=== PATIENT | male | born 1950 | race Hispanic/Latino ===

== ENCOUNTER 2018-07-31 13:59 | Inpatient (IN) | payer MEDICARE, BC ==
[2018-07-31] MEDS ORDERED: Albuterol-Ipratrop 3 mg / 0.5 (3 ml) UD IH STA (14:12)
--- NOTE | 2018-07-31 14:19 | ED PDOC ---
Arrival/HPI - General Chief Complaint: Shortness Of Breath Historian: Patient - Critical Care Critical Care Minutes: 45 minutes - History of Present Illness Narrative History of Present Illness (Text): 07/31/18 14:43 68 year old M w/ no apparent past medical history presenting to the Emergency Room for shortness of breath. Per EMS, the patient was found at home having difficulty breathing, noted to be hypoxic to 90% on room air with faint wheezes. He was not given any medication prior to arrival to the Emergency Room. Per EMS, the patient has a poor history of seeing physicians and had been self-medicating with topical cortisone for a chronic skin lesion noted to his R calf. He denies chest pain, abdominal pain, syncopal episodes, back pain, headache, or parasthesias at this time. No PMD Time/Duration: Prior to Arrival Symptom Onset: Sudden Symptom Course: Unchanged Activities at Onset: Rest Context: Home Past Medical History - Provider Review Nursing Documentation Reviewed: Yes - Travel History Have you recently traveled outside [place] w/in the past 3 mons?: No - Musculoskeletal/Rheumatological Hx Arthritis: Yes - Psychiatric Hx Substance Use: No - Anesthesia Hx Anesthesia: No Hx Anesthesia Reactions: No Hx Malignant Hyperthermia: No Family/Social History - Physician Review Nursing Documentation Reviewed: Yes Family/Social History: Unknown Family HX Smoking Status: Never Smoked Hx Alcohol Use: No Hx Substance Use: No Allergies/Home Meds Allergies/Adverse Reactions: Allergies No Known Allergies Allergy (Verified 07/31/18 19:36) Home Medications: Home Meds Medication Instructions Recorded Confirmed RX: No Known Home Med 07/31/18 07/31/18 Review of Systems - Physician Review All systems were reviewed & negative as marked: Yes - Review of Systems Respiratory: SOB, Cough, Wheezing. absent: Sputum Cardiovascular: absent: Chest Pain, Palpitations, Edema Physical Exam Temperature: Afebrile Blood Pressure: Normal Pulse: Regular Respiratory Rate: Mechanically Ventilated Appearance: Positive for: Unkept Pain Distress: None Mental Status: Positive for: Alert and Oriented X 3 - Systems Exam Head: Present: Atraumatic, Normocephalic Pupils: Present: PERRL Extroacular Muscles: Present: EOMI Conjunctiva: Present: Normal Mouth: Present: Dry Pharnyx: Present: Normal Respiratory/Chest: Present: Wheezes (faint expiratory wheezes heard in anterior lung hopper), Tachypneic. No: Good Air Exchange, Respiratory Distress, Retracting Abdomen: Present: Normal Bowel Sounds. No: Tenderness, Distention, Peritoneal Signs Lower Extremity: Present: Edema, Capillary Refill < 2 s, Other (Thickened skin noted to ) Neurological: Present: GCS=15, Speech Normal (able to speak in full sentences) Skin: Present: Warm, Dry, Induration ( Keratotic hankins lesion noted circumferentially to RLE. ). No: Rashes Psychiatric: Present: Alert, Oriented x 3, Normal Insight, Normal Concentration Medical Decision Making ED Course and Treatment: 07/31/18 14:51 Impression 68M w/ exertional dyspnea Differential Diagnoses Includes But Is Not Limited To: --COPD exacerbation --ACS --CHF --Arrhythmia Plan --Labs --CXR --IVF --Blood cultures --VBG --Urinalysis --ICU consult --ABG --Zosyn --Vancomycin --Renal consult --Reassess & disposition Progress Notes 07/31/18 15:30 Labs reviewed with leukocytosis of 23 noted and as well as abg which reveals metabolic acidosis with CO2: 13 and pH:6.98. Code Sepsis called. Zosyn and Vancomycin ordered. BNP elevated to 14,500. Will give gentle fluids. D-Dimer noted to be elevate, but will hold off on CTPE due to declining renal function 07/31/18 15:[address] Kavin Laughlin(repair armature winder helper) who is aware and will come see the patient. Creatinine/BUN noted to be 18.1 & 232 respectively with worry for renal failure. Spoke to Dr. Yisel Osorio(PCP) who accepts patient and requests Dr. Layton(infectious disease) and Dr. Samaniego(nephrology). 07/31/18 15:51 Dr. Laughlin at the bedside evaluating patient. Spoke to Dr. Samaniego who reccommends giving the patient fluids and possibly dialysis tomorrow if kidney profile is unchanged. Relayed message to admitting team. - Lab Interpretations Lab Results: 07/31/18 14:50 07/31/18 14:50 Lab Results 07/31/18 15:15: pCO2 13 L*, pO2 142.0 H, HCO3 3.1 L*, ABG pH 6.98 L*, ABG Total CO2 3.5 L, ABG O2 Saturation 96.7, ABG O2 Content 12.0 L, ABG Base Excess -26.5 L, ABG Hemoglobin 8.7 L, ABG Carboxyhemoglobin 0 L, POC ABG HHb (Measured) 3.3, ABG Methemoglobin 1.0, ABG O2 Capacity 12.4 L, Hgb O2 Saturation 95.6, FiO2 28.0, Blood Gas Comments Walked to er , Crit Value Called To adela Ritchie, Crit Value Called By Ec, Blood Gas Notified Time 1522 07/31/18 14:50: Sodium 131 L, Chloride 96 L, Potassium 5.7 H*, Carbon Dioxide 5 L, Anion Gap 36 H, BUN 232 H*, Creatinine 18.1 H*, Est GFR ( Amer) 3, Est GFR (Non-Af Amer) 3, Random Glucose 136 H, Calcium 7.0 L, Magnesium 1.9, Total Bilirubin 0.8, AST 34, ALT 23, Alkaline Phosphatase 109, Total Creatine Kinase 477 H, CK-MB (CK-2) 25.0 H, CK-MB (CK-2) % 5.2 H, NT-Pro-B Natriuret Pep 39955 H , Total Protein 7.7, Albumin 3.8, Globulin 4.0, Albumin/Globulin Ratio 1.0 L 07/31/18 14:50: pO2 215 H, VBG pH 6.94 L*, VBG pCO2 17.0 L*, VBG HCO3 3.7 L, VBG Total CO2 4.2 L, VBG O2 Sat (Calc) 96.8 H, VBG Base Excess -27.2 L, VBG Potassium 5.6 H, Sodium 125.0 L, Chloride 94.0 L, Glucose 140 H, Lactate 1.2, FiO2 21.0, Crit Value Called To Larissa carlisle, Crit Value Called By Atc, Blood Gas Notified Time 1505, Venous Blood Potassium 5.6 H 07/31/18 14:50: PT 14.3 H, INR 1.29, APTT 38.1, D-Dimer, Quantitative 5760 H 07/31/18 14:50: WBC 23.3 H, RBC 3.16 L, Hgb 9.0 L, Hct 26.2 L, MCV 82.9, MCH 28.5, MCHC 34.4, RDW 14.5, Plt Count 264, MPV 9.5, Neut % (Auto) 91.4 H, Lymph % (Auto) 6.7 L, [place] % (Auto) 1.5, Eos % (Auto) 0.2 L, Baso % (Auto) 0.2, Lymph # (Auto) 1.6, [place] # (Auto) 0.4, Eos # (Auto) 0.0, Baso # (Auto) 0.05, Absolute Neuts (auto) 21.29 H, Neutrophils % (Manual) 85 H, Band Neutrophils % 4 H, Lymphocytes % (Manual) 4 L, Monocytes % (Manual) 6, Metamyelocytes % 1, Platelet Evaluation Normal I have reviewed the lab results: Yes - RAD Interpretation Radiology Orders: 07/31/18 14:13 CHEST PORTABLE [RAD] Stat - Medication Orders Current Medication Orders: Albuterol/Ipratropium (Duoneb 3 Mg/0.5 Mg (3 Ml) Ud) 3 ml IH STAT STA Stop: 07/31/18 14:13 Methylprednisolone (Solu-Medrol) 125 mg IVP STAT STA Stop: 07/31/18 14:14 Disposition/Present on Arrival - Present on Arrival Any Indicators Present on Arrival: No History of DVT/PE: No History of Uncontrolled Diabetes: No Urinary Catheter: No History of Decub. Ulcer: No History Surgical Site Infection Following: None - Disposition Have Diagnosis and Disposition been Completed?: Yes Diagnosis: Acute renal failure, Sepsis Disposition: HOSPITALIZED Disposition Time: 15:51 Patient Plan: ICU Condition: SERIOUS
[2018-07-31] MEDS ORDERED: Albuterol 0.083% Inhal Sol (2.5 mg/3 mL) UD INH STA (14:53)
[2018-07-31] MEDS ORDERED: Sodium Chloride 0.9% 1,000 ML IV STA ×3 (14:57→17:03)
[2018-07-31 15:05] LABS: BASO # 0.05 K/mm3 (0.0-2.0); BASO % 0.2 % (0.0-3.0); EOS % 0.2 % (1.5-5.0); LYMPH # 1.6 (1.2-3.4); LYMPH % 6.7 % (22.0-35.0); MEAN CELL VOLUME 82.9 fl (80.0-105.0); MEAN CORPUSCULAR HEMOGLOBIN 28.5 pg (25.0-35.0); MEAN CORPUSCULAR HGB CONC 34.4 g/dl (31.0-37.0); MEAN PLATELET VOLUME 9.5 fl (7.0-11.0); MONO # 0.4 (0.1-0.6); MONO % 1.5 % (1.0-6.0); PLATELET COUNT 264 10^3/uL (120.0-450.0); RBC 3.16 10^6/uL (3.5-6.1); RED CELL DISTRIBUTION WIDTH 14.5 % (11.5-14.5); WHITE BLOOD COUNT 23.3 10^3/uL (4.5-11.0)
[2018-07-31 15:06] LABS: VENOUS BLOOD GAS BASE EXCESS -27.2 mmol/L (0.0-2.0); VENOUS BLOOD GAS PO2 215 mm/Hg (30-55); VENOUS BLOOD PH 6.94 (7.32-7.43)
[2018-07-31 15:22] LABS: INR 1.29; PARTIAL THROMBOPLASTIN TIME 38.1 Seconds (26.9-38.3); PROTHROMBIN TIME 14.3 SECONDS (9.4-12.5)
[2018-07-31 15:23] LABS: ARTERIAL BLOOD GAS HCO3 3.1 mmol/L (21-28); ARTERIAL BLOOD GAS HEMOGLOBIN 8.7 g/dL (11.7-17.4); ARTERIAL BLOOD GAS O2 CAPACITY 12.4 mL/dl (16-24); ARTERIAL BLOOD GAS O2 SAT 96.7 % (95-98); ARTERIAL BLOOD GAS PCO2 13 mm/Hg (35-45); ARTERIAL BLOOD GAS PH 6.98 (7.35-7.45); ARTERIAL BLOOD GAS TCO2 3.5 mmol.L (22-28)
[2018-07-31] MEDS ORDERED: Piperacill/Tazo 4.5gm in NS 4.5 GM/100 ML BAG IVPB STA (15:29)
[2018-07-31] MEDS ORDERED: Vancomycin 1gm in NS 250ml 1 GM/250 ML BAG IVPB STA (15:29)
[2018-07-31 15:33] LABS: ALBUMIN 3.8 g/dL (3.0-4.8)
[2018-07-31 15:46] LABS: BAND 4 % (0-2); LYMPHOCYTE 4 % (22.0-35.0); METAMYELOCYTE 1 %; MONOCYTE 6 % (1.0-6.0); NEUTROPHIL 85 % (50.0-70.0)
[2018-07-31 15:47] LABS: PLATELET ESTIMATE NORMAL (NORMAL)
--- NOTE | 2018-07-31 15:55 | RAD ---
Date of service: 07/31/2018 HISTORY: sob COMPARISON: No prior. FINDINGS: LUNGS: No active pulmonary disease. PLEURA: No significant pleural effusion identified, no pneumothorax apparent. CARDIOVASCULAR: No aortic atherosclerotic calcification present. Normal cardiac size. Minimal vascular congestion OSSEOUS STRUCTURES: No significant abnormalities. VISUALIZED UPPER ABDOMEN: Normal. OTHER FINDINGS: None. IMPRESSION: No active disease.
[2018-07-31 15:58] LABS: CK MB% 5.2 % (2.5-3.0)
[2018-07-31] MEDS ORDERED: Sodium Bicarbonate (8.4%) 50 Meq Syringe IVP ONE ×2 (16:05→18:46)
[2018-07-31] MEDS ORDERED: Dextrose 50% SYRINGE Inj (50 ml) IVP ONE (16:06)
[2018-07-31] MEDS ORDERED: Insulin Regular 1 UNITS/0.01 ML ML SC ONE (16:06)
--- NOTE | 2018-07-31 16:45 | CP.PCM.CON ---
<JadeKyle - Last Filed: 07/31/18 17:06> History of Present Illness - History of Present Illness History of Present Illness: Kyle Hansen, PGY-1, ICU Consult Note for Dr. Laughlin 68 year old male with past medical history of arthritis and is new to [facility] presents with shortness of breath for 7-10 days. Patient was found by EMS at home with shortness of breath and was hypoxic with O2 saturation of 90% on room air. No medications were given prior to patient arrival at ER. Patient has not risen from his bed due to the difficulty of getting out of bed since April. He ambulates with a walker s/p hip surgery 3 years ago. Patient subsequently developed shortness of breath for 7-10 days but patient denied cough, sputum, fever, or chills. Patient last urinated this AM. But subsequently, he had the urge to urinate but was unable to urinate. He has not urinated since he arrived at the hospital. Patient also reports undescribable chest pain for 3 days in his middle upper chest. Patient is unable to describe the pain or explain what improves or worsens the pain. Patient denies diaphoresis, left arm pain, and jaw pain. He reports nausea and nonbloody, nonbilious vomitingx2 yesterday. Patient reports abdominal pain for the past 3 days but denies constipation or diarrhea. Patient started eating burBag of Ice margarita hamburgers prior to abdominal pain onset. Patient denies fever, chills, headache, heart palpitations, dysuria, hematuria, bilateral lower extremity swelling. 12-point ROS was unremarkable except for what was mentioned above in HPI. BUN/Cr upon presentation was 232/18.1. Potassium was 5.7, Sodium was 131, ABG pH was 6.98, and ABG pCO2 was 13 PMH: as described above PSH: hip surgery 3 years ago FMHx: Mother: ESRD on dialysis SHx: smoked 1 PPD for 40 years with last cigarette in 2011, prior history of alcohol use, no history of recreational drug use Allergies: NKDA PMD: Dr. Beltran Home medications: OTC Allieve and OTC steroid cream for chronic leg rash Review of Systems - Review of Systems Review of Systems: except as mentioned in the HPI Past Patient History - Past Social History Smoking Status: Never Smoked - MUSCULOSKELETAL/RHEUMATOLOGICAL Hx Arthritis: Yes - PSYCHIATRIC Hx Substance Use: No - ANESTHESIA Hx Anesthesia: No Hx Anesthesia Reactions: No Hx Malignant Hyperthermia: No Meds Allergies/Adverse Reactions: Allergies Allergy/AdvReac Type Severity Reaction Status Date / Time No Known Allergies Allergy Verified 07/31/18 19:36 - Medications Medications: Current Medications Vancomycin HCl (Vancomycin 1gm) 1 gm in 250 mls @ 167 mls/hr IVPB STAT STA; Protocol Stop: 07/31/18 16:58 Sodium Chloride (Sodium Chloride 0.9%) 1,000 mls @ 999 mls/hr IV .Q1H1M STA Stop: 07/31/18 17:04 Calcium Gluconate 1,000 mg/ (Dextrose) 110 mls @ 110 mls/hr IVPB ONCE ONE Stop: 07/31/18 17:04 Physical Exam - Constitutional Appears: Well, Non-toxic, No Acute Distress - Head Exam Head Exam: ATRAUMATIC, NORMAL INSPECTION, NORMOCEPHALIC - Eye Exam Eye Exam: EOMI, PERRL - ENT Exam ENT Exam: Mucous Membranes Moist - Respiratory Exam Respiratory Exam: Wheezes (mild diffuse), Respiratory Distress (tachypneic) - Cardiovascular Exam Cardiovascular Exam: REGULAR RHYTHM, RRR - GI/Abdominal Exam GI & Abdominal Exam: Normal Bowel Sounds, Soft. absent: Distended, Tenderness - Extremities Exam Extremities exam: Positive for: full ROM - Neurological Exam Neurological exam: Alert, CN II-XII Intact, Oriented x3 - Psychiatric Exam Psychiatric exam: Normal Affect, Normal Mood - Skin Additional comments: chronic right leg rash with flaky brown lesions Results - Vital Signs Recent Vital Signs: Last Vital Signs Temp Pulse Resp 22 07/31/18 15:01 BP Pulse Ox 100 07/31/18 15:01 - Labs Result Diagrams: 07/31/18 14:50 07/31/18 14:50 Labs: Laboratory Results - last 24 hr 07/31/18 07/31/18 07/31/18 14:50 14:50 14:50 WBC 23.3 H RBC 3.16 L Hgb 9.0 L Hct 26.2 L MCV 82.9 MCH 28.5 MCHC 34.4 RDW 14.5 Plt Count 264 MPV 9.5 Neut % (Auto) 91.4 H Lymph % (Auto) 6.7 L [place] % (Auto) 1.5 Eos % (Auto) 0.2 L Baso % (Auto) 0.2 Lymph # (Auto) 1.6 [place] # (Auto) 0.4 Eos # (Auto) 0.0 Baso # (Auto) 0.05 Absolute Neuts (auto) 21.29 H Neutrophils % (Manual) 85 H Band Neutrophils % 4 H Lymphocytes % (Manual) 4 L Monocytes % (Manual) 6 Metamyelocytes % 1 Platelet Evaluation Normal PT 14.3 H INR 1.29 APTT 38.1 D-Dimer, Quantitative 5760 H pCO2 pO2 215 H HCO3 ABG pH ABG Total CO2 ABG O2 Saturation ABG O2 Content ABG Base Excess ABG Hemoglobin ABG Carboxyhemoglobin POC ABG HHb (Measured) ABG Methemoglobin ABG O2 Capacity VBG pH 6.94 L* VBG pCO2 17.0 L* VBG HCO3 3.7 L VBG Total CO2 4.2 L VBG O2 Sat (Calc) 96.8 H VBG Base Excess -27.2 L VBG Potassium 5.6 H Hgb O2 Saturation Sodium 125.0 L Chloride 94.0 L Glucose 140 H Lactate 1.2 FiO2 21.0 Blood Gas Comments Crit Value Called To Larissa carlisle Crit Value Called By Atc Blood Gas Notified Time 1505 Potassium Carbon Dioxide Anion Gap BUN Creatinine Est GFR ( Amer) Est GFR (Non-Af Amer) Random Glucose Calcium Magnesium Total Bilirubin AST ALT Alkaline Phosphatase Total Creatine Kinase CK-MB (CK-2) CK-MB (CK-2) % NT-Pro-B Natriuret Pep Total Protein Albumin Globulin Albumin/Globulin Ratio Venous Blood Potassium 5.6 H 07/31/18 07/31/18 14:50 15:15 WBC RBC Hgb Hct MCV MCH MCHC RDW Plt Count MPV Neut % (Auto) Lymph % (Auto) [place] % (Auto) Eos % (Auto) Baso % (Auto) Lymph # (Auto) [place] # (Auto) Eos # (Auto) Baso # (Auto) Absolute Neuts (auto) Neutrophils % (Manual) Band Neutrophils % Lymphocytes % (Manual) Monocytes % (Manual) Metamyelocytes % Platelet Evaluation PT INR APTT D-Dimer, Quantitative pCO2 13 L* pO2 142.0 H HCO3 3.1 L* ABG pH 6.98 L* ABG Total CO2 3.5 L ABG O2 Saturation 96.7 ABG O2 Content 12.0 L ABG Base Excess -26.5 L ABG Hemoglobin 8.7 L ABG Carboxyhemoglobin 0 L POC ABG HHb (Measured) 3.3 ABG Methemoglobin 1.0 ABG O2 Capacity 12.4 L VBG pH VBG pCO2 VBG HCO3 VBG Total CO2 VBG O2 Sat (Calc) VBG Base Excess VBG Potassium Hgb O2 Saturation 95.6 Sodium 131 L Chloride 96 L Glucose Lactate FiO2 28.0 Blood Gas Comments Walked to er Crit Value Called To adela Ritchie Crit Value Called By Ec Blood Gas Notified Time 1522 Potassium 5.7 H* Carbon Dioxide 5 L Anion Gap 36 H BUN 232 H* Creatinine 18.1 H* Est GFR ( Amer) 3 Est GFR (Non-Af Amer) 3 Random Glucose 136 H Calcium 7.0 L Magnesium 1.9 Total Bilirubin 0.8 AST 34 ALT 23 Alkaline Phosphatase 109 Total Creatine Kinase 477 H CK-MB (CK-2) 25.0 H CK-MB (CK-2) % 5.2 H NT-Pro-B Natriuret Pep 03475 H Total Protein 7.7 Albumin 3.8 Globulin 4.0 Albumin/Globulin Ratio 1.0 L Venous Blood Potassium Assessment & Plan - Assessment and Plan (Free Text) Assessment: 68 year old male with past medical history of arthritis presents with acute renal failure like 2/2 to rhabdomyolysis vs. acute tubular necrosis from dehydration. Patient is currently receiving IV fluids and sodium bicarbonate drip due to renal failure and severe anion gap metabolic acidosis with appropriate compensation of respiratory alkalosis. Plan: Neuro: -AAOx3, no FND, moving extremities past midline. -Monitor neuro status. -Reorient patient as necessary. Cardio: Elevated BNP 2/2 to CHF vs. pulmonary etiology -BNP: 28879 -EKG: NSR with 1st degree AV block -Echocardiogram: pending -Troponinx3: pending -Maintain MAP>65. -Monitor for S/S, HD compromise. Pulm: Tachypnea due to metabolic acidosis -ABG: pH: 6.98, pO2: 142, pCO2: 13 -CXR: no active disease -Maintain O2 saturation>90%. -Head of bed to 30 degrees -Conservative fluid management -Maintain oral hygiene History of tobacco abuse -Duonebs Q2 PRN for shortness of breath GI: Diet -NPO GI prophylaxis -Protonix 40 mg daily /Nephro: Acute Renal Failure 2/2 to Rhabdomyolysis vs. Acute Tubular Necrosis -BUN/Cr elevated at 232/18.1 with unknown baseline creatinine -CK: elevated 477 -No urine output at this time -Strict I and O with suarez. Measure daily weight -2 L of NS already administered -Administer 1 more L of NS bolus -Administer Sodium bicarbonate drip with 1 amp -As per Dr. Samaniego, if patient's creatinine does not respond appropriately and patient continues to be anuric, he will consider dialysis for tomorrow. -Follow up reevaluation of CMP at 19:00 -Replete electrolytes as needed. -Maintain euvolemia. Hyperkalemia -K: 5.7 -Calcium gluconate, kayexalate, 1 amp of sodium bicarbonate, and insulin 10 U with D50 bolus Endocrinology: -Random glucose: 136 -Maintain euglycemia. Heme/Onc: Anemia -H/H stable at 9/26.2 -Will check CBC at 19:00 due to likely dehydrated status -No signs of HD compromise. -Continue monitoring H/H Elevated D-dimer -Rule out DVT with bilateral lower extremity ultrasound -Avoid CTA to evaluate for PE due to acute renal failure -Avoid V/Q scan to evaluate for PE due to current tachypnea. DVT prophylaxis -heparin 5000 U Q8 ID: -Afebrile, leukocytosis at 23.3 -Blood culture: follow up -Urine Culture: follow up -Procalcitonin: follow up -Lactate: 1.2 -Given one dose of vancomycin and zosyn in the emergency department. -Monitor for signs and symptoms of infection. Patient seen and examined with Dr. Laughlin. - Date & Time Date: 07/31/18 Time: 17:16 <Vladimir Laughlin - Last Filed: 08/01/18 09:59> Meds - Medications Medications: Current Medications Albuterol/Ipratropium (Duoneb 3 Mg/0.5 Mg (3 Ml) Ud) 3 ml IH Q2H PRN PRN Reason: Shortness of Breath Aspirin (Aspirin Chewable) 81 mg PO DAILY [facility] Last Admin: 08/01/18 09:27 Dose: 81 mg Atorvastatin Calcium (Lipitor) 40 mg PO DIN [facility] Calcium Acetate (Phoslo) 2,001 mg PO WM [facility] Darbepoetin Ron (Aranesp) 100 mcg IVP QWK [facility] Heparin Sodium (Porcine) (Heparin) 5,000 units SC Q8 [facility]; Protocol Last Admin: 08/01/18 05:02 Dose: 5,000 units Sodium Bicarbonate 150 meq/ (Sodium Chloride) 1,150 mls @ 150 mls/hr IV .Q7H40M NESTOR Last Admin: 08/01/18 09:43 Dose: 150 mls/hr Cefepime HCl (Maxipime 1gm) 1 gm in 100 mls @ 100 mls/hr IVPB Q24H [facility]; Protocol Last Admin: 07/31/18 20:27 Dose: 100 mls/hr Pantoprazole Sodium (Protonix Inj) 40 mg IVP DAILY [facility] Last Admin: 08/01/18 09:02 Dose: 40 mg Vitamin B Complex/Vit C/Folic Acid (Nephro-Agustina) 1 tab PO 0800 [facility] Results - Vital Signs Recent Vital Signs: Last Vital Signs Temp 96.6 F L 07/31/18 23:16 Pulse 108 H 08/01/18 06:00 Resp 23 07/31/18 22:12 BP 129/61 07/31/18 17:58 Pulse Ox 98 07/31/18 17:58 - Labs Result Diagrams: 08/01/18 05:40 08/01/18 05:40 Labs: Laboratory Results - last 24 hr 07/31/18 07/31/18 07/31/18 14:50 14:50 14:50 WBC 23.3 H RBC 3.16 L Hgb 9.0 L Hct 26.2 L MCV 82.9 MCH 28.5 MCHC 34.4 RDW 14.5 Plt Count 264 MPV 9.5 Neut % (Auto) 91.4 H Lymph % (Auto) 6.7 L [place] % (Auto) 1.5 Eos % (Auto) 0.2 L Baso % (Auto) 0.2 Lymph # (Auto) 1.6 [place] # (Auto) 0.4 Eos # (Auto) 0.0 Baso # (Auto) 0.05 Absolute Neuts (auto) 21.29 H Neutrophils % (Manual) 85 H Band Neutrophils % 4 H Lymphocytes % (Manual) 4 L Monocytes % (Manual) 6 Metamyelocytes % 1 Platelet Evaluation Normal PT 14.3 H INR 1.29 APTT 38.1 D-Dimer, Quantitative 5760 H pCO2 pO2 215 H HCO3 ABG pH ABG Total CO2 ABG O2 Saturation ABG O2 Content ABG Base Excess ABG Hemoglobin ABG Carboxyhemoglobin POC ABG HHb (Measured) ABG Methemoglobin ABG O2 Capacity VBG pH 6.94 L* VBG pCO2 17.0 L* VBG HCO3 3.7 L VBG Total CO2 4.2 L VBG O2 Sat (Calc) 96.8 H VBG Base Excess -27.2 L VBG Potassium 5.6 H Hgb O2 Saturation Sodium 125.0 L Chloride 94.0 L Glucose 140 H Lactate 1.2 FiO2 21.0 Blood Gas Comments Crit Value Called To Larissa carlisle Crit Value Called By Atc Blood Gas Notified Time 1505 Potassium Carbon Dioxide Anion Gap BUN Creatinine Est GFR ( Amer) Est GFR (Non-Af Amer) Random Glucose Calcium Phosphorus Magnesium Total Bilirubin AST ALT Alkaline Phosphatase Total Creatine Kinase CK-MB (CK-2) CK-MB (CK-2) % Troponin I NT-Pro-B Natriuret Pep Total Protein Albumin Globulin Albumin/Globulin Ratio Procalcitonin Venous Blood Potassium 5.6 H Urine Color Urine Appearance Urine pH Ur Specific [place] Urine Protein Urine Glucose (UA) Urine Ketones Urine Blood Urine Nitrate Urine Bilirubin Urine Urobilinogen Ur Leukocyte Esterase Urine RBC Urine WBC Ur Epithelial Cells Urine Bacteria 07/31/18 07/31/18 07/31/18 14:50 15:15 17:56 WBC RBC Hgb Hct MCV MCH MCHC RDW Plt Count MPV Neut % (Auto) Lymph % (Auto) [place] % (Auto) Eos % (Auto) Baso % (Auto) Lymph # (Auto) [place] # (Auto) Eos # (Auto) Baso # (Auto) Absolute Neuts (auto) Neutrophils % (Manual) Band Neutrophils % Lymphocytes % (Manual) Monocytes % (Manual) Metamyelocytes % Platelet Evaluation PT INR APTT D-Dimer, Quantitative pCO2 13 L* pO2 142.0 H HCO3 3.1 L* ABG pH 6.98 L* ABG Total CO2 3.5 L ABG O2 Saturation 96.7 ABG O2 Content 12.0 L ABG Base Excess -26.5 L ABG Hemoglobin 8.7 L ABG Carboxyhemoglobin 0 L POC ABG HHb (Measured) 3.3 ABG Methemoglobin 1.0 ABG O2 Capacity 12.4 L VBG pH VBG pCO2 VBG HCO3 VBG Total CO2 VBG O2 Sat (Calc) VBG Base Excess VBG Potassium Hgb O2 Saturation 95.6 Sodium 131 L 131 L Chloride 96 L 97 L Glucose Lactate FiO2 28.0 Blood Gas Comments Walked to er Crit Value Called To adela Ritchie Crit Value Called By Ec Blood Gas Notified Time 1522 Potassium 5.7 H* 5.4 H Carbon Dioxide 5 L < 5 L Anion Gap 36 H 34 H BUN 232 H* 230 H* Creatinine 18.1 H* 18.3 H* Est GFR ( Amer) 3 3 Est GFR (Non-Af Amer) 3 3 Random Glucose 136 H 211 H Calcium 7.0 L 6.7 L* Phosphorus 13.4 H Magnesium 1.9 2.0 Total Bilirubin 0.8 0.9 AST 34 29 ALT 23 26 Alkaline Phosphatase 109 105 Total Creatine Kinase 477 H CK-MB (CK-2) 25.0 H CK-MB (CK-2) % 5.2 H Troponin I 0.11 NT-Pro-B Natriuret Pep 48104 H Total Protein 7.7 7.3 Albumin 3.8 3.6 Globulin 4.0 3.7 Albumin/Globulin Ratio 1.0 L 1.0 L Procalcitonin Venous Blood Potassium Urine Color Urine Appearance Urine pH Ur Specific [place] Urine Protein Urine Glucose (UA) Urine Ketones Urine Blood Urine Nitrate Urine Bilirubin Urine Urobilinogen Ur Leukocyte Esterase Urine RBC Urine WBC Ur Epithelial Cells Urine Bacteria 07/31/18 07/31/18 07/31/18 18:00 18:14 18:14 WBC 21.9 H RBC 3.04 L Hgb 8.6 L Hct 25.2 L MCV 82.9 MCH 28.3 MCHC 34.1 RDW 14.6 H Plt Count 268 MPV 9.7 Neut % (Auto) 93.9 H Lymph % (Auto) 4.4 L [place] % (Auto) 1.6 Eos % (Auto) 0.0 L Baso % (Auto) 0.1 Lymph # (Auto) 1.0 L [place] # (Auto) 0.4 Eos # (Auto) 0.0 Baso # (Auto) 0.03 Absolute Neuts (auto) 20.56 H Neutrophils % (Manual) Band Neutrophils % Lymphocytes % (Manual) Monocytes % (Manual) Metamyelocytes % Platelet Evaluation PT INR APTT D-Dimer, Quantitative pCO2 pO2 110 H HCO3 ABG pH ABG Total CO2 ABG O2 Saturation ABG O2 Content ABG Base Excess ABG Hemoglobin ABG Carboxyhemoglobin POC ABG HHb (Measured) ABG Methemoglobin ABG O2 Capacity VBG pH 6.93 L* VBG pCO2 16.0 L* VBG HCO3 3.4 L VBG Total CO2 3.9 L VBG O2 Sat (Calc) 96.2 H VBG Base Excess -27.7 L VBG Potassium 5.6 H Hgb O2 Saturation Sodium 126.0 L Chloride 95.0 L Glucose 215 H Lactate 1.4 FiO2 21.0 Blood Gas Comments Crit Value Called To Kristina abarca Crit Value Called By [facility] Blood Gas Notified Time 1825 Potassium Carbon Dioxide Anion Gap BUN Creatinine Est GFR ( Amer) Est GFR (Non-Af Amer) Random Glucose Calcium Phosphorus Magnesium Total Bilirubin AST ALT Alkaline Phosphatase Total Creatine Kinase CK-MB (CK-2) CK-MB (CK-2) % Troponin I NT-Pro-B Natriuret Pep Total Protein Albumin Globulin Albumin/Globulin Ratio Procalcitonin 1.89 H Venous Blood Potassium 5.6 H Urine Color Urine Appearance Urine pH Ur Specific [place] Urine Protein Urine Glucose (UA) Urine Ketones Urine Blood Urine Nitrate Urine Bilirubin Urine Urobilinogen Ur Leukocyte Esterase Urine RBC Urine WBC Ur Epithelial Cells Urine Bacteria 07/31/18 07/31/18 08/01/18 22:42 23:15 05:40 WBC RBC Hgb Hct MCV MCH MCHC RDW Plt Count MPV Neut % (Auto) Lymph % (Auto) [place] % (Auto) Eos % (Auto) Baso % (Auto) Lymph # (Auto) [place] # (Auto) Eos # (Auto) Baso # (Auto) Absolute Neuts (auto) Neutrophils % (Manual) Band Neutrophils % Lymphocytes % (Manual) Monocytes % (Manual) Metamyelocytes % Platelet Evaluation PT INR APTT D-Dimer, Quantitative pCO2 pO2 HCO3 ABG pH ABG Total CO2 ABG O2 Saturation ABG O2 Content ABG Base Excess ABG Hemoglobin ABG Carboxyhemoglobin POC ABG HHb (Measured) ABG Methemoglobin ABG O2 Capacity VBG pH VBG pCO2 VBG HCO3 VBG Total CO2 VBG O2 Sat (Calc) VBG Base Excess VBG Potassium Hgb O2 Saturation Sodium 136 Chloride 103 Glucose Lactate FiO2 Blood Gas Comments Crit Value Called To Crit Value Called By Blood Gas Notified Time Potassium 4.7 Carbon Dioxide 7 L D Anion Gap 30 H BUN 234 H* Creatinine 16.6 H* Est GFR ( Amer) 4 Est GFR (Non-Af Amer) 3 Random Glucose 155 H Calcium 6.5 L* Phosphorus 11.9 H Magnesium 1.7 Total Bilirubin 0.8 AST 39 ALT 23 Alkaline Phosphatase 86 Total Creatine Kinase CK-MB (CK-2) CK-MB (CK-2) % Troponin I 0.27 H* D 0.95 H* D NT-Pro-B Natriuret Pep Total Protein 6.6 Albumin 3.3 Globulin 3.4 Albumin/Globulin Ratio 1.0 L Procalcitonin Venous Blood Potassium Urine Color Light yellow Urine Appearance Sl cloudy Urine pH 6.0 Ur Specific [place] 1.020 Urine Protein Trace H Urine Glucose (UA) Negative Urine Ketones Negative Urine Blood Moderate H Urine Nitrate Negative Urine Bilirubin Negative Urine Urobilinogen 0.2 Ur Leukocyte Esterase Moderate H Urine RBC 2 - 5 H Urine WBC 25 - 30 H Ur Epithelial Cells 0 - 2 Urine Bacteria Few 08/01/18 08/01/18 05:40 06:20 WBC 12.3 H D RBC 2.76 L Hgb 7.7 L Hct 22.2 L MCV 80.4 MCH 27.9 MCHC 34.7 RDW 14.3 Plt Count 239 MPV 9.4 Neut % (Auto) 95.8 H Lymph % (Auto) 3.4 L [place] % (Auto) 0.7 L Eos % (Auto) 0.1 L Baso % (Auto) 0.0 Lymph # (Auto) 0.4 L [place] # (Auto) 0.1 Eos # (Auto) 0.0 Baso # (Auto) 0.00 Absolute Neuts (auto) 11.79 H Neutrophils % (Manual) Band Neutrophils % Lymphocytes % (Manual) Monocytes % (Manual) Metamyelocytes % Platelet Evaluation PT INR APTT D-Dimer, Quantitative pCO2 13 L* pO2 154.0 H HCO3 5.3 L* ABG pH 7.22 L ABG Total CO2 5.7 L ABG O2 Saturation 96.2 ABG O2 Content 9.0 L ABG Base Excess -20.5 L ABG Hemoglobin 6.4 L ABG Carboxyhemoglobin 0 L POC ABG HHb (Measured) 3.8 ABG Methemoglobin 0.9 ABG O2 Capacity 9.4 L VBG pH VBG pCO2 VBG HCO3 VBG Total CO2 VBG O2 Sat (Calc) VBG Base Excess VBG Potassium Hgb O2 Saturation 95.4 Sodium Chloride Glucose Lactate FiO2 28.0 Blood Gas Comments Crit Value Called To Sherin garcia rn icu Crit Value Called By Constantino Blood Gas Notified Time 633 Potassium Carbon Dioxide Anion Gap BUN Creatinine Est GFR ( Amer) Est GFR (Non-Af Amer) Random Glucose Calcium Phosphorus Magnesium Total Bilirubin AST ALT Alkaline Phosphatase Total Creatine Kinase CK-MB (CK-2) CK-MB (CK-2) % Troponin I NT-Pro-B Natriuret Pep Total Protein Albumin Globulin Albumin/Globulin Ratio Procalcitonin Venous Blood Potassium Urine Color Urine Appearance Urine pH Ur Specific [place] Urine Protein Urine Glucose (UA) Urine Ketones Urine Blood Urine Nitrate Urine Bilirubin Urine Urobilinogen Ur Leukocyte Esterase Urine RBC Urine WBC Ur Epithelial Cells Urine Bacteria Addendum Addendum: 07/31/18 15:58 ICU Attending Addendum Patient seen and examined on 07/31 in the ED. Case reviewed on round with nona nugent. Agree with resident note above with the following additions/exceptions 68M presents with lethargy and poor PO intake found to be in severe metabolic acidosis from acute renal failure likely ATN from dehydration. Will fluid challenege with 3-4L NS and bicarb drip. He is breathing fast to compensate but does not appear to be failing. Hold off on intubation. Nephro on board for evaluation of HD for acidosis and hyperK. Will rule out ACS and sepsis as well. Repeat VBG in 2 hours as well as repeat chem check TNI [place] culture 3L NS at leastbicarb drip insert suarez f/u nephro recs f/u DVT study Rest of care as above Vladimir Laughlin MD Pulmonary Critical Care Attending Critical Care Time: 31 mins 07/31/18 17:59
[2018-07-31] MEDS ORDERED: Albuterol-Ipratrop 3 mg / 0.5 (3 ml) UD IH PRN (17:04)
[2018-07-31 18:20] LABS: BASO # 0.03 K/mm3 (0.0-2.0); BASO % 0.1 % (0.0-3.0); HEMOGLOBIN 8.6 g/dL (14.0-18.0); LYMPH % 4.4 % (22.0-35.0); MEAN CELL VOLUME 82.9 fl (80.0-105.0); MEAN CORPUSCULAR HEMOGLOBIN 28.3 pg (25.0-35.0); MEAN CORPUSCULAR HGB CONC 34.1 g/dl (31.0-37.0); MEAN PLATELET VOLUME 9.7 fl (7.0-11.0); MONO # 0.4 (0.1-0.6); MONO % 1.6 % (1.0-6.0); RBC 3.04 10^6/uL (3.5-6.1); RED CELL DISTRIBUTION WIDTH 14.6 % (11.5-14.5); WHITE BLOOD COUNT 21.9 10^3/uL (4.5-11.0)
[2018-07-31 18:26] LABS: TROPONIN I 0.11 ng/mL
[2018-07-31 18:29] LABS: VENOUS BLOOD GAS BASE EXCESS -27.7 mmol/L (0.0-2.0); VENOUS BLOOD GAS PO2 110 mm/Hg (30-55); VENOUS BLOOD PH 6.93 (7.32-7.43)
[2018-07-31 18:31] LABS: ALBUMIN 3.6 g/dL (3.0-4.8); ALT/SGPT 26 U/L (7-56); AST/SGOT 29 U/L (17-59); BLOOD UREA NITROGEN 230 mg/dL (7-21); CALCIUM 6.7 mg/dL (8.4-10.5); GFR NON-AFRICAN AMERICAN 3
[2018-07-31] MEDS ORDERED: Vancomycin 1.5 GM in Sodium Chloride 0.9% 500 ML IVPB ONE (18:38)
--- NOTE | 2018-07-31 18:45 | PCM.SEPTIC ---
Sepsis Progress Note - Reassessment Type Date of Evaluation: 07/31/18 Time of Evaluation: 18:30 Reassessment Type: Non-invasive reassessment - Non Invasive Reassessment Were the most recent vital sign reviewed: Yes Vital Sign (Latest): Temp Pulse Resp BP Pulse Ox 94.1 F L 97 H 21 129/61 98 07/31/18 18:33 07/31/18 17:58 07/31/18 17:58 07/31/18 17:58 07/31/18 17:58 Cardiovascular: Yes: Tachycardia. No: Gallop, JVD, Murmur, Friction Rub Respiratory: Yes: Wheezing (expiratory), Other (tachypnic). No: Accessory Muscle Use Capillary Refill: Normal (Less than 2 sec) Skin: Normal Color, Warm, Dry
[2018-07-31] MEDS ORDERED: Albuterol-Ipratrop 3 mg / 0.5 (3 ml) UD IH SCH (20:00)
[2018-07-31] MEDS: Cefepime 1gm in NS 100ml 1 GM/100 ML BAG IVPB SCH (20:27)
[2018-07-31 22:43] VITALS: BMI 33.2
[2018-07-31] MEDS ORDERED: Influenza Vaccine 60 mcg/0.5 mL SYR (4YR UP) IM ONE (22:43)
[2018-07-31] MEDS ORDERED: Pneumococcal 23-Valent Vaccine IM ONE (22:43)
[2018-07-31 22:47] LABS: URINE BILIRUBIN NEGATIVE (NEGATIVE); URINE BLOOD MODERATE (NEGATIVE); URINE GLUCOSE (UA) NEGATIVE (NEGATIVE); URINE LEUKOCYTE ESTERASE MODERATE Leu/uL (NEGATIVE); URINE PROTEIN TRACE mg/dL (<30 mg/dL); URINE UROBILINOGEN 0.2 E.U./dL (<1 E.U./dL)
[2018-07-31 22:49] LABS: URINE APPEARANCE SL CLOUDY (CLEAR); URINE COLOR LIGHT YELLOW (YELLOW)
[2018-07-31 22:57] LABS: URINE WBC 25 - 30 /hpf (0-6)
[2018-07-31 22:58] LABS: URINE BACTERIA FEW /hpf; URINE EPITHELIAL CELLS 0 - 2 /hpf (0-5)
--- NOTE | 2018-07-31 23:55 | CARD ---
APPROVED REPORT Date of service: 07/31/2018 EKG Measurement Heart [id number] <Conclusion> Sinus rhythm with 1st degree AV block Nonspecific ST and T wave abnormality Prolonged QT Abnormal ECG
[2018-08-01 06:33] LABS: ARTERIAL BLOOD GAS HCO3 5.3 mmol/L (21-28); ARTERIAL BLOOD GAS HEMOGLOBIN 6.4 g/dL (11.7-17.4); ARTERIAL BLOOD GAS O2 CAPACITY 9.4 mL/dl (16-24); ARTERIAL BLOOD GAS O2 SAT 96.2 % (95-98); ARTERIAL BLOOD GAS PCO2 13 mm/Hg (35-45); ARTERIAL BLOOD GAS PH 7.22 (7.35-7.45); ARTERIAL BLOOD GAS TCO2 5.7 mmol.L (22-28)
[2018-08-01 06:58] LABS: EOS % 0.1 % (1.5-5.0); HEMOGLOBIN 7.7 g/dL (14.0-18.0); LYMPH # 0.4 (1.2-3.4); LYMPH % 3.4 % (22.0-35.0); MEAN CELL VOLUME 80.4 fl (80.0-105.0); MEAN CORPUSCULAR HEMOGLOBIN 27.9 pg (25.0-35.0); MEAN CORPUSCULAR HGB CONC 34.7 g/dl (31.0-37.0); MEAN PLATELET VOLUME 9.4 fl (7.0-11.0); MONO # 0.1 (0.1-0.6); MONO % 0.7 % (1.0-6.0); RBC 2.76 10^6/uL (3.5-6.1); RED CELL DISTRIBUTION WIDTH 14.3 % (11.5-14.5); WHITE BLOOD COUNT 12.3 10^3/uL (4.5-11.0)
[2018-08-01 08:07] LABS: ALBUMIN 3.3 g/dL (3.0-4.8); CALCIUM 6.5 mg/dL (8.4-10.5); TROPONIN I 0.95 ng/mL
[2018-08-01] MEDS ORDERED: Darbepoetin Alfa 100 mcg/ml Inj IVP SCH (10:00)
--- NOTE | 2018-08-01 10:32 | CP.CCUPN ---
<Kyle Hansen - Last Filed: 08/01/18 13:36> CCU Subjective - Physician Review Subjective (Free Text): Kyle Hansen, PGY-1 ICU Progress Note for Dr. Sims Patient seen and evaluated at bedside. No acute overnight events. Patient reports improved chest pain and shortness of breath. Patient denies headache, fever, heart palpitations, left arm pain, jaw pain, nausea, vomiting, constipation, abdominal pain, dysuria, hematuria. 12-point ROS was negative except for what was mentioned above. CCU Objective - Vital Signs / Intake & Output Intake and Output (Last 8hrs): Intake & Output 07/31/18 08/01/18 08/01/18 22:59 06:59 14:59 Intake Total 5370 Output Total 700 Balance 4670 Weight 225 lb 225 lb Intake: IV 5250 Left Wrist 1800 Right Forearm 3450 Oral 120 Output: Urine 700 Urethral (Suarez) 700 Stool 0 Emesis 0 Other: Voiding Method Urinal - Physical Exam Head: Positive for: Atraumatic, Normocephalic Pupils: Positive for: PERRL Extroacular Muscles: Positive for: EOMI Conjunctiva: Positive for: Normal Mouth: Positive for: Dry Pharnyx: Positive for: Normal Respiratory/Chest: Positive for: Tachypneic (but improved). Negative for: Good Air Exchange, Respiratory Distress, Retracting Abdomen: Positive for: Normal Bowel Sounds. Negative for: Tenderness, Distention, Peritoneal Signs Lower Extremity: Positive for: Edema, Capillary Refill < 2 s, Other (Thickened skin noted to right lower extremity) Neurological: Positive for: GCS=15, Speech Normal (able to speak in full sentences) Skin: Positive for: Warm, Dry, Normal Color. Negative for: Rashes Psychiatric: Positive for: Alert, Oriented x 3, Normal Insight, Normal Concentration - Medications Active Medications: Active Medications Generic Name Dose Route Start Last Admin Trade Name Freq PRN Reason Stop Dose Admin Albuterol/Ipratropium 3 ml 07/31/18 17:04 Duoneb 3 Mg/0.5 Mg (3 Ml) Ud IH Q2H PRN Shortness of Breath Aspirin 81 mg 08/01/18 10:00 08/01/18 09:27 Aspirin Chewable PO 81 mg DAILY NESTOR Administration Atorvastatin Calcium 40 mg 08/01/18 17:00 Lipitor PO DIN NESTOR Calcium Acetate 2,001 mg 08/01/18 12:00 Phoslo PO WM NESTOR Darbepoetin Ron 100 mcg 08/01/18 10:00 Aranesp IVP QWK NESTOR Heparin Sodium (Porcine) 5,000 units 07/31/18 22:00 08/01/18 05:02 Heparin SC 5,000 units Q8 NESTOR Administration Protocol Sodium Bicarbonate 150 meq/ 1,150 mls @ 150 mls/hr 07/31/18 16:45 08/01/18 09:43 Sodium Chloride IV 150 mls/hr .[id number] NESTOR Administration Cefepime HCl 1 gm in 100 mls @ 100 mls/hr 07/31/18 18:45 07/31/18 20:27 Maxipime 1gm IVPB 100 mls/hr Q24H [facility] Administration Protocol Pantoprazole Sodium 40 mg 08/01/18 10:00 08/01/18 09:02 Protonix Inj IVP 40 mg DAILY NESTOR Administration Vitamin B Complex/Vit C/Folic Acid 1 tab 08/02/18 08:00 Nephro-Agustina PO 0800 [facility] - Patient Studies Lab Studies: Lab Studies 08/01/18 08/01/18 08/01/18 Range/Units 06:20 05:40 05:40 WBC 12.3 H D (4.5-11.0) 10^3/uL RBC 2.76 L (3.5-6.1) 10^6/uL Hgb 7.7 L (14.0-18.0) g/dL Hct 22.2 L (42.0-52.0) % MCV 80.4 (80.0-105.0) fl MCH 27.9 (25.0-35.0) pg MCHC 34.7 (31.0-37.0) g/dl RDW 14.3 (11.5-14.5) % Plt Count 239 (120.0-450.0) 10^3/uL MPV 9.4 (7.0-11.0) fl Neut % (Auto) 95.8 H (50.0-68.0) % Lymph % (Auto) 3.4 L (22.0-35.0) % Dixie % (Auto) 0.7 L (1.0-6.0) % Eos % (Auto) 0.1 L (1.5-5.0) % Baso % (Auto) 0.0 (0.0-3.0) % Lymph # (Auto) 0.4 L (1.2-3.4) [place] # (Auto) 0.1 (0.1-0.6) Eos # (Auto) 0.0 (0.0-0.7) Baso # (Auto) 0.00 (0.0-2.0) K/mm3 Absolute Neuts (auto) 11.79 H (1.4-6.5) Neutrophils % (Manual) (50.0-70.0) % Band Neutrophils % (0-2) % Lymphocytes % (Manual) (22.0-35.0) % Monocytes % (Manual) (1.0-6.0) % Metamyelocytes % % Platelet Evaluation (NORMAL) PT (9.4-12.5) SECONDS INR APTT (26.9-38.3) Seconds D-Dimer, Quantitative (0-243) ng/mlDDU pCO2 13 L* (35-45) mm/Hg pO2 154.0 H (30-55) mm/Hg HCO3 5.3 L* (21-28) mmol/L ABG pH 7.22 L (7.35-7.45) ABG Total CO2 5.7 L (22-28) mmol.L ABG O2 Saturation 96.2 (95-98) % ABG O2 Content 9.0 L (15-23) ML/dl ABG Base Excess -20.5 L (-2.0-3.0) mmol/L ABG Hemoglobin 6.4 L (11.7-17.4) g/dL ABG Carboxyhemoglobin 0 L (0.5-1.5) % POC ABG HHb (Measured) 3.8 (0-5) % ABG Methemoglobin 0.9 (0.0-3.0) % ABG O2 Capacity 9.4 L (16-24) mL/dl VBG pH (7.32-7.43) VBG pCO2 (40-60) VBG HCO3 (21-28) mmol/l VBG Total CO2 (22-28) mmol.L VBG O2 Sat (Calc) (40-65) % VBG Base Excess (0.0-2.0) mmol/L VBG Potassium (3.6-5.2) mmol/L Hgb O2 Saturation 95.4 (95.0-98.0) % Sodium 136 (132-148) mmol/L Chloride 103 (98-107) mmol/L Glucose (75-110) mg/dl Lactate (0.7-2.1) mmol/L FiO2 28.0 % Blood Gas Comments Crit Value Called To Sherin garcia rn icu Crit Value Called By Constantino Blood Gas Notified Time 633 Potassium 4.7 (3.6-5.0) mmol/L Carbon Dioxide 7 L D (21-33) mmol/L Anion Gap 30 H (10-20) BUN 234 H* (7-21) mg/dL Creatinine 16.6 H* (0.8-1.5) mg/dl Est GFR ( Amer) 4 Est GFR (Non-Af Amer) 3 Random Glucose 155 H (70-110) mg/dL Calcium 6.5 L* (8.4-10.5) mg/dL Phosphorus 11.9 H (2.5-4.5) mg/dL Magnesium 1.7 (1.7-2.2) mg/dL Total Bilirubin 0.8 (0.2-1.3) mg/dL AST 39 (17-59) U/L ALT 23 (7-56) U/L Alkaline Phosphatase 86 (38-126) U/L Total Creatine Kinase (35-230) U/L CK-MB (CK-2) (0.0-3.6) ng/mL CK-MB (CK-2) % (2.5-3.0) % Troponin I 0.95 H* D ng/mL NT-Pro-B Natriuret Pep (0-450) pg/mL Total Protein 6.6 (5.8-8.3) g/dL Albumin 3.3 (3.0-4.8) g/dL Globulin 3.4 gm/dL Albumin/Globulin Ratio 1.0 L (1.1-1.8) Procalcitonin (0.19-0.49) NG/ML Venous Blood Potassium (3.6-5.2) mmol/L Urine Color (YELLOW) Urine Appearance (CLEAR) Urine pH (4.7-8.0) Ur Specific [place] (1.005-1.035) Urine Protein (<30 mg/dL) mg/dL Urine Glucose (UA) (NEGATIVE) mg/dL Urine Ketones (NEGATIVE) mg/dL Urine Blood (NEGATIVE) Urine Nitrate (NEGATIVE) Urine Bilirubin (NEGATIVE) Urine Urobilinogen (<1 E.U./dL) E.U./dL Ur Leukocyte Esterase (NEGATIVE) Moshe/uL Urine RBC (0-2) /hpf Urine WBC (0-6) /hpf Ur Epithelial Cells (0-5) /hpf Urine Bacteria (NONE) /hpf 07/31/18 07/31/18 07/31/18 Range/Units 23:15 22:42 18:14 WBC 21.9 H (4.5-11.0) 10^3/uL RBC 3.04 L (3.5-6.1) 10^6/uL Hgb 8.6 L (14.0-18.0) g/dL Hct 25.2 L (42.0-52.0) % MCV 82.9 (80.0-105.0) fl MCH 28.3 (25.0-35.0) pg MCHC 34.1 (31.0-37.0) g/dl RDW 14.6 H (11.5-14.5) % Plt Count 268 (120.0-450.0) 10^3/uL MPV 9.7 (7.0-11.0) fl Neut % (Auto) 93.9 H (50.0-68.0) % Lymph % (Auto) 4.4 L (22.0-35.0) % Dixie % (Auto) 1.6 (1.0-6.0) % Eos % (Auto) 0.0 L (1.5-5.0) % Baso % (Auto) 0.1 (0.0-3.0) % Lymph # (Auto) 1.0 L (1.2-3.4) Dix[place] # (Auto) 0.4 (0.1-0.6) Eos # (Auto) 0.0 (0.0-0.7) Baso # (Auto) 0.03 (0.0-2.0) K/mm3 Absolute Neuts (auto) 20.56 H (1.4-6.5) Neutrophils % (Manual) (50.0-70.0) % Band Neutrophils % (0-2) % Lymphocytes % (Manual) (22.0-35.0) % Monocytes % (Manual) (1.0-6.0) % Metamyelocytes % % Platelet Evaluation (NORMAL) PT (9.4-12.5) SECONDS INR APTT (26.9-38.3) Seconds D-Dimer, Quantitative (0-243) ng/mlDDU pCO2 (35-45) mm/Hg pO2 (30-55) mm/Hg HCO3 (21-28) mmol/L ABG pH (7.35-7.45) ABG Total CO2 (22-28) mmol.L ABG O2 Saturation (95-98) % ABG O2 Content (15-23) ML/dl ABG Base Excess (-2.0-3.0) mmol/L ABG Hemoglobin (11.7-17.4) g/dL ABG Carboxyhemoglobin (0.5-1.5) % POC ABG HHb (Measured) (0-5) % ABG Methemoglobin (0.0-3.0) % ABG O2 Capacity (16-24) mL/dl VBG pH (7.32-7.43) VBG pCO2 (40-60) VBG HCO3 (21-28) mmol/l VBG Total CO2 (22-28) mmol.L VBG O2 Sat (Calc) (40-65) % VBG Base Excess (0.0-2.0) mmol/L VBG Potassium (3.6-5.2) mmol/L Hgb O2 Saturation (95.0-98.0) % Sodium (132-148) mmol/L Chloride (98-107) mmol/L Glucose (75-110) mg/dl Lactate (0.7-2.1) mmol/L FiO2 % Blood Gas Comments Crit Value Called To Crit Value Called By Blood Gas Notified Time Potassium (3.6-5.0) mmol/L Carbon Dioxide (21-33) mmol/L Anion Gap (10-20) BUN (7-21) mg/dL Creatinine (0.8-1.5) mg/dl Est GFR ( Amer) Est GFR (Non-Af Amer) Random Glucose (70-110) mg/dL Calcium (8.4-10.5) mg/dL Phosphorus (2.5-4.5) mg/dL Magnesium (1.7-2.2) mg/dL Total Bilirubin (0.2-1.3) mg/dL AST (17-59) U/L ALT (7-56) U/L Alkaline Phosphatase (38-126) U/L Total Creatine Kinase (35-230) U/L CK-MB (CK-2) (0.0-3.6) ng/mL CK-MB (CK-2) % (2.5-3.0) % Troponin I 0.27 H* D ng/mL NT-Pro-B Natriuret Pep (0-450) pg/mL Total Protein (5.8-8.3) g/dL Albumin (3.0-4.8) g/dL Globulin gm/dL Albumin/Globulin Ratio (1.1-1.8) Procalcitonin (0.19-0.49) NG/ML Venous Blood Potassium (3.6-5.2) mmol/L Urine Color Light yellow (YELLOW) Urine Appearance Sl cloudy (CLEAR) Urine pH 6.0 (4.7-8.0) Ur Specific [place] 1.020 (1.005-1.035) Urine Protein Trace H (<30 mg/dL) mg/dL Urine Glucose (UA) Negative (NEGATIVE) mg/dL Urine Ketones Negative (NEGATIVE) mg/dL Urine Blood Moderate H (NEGATIVE) Urine Nitrate Negative (NEGATIVE) Urine Bilirubin Negative (NEGATIVE) Urine Urobilinogen 0.2 (<1 E.U./dL) E.U./dL Ur Leukocyte Esterase Moderate H (NEGATIVE) Moshe/uL Urine RBC 2 - 5 H (0-2) /hpf Urine WBC 25 - 30 H (0-6) /hpf Ur Epithelial Cells 0 - 2 (0-5) /hpf Urine Bacteria Few (NONE) /hpf 07/31/18 07/31/18 07/31/18 Range/Units 18:14 18:00 17:56 WBC (4.5-11.0) 10^3/uL RBC (3.5-6.1) 10^6/uL Hgb (14.0-18.0) g/dL Hct (42.0-52.0) % MCV (80.0-105.0) fl MCH (25.0-35.0) pg MCHC (31.0-37.0) g/dl RDW (11.5-14.5) % Plt Count (120.0-450.0) 10^3/uL MPV (7.0-11.0) fl Neut % (Auto) (50.0-68.0) % Lymph % (Auto) (22.0-35.0) % Dixie % (Auto) (1.0-6.0) % Eos % (Auto) (1.5-5.0) % Baso % (Auto) (0.0-3.0) % Lymph # (Auto) (1.2-3.4) [place] # (Auto) (0.1-0.6) Eos # (Auto) (0.0-0.7) Baso # (Auto) (0.0-2.0) K/mm3 Absolute Neuts (auto) (1.4-6.5) Neutrophils % (Manual) (50.0-70.0) % Band Neutrophils % (0-2) % Lymphocytes % (Manual) (22.0-35.0) % Monocytes % (Manual) (1.0-6.0) % Metamyelocytes % % Platelet Evaluation (NORMAL) PT (9.4-12.5) SECONDS INR APTT (26.9-38.3) Seconds D-Dimer, Quantitative (0-243) ng/mlDDU pCO2 (35-45) mm/Hg pO2 110 H (30-55) mm/Hg HCO3 (21-28) mmol/L ABG pH (7.35-7.45) ABG Total CO2 (22-28) mmol.L ABG O2 Saturation (95-98) % ABG O2 Content (15-23) ML/dl ABG Base Excess (-2.0-3.0) mmol/L ABG Hemoglobin (11.7-17.4) g/dL ABG Carboxyhemoglobin (0.5-1.5) % POC ABG HHb (Measured) (0-5) % ABG Methemoglobin (0.0-3.0) % ABG O2 Capacity (16-24) mL/dl VBG pH 6.93 L* (7.32-7.43) VBG pCO2 16.0 L* (40-60) VBG HCO3 3.4 L (21-28) mmol/l VBG Total CO2 3.9 L (22-28) mmol.L VBG O2 Sat (Calc) 96.2 H (40-65) % VBG Base Excess -27.7 L (0.0-2.0) mmol/L VBG Potassium 5.6 H (3.6-5.2) mmol/L Hgb O2 Saturation (95.0-98.0) % Sodium 126.0 L 131 L (132-148) mmol/L Chloride 95.0 L 97 L (98-107) mmol/L Glucose 215 H (75-110) mg/dl Lactate 1.4 (0.7-2.1) mmol/L FiO2 21.0 % Blood Gas Comments Crit Value Called To Kristina abarca Crit Value Called By [facility] Blood Gas Notified Time 1825 Potassium 5.4 H (3.6-5.0) mmol/L Carbon Dioxide < 5 L (21-33) mmol/L Anion Gap 34 H (10-20) BUN 230 H* (7-21) mg/dL Creatinine 18.3 H* (0.8-1.5) mg/dl Est GFR ( Amer) 3 Est GFR (Non-Af Amer) 3 Random Glucose 211 H (70-110) mg/dL Calcium 6.7 L* (8.4-10.5) mg/dL Phosphorus 13.4 H (2.5-4.5) mg/dL Magnesium 2.0 (1.7-2.2) mg/dL Total Bilirubin 0.9 (0.2-1.3) mg/dL AST 29 (17-59) U/L ALT 26 (7-56) U/L Alkaline Phosphatase 105 (38-126) U/L Total Creatine Kinase (35-230) U/L CK-MB (CK-2) (0.0-3.6) ng/mL CK-MB (CK-2) % (2.5-3.0) % Troponin I 0.11 ng/mL NT-Pro-B Natriuret Pep (0-450) pg/mL Total Protein 7.3 (5.8-8.3) g/dL Albumin 3.6 (3.0-4.8) g/dL Globulin 3.7 gm/dL Albumin/Globulin Ratio 1.0 L (1.1-1.8) Procalcitonin 1.89 H (0.19-0.49) NG/ML Venous Blood Potassium 5.6 H (3.6-5.2) mmol/L Urine Color (YELLOW) Urine Appearance (CLEAR) Urine pH (4.7-8.0) Ur Specific [place] (1.005-1.035) Urine Protein (<30 mg/dL) mg/dL Urine Glucose (UA) (NEGATIVE) mg/dL Urine Ketones (NEGATIVE) mg/dL Urine Blood (NEGATIVE) Urine Nitrate (NEGATIVE) Urine Bilirubin (NEGATIVE) Urine Urobilinogen (<1 E.U./dL) E.U./dL Ur Leukocyte Esterase (NEGATIVE) Moshe/uL Urine RBC (0-2) /hpf Urine WBC (0-6) /hpf Ur Epithelial Cells (0-5) /hpf Urine Bacteria (NONE) /hpf 07/31/18 07/31/18 07/31/18 Range/Units 15:15 14:50 14:50 WBC (4.5-11.0) 10^3/uL RBC (3.5-6.1) 10^6/uL Hgb (14.0-18.0) g/dL Hct (42.0-52.0) % MCV (80.0-105.0) fl MCH (25.0-35.0) pg MCHC (31.0-37.0) g/dl RDW (11.5-14.5) % Plt Count (120.0-450.0) 10^3/uL MPV (7.0-11.0) fl Neut % (Auto) (50.0-68.0) % Lymph % (Auto) (22.0-35.0) % [place]ie % (Auto) (1.0-6.0) % Eos % (Auto) (1.5-5.0) % Baso % (Auto) (0.0-3.0) % Lymph # (Auto) (1.2-3.4) [place] # (Auto) (0.1-0.6) Eos # (Auto) (0.0-0.7) Baso # (Auto) (0.0-2.0) K/mm3 Absolute Neuts (auto) (1.4-6.5) Neutrophils % (Manual) (50.0-70.0) % Band Neutrophils % (0-2) % Lymphocytes % (Manual) (22.0-35.0) % Monocytes % (Manual) (1.0-6.0) % Metamyelocytes % % Platelet Evaluation (NORMAL) PT (9.4-12.5) SECONDS INR APTT (26.9-38.3) Seconds D-Dimer, Quantitative (0-243) ng/mlDDU pCO2 13 L* (35-45) mm/Hg pO2 142.0 H 215 H (30-55) mm/Hg HCO3 3.1 L* (21-28) mmol/L ABG pH 6.98 L* (7.35-7.45) ABG Total CO2 3.5 L (22-28) mmol.L ABG O2 Saturation 96.7 (95-98) % ABG O2 Content 12.0 L (15-23) ML/dl ABG Base Excess -26.5 L (-2.0-3.0) mmol/L ABG Hemoglobin 8.7 L (11.7-17.4) g/dL ABG Carboxyhemoglobin 0 L (0.5-1.5) % POC ABG HHb (Measured) 3.3 (0-5) % ABG Methemoglobin 1.0 (0.0-3.0) % ABG O2 Capacity 12.4 L (16-24) mL/dl VBG pH 6.94 L* (7.32-7.43) VBG pCO2 17.0 L* (40-60) VBG HCO3 3.7 L (21-28) mmol/l VBG Total CO2 4.2 L (22-28) mmol.L VBG O2 Sat (Calc) 96.8 H (40-65) % VBG Base Excess -27.2 L (0.0-2.0) mmol/L VBG Potassium 5.6 H (3.6-5.2) mmol/L Hgb O2 Saturation 95.6 (95.0-98.0) % Sodium 131 L 125.0 L (132-148) mmol/L Chloride 96 L 94.0 L (98-107) mmol/L Glucose 140 H (75-110) mg/dl Lactate 1.2 (0.7-2.1) mmol/L FiO2 28.0 21.0 % Blood Gas Comments Walked to er Crit Value Called To adela Ritchie Crit Value Called By Atc Blood Gas Notified Time 1522 1505 Potassium 5.7 H* (3.6-5.0) mmol/L Carbon Dioxide 5 L (21-33) mmol/L Anion Gap 36 H (10-20) BUN 232 H* (7-21) mg/dL Creatinine 18.1 H* (0.8-1.5) mg/dl Est GFR ( Amer) 3 Est GFR (Non-Af Amer) 3 Random Glucose 136 H (70-110) mg/dL Calcium 7.0 L (8.4-10.5) mg/dL Phosphorus (2.5-4.5) mg/dL Magnesium 1.9 (1.7-2.2) mg/dL Total Bilirubin 0.8 (0.2-1.3) mg/dL AST 34 (17-59) U/L ALT 23 (7-56) U/L Alkaline Phosphatase 109 (38-126) U/L Total Creatine Kinase 477 H (35-230) U/L CK-MB (CK-2) 25.0 H (0.0-3.6) ng/mL CK-MB (CK-2) % 5.2 H (2.5-3.0) % Troponin I ng/mL NT-Pro-B Natriuret Pep 47475 H (0-450) pg/mL Total Protein 7.7 (5.8-8.3) g/dL Albumin 3.8 (3.0-4.8) g/dL Globulin 4.0 gm/dL Albumin/Globulin Ratio 1.0 L (1.1-1.8) Procalcitonin (0.19-0.49) NG/ML Venous Blood Potassium 5.6 H (3.6-5.2) mmol/L Urine Color (YELLOW) Urine Appearance (CLEAR) Urine pH (4.7-8.0) Ur Specific [place] (1.005-1.035) Urine Protein (<30 mg/dL) mg/dL Urine Glucose (UA) (NEGATIVE) mg/dL Urine Ketones (NEGATIVE) mg/dL Urine Blood (NEGATIVE) Urine Nitrate (NEGATIVE) Urine Bilirubin (NEGATIVE) Urine Urobilinogen (<1 E.U./dL) E.U./dL Ur Leukocyte Esterase (NEGATIVE) Moshe/uL Urine RBC (0-2) /hpf Urine WBC (0-6) /hpf Ur Epithelial Cells (0-5) /hpf Urine Bacteria (NONE) /hpf 07/31/18 07/31/18 Range/Units 14:50 14:50 WBC 23.3 H (4.5-11.0) 10^3/uL RBC 3.16 L (3.5-6.1) 10^6/uL Hgb 9.0 L (14.0-18.0) g/dL Hct 26.2 L (42.0-52.0) % MCV 82.9 (80.0-105.0) fl MCH 28.5 (25.0-35.0) pg MCHC 34.4 (31.0-37.0) g/dl RDW 14.5 (11.5-14.5) % Plt Count 264 (120.0-450.0) 10^3/uL MPV 9.5 (7.0-11.0) fl Neut % (Auto) 91.4 H (50.0-68.0) % Lymph % (Auto) 6.7 L (22.0-35.0) % [place] % (Auto) 1.5 (1.0-6.0) % Eos % (Auto) 0.2 L (1.5-5.0) % Baso % (Auto) 0.2 (0.0-3.0) % Lymph # (Auto) 1.6 (1.2-3.4) [place] # (Auto) 0.4 (0.1-0.6) Eos # (Auto) 0.0 (0.0-0.7) Baso # (Auto) 0.05 (0.0-2.0) K/mm3 Absolute Neuts (auto) 21.29 H (1.4-6.5) Neutrophils % (Manual) 85 H (50.0-70.0) % Band Neutrophils % 4 H (0-2) % Lymphocytes % (Manual) 4 L (22.0-35.0) % Monocytes % (Manual) 6 (1.0-6.0) % Metamyelocytes % 1 % Platelet Evaluation Normal (NORMAL) PT 14.3 H (9.4-12.5) SECONDS INR 1.29 APTT 38.1 (26.9-38.3) Seconds D-Dimer, Quantitative 5760 H (0-243) ng/mlDDU pCO2 (35-45) mm/Hg pO2 (30-55) mm/Hg HCO3 (21-28) mmol/L ABG pH (7.35-7.45) ABG Total CO2 (22-28) mmol.L ABG O2 Saturation (95-98) % ABG O2 Content (15-23) ML/dl ABG Base Excess (-2.0-3.0) mmol/L ABG Hemoglobin (11.7-17.4) g/dL ABG Carboxyhemoglobin (0.5-1.5) % POC ABG HHb (Measured) (0-5) % ABG Methemoglobin (0.0-3.0) % ABG O2 Capacity (16-24) mL/dl VBG pH (7.32-7.43) VBG pCO2 (40-60) VBG HCO3 (21-28) mmol/l VBG Total CO2 (22-28) mmol.L VBG O2 Sat (Calc) (40-65) % VBG Base Excess (0.0-2.0) mmol/L VBG Potassium (3.6-5.2) mmol/L Hgb O2 Saturation (95.0-98.0) % Sodium (132-148) mmol/L Chloride (98-107) mmol/L Glucose (75-110) mg/dl Lactate (0.7-2.1) mmol/L FiO2 % Blood Gas Comments Crit Value Called To Crit Value Called By Blood Gas Notified Time Potassium (3.6-5.0) mmol/L Carbon Dioxide (21-33) mmol/L Anion Gap (10-20) BUN (7-21) mg/dL Creatinine (0.8-1.5) mg/dl Est GFR ( Amer) Est GFR (Non-Af Amer) Random Glucose (70-110) mg/dL Calcium (8.4-10.5) mg/dL Phosphorus (2.5-4.5) mg/dL Magnesium (1.7-2.2) mg/dL Total Bilirubin (0.2-1.3) mg/dL AST (17-59) U/L ALT (7-56) U/L Alkaline Phosphatase (38-126) U/L Total Creatine Kinase (35-230) U/L CK-MB (CK-2) (0.0-3.6) ng/mL CK-MB (CK-2) % (2.5-3.0) % Troponin I ng/mL NT-Pro-B Natriuret Pep (0-450) pg/mL Total Protein (5.8-8.3) g/dL Albumin (3.0-4.8) g/dL Globulin gm/dL Albumin/Globulin Ratio (1.1-1.8) Procalcitonin (0.19-0.49) NG/ML Venous Blood Potassium (3.6-5.2) mmol/L Urine Color (YELLOW) Urine Appearance (CLEAR) Urine pH (4.7-8.0) Ur Specific [place] (1.005-1.035) Urine Protein (<30 mg/dL) mg/dL Urine Glucose (UA) (NEGATIVE) mg/dL Urine Ketones (NEGATIVE) mg/dL Urine Blood (NEGATIVE) Urine Nitrate (NEGATIVE) Urine Bilirubin (NEGATIVE) Urine Urobilinogen (<1 E.U./dL) E.U./dL Ur Leukocyte Esterase (NEGATIVE) Moshe/uL Urine RBC (0-2) /hpf Urine WBC (0-6) /hpf Ur Epithelial Cells (0-5) /hpf Urine Bacteria (NONE) /hpf Laboratory Results - last 24 hr 07/31/18 07/31/18 07/31/18 14:50 14:50 14:50 WBC 23.3 H RBC 3.16 L Hgb 9.0 L Hct 26.2 L MCV 82.9 MCH 28.5 MCHC 34.4 RDW 14.5 Plt Count 264 MPV 9.5 Neut % (Auto) 91.4 H Lymph % (Auto) 6.7 L [place] % (Auto) 1.5 Eos % (Auto) 0.2 L Baso % (Auto) 0.2 Lymph # (Auto) 1.6 [place] # (Auto) 0.4 Eos # (Auto) 0.0 Baso # (Auto) 0.05 Absolute Neuts (auto) 21.29 H Neutrophils % (Manual) 85 H Band Neutrophils % 4 H Lymphocytes % (Manual) 4 L Monocytes % (Manual) 6 Metamyelocytes % 1 Platelet Evaluation Normal PT 14.3 H INR 1.29 APTT 38.1 D-Dimer, Quantitative 5760 H pCO2 pO2 215 H HCO3 ABG pH ABG Total CO2 ABG O2 Saturation ABG O2 Content ABG Base Excess ABG Hemoglobin ABG Carboxyhemoglobin POC ABG HHb (Measured) ABG Methemoglobin ABG O2 Capacity VBG pH 6.94 L* VBG pCO2 17.0 L* VBG HCO3 3.7 L VBG Total CO2 4.2 L VBG O2 Sat (Calc) 96.8 H VBG Base Excess -27.2 L VBG Potassium 5.6 H Hgb O2 Saturation Sodium 125.0 L Chloride 94.0 L Glucose 140 H Lactate 1.2 FiO2 21.0 Blood Gas Comments Crit Value Called To Larissa carlisle Crit Value Called By Atc Blood Gas Notified Time 1505 Potassium Carbon Dioxide Anion Gap BUN Creatinine Est GFR ( Amer) Est GFR (Non-Af Amer) Random Glucose Calcium Phosphorus Magnesium Total Bilirubin AST ALT Alkaline Phosphatase Total Creatine Kinase CK-MB (CK-2) CK-MB (CK-2) % Troponin I NT-Pro-B Natriuret Pep Total Protein Albumin Globulin Albumin/Globulin Ratio Procalcitonin Venous Blood Potassium 5.6 H Urine Color Urine Appearance Urine pH Ur Specific [place] Urine Protein Urine Glucose (UA) Urine Ketones Urine Blood Urine Nitrate Urine Bilirubin Urine Urobilinogen Ur Leukocyte Esterase Urine RBC Urine WBC Ur Epithelial Cells Urine Bacteria 07/31/18 07/31/18 07/31/18 14:50 15:15 17:56 WBC RBC Hgb Hct MCV MCH MCHC RDW Plt Count MPV Neut % (Auto) Lymph % (Auto) [place] % (Auto) Eos % (Auto) Baso % (Auto) Lymph # (Auto) [place] # (Auto) Eos # (Auto) Baso # (Auto) Absolute Neuts (auto) Neutrophils % (Manual) Band Neutrophils % Lymphocytes % (Manual) Monocytes % (Manual) Metamyelocytes % Platelet Evaluation PT INR APTT D-Dimer, Quantitative pCO2 13 L* pO2 142.0 H HCO3 3.1 L* ABG pH 6.98 L* ABG Total CO2 3.5 L ABG O2 Saturation 96.7 ABG O2 Content 12.0 L ABG Base Excess -26.5 L ABG Hemoglobin 8.7 L ABG Carboxyhemoglobin 0 L POC ABG HHb (Measured) 3.3 ABG Methemoglobin 1.0 ABG O2 Capacity 12.4 L VBG pH VBG pCO2 VBG HCO3 VBG Total CO2 VBG O2 Sat (Calc) VBG Base Excess VBG Potassium Hgb O2 Saturation 95.6 Sodium 131 L 131 L Chloride 96 L 97 L Glucose Lactate FiO2 28.0 Blood Gas Comments Walked to er Crit Value Called To adela Ritchie Crit Value Called By Ec Blood Gas Notified Time 1522 Potassium 5.7 H* 5.4 H Carbon Dioxide 5 L < 5 L Anion Gap 36 H 34 H BUN 232 H* 230 H* Creatinine 18.1 H* 18.3 H* Est GFR ( Amer) 3 3 Est GFR (Non-Af Amer) 3 3 Random Glucose 136 H 211 H Calcium 7.0 L 6.7 L* Phosphorus 13.4 H Magnesium 1.9 2.0 Total Bilirubin 0.8 0.9 AST 34 29 ALT 23 26 Alkaline Phosphatase 109 105 Total Creatine Kinase 477 H CK-MB (CK-2) 25.0 H CK-MB (CK-2) % 5.2 H Troponin I 0.11 NT-Pro-B Natriuret Pep 49260 H Total Protein 7.7 7.3 Albumin 3.8 3.6 Globulin 4.0 3.7 Albumin/Globulin Ratio 1.0 L 1.0 L Procalcitonin Venous Blood Potassium Urine Color Urine Appearance Urine pH Ur Specific [place] Urine Protein Urine Glucose (UA) Urine Ketones Urine Blood Urine Nitrate Urine Bilirubin Urine Urobilinogen Ur Leukocyte Esterase Urine RBC Urine WBC Ur Epithelial Cells Urine Bacteria 07/31/18 07/31/18 07/31/18 18:00 18:14 18:14 WBC 21.9 H RBC 3.04 L Hgb 8.6 L Hct 25.2 L MCV 82.9 MCH 28.3 MCHC 34.1 RDW 14.6 H Plt Count 268 MPV 9.7 Neut % (Auto) 93.9 H Lymph % (Auto) 4.4 L [place] % (Auto) 1.6 Eos % (Auto) 0.0 L Baso % (Auto) 0.1 Lymph # (Auto) 1.0 L [place] # (Auto) 0.4 Eos # (Auto) 0.0 Baso # (Auto) 0.03 Absolute Neuts (auto) 20.56 H Neutrophils % (Manual) Band Neutrophils % Lymphocytes % (Manual) Monocytes % (Manual) Metamyelocytes % Platelet Evaluation PT INR APTT D-Dimer, Quantitative pCO2 pO2 110 H HCO3 ABG pH ABG Total CO2 ABG O2 Saturation ABG O2 Content ABG Base Excess ABG Hemoglobin ABG Carboxyhemoglobin POC ABG HHb (Measured) ABG Methemoglobin ABG O2 Capacity VBG pH 6.93 L* VBG pCO2 16.0 L* VBG HCO3 3.4 L VBG Total CO2 3.9 L VBG O2 Sat (Calc) 96.2 H VBG Base Excess -27.7 L VBG Potassium 5.6 H Hgb O2 Saturation Sodium 126.0 L Chloride 95.0 L Glucose 215 H Lactate 1.4 FiO2 21.0 Blood Gas Comments Crit Value Called To Kristina abarca Crit Value Called By [facility] Blood Gas Notified Time 1825 Potassium Carbon Dioxide Anion Gap BUN Creatinine Est GFR ( Amer) Est GFR (Non-Af Amer) Random Glucose Calcium Phosphorus Magnesium Total Bilirubin AST ALT Alkaline Phosphatase Total Creatine Kinase CK-MB (CK-2) CK-MB (CK-2) % Troponin I NT-Pro-B Natriuret Pep Total Protein Albumin Globulin Albumin/Globulin Ratio Procalcitonin 1.89 H Venous Blood Potassium 5.6 H Urine Color Urine Appearance Urine pH Ur Specific [place] Urine Protein Urine Glucose (UA) Urine Ketones Urine Blood Urine Nitrate Urine Bilirubin Urine Urobilinogen Ur Leukocyte Esterase Urine RBC Urine WBC Ur Epithelial Cells Urine Bacteria 07/31/18 07/31/18 08/01/18 22:42 23:15 05:40 WBC RBC Hgb Hct MCV MCH MCHC RDW Plt Count MPV Neut % (Auto) Lymph % (Auto) [place] % (Auto) Eos % (Auto) Baso % (Auto) Lymph # (Auto) [place] # (Auto) Eos # (Auto) Baso # (Auto) Absolute Neuts (auto) Neutrophils % (Manual) Band Neutrophils % Lymphocytes % (Manual) Monocytes % (Manual) Metamyelocytes % Platelet Evaluation PT INR APTT D-Dimer, Quantitative pCO2 pO2 HCO3 ABG pH ABG Total CO2 ABG O2 Saturation ABG O2 Content ABG Base Excess ABG Hemoglobin ABG Carboxyhemoglobin POC ABG HHb (Measured) ABG Methemoglobin ABG O2 Capacity VBG pH VBG pCO2 VBG HCO3 VBG Total CO2 VBG O2 Sat (Calc) VBG Base Excess VBG Potassium Hgb O2 Saturation Sodium 136 Chloride 103 Glucose Lactate FiO2 Blood Gas Comments Crit Value Called To Crit Value Called By Blood Gas Notified Time Potassium 4.7 Carbon Dioxide 7 L D Anion Gap 30 H BUN 234 H* Creatinine 16.6 H* Est GFR ( Amer) 4 Est GFR (Non-Af Amer) 3 Random Glucose 155 H Calcium 6.5 L* Phosphorus 11.9 H Magnesium 1.7 Total Bilirubin 0.8 AST 39 ALT 23 Alkaline Phosphatase 86 Total Creatine Kinase CK-MB (CK-2) CK-MB (CK-2) % Troponin I 0.27 H* D 0.95 H* D NT-Pro-B Natriuret Pep Total Protein 6.6 Albumin 3.3 Globulin 3.4 Albumin/Globulin Ratio 1.0 L Procalcitonin Venous Blood Potassium Urine Color Light yellow Urine Appearance Sl cloudy Urine pH 6.0 Ur Specific [place] 1.020 Urine Protein Trace H Urine Glucose (UA) Negative Urine Ketones Negative Urine Blood Moderate H Urine Nitrate Negative Urine Bilirubin Negative Urine Urobilinogen 0.2 Ur Leukocyte Esterase Moderate H Urine RBC 2 - 5 H Urine WBC 25 - 30 H Ur Epithelial Cells 0 - 2 Urine Bacteria Few 08/01/18 08/01/18 05:40 06:20 WBC 12.3 H D RBC 2.76 L Hgb 7.7 L Hct 22.2 L MCV 80.4 MCH 27.9 MCHC 34.7 RDW 14.3 Plt Count 239 MPV 9.4 Neut % (Auto) 95.8 H Lymph % (Auto) 3.4 L Dixie % (Auto) 0.7 L Eos % (Auto) 0.1 L Baso % (Auto) 0.0 Lymph # (Auto) 0.4 L [place] # (Auto) 0.1 Eos # (Auto) 0.0 Baso # (Auto) 0.00 Absolute Neuts (auto) 11.79 H Neutrophils % (Manual) Band Neutrophils % Lymphocytes % (Manual) Monocytes % (Manual) Metamyelocytes % Platelet Evaluation PT INR APTT D-Dimer, Quantitative pCO2 13 L* pO2 154.0 H HCO3 5.3 L* ABG pH 7.22 L ABG Total CO2 5.7 L ABG O2 Saturation 96.2 ABG O2 Content 9.0 L ABG Base Excess -20.5 L ABG Hemoglobin 6.4 L ABG Carboxyhemoglobin 0 L POC ABG HHb (Measured) 3.8 ABG Methemoglobin 0.9 ABG O2 Capacity 9.4 L VBG pH VBG pCO2 VBG HCO3 VBG Total CO2 VBG O2 Sat (Calc) VBG Base Excess VBG Potassium Hgb O2 Saturation 95.4 Sodium Chloride Glucose Lactate FiO2 28.0 Blood Gas Comments Crit Value Called To Sherin garcia rn icu Crit Value Called By Constantino Blood Gas Notified Time 633 Potassium Carbon Dioxide Anion Gap BUN Creatinine Est GFR ( Amer) Est GFR (Non-Af Amer) Random Glucose Calcium Phosphorus Magnesium Total Bilirubin AST ALT Alkaline Phosphatase Total Creatine Kinase CK-MB (CK-2) CK-MB (CK-2) % Troponin I NT-Pro-B Natriuret Pep Total Protein Albumin Globulin Albumin/Globulin Ratio Procalcitonin Venous Blood Potassium Urine Color Urine Appearance Urine pH Ur Specific [place] Urine Protein Urine Glucose (UA) Urine Ketones Urine Blood Urine Nitrate Urine Bilirubin Urine Urobilinogen Ur Leukocyte Esterase Urine RBC Urine WBC Ur Epithelial Cells Urine Bacteria Radiology Impressions: Radiology Impressions Chest X-Ray 07/31/18 14:13 IMPRESSION: No active disease. EKG/Cardiology Studies: Cardiology / EKG Studies 07/31/18 14:08 EKG [ELECTROCARDIOGRAM] Stat Comment: Reason For Exam: SOB Fingerstick Blood Sugar Results: 136 Review of Systems - Review of Systems Review of Systems: except as mentioned in HPI Critical Care Progress Note - Ventilator Checklist Head of Bed 30 Degrees: Yes PUD Prophalyxis: Yes DVT Prophylaxis: Yes - Nutrition Nutrition: Nutrition Category Date Time Status NPO Diet [DIET] Diets 07/31/18 Dinner Ordered Assessment/Plan - Assessment and Plan (Free Text) Assessment: 68 year old male with past medical history of arthritis presents with acute renal failure likely 2/2 to acute tubular necrosis vs. postobstructive nephropathy from dehydration. Patient is currently on sodium bicarbonate drip due to renal failure. Plan is for dialysis today. Plan: Neuro: -AAOx3, no FND, moving extremities past midline. -Monitor neuro status. -Reorient patient as necessary. Cardio: Elevated BNP 2/2 to CHF vs. pulmonary etiology -BNP: 91411 -EKG: NSR with 1st degree AV block -Echocardiogram: pending -Troponinx3: 0.11, 0.27, 0.97 trending up -Started on aspirin, lipitor -Maintain MAP>65. -Monitor for S/S, HD compromise. Pulm: Tachypnea due to metabolic acidosis -ABG 08/01: improved with pH: 7.22, pO2: 154, pCO2: 13 -CXR: no active disease -Maintain O2 saturation>90%. -Head of bed to 30 degrees -Conservative fluid management -Maintain oral hygiene History of tobacco abuse -Duonebs Q2 PRN for shortness of breath GI: Diet -NPO GI prophylaxis -Protonix 40 mg daily /Nephro: Acute Renal Failure 2/2 to Acute Tubular Necrosis vs. Postobstructive Nephropathy -BUN/Cr elevated at 234/16.6 from 18.3 with unknown baseline creatinine -CK: elevated 477 -Sparse urine output at this time -Strict I and O with suarez. Measure daily weight -3 L of NS already administered -Continue Sodium bicarbonate drip with 3 amps -Started aranesp and phoslo -Started flomax for post-obstructive nephropathy causes -Dialysis scheduled for today. -Follow up renal ultrasound and bladder scan. -Replete electrolytes as needed. -Maintain euvolemia. Hyperkalemia -K: 4.7 Endocrinology: -Random glucose: 155 -Maintain euglycemia. Heme/Onc: Anemia -H/H stable at 7.7/27.2 -No signs of HD compromise. -Continue monitoring H/H Elevated D-dimer -Rule out DVT with bilateral lower extremity ultrasound -Avoid CTA to evaluate for PE due to acute renal failure -Avoid V/Q scan to evaluate for PE due to current tachypnea. DVT prophylaxis -heparin 5000 U Q8 ID: -Afebrile, leukocytosis improved at 12.3 -Blood culture: follow up -UA: positive LE, negative nitrite, 2-5 RBC, 25-30 WBC, few bacteria -Urine Culture: follow up -Procalcitonin: 1.89 -Lactate: 1.2 -Vancomycin and cefepime day 1 for unlikely pneumonia -Monitor for signs and symptoms of infection. Patient seen and examined with Dr. Sims - Date & Time Date: 08/01/18 Time: 10:26 <Dwayne Sims - Last Filed: 08/01/18 15:48> CCU Objective - Vital Signs / Intake & Output Vital Signs (Last 4 hours): Vital Signs Temp Pulse Resp BP Pulse Ox 08/01/18 15:30 98.4 F 100 H 22 100/67 93 L 08/01/18 15:23 98.6 F 104 H 12 103/67 92 L 08/01/18 15:18 98.6 F 96 H 11 L 108/82 93 L 08/01/18 15:15 98.6 F 98 H 11 L 106/57 L 94 L 08/01/18 15:09 98.6 F 96 H 14 102/68 91 L 08/01/18 15:04 98.6 F 100 H 27 H 94/62 L 91 L 08/01/18 15:02 98.6 F 95 H 70 H 92/51 L 77 L 08/01/18 15:00 98.6 F 99 H 16 85/62 L 85 L 08/01/18 14:45 98.6 F 101 H 18 120/81 97 08/01/18 14:30 98.8 F 103 H 16 100/62 97 08/01/18 14:15 98.8 F 102 H 24 115/64 97 08/01/18 14:00 98.8 F 98 H 21 106/63 97 08/01/18 13:56 98.8 F 100 H 18 110/65 96 08/01/18 13:45 98.8 F 100 H 17 98/54 L 97 08/01/18 13:30 99.0 F 100 H 16 118/65 96 08/01/18 13:17 99.0 F 101 H 24 116/60 92 L 08/01/18 13:00 99.0 F 104 H 15 120/62 96 08/01/18 12:00 99.1 F 105 H 14 130/67 99 Intake and Output (Last 8hrs): Intake & Output 08/01/18 08/01/18 08/01/18 06:59 14:59 22:59 Intake Total 5370 Output Total 700 Balance 4670 Weight 225 lb Intake: IV 5250 Left Wrist 1800 Right Forearm 3450 Oral 120 Output: Urine 700 Urethral (Suarez) 700 Stool 0 Emesis 0 - Medications Active Medications: Active Medications Generic Name Dose Route Start Last Admin Trade Name Freq PRN Reason Stop Dose Admin Albuterol/Ipratropium 3 ml 07/31/18 17:04 Duoneb 3 Mg/0.5 Mg (3 Ml) Ud IH Q2H PRN Shortness of Breath Aspirin 81 mg 08/01/18 10:00 08/01/18 09:27 Aspirin Chewable PO 81 mg DAILY [facility] Administration Atorvastatin Calcium 40 mg 08/01/18 17:00 Lipitor PO DIN [facility] Calcium Acetate 2,001 mg 08/01/18 12:00 08/01/18 12:07 Phoslo PO Not Given WM [facility] Darbepoetin Ron 100 mcg 08/01/18 10:00 08/01/18 13:50 Aranesp IVP 100 mcg QWK [facility] Administration Heparin Sodium (Porcine) 5,000 units 07/31/18 22:00 08/01/18 13:44 Heparin SC 5,000 units Q8 [facility] Administration Protocol Cefepime HCl 1 gm in 100 mls @ 100 mls/hr 07/31/18 18:45 07/31/18 20:27 Maxipime 1gm IVPB 100 mls/hr Q24H [facility] Administration Protocol Sodium Bicarbonate 150 meq/ 1,150 mls @ 50 mls/hr 08/01/18 12:30 08/01/18 13:40 Dextrose IV 08/03/18 12:31 50 mls/hr .Q23H [facility] Administration Nystatin 0 ea 08/01/18 14:00 08/01/18 13:43 Mycostatin Cream TOP 1 applic TID [facility] Administration Pantoprazole Sodium 40 mg 08/01/18 10:00 08/01/18 09:02 Protonix Inj IVP 40 mg DAILY [facility] Administration Tamsulosin HCl 0.4 mg 08/01/18 12:30 Flomax PO DAILY [facility] Vitamin B Complex/Vit C/Folic Acid 1 tab 08/02/18 08:00 Nephro-Agustina PO 0800 [facility] - Patient Studies Lab Studies: Microbiology Studies 07/31/18 14:30 Blood Culture - Preliminary Blood-Venous NO GROWTH AFTER 24 HOURS Lab Studies 08/01/18 08/01/18 08/01/18 Range/Units 11:00 10:10 06:20 WBC (4.5-11.0) 10^3/uL RBC (3.5-6.1) 10^6/uL Hgb (14.0-18.0) g/dL Hct (42.0-52.0) % MCV (80.0-105.0) fl MCH (25.0-35.0) pg MCHC (31.0-37.0) g/dl RDW (11.5-14.5) % Plt Count (120.0-450.0) 10^3/uL MPV (7.0-11.0) fl Neut % (Auto) (50.0-68.0) % Lymph % (Auto) (22.0-35.0) % [place] % (Auto) (1.0-6.0) % Eos % (Auto) (1.5-5.0) % Baso % (Auto) (0.0-3.0) % Lymph # (Auto) (1.2-3.4) [place] # (Auto) (0.1-0.6) Eos # (Auto) (0.0-0.7) Baso # (Auto) (0.0-2.0) K/mm3 Absolute Neuts (auto) (1.4-6.5) pCO2 13 L* (35-45) mm/Hg pO2 154.0 H (30-55) mm/Hg HCO3 5.3 L* (21-28) mmol/L ABG pH 7.22 L (7.35-7.45) ABG Total CO2 5.7 L (22-28) mmol.L ABG O2 Saturation 96.2 (95-98) % ABG O2 Content 9.0 L (15-23) ML/dl ABG Base Excess -20.5 L (-2.0-3.0) mmol/L ABG Hemoglobin 6.4 L (11.7-17.4) g/dL ABG Carboxyhemoglobin 0 L (0.5-1.5) % POC ABG HHb (Measured) 3.8 (0-5) % ABG Methemoglobin 0.9 (0.0-3.0) % ABG O2 Capacity 9.4 L (16-24) mL/dl VBG pH (7.32-7.43) VBG pCO2 (40-60) VBG HCO3 (21-28) mmol/l VBG Total CO2 (22-28) mmol.L VBG O2 Sat (Calc) (40-65) % VBG Base Excess (0.0-2.0) mmol/L VBG Potassium (3.6-5.2) mmol/L Hgb O2 Saturation 95.4 (95.0-98.0) % Glucose (75-110) mg/dl Lactate (0.7-2.1) mmol/L FiO2 28.0 % Crit Value Called To Sherin garcia rn icu Crit Value Called By Constantino Blood Gas Notified Time 633 Sodium (132-148) mmol/L Potassium (3.6-5.0) mmol/L Chloride (98-107) mmol/L Carbon Dioxide (21-33) mmol/L Anion Gap (10-20) BUN (7-21) mg/dL Creatinine (0.8-1.5) mg/dl Est GFR ( Amer) Est GFR (Non-Af Amer) Random Glucose (70-110) mg/dL Calcium (8.4-10.5) mg/dL Phosphorus (2.5-4.5) mg/dL Magnesium (1.7-2.2) mg/dL Iron 137 (45-180) ug/dL TIBC 146 L (261-462) ug/dL % Saturation 93 H (20-55) % Total Bilirubin (0.2-1.3) mg/dL AST (17-59) U/L ALT (7-56) U/L Alkaline Phosphatase (38-126) U/L CK-MB (CK-2) (0.0-3.6) ng/mL CK-MB (CK-2) % (2.5-3.0) % Troponin I ng/mL Total Protein (5.8-8.3) g/dL Albumin (3.0-4.8) g/dL Globulin gm/dL Albumin/Globulin Ratio (1.1-1.8) Procalcitonin (0.19-0.49) NG/ML Venous Blood Potassium (3.6-5.2) mmol/L Urine Color (YELLOW) Urine Appearance (CLEAR) Urine pH (4.7-8.0) Ur Specific [place] (1.005-1.035) Urine Protein (<30 mg/dL) mg/dL Urine Glucose (UA) (NEGATIVE) mg/dL Urine Ketones (NEGATIVE) mg/dL Urine Blood (NEGATIVE) Urine Nitrate (NEGATIVE) Urine Bilirubin (NEGATIVE) Urine Urobilinogen (<1 E.U./dL) E.U./dL Ur Leukocyte Esterase (NEGATIVE) Moshe/uL Urine RBC (0-2) /hpf Urine WBC (0-6) /hpf Ur Epithelial Cells (0-5) /hpf Urine Bacteria (NONE) /hpf Ur Random Creatinine 54 mg/dL Ur Random Sodium 96 meq/L 08/01/18 08/01/18 07/31/18 Range/Units 05:40 05:40 23:15 WBC 12.3 H D (4.5-11.0) 10^3/uL RBC 2.76 L (3.5-6.1) 10^6/uL Hgb 7.7 L (14.0-18.0) g/dL Hct 22.2 L (42.0-52.0) % MCV 80.4 (80.0-105.0) fl MCH 27.9 (25.0-35.0) pg MCHC 34.7 (31.0-37.0) g/dl RDW 14.3 (11.5-14.5) % Plt Count 239 (120.0-450.0) 10^3/uL MPV 9.4 (7.0-11.0) fl Neut % (Auto) 95.8 H (50.0-68.0) % Lymph % (Auto) 3.4 L (22.0-35.0) % [place] % (Auto) 0.7 L (1.0-6.0) % Eos % (Auto) 0.1 L (1.5-5.0) % Baso % (Auto) 0.0 (0.0-3.0) % Lymph # (Auto) 0.4 L (1.2-3.4) [place] # (Auto) 0.1 (0.1-0.6) Eos # (Auto) 0.0 (0.0-0.7) Baso # (Auto) 0.00 (0.0-2.0) K/mm3 Absolute Neuts (auto) 11.79 H (1.4-6.5) pCO2 (35-45) mm/Hg pO2 (30-55) mm/Hg HCO3 (21-28) mmol/L ABG pH (7.35-7.45) ABG Total CO2 (22-28) mmol.L ABG O2 Saturation (95-98) % ABG O2 Content (15-23) ML/dl ABG Base Excess (-2.0-3.0) mmol/L ABG Hemoglobin (11.7-17.4) g/dL ABG Carboxyhemoglobin (0.5-1.5) % POC ABG HHb (Measured) (0-5) % ABG Methemoglobin (0.0-3.0) % ABG O2 Capacity (16-24) mL/dl VBG pH (7.32-7.43) VBG pCO2 (40-60) VBG HCO3 (21-28) mmol/l VBG Total CO2 (22-28) mmol.L VBG O2 Sat (Calc) (40-65) % VBG Base Excess (0.0-2.0) mmol/L VBG Potassium (3.6-5.2) mmol/L Hgb O2 Saturation (95.0-98.0) % Glucose (75-110) mg/dl Lactate (0.7-2.1) mmol/L FiO2 % Crit Value Called To Crit Value Called By Blood Gas Notified Time Sodium 136 (132-148) mmol/L Potassium 4.7 (3.6-5.0) mmol/L Chloride 103 (98-107) mmol/L Carbon Dioxide 7 L D (21-33) mmol/L Anion Gap 30 H (10-20) BUN 234 H* (7-21) mg/dL Creatinine 16.6 H* (0.8-1.5) mg/dl Est GFR ( Amer) 4 Est GFR (Non-Af Amer) 3 Random Glucose 155 H (70-110) mg/dL Calcium 6.5 L* (8.4-10.5) mg/dL Phosphorus 11.9 H (2.5-4.5) mg/dL Magnesium 1.7 (1.7-2.2) mg/dL Iron (45-180) ug/dL TIBC (261-462) ug/dL % Saturation (20-55) % Total Bilirubin 0.8 (0.2-1.3) mg/dL AST 39 (17-59) U/L ALT 23 (7-56) U/L Alkaline Phosphatase 86 (38-126) U/L CK-MB (CK-2) (0.0-3.6) ng/mL CK-MB (CK-2) % (2.5-3.0) % Troponin I 0.95 H* D 0.27 H* D ng/mL Total Protein 6.6 (5.8-8.3) g/dL Albumin 3.3 (3.0-4.8) g/dL Globulin 3.4 gm/dL Albumin/Globulin Ratio 1.0 L (1.1-1.8) Procalcitonin (0.19-0.49) NG/ML Venous Blood Potassium (3.6-5.2) mmol/L Urine Color (YELLOW) Urine Appearance (CLEAR) Urine pH (4.7-8.0) Ur Specific [place] (1.005-1.035) Urine Protein (<30 mg/dL) mg/dL Urine Glucose (UA) (NEGATIVE) mg/dL Urine Ketones (NEGATIVE) mg/dL Urine Blood (NEGATIVE) Urine Nitrate (NEGATIVE) Urine Bilirubin (NEGATIVE) Urine Urobilinogen (<1 E.U./dL) E.U./dL Ur Leukocyte Esterase (NEGATIVE) Moshe/uL Urine RBC (0-2) /hpf Urine WBC (0-6) /hpf Ur Epithelial Cells (0-5) /hpf Urine Bacteria (NONE) /hpf Ur Random Creatinine mg/dL Ur Random Sodium meq/L 07/31/18 07/31/18 07/31/18 Range/Units 22:42 18:14 18:14 WBC 21.9 H (4.5-11.0) 10^3/uL RBC 3.04 L (3.5-6.1) 10^6/uL Hgb 8.6 L (14.0-18.0) g/dL Hct 25.2 L (42.0-52.0) % MCV 82.9 (80.0-105.0) fl MCH 28.3 (25.0-35.0) pg MCHC 34.1 (31.0-37.0) g/dl RDW 14.6 H (11.5-14.5) % Plt Count 268 (120.0-450.0) 10^3/uL MPV 9.7 (7.0-11.0) fl Neut % (Auto) 93.9 H (50.0-68.0) % Lymph % (Auto) 4.4 L (22.0-35.0) % [place] % (Auto) 1.6 (1.0-6.0) % Eos % (Auto) 0.0 L (1.5-5.0) % Baso % (Auto) 0.1 (0.0-3.0) % Lymph # (Auto) 1.0 L (1.2-3.4) [place] # (Auto) 0.4 (0.1-0.6) Eos # (Auto) 0.0 (0.0-0.7) Baso # (Auto) 0.03 (0.0-2.0) K/mm3 Absolute Neuts (auto) 20.56 H (1.4-6.5) pCO2 (35-45) mm/Hg pO2 110 H (30-55) mm/Hg HCO3 (21-28) mmol/L ABG pH (7.35-7.45) ABG Total CO2 (22-28) mmol.L ABG O2 Saturation (95-98) % ABG O2 Content (15-23) ML/dl ABG Base Excess (-2.0-3.0) mmol/L ABG Hemoglobin (11.7-17.4) g/dL ABG Carboxyhemoglobin (0.5-1.5) % POC ABG HHb (Measured) (0-5) % ABG Methemoglobin (0.0-3.0) % ABG O2 Capacity (16-24) mL/dl VBG pH 6.93 L* (7.32-7.43) VBG pCO2 16.0 L* (40-60) VBG HCO3 3.4 L (21-28) mmol/l VBG Total CO2 3.9 L (22-28) mmol.L VBG O2 Sat (Calc) 96.2 H (40-65) % VBG Base Excess -27.7 L (0.0-2.0) mmol/L VBG Potassium 5.6 H (3.6-5.2) mmol/L Hgb O2 Saturation (95.0-98.0) % Glucose 215 H (75-110) mg/dl Lactate 1.4 (0.7-2.1) mmol/L FiO2 21.0 % Crit Value Called To Kristina abarca Crit Value Called By [facility] Blood Gas Notified Time 1825 Sodium 126.0 L (132-148) mmol/L Potassium (3.6-5.0) mmol/L Chloride 95.0 L (98-107) mmol/L Carbon Dioxide (21-33) mmol/L Anion Gap (10-20) BUN (7-21) mg/dL Creatinine (0.8-1.5) mg/dl Est GFR ( Amer) Est GFR (Non-Af Amer) Random Glucose (70-110) mg/dL Calcium (8.4-10.5) mg/dL Phosphorus (2.5-4.5) mg/dL Magnesium (1.7-2.2) mg/dL Iron (45-180) ug/dL TIBC (261-462) ug/dL % Saturation (20-55) % Total Bilirubin (0.2-1.3) mg/dL AST (17-59) U/L ALT (7-56) U/L Alkaline Phosphatase (38-126) U/L CK-MB (CK-2) (0.0-3.6) ng/mL CK-MB (CK-2) % (2.5-3.0) % Troponin I ng/mL Total Protein (5.8-8.3) g/dL Albumin (3.0-4.8) g/dL Globulin gm/dL Albumin/Globulin Ratio (1.1-1.8) Procalcitonin (0.19-0.49) NG/ML Venous Blood Potassium 5.6 H (3.6-5.2) mmol/L Urine Color Light yellow (YELLOW) Urine Appearance Sl cloudy (CLEAR) Urine pH 6.0 (4.7-8.0) Ur Specific [place] 1.020 (1.005-1.035) Urine Protein Trace H (<30 mg/dL) mg/dL Urine Glucose (UA) Negative (NEGATIVE) mg/dL Urine Ketones Negative (NEGATIVE) mg/dL Urine Blood Moderate H (NEGATIVE) Urine Nitrate Negative (NEGATIVE) Urine Bilirubin Negative (NEGATIVE) Urine Urobilinogen 0.2 (<1 E.U./dL) E.U./dL Ur Leukocyte Esterase Moderate H (NEGATIVE) Moshe/uL Urine RBC 2 - 5 H (0-2) /hpf Urine WBC 25 - 30 H (0-6) /hpf Ur Epithelial Cells 0 - 2 (0-5) /hpf Urine Bacteria Few (NONE) /hpf Ur Random Creatinine mg/dL Ur Random Sodium meq/L 07/31/18 07/31/18 07/31/18 Range/Units 18:00 17:56 14:50 WBC (4.5-11.0) 10^3/uL RBC (3.5-6.1) 10^6/uL Hgb (14.0-18.0) g/dL Hct (42.0-52.0) % MCV (80.0-105.0) fl MCH (25.0-35.0) pg MCHC (31.0-37.0) g/dl RDW (11.5-14.5) % Plt Count (120.0-450.0) 10^3/uL MPV (7.0-11.0) fl Neut % (Auto) (50.0-68.0) % Lymph % (Auto) (22.0-35.0) % [place] % (Auto) (1.0-6.0) % Eos % (Auto) (1.5-5.0) % Baso % (Auto) (0.0-3.0) % Lymph # (Auto) (1.2-3.4) [place] # (Auto) (0.1-0.6) Eos # (Auto) (0.0-0.7) Baso # (Auto) (0.0-2.0) K/mm3 Absolute Neuts (auto) (1.4-6.5) pCO2 (35-45) mm/Hg pO2 (30-55) mm/Hg HCO3 (21-28) mmol/L ABG pH (7.35-7.45) ABG Total CO2 (22-28) mmol.L ABG O2 Saturation (95-98) % ABG O2 Content (15-23) ML/dl ABG Base Excess (-2.0-3.0) mmol/L ABG Hemoglobin (11.7-17.4) g/dL ABG Carboxyhemoglobin (0.5-1.5) % POC ABG HHb (Measured) (0-5) % ABG Methemoglobin (0.0-3.0) % ABG O2 Capacity (16-24) mL/dl VBG pH (7.32-7.43) VBG pCO2 (40-60) VBG HCO3 (21-28) mmol/l VBG Total CO2 (22-28) mmol.L VBG O2 Sat (Calc) (40-65) % VBG Base Excess (0.0-2.0) mmol/L VBG Potassium (3.6-5.2) mmol/L Hgb O2 Saturation (95.0-98.0) % Glucose (75-110) mg/dl Lactate (0.7-2.1) mmol/L FiO2 % Crit Value Called To Crit Value Called By Blood Gas Notified Time Sodium 131 L (132-148) mmol/L Potassium 5.4 H (3.6-5.0) mmol/L Chloride 97 L (98-107) mmol/L Carbon Dioxide < 5 L (21-33) mmol/L Anion Gap 34 H (10-20) BUN 230 H* (7-21) mg/dL Creatinine 18.3 H* (0.8-1.5) mg/dl Est GFR ( Amer) 3 Est GFR (Non-Af Amer) 3 Random Glucose 211 H (70-110) mg/dL Calcium 6.7 L* (8.4-10.5) mg/dL Phosphorus 13.4 H (2.5-4.5) mg/dL Magnesium 2.0 (1.7-2.2) mg/dL Iron (45-180) ug/dL TIBC (261-462) ug/dL % Saturation (20-55) % Total Bilirubin 0.9 (0.2-1.3) mg/dL AST 29 (17-59) U/L ALT 26 (7-56) U/L Alkaline Phosphatase 105 (38-126) U/L CK-MB (CK-2) 25.0 H (0.0-3.6) ng/mL CK-MB (CK-2) % 5.2 H (2.5-3.0) % Troponin I 0.11 ng/mL Total Protein 7.3 (5.8-8.3) g/dL Albumin 3.6 (3.0-4.8) g/dL Globulin 3.7 gm/dL Albumin/Globulin Ratio 1.0 L (1.1-1.8) Procalcitonin 1.89 H (0.19-0.49) NG/ML Venous Blood Potassium (3.6-5.2) mmol/L Urine Color (YELLOW) Urine Appearance (CLEAR) Urine pH (4.7-8.0) Ur Specific [place] (1.005-1.035) Urine Protein (<30 mg/dL) mg/dL Urine Glucose (UA) (NEGATIVE) mg/dL Urine Ketones (NEGATIVE) mg/dL Urine Blood (NEGATIVE) Urine Nitrate (NEGATIVE) Urine Bilirubin (NEGATIVE) Urine Urobilinogen (<1 E.U./dL) E.U./dL Ur Leukocyte Esterase (NEGATIVE) Moshe/uL Urine RBC (0-2) /hpf Urine WBC (0-6) /hpf Ur Epithelial Cells (0-5) /hpf Urine Bacteria (NONE) /hpf Ur Random Creatinine mg/dL Ur Random Sodium meq/L Laboratory Results - last 24 hr 07/31/18 07/31/18 07/31/18 14:50 17:56 18:00 WBC RBC Hgb Hct MCV MCH MCHC RDW Plt Count MPV Neut % (Auto) Lymph % (Auto) [place] % (Auto) Eos % (Auto) Baso % (Auto) Lymph # (Auto) [place] # (Auto) Eos # (Auto) Baso # (Auto) Absolute Neuts (auto) pCO2 pO2 HCO3 ABG pH ABG Total CO2 ABG O2 Saturation ABG O2 Content ABG Base Excess ABG Hemoglobin ABG Carboxyhemoglobin POC ABG HHb (Measured) ABG Methemoglobin ABG O2 Capacity VBG pH VBG pCO2 VBG HCO3 VBG Total CO2 VBG O2 Sat (Calc) VBG Base Excess VBG Potassium Hgb O2 Saturation Glucose Lactate FiO2 Crit Value Called To Crit Value Called By Blood Gas Notified Time Sodium 131 L Potassium 5.4 H Chloride 97 L Carbon Dioxide < 5 L Anion Gap 34 H BUN 230 H* Creatinine 18.3 H* Est GFR ( Amer) 3 Est GFR (Non-Af Amer) 3 Random Glucose 211 H Calcium 6.7 L* Phosphorus 13.4 H Magnesium 2.0 Iron TIBC % Saturation Total Bilirubin 0.9 AST 29 ALT 26 Alkaline Phosphatase 105 CK-MB (CK-2) 25.0 H CK-MB (CK-2) % 5.2 H Troponin I 0.11 Total Protein 7.3 Albumin 3.6 Globulin 3.7 Albumin/Globulin Ratio 1.0 L Procalcitonin 1.89 H Venous Blood Potassium Urine Color Urine Appearance Urine pH Ur Specific [place] Urine Protein Urine Glucose (UA) Urine Ketones Urine Blood Urine Nitrate Urine Bilirubin Urine Urobilinogen Ur Leukocyte Esterase Urine RBC Urine WBC Ur Epithelial Cells Urine Bacteria Ur Random Creatinine Ur Random Sodium 07/31/18 07/31/18 07/31/18 18:14 18:14 22:42 WBC 21.9 H RBC 3.04 L Hgb 8.6 L Hct 25.2 L MCV 82.9 MCH 28.3 MCHC 34.1 RDW 14.6 H Plt Count 268 MPV 9.7 Neut % (Auto) 93.9 H Lymph % (Auto) 4.4 L [place] % (Auto) 1.6 Eos % (Auto) 0.0 L Baso % (Auto) 0.1 Lymph # (Auto) 1.0 L [place] # (Auto) 0.4 Eos # (Auto) 0.0 Baso # (Auto) 0.03 Absolute Neuts (auto) 20.56 H pCO2 pO2 110 H HCO3 ABG pH ABG Total CO2 ABG O2 Saturation ABG O2 Content ABG Base Excess ABG Hemoglobin ABG Carboxyhemoglobin POC ABG HHb (Measured) ABG Methemoglobin ABG O2 Capacity VBG pH 6.93 L* VBG pCO2 16.0 L* VBG HCO3 3.4 L VBG Total CO2 3.9 L VBG O2 Sat (Calc) 96.2 H VBG Base Excess -27.7 L VBG Potassium 5.6 H Hgb O2 Saturation Glucose 215 H Lactate 1.4 FiO2 21.0 Crit Value Called To Kristina abarca Crit Value Called By Atc Blood Gas Notified Time 182 Sodium 126.0 L Potassium Chloride 95.0 L Carbon Dioxide Anion Gap BUN Creatinine Est GFR ( Amer) Est GFR (Non-Af Amer) Random Glucose Calcium Phosphorus Magnesium Iron TIBC % Saturation Total Bilirubin AST ALT Alkaline Phosphatase CK-MB (CK-2) CK-MB (CK-2) % Troponin I Total Protein Albumin Globulin Albumin/Globulin Ratio Procalcitonin Venous Blood Potassium 5.6 H Urine Color Light yellow Urine Appearance Sl cloudy Urine pH 6.0 Ur Specific [place] 1.020 Urine Protein Trace H Urine Glucose (UA) Negative Urine Ketones Negative Urine Blood Moderate H Urine Nitrate Negative Urine Bilirubin Negative Urine Urobilinogen 0.2 Ur Leukocyte Esterase Moderate H Urine RBC 2 - 5 H Urine WBC 25 - 30 H Ur Epithelial Cells 0 - 2 Urine Bacteria Few Ur Random Creatinine Ur Random Sodium 07/31/18 08/01/18 08/01/18 23:15 05:40 05:40 WBC 12.3 H D RBC 2.76 L Hgb 7.7 L Hct 22.2 L MCV 80.4 MCH 27.9 MCHC 34.7 RDW 14.3 Plt Count 239 MPV 9.4 Neut % (Auto) 95.8 H Lymph % (Auto) 3.4 L [place] % (Auto) 0.7 L Eos % (Auto) 0.1 L Baso % (Auto) 0.0 Lymph # (Auto) 0.4 L [place] # (Auto) 0.1 Eos # (Auto) 0.0 Baso # (Auto) 0.00 Absolute Neuts (auto) 11.79 H pCO2 pO2 HCO3 ABG pH ABG Total CO2 ABG O2 Saturation ABG O2 Content ABG Base Excess ABG Hemoglobin ABG Carboxyhemoglobin POC ABG HHb (Measured) ABG Methemoglobin ABG O2 Capacity VBG pH VBG pCO2 VBG HCO3 VBG Total CO2 VBG O2 Sat (Calc) VBG Base Excess VBG Potassium Hgb O2 Saturation Glucose Lactate FiO2 Crit Value Called To Crit Value Called By Blood Gas Notified Time Sodium 136 Potassium 4.7 Chloride 103 Carbon Dioxide 7 L D Anion Gap 30 H BUN 234 H* Creatinine 16.6 H* Est GFR ( Amer) 4 Est GFR (Non-Af Amer) 3 Random Glucose 155 H Calcium 6.5 L* Phosphorus 11.9 H Magnesium 1.7 Iron TIBC % Saturation Total Bilirubin 0.8 AST 39 ALT 23 Alkaline Phosphatase 86 CK-MB (CK-2) CK-MB (CK-2) % Troponin I 0.27 H* D 0.95 H* D Total Protein 6.6 Albumin 3.3 Globulin 3.4 Albumin/Globulin Ratio 1.0 L Procalcitonin Venous Blood Potassium Urine Color Urine Appearance Urine pH Ur Specific [place] Urine Protein Urine Glucose (UA) Urine Ketones Urine Blood Urine Nitrate Urine Bilirubin Urine Urobilinogen Ur Leukocyte Esterase Urine RBC Urine WBC Ur Epithelial Cells Urine Bacteria Ur Random Creatinine Ur Random Sodium 08/01/18 08/01/18 08/01/18 06:20 10:10 11:00 WBC RBC Hgb Hct MCV MCH MCHC RDW Plt Count MPV Neut % (Auto) Lymph % (Auto) [place] % (Auto) Eos % (Auto) Baso % (Auto) Lymph # (Auto) [place] # (Auto) Eos # (Auto) Baso # (Auto) Absolute Neuts (auto) pCO2 13 L* pO2 154.0 H HCO3 5.3 L* ABG pH 7.22 L ABG Total CO2 5.7 L ABG O2 Saturation 96.2 ABG O2 Content 9.0 L ABG Base Excess -20.5 L ABG Hemoglobin 6.4 L ABG Carboxyhemoglobin 0 L POC ABG HHb (Measured) 3.8 ABG Methemoglobin 0.9 ABG O2 Capacity 9.4 L VBG pH VBG pCO2 VBG HCO3 VBG Total CO2 VBG O2 Sat (Calc) VBG Base Excess VBG Potassium Hgb O2 Saturation 95.4 Glucose Lactate FiO2 28.0 Crit Value Called To Sherin garcia rn icu Crit Value Called By Constantino Blood Gas Notified Time 633 Sodium Potassium Chloride Carbon Dioxide Anion Gap BUN Creatinine Est GFR ( Amer) Est GFR (Non-Af Amer) Random Glucose Calcium Phosphorus Magnesium Iron 137 TIBC 146 L % Saturation 93 H Total Bilirubin AST ALT Alkaline Phosphatase CK-MB (CK-2) CK-MB (CK-2) % Troponin I Total Protein Albumin Globulin Albumin/Globulin Ratio Procalcitonin Venous Blood Potassium Urine Color Urine Appearance Urine pH Ur Specific [place] Urine Protein Urine Glucose (UA) Urine Ketones Urine Blood Urine Nitrate Urine Bilirubin Urine Urobilinogen Ur Leukocyte Esterase Urine RBC Urine WBC Ur Epithelial Cells Urine Bacteria Ur Random Creatinine 54 Ur Random Sodium 96 Radiology Impressions: Radiology Impressions Chest X-Ray 07/31/18 14:13 IMPRESSION: No active disease. Renal Ultrasound 08/01/18 09:28 IMPRESSION: 11 mm nonobstructing calculus lower pole left kidney. Otherwise unremarkable. Abdomen/Pelvis CT 08/01/18 10:24 IMPRESSION: Obstructing 9 mm mid left ureteral calculus with mild left hydronephrosis 8 mm nonobstructing left lower pole renal calculus. Minor findings as above. Small bilateral pleural effusion, right greater than left. Chest X-Ray 08/01/18 12:34 IMPRESSION: New right tunneled central venous dialysis catheter otherwise no significant change. Critical Care Progress Note - Nutrition Nutrition: Nutrition Category Date Time Status NPO Diet [DIET] Diets 07/31/18 Dinner Ordered Attending/Attestation - Attestation I have personally seen and examined this patient.: Yes I have fully participated in the care of the patient.: Yes I have reviewed all pertinent clinical information: Yes Notes (Text): 08/01/18 15:[address] Sims note
[2018-08-01 10:51] LABS: IRON 137 ug/dL (45-180)
[2018-08-01 11:00] LABS: % IRON SATURATION 93 % (20-55); TOTAL IRON BINDING CAPACITY 146 ug/dL (261-462)
[2018-08-01 11:41] LABS: CREATININE,RANDOM URINE 54 mg/dL
[2018-08-01] MEDS ORDERED: Hydrocerin(120 gm) TOP ONE (12:00)
--- NOTE | 2018-08-01 12:19 | CT ---
Date of service: 08/01/2018 PROCEDURE: CT Abdomen and Pelvis without intravenous contrast HISTORY: KIM unclear etiology COMPARISON: Not available TECHNIQUE: Without contrast.. Contrast dose: 0 Radiation dose: Total exam DLP = 1024.36 mGy-cm. This CT exam was performed using one or more of the following dose reduction techniques: Automated exposure control, adjustment of the mA and/or kV according to patient size, and/or use of iterative reconstruction technique. FINDINGS: LOWER THORAX: Small right pleural effusion. Trace left pleural effusion. No infiltrate LIVER: Unremarkable. No gross lesion or ductal dilatation. GALLBLADDER AND BILE DUCTS: Unremarkable. PANCREAS: Unremarkable. No gross lesion or ductal dilatation. SPLEEN: Unremarkable. ADRENALS: Unremarkable. No mass. KIDNEYS AND URETERS: Mild left hydronephrosis. 8 mm nonobstructing left lower pole renal calculus. 10 mm obstructing mid left ureteral calculus as measured from the coronal images. Evaluation of distal ureter limited due to extensive beam hardening artifact arising from bilateral hip prostheses. No right hydronephrosis. No renal mass. VASCULATURE: Unremarkable. No aortic aneurysm. Minimal atherosclerotic calcification of the abdominal aorta. BOWEL: Unremarkable. No obstruction. No gross mural thickening. APPENDIX: Normal PERITONEUM: Unremarkable. No free fluid. No free air. LYMPH NODES: Unremarkable. No enlarged lymph nodes. BLADDER: Nondistended. Sen catheter balloon. Limited evaluation due to beam hardening artifact from hip prostheses. REPRODUCTIVE: Unable to evaluate prostate. BONES: No acute fracture. OTHER FINDINGS: None. IMPRESSION: Obstructing 9 mm mid left ureteral calculus with mild left hydronephrosis 8 mm nonobstructing left lower pole renal calculus. Minor findings as above. Small bilateral pleural effusion, right greater than left.
[2018-08-01] MEDS ORDERED: Sodium Bicarbonate 8.4% 150 MEQ in Dextrose 5% In Water 1,000 ML IV SCH (12:30)
--- NOTE | 2018-08-01 12:32 | CP.PCM.CON ---
History of Present Illness - History of Present Illness History of Present Illness: Nephrology Consultation Note: Assessment: critical Acute Kidney Injury (N17.9) ? etiology with uremia Anemia (D64.9), Hyperphosphatemia (E83.39) hyperkalemia HAGMA iwth respi compensation obesity NSAIDs use ex smoker mild left hydro with calculus Plan Pt is need of acute need for renal replacement therapy initiation at this time. hasn't improved with conservative management, d/w pt about dialysis, pros/cons, he agreed. Will plan for HD today as ordered Maintain hemodynamics stable. Avoid hypotension. Patient not on ACEI/ARB due to recent KIM Monitor Input/Output, daily weights and renal function with basic metabolic panel started phos binder, nephrovite and weekly aransep added flomax. suggest urology eval may consider kidney biopsy depending upon work up results bicarb drip changed as ordered Check urine analysis, spot protein/creatinine, albumin/creatinine ratio, urine for eosinophils. renal and bladder sonogram Check GN work up as C3, C4, LIO, Anti dsDNA, ASO titers, ANCA (MPO and SD-3), Anti GBM antibody, HIV/Hep B and Hep C serology Anemia work up with TSAT/Ferritin/Vitamin B12/folate, serum protein electroph oresis with immunofixation, serum free light chain assay ([place]/Lambda) Check for 25-OH vitamin D, iPTH, phosphorus level. Dose meds/antibiotics for reduced GFR. Avoid fleets enema/magnesium based l axatives. Avoid nephrotoxins/NSAIDs/ iodinated contrast (unless needed emergently) Glycemic control Further work up/management as per primary team Thanks for allowing me to participate in care of your patient. Will follow patient with you. Please call if any Qs. had d/w team Dr Javan Samaniego Office: [phone] Chief Complaint; SOB on exertion Reason for consult: Acute Kidney Injury HPI: Pt is a 68 M with hx of HTN obesity hip replacement, hasn't f/up with PMD for long time presented with complaints of worsening SOB on exertion and feeling sick. found to have severe KIM. pt not aware about kidney disease in past. denies change in urine output recently. Denies OTC/herbal meds but take NSAIDs as alleve 2 tab daily No recent iodinated contrast exposure. No obvious episodes of low BP. ex smoker. no etoh or drugs decreased oral intake for last few days ROS: Cardiovascular: No chest pain. Pulmonary: c/o shortness of breath Gastrointestinal: denies abdominal pain had nausea. No vomiting. Genitourinary: No pain while urinating. Denies blood in urine. All other negative except as mentioned in HPI. has reduced appetite Physical Examination: General Appearance: ill appearing co-operative . Vitals reviewed and noted as below Head; Atraumatic, normocephalic ENT: no ulcers no thrush. Tongue is midline/dry. Oropharynx: no rash or ulcers. EYES: Pupils are equal, round and reactive to light accommodation. Eye muscles and extraocular movement intact. Sclera is anicteric. Neck; supple no lymphadenopathy, no thyromegaly or bruit Lungs: Increased respiratory rate/effort. Breath sounds bilateral equal and clear Heart: Increased rate. s1s2 normal. No rub or gallop. Extremities: no edema. No varicose veins Neurological: Patient is alert, awake and oriented to person, place and time. No focal deficit. Strength bilateral appropriate and equal Skin: Warm and dry. Normal turgor. Palpitation: Normal elasticity for age. axillary fungal rash +. Rt lower extremity scaly/scab ulceration Abdomen: Abdomen is soft. Bowel sounds +. There is no abdominal tenderness, no guarding/rigidity no organomegaly Psych: normal insight and normal affect/mood MSK: no joint tenderness or swelling. Digits and nails normal, no deformity : kidney or bladder not palpable Labs/imaging reviewed. Past medical history, past surgical history, family history, social history, allergy reviewed and noted as below Family hx: hx of CKD/ESRD and lupus in mother. Rest non-contributory Past Patient History - Past Social History Smoking Status: Former Smoker - CARDIAC Hx Cardiac Disorders: No - PULMONARY Hx Respiratory Disorders: Yes (SMOKED CIGARETTES 1 PPD QUIT 2011.) - NEUROLOGICAL Hx Neurological Disorder: No - HEENT Hx HEENT Problems: No - RENAL Hx Chronic Kidney Disease: Yes Hx Renal Failure: Yes (5-2-19) - ENDOCRINE/METABOLIC Hx Endocrine Disorders: No - HEMATOLOGICAL/ONCOLOGICAL Hx Blood Disorders: No - INTEGUMENTARY Hx Dermatological Problems: Yes Hx Psoriasis: Yes (BILATERAL LE) - MUSCULOSKELETAL/RHEUMATOLOGICAL Hx Musculoskeletal Disorders: Yes Hx Arthritis: Yes Hx Falls: Yes - GASTROINTESTINAL Hx Gastrointestinal Disorders: No - GENITOURINARY/GYNECOLOGICAL Hx Genitourinary Disorders: No - PSYCHIATRIC Hx Psychophysiologic Disorder: No Hx Substance Use: No - SURGICAL HISTORY Hx Surgeries: Yes (BILATERAL HIP SX 2016) - ANESTHESIA Hx Anesthesia: No Hx Anesthesia Reactions: No Hx Malignant Hyperthermia: No Meds Allergies/Adverse Reactions: Allergies Allergy/AdvReac Type Severity Reaction Status Date / Time No Known Allergies Allergy Verified 07/31/18 19:36 - Medications Medications: Current Medications Albuterol/Ipratropium (Duoneb 3 Mg/0.5 Mg (3 Ml) Ud) 3 ml IH Q2H PRN PRN Reason: Shortness of Breath Aspirin (Aspirin Chewable) 81 mg PO DAILY [facility] Last Admin: 08/01/18 09:27 Dose: 81 mg Atorvastatin Calcium (Lipitor) 40 mg PO DIN NESTOR Calcium Acetate (Phoslo) 2,001 mg PO WM [facility] Last Admin: 08/01/18 12:07 Dose: Not Given Darbepoetin Ron (Aranesp) 100 mcg IVP QWK [facility] Heparin Sodium (Porcine) (Heparin) 5,000 units SC Q8 [facility]; Protocol Last Admin: 08/01/18 05:02 Dose: 5,000 units Sodium Bicarbonate 150 meq/ (Sodium Chloride) 1,150 mls @ 150 mls/hr IV .Q7H40M [facility] Last Admin: 08/01/18 09:43 Dose: 150 mls/hr Cefepime HCl (Maxipime 1gm) 1 gm in 100 mls @ 100 mls/hr IVPB Q24H [facility]; Protocol Last Admin: 07/31/18 20:27 Dose: 100 mls/hr Nystatin (Mycostatin Cream) 0 ea TOP TID [facility] Pantoprazole Sodium (Protonix Inj) 40 mg IVP DAILY [facility] Last Admin: 08/01/18 09:02 Dose: 40 mg Vitamin B Complex/Vit C/Folic Acid (Nephro-Agustina) 1 tab PO 0800 [facility] Results - Vital Signs Recent Vital Signs: Last Vital Signs Temp 96.6 F L 07/31/18 23:16 Pulse 108 H 08/01/18 06:00 Resp 23 07/31/18 22:12 BP 129/61 07/31/18 17:58 Pulse Ox 98 07/31/18 17:58 - Labs Result Diagrams: 08/01/18 05:40 08/01/18 05:40 Labs: Laboratory Results - last 24 hr 07/31/18 07/31/18 07/31/18 14:50 14:50 14:50 WBC 23.3 H RBC 3.16 L Hgb 9.0 L Hct 26.2 L MCV 82.9 MCH 28.5 MCHC 34.4 RDW 14.5 Plt Count 264 MPV 9.5 Neut % (Auto) 91.4 H Lymph % (Auto) 6.7 L [place] % (Auto) 1.5 Eos % (Auto) 0.2 L Baso % (Auto) 0.2 Lymph # (Auto) 1.6 [place] # (Auto) 0.4 Eos # (Auto) 0.0 Baso # (Auto) 0.05 Absolute Neuts (auto) 21.29 H Neutrophils % (Manual) 85 H Band Neutrophils % 4 H Lymphocytes % (Manual) 4 L Monocytes % (Manual) 6 Metamyelocytes % 1 Platelet Evaluation Normal PT 14.3 H INR 1.29 APTT 38.1 D-Dimer, Quantitative 5760 H pCO2 pO2 215 H HCO3 ABG pH ABG Total CO2 ABG O2 Saturation ABG O2 Content ABG Base Excess ABG Hemoglobin ABG Carboxyhemoglobin POC ABG HHb (Measured) ABG Methemoglobin ABG O2 Capacity VBG pH 6.94 L* VBG pCO2 17.0 L* VBG HCO3 3.7 L VBG Total CO2 4.2 L VBG O2 Sat (Calc) 96.8 H VBG Base Excess -27.2 L VBG Potassium 5.6 H Hgb O2 Saturation Sodium 125.0 L Chloride 94.0 L Glucose 140 H Lactate 1.2 FiO2 21.0 Blood Gas Comments Crit Value Called To Larissa carlisle Crit Value Called By [facility] Blood Gas Notified Time 1505 Potassium Carbon Dioxide Anion Gap BUN Creatinine Est GFR ( Amer) Est GFR (Non-Af Amer) Random Glucose Calcium Phosphorus Magnesium Iron TIBC % Saturation Total Bilirubin AST ALT Alkaline Phosphatase Total Creatine Kinase CK-MB (CK-2) CK-MB (CK-2) % Troponin I NT-Pro-B Natriuret Pep Total Protein Albumin Globulin Albumin/Globulin Ratio Procalcitonin Venous Blood Potassium 5.6 H Urine Color Urine Appearance Urine pH Ur Specific [place] Urine Protein Urine Glucose (UA) Urine Ketones Urine Blood Urine Nitrate Urine Bilirubin Urine Urobilinogen Ur Leukocyte Esterase Urine RBC Urine WBC Ur Epithelial Cells Urine Bacteria Ur Random Creatinine Ur Random Sodium 07/31/18 07/31/18 07/31/18 14:50 15:15 17:56 WBC RBC Hgb Hct MCV MCH MCHC RDW Plt Count MPV Neut % (Auto) Lymph % (Auto) [place] % (Auto) Eos % (Auto) Baso % (Auto) Lymph # (Auto) [place] # (Auto) Eos # (Auto) Baso # (Auto) Absolute Neuts (auto) Neutrophils % (Manual) Band Neutrophils % Lymphocytes % (Manual) Monocytes % (Manual) Metamyelocytes % Platelet Evaluation PT INR APTT D-Dimer, Quantitative pCO2 13 L* pO2 142.0 H HCO3 3.1 L* ABG pH 6.98 L* ABG Total CO2 3.5 L ABG O2 Saturation 96.7 ABG O2 Content 12.0 L ABG Base Excess -26.5 L ABG Hemoglobin 8.7 L ABG Carboxyhemoglobin 0 L POC ABG HHb (Measured) 3.3 ABG Methemoglobin 1.0 ABG O2 Capacity 12.4 L VBG pH VBG pCO2 VBG HCO3 VBG Total CO2 VBG O2 Sat (Calc) VBG Base Excess VBG Potassium Hgb O2 Saturation 95.6 Sodium 131 L 131 L Chloride 96 L 97 L Glucose Lactate FiO2 28.0 Blood Gas Comments Walked to er Crit Value Called To adela Ritchie Crit Value Called By Ec Blood Gas Notified Time 1522 Potassium 5.7 H* 5.4 H Carbon Dioxide 5 L < 5 L Anion Gap 36 H 34 H BUN 232 H* 230 H* Creatinine 18.1 H* 18.3 H* Est GFR ( Amer) 3 3 Est GFR (Non-Af Amer) 3 3 Random Glucose 136 H 211 H Calcium 7.0 L 6.7 L* Phosphorus 13.4 H Magnesium 1.9 2.0 Iron TIBC % Saturation Total Bilirubin 0.8 0.9 AST 34 29 ALT 23 26 Alkaline Phosphatase 109 105 Total Creatine Kinase 477 H CK-MB (CK-2) 25.0 H CK-MB (CK-2) % 5.2 H Troponin I 0.11 NT-Pro-B Natriuret Pep 29777 H Total Protein 7.7 7.3 Albumin 3.8 3.6 Globulin 4.0 3.7 Albumin/Globulin Ratio 1.0 L 1.0 L Procalcitonin Venous Blood Potassium Urine Color Urine Appearance Urine pH Ur Specific [place] Urine Protein Urine Glucose (UA) Urine Ketones Urine Blood Urine Nitrate Urine Bilirubin Urine Urobilinogen Ur Leukocyte Esterase Urine RBC Urine WBC Ur Epithelial Cells Urine Bacteria Ur Random Creatinine Ur Random Sodium 07/31/18 07/31/18 07/31/18 18:00 18:14 18:14 WBC 21.9 H RBC 3.04 L Hgb 8.6 L Hct 25.2 L MCV 82.9 MCH 28.3 MCHC 34.1 RDW 14.6 H Plt Count 268 MPV 9.7 Neut % (Auto) 93.9 H Lymph % (Auto) 4.4 L [place] % (Auto) 1.6 Eos % (Auto) 0.0 L Baso % (Auto) 0.1 Lymph # (Auto) 1.0 L [place] # (Auto) 0.4 Eos # (Auto) 0.0 Baso # (Auto) 0.03 Absolute Neuts (auto) 20.56 H Neutrophils % (Manual) Band Neutrophils % Lymphocytes % (Manual) Monocytes % (Manual) Metamyelocytes % Platelet Evaluation PT INR APTT D-Dimer, Quantitative pCO2 pO2 110 H HCO3 ABG pH ABG Total CO2 ABG O2 Saturation ABG O2 Content ABG Base Excess ABG Hemoglobin ABG Carboxyhemoglobin POC ABG HHb (Measured) ABG Methemoglobin ABG O2 Capacity VBG pH 6.93 L* VBG pCO2 16.0 L* VBG HCO3 3.4 L VBG Total CO2 3.9 L VBG O2 Sat (Calc) 96.2 H VBG Base Excess -27.7 L VBG Potassium 5.6 H Hgb O2 Saturation Sodium 126.0 L Chloride 95.0 L Glucose 215 H Lactate 1.4 FiO2 21.0 Blood Gas Comments Crit Value Called To Kristina abarca Crit Value Called By [facility] Blood Gas Notified Time 1824 Potassium Carbon Dioxide Anion Gap BUN Creatinine Est GFR ( Amer) Est GFR (Non-Af Amer) Random Glucose Calcium Phosphorus Magnesium Iron TIBC % Saturation Total Bilirubin AST ALT Alkaline Phosphatase Total Creatine Kinase CK-MB (CK-2) CK-MB (CK-2) % Troponin I NT-Pro-B Natriuret Pep Total Protein Albumin Globulin Albumin/Globulin Ratio Procalcitonin 1.89 H Venous Blood Potassium 5.6 H Urine Color Urine Appearance Urine pH Ur Specific [place] Urine Protein Urine Glucose (UA) Urine Ketones Urine Blood Urine Nitrate Urine Bilirubin Urine Urobilinogen Ur Leukocyte Esterase Urine RBC Urine WBC Ur Epithelial Cells Urine Bacteria Ur Random Creatinine Ur Random Sodium 07/31/18 07/31/18 08/01/18 22:42 23:15 05:40 WBC RBC Hgb Hct MCV MCH MCHC RDW Plt Count MPV Neut % (Auto) Lymph % (Auto) [place] % (Auto) Eos % (Auto) Baso % (Auto) Lymph # (Auto) [place] # (Auto) Eos # (Auto) Baso # (Auto) Absolute Neuts (auto) Neutrophils % (Manual) Band Neutrophils % Lymphocytes % (Manual) Monocytes % (Manual) Metamyelocytes % Platelet Evaluation PT INR APTT D-Dimer, Quantitative pCO2 pO2 HCO3 ABG pH ABG Total CO2 ABG O2 Saturation ABG O2 Content ABG Base Excess ABG Hemoglobin ABG Carboxyhemoglobin POC ABG HHb (Measured) ABG Methemoglobin ABG O2 Capacity VBG pH VBG pCO2 VBG HCO3 VBG Total CO2 VBG O2 Sat (Calc) VBG Base Excess VBG Potassium Hgb O2 Saturation Sodium 136 Chloride 103 Glucose Lactate FiO2 Blood Gas Comments Crit Value Called To Crit Value Called By Blood Gas Notified Time Potassium 4.7 Carbon Dioxide 7 L D Anion Gap 30 H BUN 234 H* Creatinine 16.6 H* Est GFR ( Amer) 4 Est GFR (Non-Af Amer) 3 Random Glucose 155 H Calcium 6.5 L* Phosphorus 11.9 H Magnesium 1.7 Iron TIBC % Saturation Total Bilirubin 0.8 AST 39 ALT 23 Alkaline Phosphatase 86 Total Creatine Kinase CK-MB (CK-2) CK-MB (CK-2) % Troponin I 0.27 H* D 0.95 H* D NT-Pro-B Natriuret Pep Total Protein 6.6 Albumin 3.3 Globulin 3.4 Albumin/Globulin Ratio 1.0 L Procalcitonin Venous Blood Potassium Urine Color Light yellow Urine Appearance Sl cloudy Urine pH 6.0 Ur Specific [place] 1.020 Urine Protein Trace H Urine Glucose (UA) Negative Urine Ketones Negative Urine Blood Moderate H Urine Nitrate Negative Urine Bilirubin Negative Urine Urobilinogen 0.2 Ur Leukocyte Esterase Moderate H Urine RBC 2 - 5 H Urine WBC 25 - 30 H Ur Epithelial Cells 0 - 2 Urine Bacteria Few Ur Random Creatinine Ur Random Sodium 08/01/18 08/01/18 08/01/18 05:40 06:20 10:10 WBC 12.3 H D RBC 2.76 L Hgb 7.7 L Hct 22.2 L MCV 80.4 MCH 27.9 MCHC 34.7 RDW 14.3 Plt Count 239 MPV 9.4 Neut % (Auto) 95.8 H Lymph % (Auto) 3.4 L [place] % (Auto) 0.7 L Eos % (Auto) 0.1 L Baso % (Auto) 0.0 Lymph # (Auto) 0.4 L [place] # (Auto) 0.1 Eos # (Auto) 0.0 Baso # (Auto) 0.00 Absolute Neuts (auto) 11.79 H Neutrophils % (Manual) Band Neutrophils % Lymphocytes % (Manual) Monocytes % (Manual) Metamyelocytes % Platelet Evaluation PT INR APTT D-Dimer, Quantitative pCO2 13 L* pO2 154.0 H HCO3 5.3 L* ABG pH 7.22 L ABG Total CO2 5.7 L ABG O2 Saturation 96.2 ABG O2 Content 9.0 L ABG Base Excess -20.5 L ABG Hemoglobin 6.4 L ABG Carboxyhemoglobin 0 L POC ABG HHb (Measured) 3.8 ABG Methemoglobin 0.9 ABG O2 Capacity 9.4 L VBG pH VBG pCO2 VBG HCO3 VBG Total CO2 VBG O2 Sat (Calc) VBG Base Excess VBG Potassium Hgb O2 Saturation 95.4 Sodium Chloride Glucose Lactate FiO2 28.0 Blood Gas Comments Crit Value Called To Sherin garcia surgical rn Crit Value Called By Constantino Blood Gas Notified Time 633 Potassium Carbon Dioxide Anion Gap BUN Creatinine Est GFR ( Amer) Est GFR (Non-Af Amer) Random Glucose Calcium Phosphorus Magnesium Iron 137 TIBC 146 L % Saturation 93 H Total Bilirubin AST ALT Alkaline Phosphatase Total Creatine Kinase CK-MB (CK-2) CK-MB (CK-2) % Troponin I NT-Pro-B Natriuret Pep Total Protein Albumin Globulin Albumin/Globulin Ratio Procalcitonin Venous Blood Potassium Urine Color Urine Appearance Urine pH Ur Specific [place] Urine Protein Urine Glucose (UA) Urine Ketones Urine Blood Urine Nitrate Urine Bilirubin Urine Urobilinogen Ur Leukocyte Esterase Urine RBC Urine WBC Ur Epithelial Cells Urine Bacteria Ur Random Creatinine Ur Random Sodium 08/01/18 11:00 WBC RBC Hgb Hct MCV MCH MCHC RDW Plt Count MPV Neut % (Auto) Lymph % (Auto) [place] % (Auto) Eos % (Auto) Baso % (Auto) Lymph # (Auto) [place] # (Auto) Eos # (Auto) Baso # (Auto) Absolute Neuts (auto) Neutrophils % (Manual) Band Neutrophils % Lymphocytes % (Manual) Monocytes % (Manual) Metamyelocytes % Platelet Evaluation PT INR APTT D-Dimer, Quantitative pCO2 pO2 HCO3 ABG pH ABG Total CO2 ABG O2 Saturation ABG O2 Content ABG Base Excess ABG Hemoglobin ABG Carboxyhemoglobin POC ABG HHb (Measured) ABG Methemoglobin ABG O2 Capacity VBG pH VBG pCO2 VBG HCO3 VBG Total CO2 VBG O2 Sat (Calc) VBG Base Excess VBG Potassium Hgb O2 Saturation Sodium Chloride Glucose Lactate FiO2 Blood Gas Comments Crit Value Called To Crit Value Called By Blood Gas Notified Time Potassium Carbon Dioxide Anion Gap BUN Creatinine Est GFR ( Amer) Est GFR (Non-Af Amer) Random Glucose Calcium Phosphorus Magnesium Iron TIBC % Saturation Total Bilirubin AST ALT Alkaline Phosphatase Total Creatine Kinase CK-MB (CK-2) CK-MB (CK-2) % Troponin I NT-Pro-B Natriuret Pep Total Protein Albumin Globulin Albumin/Globulin Ratio Procalcitonin Venous Blood Potassium Urine Color Urine Appearance Urine pH Ur Specific [place] Urine Protein Urine Glucose (UA) Urine Ketones Urine Blood Urine Nitrate Urine Bilirubin Urine Urobilinogen Ur Leukocyte Esterase Urine RBC Urine WBC Ur Epithelial Cells Urine Bacteria Ur Random Creatinine 54 Ur Random Sodium 96
[2018-08-01] MEDS: Nystatin 100,000 Units/gm Cream(15 gm) TOP SCH ×2 (13:43→18:51)
--- NOTE | 2018-08-01 14:04 | RAD ---
Date of service: 08/01/2018 HISTORY: placement COMPARISON: 07/31/2018 FINDINGS: LUNGS: No active pulmonary disease. PLEURA: No significant pleural effusion identified, no pneumothorax apparent. CARDIOVASCULAR: No aortic atherosclerotic calcification present. Normal cardiac size. No congestive change. Right tunneled central venous dialysis catheter new since prior. OSSEOUS STRUCTURES: No significant abnormalities. VISUALIZED UPPER ABDOMEN: Normal. OTHER FINDINGS: None. IMPRESSION: New right tunneled central venous dialysis catheter otherwise no significant change.
--- NOTE | 2018-08-01 14:24 | US ---
Date of service: 08/01/2018 PROCEDURE: Ultrasound of the Kidneys HISTORY: KIM COMPARISON: None available. TECHNIQUE: Sonogram of the kidneys. FINDINGS: RIGHT KIDNEY: Measures: 9.5 cm. Normal in size, contour and echogenicity. No stone, solid mass lesion or hydronephrosis visualized. LEFT KIDNEY: Measures: 11.0 cm. Normal in size, contour and echogenicity. 11 mm nonobstructing calculus lower pole. No mass. No hydronephrosis. OTHER FINDINGS: None. IMPRESSION: 11 mm nonobstructing calculus lower pole left kidney. Otherwise unremarkable.
--- NOTE | 2018-08-01 14:48 | CP.PCM.CON ---
History of Present Illness - History of Present Illness History of Present Illness: 68 year old male with PMH of arthritis, chronic right leg rash came in to [facility] because of worsening shortness of breath for the past week, associated with generalized weakness. The patient has also been having dyspnea on exertion. He denies fever or chills, no cough, no rhinorrhea, no sore throat, no abdominal pain, no diarrhea, no dysuria, denies headache or dizziness, no back pain currently. The patient also had an episode of chest pain about 3 days ago and an episode of nausea or vomiting. In the ED, he was noted to have renal failrue and leukocytosis and Infectious Diseases consult is requested to further evaluate and manage. PMH: as above Past surg hx: S/P hip surgery FMH: mother ESRD on HD PSHx: more than 30 pack year smoking history, no alcohol abuse or illicit drug use Review of Systems - Review of Systems All systems: reviewed and no additional remarkable complaints except (as per HPI) Past Patient History - Past Social History Smoking Status: Former Smoker - CARDIAC Hx Cardiac Disorders: No - PULMONARY Hx Respiratory Disorders: Yes (SMOKED CIGARETTES 1 PPD QUIT 2011.) - NEUROLOGICAL Hx Neurological Disorder: No - HEENT Hx HEENT Problems: No - RENAL Hx Chronic Kidney Disease: Yes Hx Renal Failure: Yes (--19) - ENDOCRINE/METABOLIC Hx Endocrine Disorders: No - HEMATOLOGICAL/ONCOLOGICAL Hx Blood Disorders: No - INTEGUMENTARY Hx Dermatological Problems: Yes Hx Psoriasis: Yes (BILATERAL LE) - MUSCULOSKELETAL/RHEUMATOLOGICAL Hx Musculoskeletal Disorders: Yes Hx Arthritis: Yes Hx Falls: Yes - GASTROINTESTINAL Hx Gastrointestinal Disorders: No - GENITOURINARY/GYNECOLOGICAL Hx Genitourinary Disorders: No - PSYCHIATRIC Hx Psychophysiologic Disorder: No Hx Substance Use: No - SURGICAL HISTORY Hx Surgeries: Yes (BILATERAL HIP SX 2015) - ANESTHESIA Hx Anesthesia: No Hx Anesthesia Reactions: No Hx Malignant Hyperthermia: No Meds Allergies/Adverse Reactions: Allergies Allergy/AdvReac Type Severity Reaction Status Date / Time No Known Allergies Allergy Verified 07/31/18 19:36 - Medications Medications: Current Medications Albuterol/Ipratropium (Duoneb 3 Mg/0.5 Mg (3 Ml) Ud) 3 ml IH Q2H PRN PRN Reason: Shortness of Breath Heparin Sodium (Porcine) (Heparin) 5,000 units SC Q8 [facility]; Protocol Last Admin: 08/01/18 05:02 Dose: 5,000 units Sodium Bicarbonate 150 meq/ (Sodium Chloride) 1,150 mls @ 150 mls/hr IV .Q7H40M [facility] Last Admin: 08/01/18 01:40 Dose: 150 mls/hr Cefepime HCl (Maxipime 1gm) 1 gm in 100 mls @ 100 mls/hr IVPB Q24H [facility]; Protocol Last Admin: 07/31/18 20:27 Dose: 100 mls/hr Pantoprazole Sodium (Protonix Inj) 40 mg IVP DAILY [facility] Physical Exam - Constitutional Appears: Chronically Ill - Head Exam Head Exam: NORMAL INSPECTION - Neck Exam Neck exam: Negative for: Lymphadenopathy, Meningismus - Respiratory Exam Respiratory Exam: Decreased Breath Sounds - Cardiovascular Exam Cardiovascular Exam: +S1, +S2 - GI/Abdominal Exam GI & Abdominal Exam: Soft. absent: Tenderness - Extremities Exam Additional comments: right leg anterior area with lichenification Results - Vital Signs Recent Vital Signs: Last Vital Signs Temp 96.6 F L 07/31/18 23:16 Pulse 108 H 08/01/18 06:00 Resp 23 07/31/18 22:12 BP 129/61 07/31/18 17:58 Pulse Ox 98 07/31/18 17:58 - Labs Result Diagrams: 08/01/18 05:40 08/01/18 05:40 Labs: Laboratory Results - last 24 hr 07/31/18 07/31/18 07/31/18 14:50 14:50 14:50 WBC 23.3 H RBC 3.16 L Hgb 9.0 L Hct 26.2 L MCV 82.9 MCH 28.5 MCHC 34.4 RDW 14.5 Plt Count 264 MPV 9.5 Neut % (Auto) 91.4 H Lymph % (Auto) 6.7 L Sully % (Auto) 1.5 Eos % (Auto) 0.2 L Baso % (Auto) 0.2 Lymph # (Auto) 1.6 Sully # (Auto) 0.4 Eos # (Auto) 0.0 Baso # (Auto) 0.05 Absolute Neuts (auto) 21.29 H Neutrophils % (Manual) 85 H Band Neutrophils % 4 H Lymphocytes % (Manual) 4 L Monocytes % (Manual) 6 Metamyelocytes % 1 Platelet Evaluation Normal PT 14.3 H INR 1.29 APTT 38.1 D-Dimer, Quantitative 5760 H pCO2 pO2 215 H HCO3 ABG pH ABG Total CO2 ABG O2 Saturation ABG O2 Content ABG Base Excess ABG Hemoglobin ABG Carboxyhemoglobin POC ABG HHb (Measured) ABG Methemoglobin ABG O2 Capacity VBG pH 6.94 L* VBG pCO2 17.0 L* VBG HCO3 3.7 L VBG Total CO2 4.2 L VBG O2 Sat (Calc) 96.8 H VBG Base Excess -27.2 L VBG Potassium 5.6 H Hgb O2 Saturation Sodium 125.0 L Chloride 94.0 L Glucose 140 H Lactate 1.2 FiO2 21.0 Blood Gas Comments Crit Value Called To Larissa carlisle Crit Value Called By Atc Blood Gas Notified Time 1505 Potassium Carbon Dioxide Anion Gap BUN Creatinine Est GFR ( Amer) Est GFR (Non-Af Amer) Random Glucose Calcium Phosphorus Magnesium Total Bilirubin AST ALT Alkaline Phosphatase Total Creatine Kinase CK-MB (CK-2) CK-MB (CK-2) % Troponin I NT-Pro-B Natriuret Pep Total Protein Albumin Globulin Albumin/Globulin Ratio Procalcitonin Venous Blood Potassium 5.6 H Urine Color Urine Appearance Urine pH Ur Specific [place] Urine Protein Urine Glucose (UA) Urine Ketones Urine Blood Urine Nitrate Urine Bilirubin Urine Urobilinogen Ur Leukocyte Esterase Urine RBC Urine WBC Ur Epithelial Cells Urine Bacteria 07/31/18 07/31/18 07/31/18 14:50 15:15 17:56 WBC RBC Hgb Hct MCV MCH MCHC RDW Plt Count MPV Neut % (Auto) Lymph % (Auto) Sully % (Auto) Eos % (Auto) Baso % (Auto) Lymph # (Auto) Sully # (Auto) Eos # (Auto) Baso # (Auto) Absolute Neuts (auto) Neutrophils % (Manual) Band Neutrophils % Lymphocytes % (Manual) Monocytes % (Manual) Metamyelocytes % Platelet Evaluation PT INR APTT D-Dimer, Quantitative pCO2 13 L* pO2 142.0 H HCO3 3.1 L* ABG pH 6.98 L* ABG Total CO2 3.5 L ABG O2 Saturation 96.7 ABG O2 Content 12.0 L ABG Base Excess -26.5 L ABG Hemoglobin 8.7 L ABG Carboxyhemoglobin 0 L POC ABG HHb (Measured) 3.3 ABG Methemoglobin 1.0 ABG O2 Capacity 12.4 L VBG pH VBG pCO2 VBG HCO3 VBG Total CO2 VBG O2 Sat (Calc) VBG Base Excess VBG Potassium Hgb O2 Saturation 95.6 Sodium 131 L 131 L Chloride 96 L 97 L Glucose Lactate FiO2 28.0 Blood Gas Comments Walked to er Crit Value Called To adela Ritchie Crit Value Called By Ec Blood Gas Notified Time 1522 Potassium 5.7 H* 5.4 H Carbon Dioxide 5 L < 5 L Anion Gap 36 H 34 H BUN 232 H* 230 H* Creatinine 18.1 H* 18.3 H* Est GFR ( Amer) 3 3 Est GFR (Non-Af Amer) 3 3 Random Glucose 136 H 211 H Calcium 7.0 L 6.7 L* Phosphorus 13.4 H Magnesium 1.9 2.0 Total Bilirubin 0.8 0.9 AST 34 29 ALT 23 26 Alkaline Phosphatase 109 105 Total Creatine Kinase 477 H CK-MB (CK-2) 25.0 H CK-MB (CK-2) % 5.2 H Troponin I 0.11 NT-Pro-B Natriuret Pep 94380 H Total Protein 7.7 7.3 Albumin 3.8 3.6 Globulin 4.0 3.7 Albumin/Globulin Ratio 1.0 L 1.0 L Procalcitonin Venous Blood Potassium Urine Color Urine Appearance Urine pH Ur Specific [place] Urine Protein Urine Glucose (UA) Urine Ketones Urine Blood Urine Nitrate Urine Bilirubin Urine Urobilinogen Ur Leukocyte Esterase Urine RBC Urine WBC Ur Epithelial Cells Urine Bacteria 07/31/18 07/31/18 07/31/18 18:00 18:14 18:14 WBC 21.9 H RBC 3.04 L Hgb 8.6 L Hct 25.2 L MCV 82.9 MCH 28.3 MCHC 34.1 RDW 14.6 H Plt Count 268 MPV 9.7 Neut % (Auto) 93.9 H Lymph % (Auto) 4.4 L Sully % (Auto) 1.6 Eos % (Auto) 0.0 L Baso % (Auto) 0.1 Lymph # (Auto) 1.0 L Sully # (Auto) 0.4 Eos # (Auto) 0.0 Baso # (Auto) 0.03 Absolute Neuts (auto) 20.56 H Neutrophils % (Manual) Band Neutrophils % Lymphocytes % (Manual) Monocytes % (Manual) Metamyelocytes % Platelet Evaluation PT INR APTT D-Dimer, Quantitative pCO2 pO2 110 H HCO3 ABG pH ABG Total CO2 ABG O2 Saturation ABG O2 Content ABG Base Excess ABG Hemoglobin ABG Carboxyhemoglobin POC ABG HHb (Measured) ABG Methemoglobin ABG O2 Capacity VBG pH 6.93 L* VBG pCO2 16.0 L* VBG HCO3 3.4 L VBG Total CO2 3.9 L VBG O2 Sat (Calc) 96.2 H VBG Base Excess -27.7 L VBG Potassium 5.6 H Hgb O2 Saturation Sodium 126.0 L Chloride 95.0 L Glucose 215 H Lactate 1.4 FiO2 21.0 Blood Gas Comments Crit Value Called To Kristina abarca Crit Value Called By [facility] Blood Gas Notified Time 182 Potassium Carbon Dioxide Anion Gap BUN Creatinine Est GFR ( Amer) Est GFR (Non-Af Amer) Random Glucose Calcium Phosphorus Magnesium Total Bilirubin AST ALT Alkaline Phosphatase Total Creatine Kinase CK-MB (CK-2) CK-MB (CK-2) % Troponin I NT-Pro-B Natriuret Pep Total Protein Albumin Globulin Albumin/Globulin Ratio Procalcitonin 1.89 H Venous Blood Potassium 5.6 H Urine Color Urine Appearance Urine pH Ur Specific [place] Urine Protein Urine Glucose (UA) Urine Ketones Urine Blood Urine Nitrate Urine Bilirubin Urine Urobilinogen Ur Leukocyte Esterase Urine RBC Urine WBC Ur Epithelial Cells Urine Bacteria 07/31/18 07/31/18 08/01/18 22:42 23:15 05:40 WBC 12.3 H D RBC 2.76 L Hgb 7.7 L Hct 22.2 L MCV 80.4 MCH 27.9 MCHC 34.7 RDW 14.3 Plt Count 239 MPV 9.4 Neut % (Auto) 95.8 H Lymph % (Auto) 3.4 L Sully % (Auto) 0.7 L Eos % (Auto) 0.1 L Baso % (Auto) 0.0 Lymph # (Auto) 0.4 L Sully # (Auto) 0.1 Eos # (Auto) 0.0 Baso # (Auto) 0.00 Absolute Neuts (auto) 11.79 H Neutrophils % (Manual) Band Neutrophils % Lymphocytes % (Manual) Monocytes % (Manual) Metamyelocytes % Platelet Evaluation PT INR APTT D-Dimer, Quantitative pCO2 pO2 HCO3 ABG pH ABG Total CO2 ABG O2 Saturation ABG O2 Content ABG Base Excess ABG Hemoglobin ABG Carboxyhemoglobin POC ABG HHb (Measured) ABG Methemoglobin ABG O2 Capacity VBG pH VBG pCO2 VBG HCO3 VBG Total CO2 VBG O2 Sat (Calc) VBG Base Excess VBG Potassium Hgb O2 Saturation Sodium Chloride Glucose Lactate FiO2 Blood Gas Comments Crit Value Called To Crit Value Called By Blood Gas Notified Time Potassium Carbon Dioxide Anion Gap BUN Creatinine Est GFR ( Amer) Est GFR (Non-Af Amer) Random Glucose Calcium Phosphorus Magnesium Total Bilirubin AST ALT Alkaline Phosphatase Total Creatine Kinase CK-MB (CK-2) CK-MB (CK-2) % Troponin I 0.27 H* D NT-Pro-B Natriuret Pep Total Protein Albumin Globulin Albumin/Globulin Ratio Procalcitonin Venous Blood Potassium Urine Color Light yellow Urine Appearance Sl cloudy Urine pH 6.0 Ur Specific [place] 1.020 Urine Protein Trace H Urine Glucose (UA) Negative Urine Ketones Negative Urine Blood Moderate H Urine Nitrate Negative Urine Bilirubin Negative Urine Urobilinogen 0.2 Ur Leukocyte Esterase Moderate H Urine RBC 2 - 5 H Urine WBC 25 - 30 H Ur Epithelial Cells 0 - 2 Urine Bacteria Few 08/01/18 06:20 WBC RBC Hgb Hct MCV MCH MCHC RDW Plt Count MPV Neut % (Auto) Lymph % (Auto) Sully % (Auto) Eos % (Auto) Baso % (Auto) Lymph # (Auto) Sully # (Auto) Eos # (Auto) Baso # (Auto) Absolute Neuts (auto) Neutrophils % (Manual) Band Neutrophils % Lymphocytes % (Manual) Monocytes % (Manual) Metamyelocytes % Platelet Evaluation PT INR APTT D-Dimer, Quantitative pCO2 13 L* pO2 154.0 H HCO3 5.3 L* ABG pH 7.22 L ABG Total CO2 5.7 L ABG O2 Saturation 96.2 ABG O2 Content 9.0 L ABG Base Excess -20.5 L ABG Hemoglobin 6.4 L ABG Carboxyhemoglobin 0 L POC ABG HHb (Measured) 3.8 ABG Methemoglobin 0.9 ABG O2 Capacity 9.4 L VBG pH VBG pCO2 VBG HCO3 VBG Total CO2 VBG O2 Sat (Calc) VBG Base Excess VBG Potassium Hgb O2 Saturation 95.4 Sodium Chloride Glucose Lactate FiO2 28.0 Blood Gas Comments Crit Value Called To Sherin garcia rn icu Crit Value Called By Constantino Blood Gas Notified Time 633 Potassium Carbon Dioxide Anion Gap BUN Creatinine Est GFR ( Amer) Est GFR (Non-Af Amer) Random Glucose Calcium Phosphorus Magnesium Total Bilirubin AST ALT Alkaline Phosphatase Total Creatine Kinase CK-MB (CK-2) CK-MB (CK-2) % Troponin I NT-Pro-B Natriuret Pep Total Protein Albumin Globulin Albumin/Globulin Ratio Procalcitonin Venous Blood Potassium Urine Color Urine Appearance Urine pH Ur Specific [place] Urine Protein Urine Glucose (UA) Urine Ketones Urine Blood Urine Nitrate Urine Bilirubin Urine Urobilinogen Ur Leukocyte Esterase Urine RBC Urine WBC Ur Epithelial Cells Urine Bacteria Assessment & Plan - Assessment and Plan (Free Text) Plan: Assessment Systemic inflammatory response syndrome, probably due to acute renal failure R/O acute coronary syndrome in this patient presenting with dehydration and metab olic acidosis, R/O sepsis arthritis chronic right leg rash S/P hip surgery Plan gave a dose of IV Vancomycin and started Cefepime pending blood, urine cx, CXR, PCT follow up further plans of Renal, Cardiology, ICU team will monitor clinically
[2018-08-01 15:49] LABS: BARBITURATES, UR NEGATIVE (NEGATIVE); BENZODIAZEPINES, UR NEGATIVE (NEGATIVE); OPIATES, UR NEGATIVE (NEGATIVE); PHENCYCLIDINE, UR NEGATIVE (NEGATIVE)
[2018-08-01 16:51] LABS: COMPLEMENT C4 36.5 mg/dL (14.0-44.0); TRANSFERRIN 100.88 mg/dL (206-381)
--- NOTE | 2018-08-01 16:52 | CP.PCM.APN ---
Subjective - Date & Time of Evaluation Date of Evaluation: 08/01/18 Time of Evaluation: 12:45 - Subjective Subjective: Pt. seen receiving HD. Review of Systems - Review of Systems All systems: reviewed and no additional remarkable complaints except (receiving HD.) Objective - Vital Signs/Intake and Output Vital Signs (last 24 hours): Temp Pulse Resp BP Pulse Ox 98.4 F 100 H 22 100/67 93 L 08/01/18 15:30 08/01/18 15:30 08/01/18 15:30 08/01/18 15:30 08/01/18 15:30 Intake and Output: 08/01/18 08/01/18 06:59 18:59 Intake Total 5370 Output Total 700 Balance 4670 - Medications Medications: Current Medications Albuterol/Ipratropium (Duoneb 3 Mg/0.5 Mg (3 Ml) Ud) 3 ml IH Q2H PRN PRN Reason: Shortness of Breath Aspirin (Aspirin Chewable) 81 mg PO DAILY [facility] Last Admin: 08/01/18 09:27 Dose: 81 mg Atorvastatin Calcium (Lipitor) 40 mg PO DIN [facility] Calcium Acetate (Phoslo) 2,001 mg PO WM [facility] Last Admin: 08/01/18 12:07 Dose: Not Given Darbepoetin Ron (Aranesp) 100 mcg IVP QWK [facility] Last Admin: 08/01/18 13:50 Dose: 100 mcg Heparin Sodium (Porcine) (Heparin) 5,000 units SC Q8 [facility]; Protocol Last Admin: 08/01/18 13:44 Dose: 5,000 units Cefepime HCl (Maxipime 1gm) 1 gm in 100 mls @ 100 mls/hr IVPB Q24H [facility]; Protocol Last Admin: 07/31/18 20:27 Dose: 100 mls/hr Sodium Bicarbonate 150 meq/ (Dextrose) 1,150 mls @ 50 mls/hr IV .Q23H [facility] Stop: 08/03/18 12:31 Last Admin: 08/01/18 13:40 Dose: 50 mls/hr Nystatin (Mycostatin Cream) 0 ea TOP TID [facility] Last Admin: 08/01/18 13:43 Dose: 1 applic Pantoprazole Sodium (Protonix Inj) 40 mg IVP DAILY [facility] Last Admin: 08/01/18 09:02 Dose: 40 mg Tamsulosin HCl (Flomax) 0.4 mg PO DAILY [facility] Vitamin B Complex/Vit C/Folic Acid (Nephro-Agustina) 1 tab PO 0800 [facility] - Labs Labs: 08/01/18 05:40 08/01/18 05:40 PT 14.3 SECONDS (9.4-12.5) H 07/31/18 14:50 INR 1.29 07/31/18 14:50 APTT 38.1 Seconds (26.9-38.3) 07/31/18 14:50 - Constitutional Appears: Non-toxic - Head Exam Head Exam: NORMOCEPHALIC - Eye Exam Eye Exam: absent: Conjunctival injection, EOMI, Normal appearance, Nystagmus, Periorbital swelling, Periorbital tenderness, PERRL, Scleral icterus - ENT Exam ENT Exam: absent: Mucous Membranes Dry, Mucous Membranes Moist, Normal Exam, Normal External Ear Exam, Normal Oropharynx, TM's Normal Bilaterally - Neck Exam Neck Exam: Full ROM - Respiratory Exam Respiratory Exam: Decreased Breath Sounds - Cardiovascular Exam Cardiovascular Exam: +S1, +S2 - Rectal Exam Rectal Exam: Deferred - Exam Exam: absent: Circumcision, NORMAL INSPECTION, Scrotal Swelling, Testicular Tenderness, Uretheral Discharge, Testicular Vertical Lie, Bladder Distension External exam: absent: Ecchymosis, Erythema, Lacerations, Lesions, NORMAL EXTERNAL EXAM, Swelling Speculum exam: absent: Cervical Discharge, Erythema, Foreign Body, Laceration, NORMAL SPECULUM EXAM, Tissue, Vaginal Bleeding, Vaginal Discharge Bimanual exam: absent: Adenexal Mass, Adnexal, Cervical Motion Tendernes, NORMAL BIMANUAL EXAM, Uterine Enlargement, Uterine Tenderness Assessment and Plan - Assessment and Plan (Free Text) Assessment: ITS Impressions Chest X-Ray 07/31/18 14:13 IMPRESSION: No active disease. Renal Ultrasound 08/01/18 09:28 IMPRESSION: 11 mm nonobstructing calculus lower pole left kidney. Otherwise unremarkable. Abdomen/Pelvis CT 08/01/18 10:24 IMPRESSION: Obstructing 9 mm mid left ureteral calculus with mild left hydronephrosis 8 mm nonobstructing left lower pole renal calculus. Minor findings as above. Small bilateral pleural effusion, right greater than left. Chest X-Ray 08/01/18 12:34 IMPRESSION: New right tunneled central venous dialysis catheter otherwise no significant change. Assessment: 68 year old male with PMH of arthritis, chronic right leg rash came in to [facility] because of worsening shortness of breath for the past week, associated with ge neralized weakness. The patient has also been having dyspnea on exertion, admitted for acute renal failure /sepsis, pending ID and renal consults and management. Plan: 1. Sepsis - SIRS r/t ARF as per I.D, antibiotics per I.D, UA pos, urine culture pending. Leukocytosis improving, WBC 23 on admit, today 12.3, Antibx as per I.D, trend Wbc. 2. UTI Urine culture results pending. -Antibx per I.D. 3. ARF Most likely r/t dehydration, vs.recent NSAID use, vs. obstructive, with obstructing ureter stone on imaging. NA bicarb gtt, and HD as per nephro, trend Bun/Creatinine -Monitor Is Os. 4. Hydronephrosis -most likely r/t obstructing left ureter stone, urology consult pending. 5. Anemia -? Anemia, secondary to kidney disease monitor h/h, transfuse as per nephro. R/o GI source, Stool O.B pending, 6. Elevated Trop Card. consulted, manage conservatively, no cath at present 7. Fluid overload, w.elevated BNP, Likely secondary to acute kidney failure Monitor I's O.s, dialysis as per nephro
[2018-08-01 16:58] LABS: HEPATITIS B SURFACE AG Negative (NEGATIVE)
[2018-08-01 17:06] LABS: HEPATITIS B CORE AB NEGATIVE (NEGATIVE)
[2018-08-01 17:19] LABS: HEPATITIS C ANTIBODY NEGATIVE (NEGATIVE)
[2018-08-01] MEDS: Cefepime 1gm in NS 100ml 1 GM/100 ML BAG IVPB SCH (17:45)
--- NOTE | 2018-08-01 18:42 | CARD ---
APPROVED REPORT Date of service: 08/01/2018 EXAM: Two-dimensional and M-mode echocardiogram with Doppler and color Doppler. INDICATION ELEVATED BNP 2D DIMENSIONS Left Atrium (2D)3.9 (1.6-4.0cm)IVSd1.0 (0.7-1.1cm) LVDd4.3 (3.9-5.9cm)PWd1.2 (0.7-1.1cm) LVDs3.0 (2.5-4.0cm)FS (%) 28.8 % LVEF (%)55.7 (>50%) M-Mode DIMENSIONS Aortic Root3.50 (2.2-3.7cm)Aortic Cusp Exc.1.70 (1.5-2.0cm) Aortic Valve AoV Peak Gxcbevuw142.0cm/Julien Peak GR.18mmHg Mitral Valve MV E Urwptlru33.6cm/sMV A Kohpzidp139.0cm/sE/A ratio0.8 TDI Lateral E' Peak V11.40cm/sMedial E' Peak V6.34cm/sE/Lateral E'8.4 E/Medial E'15.1 Pulmonary Valve PV Peak Pzsvpots10.7cm/sPV Peak Grad.4mmHg Tricuspid Valve TR Peak Loxvjnzs394io/sRAP [id number] Peak Gr.35mmHg [id number] LEFT VENTRICLE The left ventricle is normal size. There is normal left ventricular wall thickness. The left ventricular function is normal. The left ventricular ejection fraction is within the normal range. There is normal LV segmental wall motion. Transmitral Doppler flow pattern is Grade I-abnormal relaxation pattern. RIGHT VENTRICLE The right ventricle is normal size. There is normal right ventricular wall thickness. The right ventricular systolic function is normal. ATRIA The left atrium size is normal. The right atrium size is normal. AORTIC VALVE The aortic valve is moderately thickened. There is trace aortic regurgitation. There is no aortic valvular stenosis. MITRAL VALVE The mitral valve is mildly thickened. Mitral regurgitation is trace. There is no mitral valve stenosis. TRICUSPID VALVE There is mild tricuspid regurgitation. There is mild to moderate pulmonary hypertension. PULMONIC VALVE The pulmonary valve is normal in structure. There is no pulmonic valvular regurgitation. GREAT VESSELS The aortic root is normal in size. The IVC is normal in size and collapses >50% with inspiration. <Conclusion> There is normal left ventricular wall thickness. The left ventricular function is normal. The left ventricular ejection fraction is within the normal range. There is normal LV segmental wall motion. Transmitral Doppler flow pattern is Grade I-abnormal relaxation pattern. There is mild tricuspid regurgitation. There is mild to moderate pulmonary hypertension.
--- NOTE | 2018-08-01 20:19 | PN ---
DATE: 08/01/2018 SUBJECTIVE: The patient is seen and examined at bedside. He is comfortable, however, appears in mild respiratory distress. However, able to talk in full sentences and denies difficulty breathing . He is alert awake and oriented. His last night was uneventful. He made 700 mL of urine last night. His pH has improved to 7.22; however, he is still complaining of tiredness. PHYSICAL EXAMINATION: VITAL SIGNS: Heart rate 106, blood pressure 123/65, oxygen saturation 99% on 2 L nasal cannula, and temperature of 99.1. ENT: Head and neck atraumatic. LUNGS: Few crackles bilaterally. HEART: Regular rate and rhythm. S1 and S2 distant. ABDOMEN: Soft, nontender, nondistended. MUSCULOSKELETAL: 1+ bilateral pedal and ankle edema. NEUROLOGIC: The patient moves all extremities spontaneously. SKIN: Moist. PSYCHIATRIC: The patient is alert, awake and oriented x3. LABORATORY DATA: Sodium 136, potassium 4.7, chloride 103, carbon dioxide 7, BUN 234, creatinine 16.6 down from 18.3, glucose 155. Troponin 0.95 up from 0.27. AB.22/13/154 on 2 L nasal cannula. INR 1.29. PT 38.1. Urine is positive for wbc's, bacteria, moderate leukocyte esterase, negative for nitrites. MEDICATIONS: DuoNeb p.r.n., aspirin, Lipitor, PhosLo, RNS, heparin subcu, cefepime, Protonix, sodium bicarbonate 0.3 mL per hour, vitamin D, vitamin C. ASSESSMENT AND PLAN: This is a 68-year-old gentleman who presented with severe acute kidney injury in the setting of urinary tract infection. Possibility of sepsis and as a result, sepsis related acute tubular necrosis leading to acute kidney injury cannot be ruled out. Possibility of NSAIDS related ATN is also there as patient reports using ibuprofen for arthritis pain recently. At present time, I will proceed with CAT scan of the abdomen and pelvis to rule out intra-abdominal causes for urinary tract infection and acute kidney injury. Meanwhile, I discussed the situation with nephrology service, Dr. Samaniego, and I will put dialysis catheter for emergent dialysis. The patient is on broad-spectrum antibiotics. Septic workup is ongoing including blood culture, urine culture, procalcitonin. Chest x-ray did not show any acute pulmonary disease. CAT scan of the abdomen and pelvis will allow us to rule out intra-abdominal source of infection. Echocardiogram is ordered. We will continue target euvolemia, glycemia, normothermia and saturation more than 90%. We will continue with deep venous thrombosis and gastrointestinal prophylaxis. Addendum: CTAP: showed mild left hydronephrosis in the setting of 9 mm obstructing stone and Dr. Payan was requested by Dr. Samaniego for consult Later in the day spoke with Dr. Payan () and Dr. Nate Beckham (IR)-->decision was made to proceed with ureteral stenting in am. of note patient is hemodynamically and respiratory bolden stable, protecting airways, alert, awake and oriented, ate dinner, but will be NPO after midnight. Spoke with dr. Samaniego to arrange for HD earlier in am tomorrow before the procedure. ccm time 40 min Dwayne Sims MD MTDDidi
--- NOTE | 2018-08-01 20:21 | HP ---
HISTORY OF PRESENT ILLNESS: The patient is a 68-year-old man with no significant past medical history who presented for evaluation of a 2 week history of progressively worsening dyspnea, pedal edema, and 3-pillow orthopnea. The patient was in his usual state of health until approximately 2 weeks prior to presentation to the ED when he developed the aforementioned symptoms. He furthermore endorsed cough productive of intermittently clear sputum but denied fevers, chills, rigors, hemoptysis, or chest pain associated with these symptoms. He also reports decreased urinary output for several days associated with nausea and vomiting but denied hematemesis, melena, or hematochezia. The patient has poor follow-up with his PMD and was last seen in the office in 03/2016. In the ED he was noted to be in moderate respiratory distress but was otherwise afebrile and hemodynamically stable. Laboratory studies demonstrated multiple derangements with marked leukocytosis (WBC 23), KIM (BUN 232, Cr 18) and a BNP of 14,900. The patient was promptly evaluated by the ICU team and subsequently admitted for continued management. PAST MEDICAL HISTORY: Osteoarthritis of bilateral hips. PAST SURGICAL HISTORY: Bilateral total hip replacement and bilateral cataract removal. ALLERGIES: NKDA. MEDICATIONS: None. FAMILY HISTORY: Significant for hypertension and kidney disease in his mother. SOCIAL HISTORY: The patient reports a former [id number] smoking history but quit 7 years ago. He reports former heavy alcohol use but quit 4 years ago. He denies history of illicit drug abuse. REVIEW OF SYSTEMS: A 12-point review of systems is negative except as per HPI. PHYSICAL EXAMINATION: VITAL SIGNS: Temperature 96.6, pulse 108, blood pressure 129/61, respiratory rate 23, and oxygen saturation 98% on 2L NC. GENERAL: Somnolent, obese man lying in bed in no apparent distress. HEENT: PERRL, EOMI. No scleral icterus. Conjunctival pallor is noted. NECK: No JVD. LUNGS: Decreased breath sounds at the bases with few scattered rhonchi. CARDIOVASCULAR: Regular rate and rhythm. Normal S1 and S2. Grade II/ murmur to LLSB. No friction rub. ABDOMEN: Normoactive bowel sounds. Soft, nontender, and nondistended. EXTREMITIES: Trace pedal edema bilaterally. NEUROLOGIC: Somnolent, but arousable, oriented to person and place. Moving all extremities. Able to follow simple commands. LABORATORY DATA: WBC 12.3 with 96% neutrophils, hemoglobin 7.7, hematocrit 22, and platelets 239. Sodium 136, potassium 4.7, chloride 103, bicarb 7, BUN 230, creatinine 18, and glucose 155. Troponin 0.11, 0.27, and 0.95. BNP 14,900. Procalcitonin 1.89. Urinalysis with light yellow, cloudy urine with moderate blood, moderate leukocyte esterase and negative nitrites. IMAGING STUDIES: Chest x-ray demonstrated no active disease. ASSESSMENT: The patient is a 68-year-old man with no significant past medical history who presented with a 2 week history of dyspnea with exertion, pedal edema, 3-pillow orthopnea and decreased urinary output and was admitted to the ICU for management of KIM, anion gap metabolic acidosis, SIRS syndrome and anemia. PLAN: 1. KIM on CKD. Labs from 01/2016 demonstrated a Cr of 2.2. Evaluation with Dr. Samaniego pending. Continue with gentle IV fluid hydration, monitoring strict I&O's, renally dosing medications and avoiding nephrotoxins. If renal parameters do not improve the patient may require renal replacement therapy. 2. Elevated troponin, consider secondary to impaired renal clearance in the setting of profound KIM vs NSTEMI. The patient remains hemodynamically stable and chest pain free. Evaluation with Dr. Menendez is pending. TTE pending. We will start Aspirin 81 mg p.o. daily and Lipitor 40 mg p.o. daily. 3. Anion gap metabolic acidosis, consider secondary to profound uremia in the setting of acute kidney injury. The patient remains on a bicarb infusion and is pending evaluation with Dr. Samaniego. Continue to monitor serial ABGs, urine drug screen pending. 4. Elevated BNP. TTE pending to assess for wall motion abnormalities and valvular dysfunction. Cardiology evaluation with Dr. Menendez pending. 5. SIRS. Input from Dr. Coffey noted. The patient has been pancultured and we will await results. Continue to monitor for fever and leukocytosis. Continue with antimicrobials as per Dr. Coffey. 6. Normocytic anemia. We will check stool for occult blood and iron levels. We will continue to monitor CBC and transfuse as needed. Of note, laboratory studies from 01/2016 demonstrated a Hb of 14. 7. Prophylaxis. Continue Protonix for GI prophylaxis and Heparin for DVT prophylaxis. CODE STATUS: Full code. Scout Quintana MD MTDDidi
--- NOTE | 2018-08-01 20:55 | US ---
HISTORY: Leg pain and swelling. Evaluate for DVT PHYSICIAN(S): Nate Beckham MD. TECHNIQUE: Duplex sonography and color-flow Doppler with graded compression were used to evaluate the deep venous systems of both lower extremities. FINDINGS: The visualized deep venous systems of both lower extremities are sonographically normal and compressible. Normal wave forms and augmentation are seen. There is no sonographic evidence for deep venous thrombosis in the visualized segments of both lower extremities. IMPRESSION: No sonographic evidence for deep venous thrombosis in the visualized segments of both lower extremities.
--- NOTE | 2018-08-02 01:36 | CON ---
DATE: 08/01/2018 REQUESTING PHYSICIAN: Dr. Quintana REASON FOR CONSULTATION: Elevated troponin. HISTORY: This is a 68-year-old man with a history of arthritis and bilateral hip replacement, who presented to the emergency room with worsening dyspnea, leg edema and orthopnea. He had a productive cough at home. He reportedly had reduced urine output as well with intermittent vomiting. Upon admission, he was noted to have leukocytosis, anemia, severe metabolic acidosis and severe renal failure with a BUN and creatinine of 230 and 18.3. His troponin has been elevated to 0.95 and evaluation was requested. He is seen in the ICU. He appears somewhat confused. He denies any prior cardiac history. MEDICATIONS AT HOME: Appear to be none. ALLERGIES: NONE. As mentioned, he has undergone bilateral hip replacement as well as cataract surgery. FAMILY HISTORY: There is some unspecified hypertension issues and renal disease in his family. SOCIAL HISTORY: He is a former smoker for many years but quit 7 years ago. He has a history of alcohol abuse in the past but none recently. REVIEW OF SYSTEMS: Ten-point review of systems is notable mainly for the problems mentioned above. PHYSICAL EXAMINATION: GENERAL: He is a somewhat disheveled-appearing middle-aged man. VITAL SIGNS: His blood pressure was 122/66 with pulse of 110 and sinus, respirations are 16. He is afebrile. HEENT: Normocephalic, atraumatic. NECK: Supple. No JVD noted. CHEST: A few scattered rhonchi heard. HEART: PMI displaced laterally with a systolic murmur at the lower left sternal border. ABDOMEN: Soft, nontender, with normoactive bowel sounds. EXTREMITIES: 1+ leg edema. PSYCHIATRIC: Affect appears somewhat flat and mildly disoriented. DIAGNOSTIC DATA: White count is 21.9 with hemoglobin and hematocrit of 8.6 and 25.2, platelet count is 268,000. PT and INR of 14.3 and 1.29. D-dimer 5760. Initial arterial blood gas revealed a pH of 6.98, pCO2 of 13 and pO2 of 142; repeat is 7.22, pCO2 is 13, pO2 of 154. Potassium is 4.7. BUN and creatinine of 234 and 16.6. Troponin is 0.227, repeat is 0.95. Toxicology screen was negative. Electrocardiogram reveals sinus rhythm with first-degree AV block and nonspecific ST-T abnormalities, QT prolongation is noted. Chest x-ray reveals normal cardiac silhouette with mild increased pulmonary vascular markings. Venous duplex scan showed no evidence of deep vein thrombosis. IMPRESSION: 1. Elevated troponin, likely due to reduced renal clearance. No clear evidence of acute myocardial infarction. 2. Renal failure with multiple metabolic abnormalities including severe metabolic acidosis, etiology unclear. 3. Anemia. 4. Leukocytosis. RECOMMENDATIONS: Initiation of dialysis appears appropriate at the present time. A followup troponin will be schedule for the morning. An echocardiogram has been ordered and will be reviewed. Evaluation for causes of his renal failure is in progress. Thank you for this consultation. We will be happy to follow along through his hospital course as needed. Hill Craft MD
--- NOTE | 2018-08-02 04:08 | PROCN ---
DATE: 08/01/2018 PROCEDURE: Hemodialysis catheter placement in the right internal jugular vein. INDICATION: Emergent hemodialysis. DESCRIPTION OF PROCEDURE: After obtaining informed consent, the operational area was sterilized. Time-out was performed. Maximum barrier precautions used. Right internal jugular was cannulated by sterile Seldinger technique. Guidewire removed. Hemostasis achieved. Sterile dressings applied. Chest x-ray confirmed correct position of the hemodialysis catheter. The patient tolerated the procedure well. EBL minimal. Dwayne Sims MD ANGELY
[2018-08-02 06:51] LABS: INR 1.33; LYMPH # 0.8 (1.2-3.4); LYMPH % 10.3 % (22.0-35.0); MEAN CELL VOLUME 80.1 fl (80.0-105.0); MEAN CORPUSCULAR HGB CONC 34.9 g/dl (31.0-37.0); MEAN PLATELET VOLUME 9.3 fl (7.0-11.0); MONO # 0.3 (0.1-0.6); MONO % 3.1 % (1.0-6.0); PARTIAL THROMBOPLASTIN TIME 33.8 Seconds (26.9-38.3); RBC 2.36 10^6/uL (3.5-6.1); RED CELL DISTRIBUTION WIDTH 14.5 % (11.5-14.5); WHITE BLOOD COUNT 8.1 10^3/uL (4.5-11.0)
[2018-08-02 07:08] LABS: HEMOGLOBIN 6.6 g/dL (14.0-18.0)
[2018-08-02 08:03] LABS: CALCIUM 6.5 mg/dL (8.4-10.5); TROPONIN I 2.23 ng/mL
[2018-08-02] MEDS: Nystatin 100,000 Units/gm Cream(15 gm) TOP SCH ×3 (09:00→18:08)
--- NOTE | 2018-08-02 10:38 | CP.CCUPN ---
<Kyle Hansen - Last Filed: 08/02/18 10:11> CCU Subjective - Physician Review Subjective (Free Text): Kyle Hansen, PGY-1 ICU Progress Note for Dr. Sarmiento Patient seen and evaluated at bedside. No acute overnight events. Patient reports no chest pain and shortness of breath. Patient denies headache, fever, heart palpitations, left arm pain, jaw pain, nausea, vomiting, constipation, abdominal pain, dysuria, hematuria. 12-point ROS was negative except for what was mentioned above. CCU Objective - Vital Signs / Intake & Output Vital Signs (Last 4 hours): Vital Signs Pulse BP Pulse Ox 08/02/18 08:56 121/66 08/02/18 08:55 78 99 08/02/18 08:19 83 114/60 99 08/02/18 08:00 81 115/64 100 08/02/18 07:00 84 118/64 98 Intake and Output (Last 8hrs): Intake & Output 08/01/18 08/02/18 08/02/18 22:59 06:59 14:59 Intake Total 1640 840 Output Total 850 1000 Balance 790 -160 Weight 241 lb Intake: IV 1400 600 antibiotics 100 0 bicarb 1300 600 Oral 240 240 Output: Urine 350 500 Urethral (Suarez) 350 500 Stool 0 0 Emesis 0 0 Other 500 500 - Physical Exam Head: Positive for: Atraumatic, Normocephalic Pupils: Positive for: PERRL Extroacular Muscles: Positive for: EOMI Conjunctiva: Positive for: Normal Mouth: Positive for: Dry Pharnyx: Positive for: Normal Respiratory/Chest: Positive for: Tachypneic (but improved). Negative for: Good Air Exchange, Respiratory Distress, Retracting Abdomen: Positive for: Normal Bowel Sounds. Negative for: Tenderness, Distenti on, Peritoneal Signs Lower Extremity: Positive for: Edema, Capillary Refill < 2 s, Other (Thickened skin noted to right lower extremity) Neurological: Positive for: GCS=15, Speech Normal (able to speak in full sentences) Skin: Positive for: Warm, Dry, Normal Color. Negative for: Rashes Psychiatric: Positive for: Alert, Oriented x 3, Normal Insight, Normal Concentration - Medications Active Medications: Active Medications Generic Name Dose Route Start Last Admin Trade Name Freq PRN Reason Stop Dose Admin Albuterol/Ipratropium 3 ml 07/31/18 17:04 Duoneb 3 Mg/0.5 Mg (3 Ml) Ud IH Q2H PRN Shortness of Breath Aspirin 81 mg 08/01/18 10:00 08/01/18 09:27 Aspirin Chewable PO 81 mg DAILY NESTOR Administration Atorvastatin Calcium 40 mg 08/01/18 17:00 08/01/18 17:22 Lipitor PO 40 mg DIN NESTOR Administration Calcium Acetate 2,001 mg 08/01/18 12:00 08/01/18 17:22 Phoslo PO 2,001 mg WM NESTOR Administration Darbepoetin Ron 100 mcg 08/01/18 10:00 08/01/18 13:50 Aranesp IVP 100 mcg QWK NESTOR Administration Cefepime HCl 1 gm in 100 mls @ 100 mls/hr 07/31/18 18:45 08/01/18 17:45 Maxipime 1gm IVPB 100 mls/hr Q24H NESTOR Administration Protocol Nystatin 0 ea 08/01/18 14:00 08/01/18 18:51 Mycostatin Cream TOP 1 applic TID NESTOR Administration Pantoprazole Sodium 40 mg 08/01/18 10:00 08/02/18 09:32 Protonix Inj IVP 40 mg DAILY NESTOR Administration Tamsulosin HCl 0.4 mg 08/01/18 12:30 08/01/18 17:23 Flomax PO 0.4 mg DAILY NESTOR Administration Vitamin B Complex/Vit C/Folic Acid 1 tab 08/02/18 08:00 Nephro-Agustina PO 0800 NESTOR - Patient Studies Lab Studies: Microbiology Studies 07/31/18 15:00 Blood Culture - Preliminary Blood-Venous NO GROWTH AFTER 24 HOURS 07/31/18 14:30 Blood Culture - Preliminary Blood-Venous NO GROWTH AFTER 24 HOURS Lab Studies 08/02/18 08/02/18 08/02/18 Range/Units 09:00 06:00 06:00 WBC (4.5-11.0) 10^3/uL RBC (3.5-6.1) 10^6/uL Hgb (14.0-18.0) g/dL Hct (42.0-52.0) % MCV (80.0-105.0) fl MCH (25.0-35.0) pg MCHC (31.0-37.0) g/dl RDW (11.5-14.5) % Plt Count (120.0-450.0) 10^3/uL MPV (7.0-11.0) fl Neut % (Auto) (50.0-68.0) % Lymph % (Auto) (22.0-35.0) % Sanders % (Auto) (1.0-6.0) % Eos % (Auto) (1.5-5.0) % Baso % (Auto) (0.0-3.0) % Lymph # (Auto) (1.2-3.4) Sanders # (Auto) (0.1-0.6) Eos # (Auto) (0.0-0.7) Baso # (Auto) (0.0-2.0) K/mm3 Absolute Neuts (auto) (1.4-6.5) PT 15.0 H (9.4-12.5) SECONDS INR 1.33 APTT 33.8 (26.9-38.3) Seconds Sodium (132-148) mmol/L Potassium (3.6-5.0) mmol/L Chloride (98-107) mmol/L Carbon Dioxide (21-33) mmol/L Anion Gap (10-20) BUN (7-21) mg/dL Creatinine (0.8-1.5) mg/dl Est GFR ( Amer) Est GFR (Non-Af Amer) Random Glucose (70-110) mg/dL Calcium (8.4-10.5) mg/dL Phosphorus (2.5-4.5) mg/dL Magnesium (1.7-2.2) mg/dL Iron (45-180) ug/dL TIBC (261-462) ug/dL % Saturation (20-55) % Transferrin (206-381) mg/dL Ferritin ng/mL Total Bilirubin (0.2-1.3) mg/dL AST (17-59) U/L ALT (7-56) U/L Alkaline Phosphatase (38-126) U/L Troponin I ng/mL Total Protein (5.8-8.3) g/dL Albumin (3.0-4.8) g/dL Globulin gm/dL Albumin/Globulin Ratio (1.1-1.8) Triglycerides (35-160) mg/dL Cholesterol (130-200) mg/dL LDL Cholesterol Direct (0-129) mg/dL HDL Cholesterol (29-60) mg/dL Vitamin B12 (239-931) pg/mL TSH 3rd Generation 3.04 (0.46-4.68) mIU/mL Urine Eosinophils Ur Random Creatinine (20-320) mg/dL U Random Total Protein (22-128) mg/g creat Ur Random Sodium meq/L Urine Total Volume mg/dL Microalb/Creat Ratio (<30) Urine Opiates Screen (NEGATIVE) Urine Methadone Screen (NEGATIVE) Ur Barbiturates Screen (NEGATIVE) Ur Phencyclidine Scrn (NEGATIVE) Ur Amphetamines Screen (NEGATIVE) U Benzodiazepines Scrn (NEGATIVE) U Oth Cocaine Metabols (NEGATIVE) U Cannabinoids Screen (NEGATIVE) Complement C3 (88.0-165.0) mg/dL Complement C4 (14.0-44.0) mg/dL Hep Bs Antigen (NEGATIVE) Hep Bs Antibody (NEGATIVE) Hep B Core IgM Ab (NEGATIVE) Hepatitis C Antibody (NEGATIVE) HIV 1&2 Antibody Screen (NEGATIVE) Crossmatch See Detail BBK History Checked No verified bt 08/02/18 08/02/18 08/01/18 Range/Units 06:00 06:00 15:10 WBC 8.1 D (4.5-11.0) 10^3/uL RBC 2.36 L (3.5-6.1) 10^6/uL Hgb 6.6 L* (14.0-18.0) g/dL Hct 18.9 L* (42.0-52.0) % MCV 80.1 (80.0-105.0) fl MCH 28.0 (25.0-35.0) pg MCHC 34.9 (31.0-37.0) g/dl RDW 14.5 (11.5-14.5) % Plt Count 192 (120.0-450.0) 10^3/uL MPV 9.3 (7.0-11.0) fl Neut % (Auto) 86.6 H (50.0-68.0) % Lymph % (Auto) 10.3 L (22.0-35.0) % Sanders % (Auto) 3.1 (1.0-6.0) % Eos % (Auto) 0.0 L (1.5-5.0) % Baso % (Auto) 0.0 (0.0-3.0) % Lymph # (Auto) 0.8 L (1.2-3.4) Sanders # (Auto) 0.3 (0.1-0.6) Eos # (Auto) 0.0 (0.0-0.7) Baso # (Auto) 0.00 (0.0-2.0) K/mm3 Absolute Neuts (auto) 7.04 H (1.4-6.5) PT (9.4-12.5) SECONDS INR APTT (26.9-38.3) Seconds Sodium 136 (132-148) mmol/L Potassium 3.1 L (3.6-5.0) mmol/L Chloride 100 (98-107) mmol/L Carbon Dioxide 17 L (21-33) mmol/L Anion Gap 22 H (10-20) BUN 181 H* (7-21) mg/dL Creatinine 13.5 H* (0.8-1.5) mg/dl Est GFR ( Amer) 4 Est GFR (Non-Af Amer) 4 Random Glucose 164 H (70-110) mg/dL Calcium 6.5 L* (8.4-10.5) mg/dL Phosphorus 9.4 H (2.5-4.5) mg/dL Magnesium 1.8 (1.7-2.2) mg/dL Iron (45-180) ug/dL TIBC (261-462) ug/dL % Saturation (20-55) % Transferrin (206-381) mg/dL Ferritin ng/mL Total Bilirubin 0.7 (0.2-1.3) mg/dL AST 50 (17-59) U/L ALT 36 (7-56) U/L Alkaline Phosphatase 91 (38-126) U/L Troponin I 2.23 H* D ng/mL Total Protein 6.1 (5.8-8.3) g/dL Albumin 3.0 (3.0-4.8) g/dL Globulin 3.1 gm/dL Albumin/Globulin Ratio 1.0 L (1.1-1.8) Triglycerides 148 (35-160) mg/dL Cholesterol 99 L (130-200) mg/dL LDL Cholesterol Direct 55 (0-129) mg/dL HDL Cholesterol 18 L (29-60) mg/dL Vitamin B12 (239-931) pg/mL TSH 3rd Generation (0.46-4.68) mIU/mL Urine Eosinophils Positive Ur Random Creatinine (20-320) mg/dL U Random Total Protein (22-128) mg/g creat Ur Random Sodium meq/L Urine Total Volume mg/dL Microalb/Creat Ratio (<30) Urine Opiates Screen (NEGATIVE) Urine Methadone Screen (NEGATIVE) Ur Barbiturates Screen (NEGATIVE) Ur Phencyclidine Scrn (NEGATIVE) Ur Amphetamines Screen (NEGATIVE) U Benzodiazepines Scrn (NEGATIVE) U Oth Cocaine Metabols (NEGATIVE) U Cannabinoids Screen (NEGATIVE) Complement C3 (88.0-165.0) mg/dL Complement C4 (14.0-44.0) mg/dL Hep Bs Antigen (NEGATIVE) Hep Bs Antibody (NEGATIVE) Hep B Core IgM Ab (NEGATIVE) Hepatitis C Antibody (NEGATIVE) HIV 1&2 Antibody Screen (NEGATIVE) Crossmatch BBK History Checked 08/01/18 08/01/18 08/01/18 Range/Units 15:10 11:00 11:00 WBC (4.5-11.0) 10^3/uL RBC (3.5-6.1) 10^6/uL Hgb (14.0-18.0) g/dL Hct (42.0-52.0) % MCV (80.0-105.0) fl MCH (25.0-35.0) pg MCHC (31.0-37.0) g/dl RDW (11.5-14.5) % Plt Count (120.0-450.0) 10^3/uL MPV (7.0-11.0) fl Neut % (Auto) (50.0-68.0) % Lymph % (Auto) (22.0-35.0) % Sanders % (Auto) (1.0-6.0) % Eos % (Auto) (1.5-5.0) % Baso % (Auto) (0.0-3.0) % Lymph # (Auto) (1.2-3.4) Sanders # (Auto) (0.1-0.6) Eos # (Auto) (0.0-0.7) Baso # (Auto) (0.0-2.0) K/mm3 Absolute Neuts (auto) (1.4-6.5) PT (9.4-12.5) SECONDS INR APTT (26.9-38.3) Seconds Sodium (132-148) mmol/L Potassium (3.6-5.0) mmol/L Chloride (98-107) mmol/L Carbon Dioxide (21-33) mmol/L Anion Gap (10-20) BUN (7-21) mg/dL Creatinine (0.8-1.5) mg/dl Est GFR ( Amer) Est GFR (Non-Af Amer) Random Glucose (70-110) mg/dL Calcium (8.4-10.5) mg/dL Phosphorus (2.5-4.5) mg/dL Magnesium (1.7-2.2) mg/dL Iron (45-180) ug/dL TIBC (261-462) ug/dL % Saturation (20-55) % Transferrin (206-381) mg/dL Ferritin ng/mL Total Bilirubin (0.2-1.3) mg/dL AST (17-59) U/L ALT (7-56) U/L Alkaline Phosphatase (38-126) U/L Troponin I ng/mL Total Protein (5.8-8.3) g/dL Albumin (3.0-4.8) g/dL Globulin gm/dL Albumin/Globulin Ratio (1.1-1.8) Triglycerides (35-160) mg/dL Cholesterol (130-200) mg/dL LDL Cholesterol Direct (0-129) mg/dL HDL Cholesterol (29-60) mg/dL Vitamin B12 (239-931) pg/mL TSH 3rd Generation (0.46-4.68) mIU/mL Urine Eosinophils Ur Random Creatinine 54 59 (20-320) mg/dL U Random Total Protein (22-128) mg/g creat Ur Random Sodium 96 meq/L Urine Total Volume 7.7 mg/dL Microalb/Creat Ratio 130 H (<30) Urine Opiates Screen Negative (NEGATIVE) Urine Methadone Screen Negative (NEGATIVE) Ur Barbiturates Screen Negative (NEGATIVE) Ur Phencyclidine Scrn Negative (NEGATIVE) Ur Amphetamines Screen Negative (NEGATIVE) U Benzodiazepines Scrn Negative (NEGATIVE) U Oth Cocaine Metabols Negative (NEGATIVE) U Cannabinoids Screen Negative (NEGATIVE) Complement C3 (88.0-165.0) mg/dL Complement C4 (14.0-44.0) mg/dL Hep Bs Antigen (NEGATIVE) Hep Bs Antibody (NEGATIVE) Hep B Core IgM Ab (NEGATIVE) Hepatitis C Antibody (NEGATIVE) HIV 1&2 Antibody Screen (NEGATIVE) Crossmatch BBK History Checked 08/01/18 08/01/18 08/01/18 Range/Units 11:00 10:10 10:10 WBC (4.5-11.0) 10^3/uL RBC (3.5-6.1) 10^6/uL Hgb (14.0-18.0) g/dL Hct (42.0-52.0) % MCV (80.0-105.0) fl MCH (25.0-35.0) pg MCHC (31.0-37.0) g/dl RDW (11.5-14.5) % Plt Count (120.0-450.0) 10^3/uL MPV (7.0-11.0) fl Neut % (Auto) (50.0-68.0) % Lymph % (Auto) (22.0-35.0) % Sanders % (Auto) (1.0-6.0) % Eos % (Auto) (1.5-5.0) % Baso % (Auto) (0.0-3.0) % Lymph # (Auto) (1.2-3.4) Sanders # (Auto) (0.1-0.6) Eos # (Auto) (0.0-0.7) Baso # (Auto) (0.0-2.0) K/mm3 Absolute Neuts (auto) (1.4-6.5) PT (9.4-12.5) SECONDS INR APTT (26.9-38.3) Seconds Sodium (132-148) mmol/L Potassium (3.6-5.0) mmol/L Chloride (98-107) mmol/L Carbon Dioxide (21-33) mmol/L Anion Gap (10-20) BUN (7-21) mg/dL Creatinine (0.8-1.5) mg/dl Est GFR ( Amer) Est GFR (Non-Af Amer) Random Glucose (70-110) mg/dL Calcium (8.4-10.5) mg/dL Phosphorus (2.5-4.5) mg/dL Magnesium (1.7-2.2) mg/dL Iron (45-180) ug/dL TIBC (261-462) ug/dL % Saturation (20-55) % Transferrin (206-381) mg/dL Ferritin ng/mL Total Bilirubin (0.2-1.3) mg/dL AST (17-59) U/L ALT (7-56) U/L Alkaline Phosphatase (38-126) U/L Troponin I ng/mL Total Protein (5.8-8.3) g/dL Albumin (3.0-4.8) g/dL Globulin gm/dL Albumin/Globulin Ratio (1.1-1.8) Triglycerides (35-160) mg/dL Cholesterol (130-200) mg/dL LDL Cholesterol Direct (0-129) mg/dL HDL Cholesterol (29-60) mg/dL Vitamin B12 (239-931) pg/mL TSH 3rd Generation (0.46-4.68) mIU/mL Urine Eosinophils Ur Random Creatinine (20-320) mg/dL U Random Total Protein 966 H (22-128) mg/g creat Ur Random Sodium meq/L Urine Total Volume mg/dL Microalb/Creat Ratio (<30) Urine Opiates Screen (NEGATIVE) Urine Methadone Screen (NEGATIVE) Ur Barbiturates Screen (NEGATIVE) Ur Phencyclidine Scrn (NEGATIVE) Ur Amphetamines Screen (NEGATIVE) U Benzodiazepines Scrn (NEGATIVE) U Oth Cocaine Metabols (NEGATIVE) U Cannabinoids Screen (NEGATIVE) Complement C3 (88.0-165.0) mg/dL Complement C4 (14.0-44.0) mg/dL Hep Bs Antigen (NEGATIVE) Hep Bs Antibody Negative (NEGATIVE) Hep B Core IgM Ab (NEGATIVE) Hepatitis C Antibody (NEGATIVE) HIV 1&2 Antibody Screen Negative (NEGATIVE) Crossmatch BBK History Checked 08/01/18 08/01/18 08/01/18 Range/Units 10:10 10:10 10:10 WBC (4.5-11.0) 10^3/uL RBC (3.5-6.1) 10^6/uL Hgb (14.0-18.0) g/dL Hct (42.0-52.0) % MCV (80.0-105.0) fl MCH (25.0-35.0) pg MCHC (31.0-37.0) g/dl RDW (11.5-14.5) % Plt Count (120.0-450.0) 10^3/uL MPV (7.0-11.0) fl Neut % (Auto) (50.0-68.0) % Lymph % (Auto) (22.0-35.0) % Sanders % (Auto) (1.0-6.0) % Eos % (Auto) (1.5-5.0) % Baso % (Auto) (0.0-3.0) % Lymph # (Auto) (1.2-3.4) Sanders # (Auto) (0.1-0.6) Eos # (Auto) (0.0-0.7) Baso # (Auto) (0.0-2.0) K/mm3 Absolute Neuts (auto) (1.4-6.5) PT (9.4-12.5) SECONDS INR APTT (26.9-38.3) Seconds Sodium (132-148) mmol/L Potassium (3.6-5.0) mmol/L Chloride (98-107) mmol/L Carbon Dioxide (21-33) mmol/L Anion Gap (10-20) BUN (7-21) mg/dL Creatinine (0.8-1.5) mg/dl Est GFR ( Amer) Est GFR (Non-Af Amer) Random Glucose (70-110) mg/dL Calcium (8.4-10.5) mg/dL Phosphorus (2.5-4.5) mg/dL Magnesium (1.7-2.2) mg/dL Iron (45-180) ug/dL TIBC (261-462) ug/dL % Saturation (20-55) % Transferrin 100.88 L (206-381) mg/dL Ferritin 489.0 ng/mL Total Bilirubin (0.2-1.3) mg/dL AST (17-59) U/L ALT (7-56) U/L Alkaline Phosphatase (38-126) U/L Troponin I ng/mL Total Protein (5.8-8.3) g/dL Albumin (3.0-4.8) g/dL Globulin gm/dL Albumin/Globulin Ratio (1.1-1.8) Triglycerides (35-160) mg/dL Cholesterol (130-200) mg/dL LDL Cholesterol Direct (0-129) mg/dL HDL Cholesterol (29-60) mg/dL Vitamin B12 787 (239-931) pg/mL TSH 3rd Generation (0.46-4.68) mIU/mL Urine Eosinophils Ur Random Creatinine (20-320) mg/dL U Random Total Protein (22-128) mg/g creat Ur Random Sodium meq/L Urine Total Volume mg/dL Microalb/Creat Ratio (<30) Urine Opiates Screen (NEGATIVE) Urine Methadone Screen (NEGATIVE) Ur Barbiturates Screen (NEGATIVE) Ur Phencyclidine Scrn (NEGATIVE) Ur Amphetamines Screen (NEGATIVE) U Benzodiazepines Scrn (NEGATIVE) U Oth Cocaine Metabols (NEGATIVE) U Cannabinoids Screen (NEGATIVE) Complement C3 93.0 (88.0-165.0) mg/dL Complement C4 36.5 (14.0-44.0) mg/dL Hep Bs Antigen Negative (NEGATIVE) Hep Bs Antibody (NEGATIVE) Hep B Core IgM Ab Negative (NEGATIVE) Hepatitis C Antibody Negative (NEGATIVE) HIV 1&2 Antibody Screen (NEGATIVE) Crossmatch BBK History Checked 08/01/18 Range/Units 10:10 WBC (4.5-11.0) 10^3/uL RBC (3.5-6.1) 10^6/uL Hgb (14.0-18.0) g/dL Hct (42.0-52.0) % MCV (80.0-105.0) fl MCH (25.0-35.0) pg MCHC (31.0-37.0) g/dl RDW (11.5-14.5) % Plt Count (120.0-450.0) 10^3/uL MPV (7.0-11.0) fl Neut % (Auto) (50.0-68.0) % Lymph % (Auto) (22.0-35.0) % Sanders % (Auto) (1.0-6.0) % Eos % (Auto) (1.5-5.0) % Baso % (Auto) (0.0-3.0) % Lymph # (Auto) (1.2-3.4) Sanders # (Auto) (0.1-0.6) Eos # (Auto) (0.0-0.7) Baso # (Auto) (0.0-2.0) K/mm3 Absolute Neuts (auto) (1.4-6.5) PT (9.4-12.5) SECONDS INR APTT (26.9-38.3) Seconds Sodium (132-148) mmol/L Potassium (3.6-5.0) mmol/L Chloride (98-107) mmol/L Carbon Dioxide (21-33) mmol/L Anion Gap (10-20) BUN (7-21) mg/dL Creatinine (0.8-1.5) mg/dl Est GFR ( Amer) Est GFR (Non-Af Amer) Random Glucose (70-110) mg/dL Calcium (8.4-10.5) mg/dL Phosphorus (2.5-4.5) mg/dL Magnesium (1.7-2.2) mg/dL Iron 137 (45-180) ug/dL TIBC 146 L (261-462) ug/dL % Saturation 93 H (20-55) % Transferrin (206-381) mg/dL Ferritin ng/mL Total Bilirubin (0.2-1.3) mg/dL AST (17-59) U/L ALT (7-56) U/L Alkaline Phosphatase (38-126) U/L Troponin I ng/mL Total Protein (5.8-8.3) g/dL Albumin (3.0-4.8) g/dL Globulin gm/dL Albumin/Globulin Ratio (1.1-1.8) Triglycerides (35-160) mg/dL Cholesterol (130-200) mg/dL LDL Cholesterol Direct (0-129) mg/dL HDL Cholesterol (29-60) mg/dL Vitamin B12 (239-931) pg/mL TSH 3rd Generation (0.46-4.68) mIU/mL Urine Eosinophils Ur Random Creatinine (20-320) mg/dL U Random Total Protein (22-128) mg/g creat Ur Random Sodium meq/L Urine Total Volume mg/dL Microalb/Creat Ratio (<30) Urine Opiates Screen (NEGATIVE) Urine Methadone Screen (NEGATIVE) Ur Barbiturates Screen (NEGATIVE) Ur Phencyclidine Scrn (NEGATIVE) Ur Amphetamines Screen (NEGATIVE) U Benzodiazepines Scrn (NEGATIVE) U Oth Cocaine Metabols (NEGATIVE) U Cannabinoids Screen (NEGATIVE) Complement C3 (88.0-165.0) mg/dL Complement C4 (14.0-44.0) mg/dL Hep Bs Antigen (NEGATIVE) Hep Bs Antibody (NEGATIVE) Hep B Core IgM Ab (NEGATIVE) Hepatitis C Antibody (NEGATIVE) HIV 1&2 Antibody Screen (NEGATIVE) Crossmatch BBK History Checked Laboratory Results - last 24 hr 08/01/18 08/01/18 08/01/18 10:10 10:10 10:10 WBC RBC Hgb Hct MCV MCH MCHC RDW Plt Count MPV Neut % (Auto) Lymph % (Auto) Sanders % (Auto) Eos % (Auto) Baso % (Auto) Lymph # (Auto) Sanders # (Auto) Eos # (Auto) Baso # (Auto) Absolute Neuts (auto) PT INR APTT Sodium Potassium Chloride Carbon Dioxide Anion Gap BUN Creatinine Est GFR ( Amer) Est GFR (Non-Af Amer) Random Glucose Calcium Phosphorus Magnesium Iron 137 TIBC 146 L % Saturation 93 H Transferrin 100.88 L Ferritin 489.0 Total Bilirubin AST ALT Alkaline Phosphatase Troponin I Total Protein Albumin Globulin Albumin/Globulin Ratio Triglycerides Cholesterol LDL Cholesterol Direct HDL Cholesterol Vitamin B12 787 TSH 3rd Generation Urine Eosinophils Ur Random Creatinine U Random Total Protein Ur Random Sodium Urine Total Volume Microalb/Creat Ratio Urine Opiates Screen Urine Methadone Screen Ur Barbiturates Screen Ur Phencyclidine Scrn Ur Amphetamines Screen U Benzodiazepines Scrn U Oth Cocaine Metabols U Cannabinoids Screen Complement C3 93.0 Complement C4 36.5 Hep Bs Antigen Negative Hep Bs Antibody Hep B Core IgM Ab Hepatitis C Antibody HIV 1&2 Antibody Screen Crossmatch BBK History Checked 08/01/18 08/01/18 08/01/18 10:10 10:10 10:10 WBC RBC Hgb Hct MCV MCH MCHC RDW Plt Count MPV Neut % (Auto) Lymph % (Auto) Sanders % (Auto) Eos % (Auto) Baso % (Auto) Lymph # (Auto) Sanders # (Auto) Eos # (Auto) Baso # (Auto) Absolute Neuts (auto) PT INR APTT Sodium Potassium Chloride Carbon Dioxide Anion Gap BUN Creatinine Est GFR ( Amer) Est GFR (Non-Af Amer) Random Glucose Calcium Phosphorus Magnesium Iron TIBC % Saturation Transferrin Ferritin Total Bilirubin AST ALT Alkaline Phosphatase Troponin I Total Protein Albumin Globulin Albumin/Globulin Ratio Triglycerides Cholesterol LDL Cholesterol Direct HDL Cholesterol Vitamin B12 TSH 3rd Generation Urine Eosinophils Ur Random Creatinine U Random Total Protein Ur Random Sodium Urine Total Volume Microalb/Creat Ratio Urine Opiates Screen Urine Methadone Screen Ur Barbiturates Screen Ur Phencyclidine Scrn Ur Amphetamines Screen U Benzodiazepines Scrn U Oth Cocaine Metabols U Cannabinoids Screen Complement C3 Complement C4 Hep Bs Antigen Hep Bs Antibody Negative Hep B Core IgM Ab Negative Hepatitis C Antibody Negative HIV 1&2 Antibody Screen Negative Crossmatch BBK History Checked 08/01/18 08/01/18 08/01/18 11:00 11:00 11:00 WBC RBC Hgb Hct MCV MCH MCHC RDW Plt Count MPV Neut % (Auto) Lymph % (Auto) Sanders % (Auto) Eos % (Auto) Baso % (Auto) Lymph # (Auto) Sanders # (Auto) Eos # (Auto) Baso # (Auto) Absolute Neuts (auto) PT INR APTT Sodium Potassium Chloride Carbon Dioxide Anion Gap BUN Creatinine Est GFR ( Amer) Est GFR (Non-Af Amer) Random Glucose Calcium Phosphorus Magnesium Iron TIBC % Saturation Transferrin Ferritin Total Bilirubin AST ALT Alkaline Phosphatase Troponin I Total Protein Albumin Globulin Albumin/Globulin Ratio Triglycerides Cholesterol LDL Cholesterol Direct HDL Cholesterol Vitamin B12 TSH 3rd Generation Urine Eosinophils Ur Random Creatinine 59 54 U Random Total Protein 966 H Ur Random Sodium 96 Urine Total Volume 7.7 Microalb/Creat Ratio 130 H Urine Opiates Screen Urine Methadone Screen Ur Barbiturates Screen Ur Phencyclidine Scrn Ur Amphetamines Screen U Benzodiazepines Scrn U Oth Cocaine Metabols U Cannabinoids Screen Complement C3 Complement C4 Hep Bs Antigen Hep Bs Antibody Hep B Core IgM Ab Hepatitis C Antibody HIV 1&2 Antibody Screen Crossmatch BBK History Checked 08/01/18 08/01/18 08/02/18 15:10 15:10 06:00 WBC 8.1 D RBC 2.36 L Hgb 6.6 L* Hct 18.9 L* MCV 80.1 MCH 28.0 MCHC 34.9 RDW 14.5 Plt Count 192 MPV 9.3 Neut % (Auto) 86.6 H Lymph % (Auto) 10.3 L Sanders % (Auto) 3.1 Eos % (Auto) 0.0 L Baso % (Auto) 0.0 Lymph # (Auto) 0.8 L Sanders # (Auto) 0.3 Eos # (Auto) 0.0 Baso # (Auto) 0.00 Absolute Neuts (auto) 7.04 H PT INR APTT Sodium Potassium Chloride Carbon Dioxide Anion Gap BUN Creatinine Est GFR ( Amer) Est GFR (Non-Af Amer) Random Glucose Calcium Phosphorus Magnesium Iron TIBC % Saturation Transferrin Ferritin Total Bilirubin AST ALT Alkaline Phosphatase Troponin I Total Protein Albumin Globulin Albumin/Globulin Ratio Triglycerides Cholesterol LDL Cholesterol Direct HDL Cholesterol Vitamin B12 TSH 3rd Generation Urine Eosinophils Positive Ur Random Creatinine U Random Total Protein Ur Random Sodium Urine Total Volume Microalb/Creat Ratio Urine Opiates Screen Negative Urine Methadone Screen Negative Ur Barbiturates Screen Negative Ur Phencyclidine Scrn Negative Ur Amphetamines Screen Negative U Benzodiazepines Scrn Negative U Oth Cocaine Metabols Negative U Cannabinoids Screen Negative Complement C3 Complement C4 Hep Bs Antigen Hep Bs Antibody Hep B Core IgM Ab Hepatitis C Antibody HIV 1&2 Antibody Screen Crossmatch BBK History Checked 08/02/18 08/02/18 08/02/18 06:00 06:00 06:00 WBC RBC Hgb Hct MCV MCH MCHC RDW Plt Count MPV Neut % (Auto) Lymph % (Auto) Sanders % (Auto) Eos % (Auto) Baso % (Auto) Lymph # (Auto) Sanders # (Auto) Eos # (Auto) Baso # (Auto) Absolute Neuts (auto) PT 15.0 H INR 1.33 APTT 33.8 Sodium 136 Potassium 3.1 L Chloride 100 Carbon Dioxide 17 L Anion Gap 22 H BUN 181 H* Creatinine 13.5 H* Est GFR ( Amer) 4 Est GFR (Non-Af Amer) 4 Random Glucose 164 H Calcium 6.5 L* Phosphorus 9.4 H Magnesium 1.8 Iron TIBC % Saturation Transferrin Ferritin Total Bilirubin 0.7 AST 50 ALT 36 Alkaline Phosphatase 91 Troponin I 2.23 H* D Total Protein 6.1 Albumin 3.0 Globulin 3.1 Albumin/Globulin Ratio 1.0 L Triglycerides 148 Cholesterol 99 L LDL Cholesterol Direct 55 HDL Cholesterol 18 L Vitamin B12 TSH 3rd Generation 3.04 Urine Eosinophils Ur Random Creatinine U Random Total Protein Ur Random Sodium Urine Total Volume Microalb/Creat Ratio Urine Opiates Screen Urine Methadone Screen Ur Barbiturates Screen Ur Phencyclidine Scrn Ur Amphetamines Screen U Benzodiazepines Scrn U Oth Cocaine Metabols U Cannabinoids Screen Complement C3 Complement C4 Hep Bs Antigen Hep Bs Antibody Hep B Core IgM Ab Hepatitis C Antibody HIV 1&2 Antibody Screen Crossmatch BBK History Checked 08/02/18 09:00 WBC RBC Hgb Hct MCV MCH MCHC RDW Plt Count MPV Neut % (Auto) Lymph % (Auto) Sanders % (Auto) Eos % (Auto) Baso % (Auto) Lymph # (Auto) Sanders # (Auto) Eos # (Auto) Baso # (Auto) Absolute Neuts (auto) PT INR APTT Sodium Potassium Chloride Carbon Dioxide Anion Gap BUN Creatinine Est GFR ( Amer) Est GFR (Non-Af Amer) Random Glucose Calcium Phosphorus Magnesium Iron TIBC % Saturation Transferrin Ferritin Total Bilirubin AST ALT Alkaline Phosphatase Troponin I Total Protein Albumin Globulin Albumin/Globulin Ratio Triglycerides Cholesterol LDL Cholesterol Direct HDL Cholesterol Vitamin B12 TSH 3rd Generation Urine Eosinophils Ur Random Creatinine U Random Total Protein Ur Random Sodium Urine Total Volume Microalb/Creat Ratio Urine Opiates Screen Urine Methadone Screen Ur Barbiturates Screen Ur Phencyclidine Scrn Ur Amphetamines Screen U Benzodiazepines Scrn U Oth Cocaine Metabols U Cannabinoids Screen Complement C3 Complement C4 Hep Bs Antigen Hep Bs Antibody Hep B Core IgM Ab Hepatitis C Antibody HIV 1&2 Antibody Screen Crossmatch See Detail BBK History Checked No verified bt Radiology Impressions: Radiology Impressions Extremity Ultrasound 07/31/18 15:03 IMPRESSION: No sonographic evidence for deep venous thrombosis in the visualized segments of both lower extremities. Renal Ultrasound 08/01/18 09:28 IMPRESSION: 11 mm nonobstructing calculus lower pole left kidney. Otherwise unremarkable. Abdomen/Pelvis CT 08/01/18 10:24 IMPRESSION: Obstructing 9 mm mid left ureteral calculus with mild left hydronephrosis 8 mm nonobstructing left lower pole renal calculus. Minor findings as above. Small bilateral pleural effusion, right greater than left. Chest X-Ray 08/01/18 12:34 IMPRESSION: New right tunneled central venous dialysis catheter otherwise no significant change. Fingerstick Blood Sugar Results: 136 Review of Systems - Review of Systems Review of Systems: except for what was mentioned in HPI Critical Care Progress Note - Ventilator Checklist Head of Bed 30 Degrees: Yes PUD Prophalyxis: Yes DVT Prophylaxis: Yes - Nutrition Nutrition: Nutrition Category Date Time Status Renal Diet [DIET] Diets 08/01/18 Dinner Ordered Assessment/Plan - Assessment and Plan (Free Text) Assessment: 68 year old male with past medical history of arthritis presents with acute renal failure likely 2/2 to acute tubular necrosis vs. postobstructive nephrop athy from dehydration. Patient is currently on sodium bicarbonate drip due to renal failure. Plan is for dialysis today. Plan: Acute Renal Failure 2/2 to Acute Tubular Necrosis vs. Postobstructive Nephropathy -BUN/Cr improved at 181/13.5 from 16.6 with unknown baseline creatinine -CK: elevated 477 -Sparse urine output at this time -Strict I and O with suarez. Measure daily weight -3 L of NS already administered -Continue Sodium bicarbonate drip with 3 amps -Continue aranesp and phoslo -Continue flomax 0.4 mg daily -Dialysis scheduled for today. -Renal ultrasound: 11 mm nonobstructing stone in lower pole of left kidney -Replete electrolytes as needed. -Maintain euvolemia. Hypokalemia -K: 3.1 -Patient will have potassium corrected through dialysis. Tachypnea due to metabolic acidosis -ABG 08/01: improved with pH: 7.22, pO2: 154, pCO2: 13 status post dialysis -CXR: no active disease -Maintain O2 saturation>90%. -Head of bed to 30 degrees -Conservative fluid management -Maintain oral hygiene Nephrolithiasis -Renal ultrasound: 11 mm nonobstructing stone in lower pole of left kidney -Abdominal CT: obstructive 9 mm mid left ureteral calculus with mild left hydronephrosis of 8 mm -Scheduled for ureteral stent procedure with Dr. Payan today. Elevated BNP 2/2 to CHF vs. pulmonary etiology -BNP: 89094 -EKG: NSR with 1st degree AV block -Echocardiogram: preserved EF with Grade I abnormal relaxation -Troponinx3: 0.11, 0.27, 0.97 trending up -Avoid beta blockers, anti-hypertensives due to hypotension -Maintain MAP>65. -Monitor for S/S, HD compromise. Type II NSTEMI -Troponinx3: 0.11, 0.27, 0.97 trending up -Continue aspirin, lipitor -Avoid beta kaela due to hypotension History of tobacco abuse -Cannot rule out COPD -Duonebs Q2 PRN for shortness of breath Normocytic Anemia -H/H reduced to 6.6/18.9 -2 U of PRBCs during dialysis ordered for today. -GI, Dr. Carrera, consulted for recommendations to evaluate for GI bleed. Elevated D-dimer -Bilateral lower extremity ultrasound: negative for DVT -Avoid CTA to evaluate for PE due to acute renal failure -Avoid V/Q scan to evaluate for PE due to current tachypnea. Rule out Pneumonia vs. UTI -Vancomycin and cefepime day 2 for unlikely pneumonia -Monitor for signs and symptoms of infection. GI prophylaxis -Protonix 40 mg daily DVT prophylaxis -heparin 5000 U Q8 held due to possible GI Bleed Patient plan discussed with attending. - Date & Time Date: 08/02/18 Time: 10:12 <Chandan Sarmiento - Last Filed: 08/02/18 11:14> CCU Objective - Vital Signs / Intake & Output Vital Signs (Last 4 hours): Vital Signs Pulse BP Pulse Ox 08/02/18 08:56 121/66 08/02/18 08:55 78 99 08/02/18 08:19 83 114/60 99 08/02/18 08:00 81 115/64 100 Intake and Output (Last 8hrs): Intake & Output 08/01/18 08/02/18 08/02/18 22:59 06:59 14:59 Intake Total 1640 840 Output Total 850 1000 Balance 790 -160 Weight 241 lb Intake: IV 1400 600 antibiotics 100 0 bicarb 1300 600 Oral 240 240 Output: Urine 350 500 Urethral (Suarez) 350 500 Stool 0 0 Emesis 0 0 Other 500 500 - Medications Active Medications: Active Medications Generic Name Dose Route Start Last Admin Trade Name Freq PRN Reason Stop Dose Admin Albuterol/Ipratropium 3 ml 07/31/18 17:04 Duoneb 3 Mg/0.5 Mg (3 Ml) Ud IH Q2H PRN Shortness of Breath Aspirin 81 mg 08/01/18 10:00 08/01/18 09:27 Aspirin Chewable PO 81 mg DAILY NESTOR Administration Atorvastatin Calcium 40 mg 08/01/18 17:00 08/01/18 17:22 Lipitor PO 40 mg DIN NESTOR Administration Calcium Acetate 2,001 mg 08/01/18 12:00 08/01/18 17:22 Phoslo PO 2,001 mg WM NESTOR Administration Darbepoetin Ron 100 mcg 08/01/18 10:00 08/01/18 13:50 Aranesp IVP 100 mcg QWK NESTOR Administration Cefepime HCl 1 gm in 100 mls @ 100 mls/hr 07/31/18 18:45 08/01/18 17:45 Maxipime 1gm IVPB 100 mls/hr Q24H NESTOR Administration Protocol Metoprolol Succinate 25 mg 08/02/18 10:30 Toprol Xl PO BRK NESTOR Nystatin 0 ea 08/01/18 14:00 08/01/18 18:51 Mycostatin Cream TOP 1 applic TID NESTOR Administration Pantoprazole Sodium 40 mg 08/01/18 10:00 08/02/18 09:32 Protonix Inj IVP 40 mg DAILY NESTOR Administration Tamsulosin HCl 0.4 mg 08/01/18 12:30 08/01/18 17:23 Flomax PO 0.4 mg DAILY NESTOR Administration Vitamin B Complex/Vit C/Folic Acid 1 tab 08/02/18 08:00 Nephro-Agustina PO 0800 NESTOR - Patient Studies Lab Studies: Microbiology Studies 07/31/18 15:00 Blood Culture - Preliminary Blood-Venous NO GROWTH AFTER 24 HOURS 07/31/18 14:30 Blood Culture - Preliminary Blood-Venous NO GROWTH AFTER 24 HOURS Lab Studies 08/02/18 08/02/18 08/02/18 Range/Units 09:43 09:00 06:00 WBC (4.5-11.0) 10^3/uL RBC (3.5-6.1) 10^6/uL Hgb (14.0-18.0) g/dL Hct (42.0-52.0) % MCV (80.0-105.0) fl MCH (25.0-35.0) pg MCHC (31.0-37.0) g/dl RDW (11.5-14.5) % Plt Count (120.0-450.0) 10^3/uL MPV (7.0-11.0) fl Neut % (Auto) (50.0-68.0) % Lymph % (Auto) (22.0-35.0) % Sanders % (Auto) (1.0-6.0) % Eos % (Auto) (1.5-5.0) % Baso % (Auto) (0.0-3.0) % Lymph # (Auto) (1.2-3.4) Sanders # (Auto) (0.1-0.6) Eos # (Auto) (0.0-0.7) Baso # (Auto) (0.0-2.0) K/mm3 Absolute Neuts (auto) (1.4-6.5) PT 15.0 H (9.4-12.5) SECONDS INR 1.33 APTT 33.8 (26.9-38.3) Seconds Sodium (132-148) mmol/L Potassium (3.6-5.0) mmol/L Chloride (98-107) mmol/L Carbon Dioxide (21-33) mmol/L Anion Gap (10-20) BUN (7-21) mg/dL Creatinine (0.8-1.5) mg/dl Est GFR ( Amer) Est GFR (Non-Af Amer) Random Glucose (70-110) mg/dL Calcium (8.4-10.5) mg/dL Phosphorus (2.5-4.5) mg/dL Magnesium (1.7-2.2) mg/dL Transferrin (206-381) mg/dL Ferritin ng/mL Total Bilirubin (0.2-1.3) mg/dL AST (17-59) U/L ALT (7-56) U/L Alkaline Phosphatase (38-126) U/L Troponin I ng/mL Total Protein (5.8-8.3) g/dL Albumin (3.0-4.8) g/dL Globulin gm/dL Albumin/Globulin Ratio (1.1-1.8) Triglycerides (35-160) mg/dL Cholesterol (130-200) mg/dL LDL Cholesterol Direct (0-129) mg/dL HDL Cholesterol (29-60) mg/dL Vitamin B12 (239-931) pg/mL TSH 3rd Generation (0.46-4.68) mIU/mL Urine Eosinophils Ur Random Creatinine (20-320) mg/dL U Random Total Protein (22-128) mg/g creat Ur Random Sodium meq/L Urine Total Volume mg/dL Microalb/Creat Ratio (<30) Urine Opiates Screen (NEGATIVE) Urine Methadone Screen (NEGATIVE) Ur Barbiturates Screen (NEGATIVE) Ur Phencyclidine Scrn (NEGATIVE) Ur Amphetamines Screen (NEGATIVE) U Benzodiazepines Scrn (NEGATIVE) U Oth Cocaine Metabols (NEGATIVE) U Cannabinoids Screen (NEGATIVE) Complement C3 (88.0-165.0) mg/dL Complement C4 (14.0-44.0) mg/dL Hep Bs Antigen (NEGATIVE) Hep Bs Antibody (NEGATIVE) Hep B Core IgM Ab (NEGATIVE) Hepatitis C Antibody (NEGATIVE) HIV 1&2 Antibody Screen (NEGATIVE) Blood Type A POSITIVE Blood Type Confirm A POSITIVE Antibody Screen Negative Crossmatch See Detail BBK History Checked No verified bt 08/02/18 08/02/18 08/02/18 Range/Units 06:00 06:00 06:00 WBC 8.1 D (4.5-11.0) 10^3/uL RBC 2.36 L (3.5-6.1) 10^6/uL Hgb 6.6 L* (14.0-18.0) g/dL Hct 18.9 L* (42.0-52.0) % MCV 80.1 (80.0-105.0) fl MCH 28.0 (25.0-35.0) pg MCHC 34.9 (31.0-37.0) g/dl RDW 14.5 (11.5-14.5) % Plt Count 192 (120.0-450.0) 10^3/uL MPV 9.3 (7.0-11.0) fl Neut % (Auto) 86.6 H (50.0-68.0) % Lymph % (Auto) 10.3 L (22.0-35.0) % Sanders % (Auto) 3.1 (1.0-6.0) % Eos % (Auto) 0.0 L (1.5-5.0) % Baso % (Auto) 0.0 (0.0-3.0) % Lymph # (Auto) 0.8 L (1.2-3.4) Sanders # (Auto) 0.3 (0.1-0.6) Eos # (Auto) 0.0 (0.0-0.7) Baso # (Auto) 0.00 (0.0-2.0) K/mm3 Absolute Neuts (auto) 7.04 H (1.4-6.5) PT (9.4-12.5) SECONDS INR APTT (26.9-38.3) Seconds Sodium 136 (132-148) mmol/L Potassium 3.1 L (3.6-5.0) mmol/L Chloride 100 (98-107) mmol/L Carbon Dioxide 17 L (21-33) mmol/L Anion Gap 22 H (10-20) BUN 181 H* (7-21) mg/dL Creatinine 13.5 H* (0.8-1.5) mg/dl Est GFR ( Amer) 4 Est GFR (Non-Af Amer) 4 Random Glucose 164 H (70-110) mg/dL Calcium 6.5 L* (8.4-10.5) mg/dL Phosphorus 9.4 H (2.5-4.5) mg/dL Magnesium 1.8 (1.7-2.2) mg/dL Transferrin (206-381) mg/dL Ferritin ng/mL Total Bilirubin 0.7 (0.2-1.3) mg/dL AST 50 (17-59) U/L ALT 36 (7-56) U/L Alkaline Phosphatase 91 (38-126) U/L Troponin I 2.23 H* D ng/mL Total Protein 6.1 (5.8-8.3) g/dL Albumin 3.0 (3.0-4.8) g/dL Globulin 3.1 gm/dL Albumin/Globulin Ratio 1.0 L (1.1-1.8) Triglycerides 148 (35-160) mg/dL Cholesterol 99 L (130-200) mg/dL LDL Cholesterol Direct 55 (0-129) mg/dL HDL Cholesterol 18 L (29-60) mg/dL Vitamin B12 (239-931) pg/mL TSH 3rd Generation 3.04 (0.46-4.68) mIU/mL Urine Eosinophils Ur Random Creatinine (20-320) mg/dL U Random Total Protein (22-128) mg/g creat Ur Random Sodium meq/L Urine Total Volume mg/dL Microalb/Creat Ratio (<30) Urine Opiates Screen (NEGATIVE) Urine Methadone Screen (NEGATIVE) Ur Barbiturates Screen (NEGATIVE) Ur Phencyclidine Scrn (NEGATIVE) Ur Amphetamines Screen (NEGATIVE) U Benzodiazepines Scrn (NEGATIVE) U Oth Cocaine Metabols (NEGATIVE) U Cannabinoids Screen (NEGATIVE) Complement C3 (88.0-165.0) mg/dL Complement C4 (14.0-44.0) mg/dL Hep Bs Antigen (NEGATIVE) Hep Bs Antibody (NEGATIVE) Hep B Core IgM Ab (NEGATIVE) Hepatitis C Antibody (NEGATIVE) HIV 1&2 Antibody Screen (NEGATIVE) Blood Type Blood Type Confirm Antibody Screen Crossmatch BBK History Checked 08/01/18 08/01/18 08/01/18 Range/Units 15:10 15:10 11:00 WBC (4.5-11.0) 10^3/uL RBC (3.5-6.1) 10^6/uL Hgb (14.0-18.0) g/dL Hct (42.0-52.0) % MCV (80.0-105.0) fl MCH (25.0-35.0) pg MCHC (31.0-37.0) g/dl RDW (11.5-14.5) % Plt Count (120.0-450.0) 10^3/uL MPV (7.0-11.0) fl Neut % (Auto) (50.0-68.0) % Lymph % (Auto) (22.0-35.0) % Sanders % (Auto) (1.0-6.0) % Eos % (Auto) (1.5-5.0) % Baso % (Auto) (0.0-3.0) % Lymph # (Auto) (1.2-3.4) Sanders # (Auto) (0.1-0.6) Eos # (Auto) (0.0-0.7) Baso # (Auto) (0.0-2.0) K/mm3 Absolute Neuts (auto) (1.4-6.5) PT (9.4-12.5) SECONDS INR APTT (26.9-38.3) Seconds Sodium (132-148) mmol/L Potassium (3.6-5.0) mmol/L Chloride (98-107) mmol/L Carbon Dioxide (21-33) mmol/L Anion Gap (10-20) BUN (7-21) mg/dL Creatinine (0.8-1.5) mg/dl Est GFR ( Amer) Est GFR (Non-Af Amer) Random Glucose (70-110) mg/dL Calcium (8.4-10.5) mg/dL Phosphorus (2.5-4.5) mg/dL Magnesium (1.7-2.2) mg/dL Transferrin (206-381) mg/dL Ferritin ng/mL Total Bilirubin (0.2-1.3) mg/dL AST (17-59) U/L ALT (7-56) U/L Alkaline Phosphatase (38-126) U/L Troponin I ng/mL Total Protein (5.8-8.3) g/dL Albumin (3.0-4.8) g/dL Globulin gm/dL Albumin/Globulin Ratio (1.1-1.8) Triglycerides (35-160) mg/dL Cholesterol (130-200) mg/dL LDL Cholesterol Direct (0-129) mg/dL HDL Cholesterol (29-60) mg/dL Vitamin B12 (239-931) pg/mL TSH 3rd Generation (0.46-4.68) mIU/mL Urine Eosinophils Positive Ur Random Creatinine 54 (20-320) mg/dL U Random Total Protein (22-128) mg/g creat Ur Random Sodium 96 meq/L Urine Total Volume mg/dL Microalb/Creat Ratio (<30) Urine Opiates Screen Negative (NEGATIVE) Urine Methadone Screen Negative (NEGATIVE) Ur Barbiturates Screen Negative (NEGATIVE) Ur Phencyclidine Scrn Negative (NEGATIVE) Ur Amphetamines Screen Negative (NEGATIVE) U Benzodiazepines Scrn Negative (NEGATIVE) U Oth Cocaine Metabols Negative (NEGATIVE) U Cannabinoids Screen Negative (NEGATIVE) Complement C3 (88.0-165.0) mg/dL Complement C4 (14.0-44.0) mg/dL Hep Bs Antigen (NEGATIVE) Hep Bs Antibody (NEGATIVE) Hep B Core IgM Ab (NEGATIVE) Hepatitis C Antibody (NEGATIVE) HIV 1&2 Antibody Screen (NEGATIVE) Blood Type Blood Type Confirm Antibody Screen Crossmatch BBK History Checked 08/01/18 08/01/18 08/01/18 Range/Units 11:00 11:00 10:10 WBC (4.5-11.0) 10^3/uL RBC (3.5-6.1) 10^6/uL Hgb (14.0-18.0) g/dL Hct (42.0-52.0) % MCV (80.0-105.0) fl MCH (25.0-35.0) pg MCHC (31.0-37.0) g/dl RDW (11.5-14.5) % Plt Count (120.0-450.0) 10^3/uL MPV (7.0-11.0) fl Neut % (Auto) (50.0-68.0) % Lymph % (Auto) (22.0-35.0) % Sanders % (Auto) (1.0-6.0) % Eos % (Auto) (1.5-5.0) % Baso % (Auto) (0.0-3.0) % Lymph # (Auto) (1.2-3.4) Sanders # (Auto) (0.1-0.6) Eos # (Auto) (0.0-0.7) Baso # (Auto) (0.0-2.0) K/mm3 Absolute Neuts (auto) (1.4-6.5) PT (9.4-12.5) SECONDS INR APTT (26.9-38.3) Seconds Sodium (132-148) mmol/L Potassium (3.6-5.0) mmol/L Chloride (98-107) mmol/L Carbon Dioxide (21-33) mmol/L Anion Gap (10-20) BUN (7-21) mg/dL Creatinine (0.8-1.5) mg/dl Est GFR ( Amer) Est GFR (Non-Af Amer) Random Glucose (70-110) mg/dL Calcium (8.4-10.5) mg/dL Phosphorus (2.5-4.5) mg/dL Magnesium (1.7-2.2) mg/dL Transferrin (206-381) mg/dL Ferritin ng/mL Total Bilirubin (0.2-1.3) mg/dL AST (17-59) U/L ALT (7-56) U/L Alkaline Phosphatase (38-126) U/L Troponin I ng/mL Total Protein (5.8-8.3) g/dL Albumin (3.0-4.8) g/dL Globulin gm/dL Albumin/Globulin Ratio (1.1-1.8) Triglycerides (35-160) mg/dL Cholesterol (130-200) mg/dL LDL Cholesterol Direct (0-129) mg/dL HDL Cholesterol (29-60) mg/dL Vitamin B12 (239-931) pg/mL TSH 3rd Generation (0.46-4.68) mIU/mL Urine Eosinophils Ur Random Creatinine 59 (20-320) mg/dL U Random Total Protein 966 H (22-128) mg/g creat Ur Random Sodium meq/L Urine Total Volume 7.7 mg/dL Microalb/Creat Ratio 130 H (<30) Urine Opiates Screen (NEGATIVE) Urine Methadone Screen (NEGATIVE) Ur Barbiturates Screen (NEGATIVE) Ur Phencyclidine Scrn (NEGATIVE) Ur Amphetamines Screen (NEGATIVE) U Benzodiazepines Scrn (NEGATIVE) U Oth Cocaine Metabols (NEGATIVE) U Cannabinoids Screen (NEGATIVE) Complement C3 (88.0-165.0) mg/dL Complement C4 (14.0-44.0) mg/dL Hep Bs Antigen (NEGATIVE) Hep Bs Antibody (NEGATIVE) Hep B Core IgM Ab (NEGATIVE) Hepatitis C Antibody (NEGATIVE) HIV 1&2 Antibody Screen Negative (NEGATIVE) Blood Type Blood Type Confirm Antibody Screen Crossmatch BBK History Checked 08/01/18 08/01/18 08/01/18 Range/Units 10:10 10:10 10:10 WBC (4.5-11.0) 10^3/uL RBC (3.5-6.1) 10^6/uL Hgb (14.0-18.0) g/dL Hct (42.0-52.0) % MCV (80.0-105.0) fl MCH (25.0-35.0) pg MCHC (31.0-37.0) g/dl RDW (11.5-14.5) % Plt Count (120.0-450.0) 10^3/uL MPV (7.0-11.0) fl Neut % (Auto) (50.0-68.0) % Lymph % (Auto) (22.0-35.0) % Sanders % (Auto) (1.0-6.0) % Eos % (Auto) (1.5-5.0) % Baso % (Auto) (0.0-3.0) % Lymph # (Auto) (1.2-3.4) Sanders # (Auto) (0.1-0.6) Eos # (Auto) (0.0-0.7) Baso # (Auto) (0.0-2.0) K/mm3 Absolute Neuts (auto) (1.4-6.5) PT (9.4-12.5) SECONDS INR APTT (26.9-38.3) Seconds Sodium (132-148) mmol/L Potassium (3.6-5.0) mmol/L Chloride (98-107) mmol/L Carbon Dioxide (21-33) mmol/L Anion Gap (10-20) BUN (7-21) mg/dL Creatinine (0.8-1.5) mg/dl Est GFR ( Amer) Est GFR (Non-Af Amer) Random Glucose (70-110) mg/dL Calcium (8.4-10.5) mg/dL Phosphorus (2.5-4.5) mg/dL Magnesium (1.7-2.2) mg/dL Transferrin (206-381) mg/dL Ferritin 489.0 ng/mL Total Bilirubin (0.2-1.3) mg/dL AST (17-59) U/L ALT (7-56) U/L Alkaline Phosphatase (38-126) U/L Troponin I ng/mL Total Protein (5.8-8.3) g/dL Albumin (3.0-4.8) g/dL Globulin gm/dL Albumin/Globulin Ratio (1.1-1.8) Triglycerides (35-160) mg/dL Cholesterol (130-200) mg/dL LDL Cholesterol Direct (0-129) mg/dL HDL Cholesterol (29-60) mg/dL Vitamin B12 787 (239-931) pg/mL TSH 3rd Generation (0.46-4.68) mIU/mL Urine Eosinophils Ur Random Creatinine (20-320) mg/dL U Random Total Protein (22-128) mg/g creat Ur Random Sodium meq/L Urine Total Volume mg/dL Microalb/Creat Ratio (<30) Urine Opiates Screen (NEGATIVE) Urine Methadone Screen (NEGATIVE) Ur Barbiturates Screen (NEGATIVE) Ur Phencyclidine Scrn (NEGATIVE) Ur Amphetamines Screen (NEGATIVE) U Benzodiazepines Scrn (NEGATIVE) U Oth Cocaine Metabols (NEGATIVE) U Cannabinoids Screen (NEGATIVE) Complement C3 (88.0-165.0) mg/dL Complement C4 (14.0-44.0) mg/dL Hep Bs Antigen Negative (NEGATIVE) Hep Bs Antibody Negative (NEGATIVE) Hep B Core IgM Ab Negative (NEGATIVE) Hepatitis C Antibody Negative (NEGATIVE) HIV 1&2 Antibody Screen (NEGATIVE) Blood Type Blood Type Confirm Antibody Screen Crossmatch BBK History Checked 08/01/18 Range/Units 10:10 WBC (4.5-11.0) 10^3/uL RBC (3.5-6.1) 10^6/uL Hgb (14.0-18.0) g/dL Hct (42.0-52.0) % MCV (80.0-105.0) fl MCH (25.0-35.0) pg MCHC (31.0-37.0) g/dl RDW (11.5-14.5) % Plt Count (120.0-450.0) 10^3/uL MPV (7.0-11.0) fl Neut % (Auto) (50.0-68.0) % Lymph % (Auto) (22.0-35.0) % Sanders % (Auto) (1.0-6.0) % Eos % (Auto) (1.5-5.0) % Baso % (Auto) (0.0-3.0) % Lymph # (Auto) (1.2-3.4) Sanders # (Auto) (0.1-0.6) Eos # (Auto) (0.0-0.7) Baso # (Auto) (0.0-2.0) K/mm3 Absolute Neuts (auto) (1.4-6.5) PT (9.4-12.5) SECONDS INR APTT (26.9-38.3) Seconds Sodium (132-148) mmol/L Potassium (3.6-5.0) mmol/L Chloride (98-107) mmol/L Carbon Dioxide (21-33) mmol/L Anion Gap (10-20) BUN (7-21) mg/dL Creatinine (0.8-1.5) mg/dl Est GFR ( Amer) Est GFR (Non-Af Amer) Random Glucose (70-110) mg/dL Calcium (8.4-10.5) mg/dL Phosphorus (2.5-4.5) mg/dL Magnesium (1.7-2.2) mg/dL Transferrin 100.88 L (206-381) mg/dL Ferritin ng/mL Total Bilirubin (0.2-1.3) mg/dL AST (17-59) U/L ALT (7-56) U/L Alkaline Phosphatase (38-126) U/L Troponin I ng/mL Total Protein (5.8-8.3) g/dL Albumin (3.0-4.8) g/dL Globulin gm/dL Albumin/Globulin Ratio (1.1-1.8) Triglycerides (35-160) mg/dL Cholesterol (130-200) mg/dL LDL Cholesterol Direct (0-129) mg/dL HDL Cholesterol (29-60) mg/dL Vitamin B12 (239-931) pg/mL TSH 3rd Generation (0.46-4.68) mIU/mL Urine Eosinophils Ur Random Creatinine (20-320) mg/dL U Random Total Protein (22-128) mg/g creat Ur Random Sodium meq/L Urine Total Volume mg/dL Microalb/Creat Ratio (<30) Urine Opiates Screen (NEGATIVE) Urine Methadone Screen (NEGATIVE) Ur Barbiturates Screen (NEGATIVE) Ur Phencyclidine Scrn (NEGATIVE) Ur Amphetamines Screen (NEGATIVE) U Benzodiazepines Scrn (NEGATIVE) U Oth Cocaine Metabols (NEGATIVE) U Cannabinoids Screen (NEGATIVE) Complement C3 93.0 (88.0-165.0) mg/dL Complement C4 36.5 (14.0-44.0) mg/dL Hep Bs Antigen (NEGATIVE) Hep Bs Antibody (NEGATIVE) Hep B Core IgM Ab (NEGATIVE) Hepatitis C Antibody (NEGATIVE) HIV 1&2 Antibody Screen (NEGATIVE) Blood Type Blood Type Confirm Antibody Screen Crossmatch BBK History Checked Laboratory Results - last 24 hr 08/01/18 08/01/18 08/01/18 10:10 10:10 10:10 WBC RBC Hgb Hct MCV MCH MCHC RDW Plt Count MPV Neut % (Auto) Lymph % (Auto) Sanders % (Auto) Eos % (Auto) Baso % (Auto) Lymph # (Auto) Sanders # (Auto) Eos # (Auto) Baso # (Auto) Absolute Neuts (auto) PT INR APTT Sodium Potassium Chloride Carbon Dioxide Anion Gap BUN Creatinine Est GFR ( Amer) Est GFR (Non-Af Amer) Random Glucose Calcium Phosphorus Magnesium Transferrin 100.88 L Ferritin 489.0 Total Bilirubin AST ALT Alkaline Phosphatase Troponin I Total Protein Albumin Globulin Albumin/Globulin Ratio Triglycerides Cholesterol LDL Cholesterol Direct HDL Cholesterol Vitamin B12 787 TSH 3rd Generation Urine Eosinophils Ur Random Creatinine U Random Total Protein Ur Random Sodium Urine Total Volume Microalb/Creat Ratio Urine Opiates Screen Urine Methadone Screen Ur Barbiturates Screen Ur Phencyclidine Scrn Ur Amphetamines Screen U Benzodiazepines Scrn U Oth Cocaine Metabols U Cannabinoids Screen Complement C3 93.0 Complement C4 36.5 Hep Bs Antigen Negative Hep Bs Antibody Hep B Core IgM Ab Negative Hepatitis C Antibody Negative HIV 1&2 Antibody Screen Blood Type Blood Type Confirm Antibody Screen Crossmatch BBK History Checked 08/01/18 08/01/18 08/01/18 10:10 10:10 11:00 WBC RBC Hgb Hct MCV MCH MCHC RDW Plt Count MPV Neut % (Auto) Lymph % (Auto) Sanders % (Auto) Eos % (Auto) Baso % (Auto) Lymph # (Auto) Sanders # (Auto) Eos # (Auto) Baso # (Auto) Absolute Neuts (auto) PT INR APTT Sodium Potassium Chloride Carbon Dioxide Anion Gap BUN Creatinine Est GFR ( Amer) Est GFR (Non-Af Amer) Random Glucose Calcium Phosphorus Magnesium Transferrin Ferritin Total Bilirubin AST ALT Alkaline Phosphatase Troponin I Total Protein Albumin Globulin Albumin/Globulin Ratio Triglycerides Cholesterol LDL Cholesterol Direct HDL Cholesterol Vitamin B12 TSH 3rd Generation Urine Eosinophils Ur Random Creatinine U Random Total Protein 966 H Ur Random Sodium Urine Total Volume Microalb/Creat Ratio Urine Opiates Screen Urine Methadone Screen Ur Barbiturates Screen Ur Phencyclidine Scrn Ur Amphetamines Screen U Benzodiazepines Scrn U Oth Cocaine Metabols U Cannabinoids Screen Complement C3 Complement C4 Hep Bs Antigen Hep Bs Antibody Negative Hep B Core IgM Ab Hepatitis C Antibody HIV 1&2 Antibody Screen Negative Blood Type Blood Type Confirm Antibody Screen Crossmatch BBK History Checked 08/01/18 08/01/18 08/01/18 11:00 11:00 15:10 WBC RBC Hgb Hct MCV MCH MCHC RDW Plt Count MPV Neut % (Auto) Lymph % (Auto) Sanders % (Auto) Eos % (Auto) Baso % (Auto) Lymph # (Auto) Sanders # (Auto) Eos # (Auto) Baso # (Auto) Absolute Neuts (auto) PT INR APTT Sodium Potassium Chloride Carbon Dioxide Anion Gap BUN Creatinine Est GFR ( Amer) Est GFR (Non-Af Amer) Random Glucose Calcium Phosphorus Magnesium Transferrin Ferritin Total Bilirubin AST ALT Alkaline Phosphatase Troponin I Total Protein Albumin Globulin Albumin/Globulin Ratio Triglycerides Cholesterol LDL Cholesterol Direct HDL Cholesterol Vitamin B12 TSH 3rd Generation Urine Eosinophils Ur Random Creatinine 59 54 U Random Total Protein Ur Random Sodium 96 Urine Total Volume 7.7 Microalb/Creat Ratio 130 H Urine Opiates Screen Negative Urine Methadone Screen Negative Ur Barbiturates Screen Negative Ur Phencyclidine Scrn Negative Ur Amphetamines Screen Negative U Benzodiazepines Scrn Negative U Oth Cocaine Metabols Negative U Cannabinoids Screen Negative Complement C3 Complement C4 Hep Bs Antigen Hep Bs Antibody Hep B Core IgM Ab Hepatitis C Antibody HIV 1&2 Antibody Screen Blood Type Blood Type Confirm Antibody Screen Crossmatch BBK History Checked 08/01/18 08/02/18 08/02/18 15:10 06:00 06:00 WBC 8.1 D RBC 2.36 L Hgb 6.6 L* Hct 18.9 L* MCV 80.1 MCH 28.0 MCHC 34.9 RDW 14.5 Plt Count 192 MPV 9.3 Neut % (Auto) 86.6 H Lymph % (Auto) 10.3 L Sanders % (Auto) 3.1 Eos % (Auto) 0.0 L Baso % (Auto) 0.0 Lymph # (Auto) 0.8 L Sanders # (Auto) 0.3 Eos # (Auto) 0.0 Baso # (Auto) 0.00 Absolute Neuts (auto) 7.04 H PT INR APTT Sodium 136 Potassium 3.1 L Chloride 100 Carbon Dioxide 17 L Anion Gap 22 H BUN 181 H* Creatinine 13.5 H* Est GFR ( Amer) 4 Est GFR (Non-Af Amer) 4 Random Glucose 164 H Calcium 6.5 L* Phosphorus 9.4 H Magnesium 1.8 Transferrin Ferritin Total Bilirubin 0.7 AST 50 ALT 36 Alkaline Phosphatase 91 Troponin I 2.23 H* D Total Protein 6.1 Albumin 3.0 Globulin 3.1 Albumin/Globulin Ratio 1.0 L Triglycerides 148 Cholesterol 99 L LDL Cholesterol Direct 55 HDL Cholesterol 18 L Vitamin B12 TSH 3rd Generation Urine Eosinophils Positive Ur Random Creatinine U Random Total Protein Ur Random Sodium Urine Total Volume Microalb/Creat Ratio Urine Opiates Screen Urine Methadone Screen Ur Barbiturates Screen Ur Phencyclidine Scrn Ur Amphetamines Screen U Benzodiazepines Scrn U Oth Cocaine Metabols U Cannabinoids Screen Complement C3 Complement C4 Hep Bs Antigen Hep Bs Antibody Hep B Core IgM Ab Hepatitis C Antibody HIV 1&2 Antibody Screen Blood Type Blood Type Confirm Antibody Screen Crossmatch BBK History Checked 08/02/18 08/02/18 08/02/18 06:00 06:00 09:00 WBC RBC Hgb Hct MCV MCH MCHC RDW Plt Count MPV Neut % (Auto) Lymph % (Auto) Sanders % (Auto) Eos % (Auto) Baso % (Auto) Lymph # (Auto) Sanders # (Auto) Eos # (Auto) Baso # (Auto) Absolute Neuts (auto) PT 15.0 H INR 1.33 APTT 33.8 Sodium Potassium Chloride Carbon Dioxide Anion Gap BUN Creatinine Est GFR ( Amer) Est GFR (Non-Af Amer) Random Glucose Calcium Phosphorus Magnesium Transferrin Ferritin Total Bilirubin AST ALT Alkaline Phosphatase Troponin I Total Protein Albumin Globulin Albumin/Globulin Ratio Triglycerides Cholesterol LDL Cholesterol Direct HDL Cholesterol Vitamin B12 TSH 3rd Generation 3.04 Urine Eosinophils Ur Random Creatinine U Random Total Protein Ur Random Sodium Urine Total Volume Microalb/Creat Ratio Urine Opiates Screen Urine Methadone Screen Ur Barbiturates Screen Ur Phencyclidine Scrn Ur Amphetamines Screen U Benzodiazepines Scrn U Oth Cocaine Metabols U Cannabinoids Screen Complement C3 Complement C4 Hep Bs Antigen Hep Bs Antibody Hep B Core IgM Ab Hepatitis C Antibody HIV 1&2 Antibody Screen Blood Type A POSITIVE Blood Type Confirm Antibody Screen Negative Crossmatch See Detail BBK History Checked No verified bt 08/02/18 09:43 WBC RBC Hgb Hct MCV MCH MCHC RDW Plt Count MPV Neut % (Auto) Lymph % (Auto) Sanders % (Auto) Eos % (Auto) Baso % (Auto) Lymph # (Auto) Sanders # (Auto) Eos # (Auto) Baso # (Auto) Absolute Neuts (auto) PT INR APTT Sodium Potassium Chloride Carbon Dioxide Anion Gap BUN Creatinine Est GFR ( Amer) Est GFR (Non-Af Amer) Random Glucose Calcium Phosphorus Magnesium Transferrin Ferritin Total Bilirubin AST ALT Alkaline Phosphatase Troponin I Total Protein Albumin Globulin Albumin/Globulin Ratio Triglycerides Cholesterol LDL Cholesterol Direct HDL Cholesterol Vitamin B12 TSH 3rd Generation Urine Eosinophils Ur Random Creatinine U Random Total Protein Ur Random Sodium Urine Total Volume Microalb/Creat Ratio Urine Opiates Screen Urine Methadone Screen Ur Barbiturates Screen Ur Phencyclidine Scrn Ur Amphetamines Screen U Benzodiazepines Scrn U Oth Cocaine Metabols U Cannabinoids Screen Complement C3 Complement C4 Hep Bs Antigen Hep Bs Antibody Hep B Core IgM Ab Hepatitis C Antibody HIV 1&2 Antibody Screen Blood Type Blood Type Confirm A POSITIVE Antibody Screen Crossmatch BBK History Checked Radiology Impressions: Radiology Impressions Extremity Ultrasound 07/31/18 15:03 IMPRESSION: No sonographic evidence for deep venous thrombosis in the visualized segments of both lower extremities. Renal Ultrasound 08/01/18 09:28 IMPRESSION: 11 mm nonobstructing calculus lower pole left kidney. Otherwise unremarkable. Abdomen/Pelvis CT 08/01/18 10:24 IMPRESSION: Obstructing 9 mm mid left ureteral calculus with mild left hydronephrosis 8 mm nonobstructing left lower pole renal calculus. Minor findings as above. Small bilateral pleural effusion, right greater than left. Chest X-Ray 08/01/18 12:34 IMPRESSION: New right tunneled central venous dialysis catheter otherwise no significant change. EKG/Cardiology Studies: Cardiology / EKG Studies 08/03/18 06:00 EKG [ELECTROCARDIOGRAM] Routine Comment: Reason For Exam: dyspnea Critical Care Progress Note - Nutrition Nutrition: Nutrition Category Date Time Status Renal Diet [DIET] Diets 08/01/18 Dinner Ordered Attending/Attestation - Attestation I have personally seen and examined this patient.: Yes I have fully participated in the care of the patient.: Yes I have reviewed all pertinent clinical information: Yes Notes (Text): 08/02/18 11:09 The patient was seen and examined at the bedside. Patient care was discussed with resident Medical records, lab studies were reviewed and management issues were discussed and formulated. Agree with above treatment plans as outlined in 's note with addition of the following: ARF on HD \ Nephrolithiasis \ UTI \ Sepsis \ NSTEMI \ Anemia Acute on chronic diastolic CHF \Anemia -hemodynamic monitoring to maintain MAP>65 -f\u serial CE (trop 2.23) and ECG; cardiology team f\u -continue ASA, will hold if Hb continues to drop or sign of active bleed -O2 supplementation to maintain spo2>90 Pao2>60; comfortable on NC -broad spectrum Abx as per ID team; f\u cultures -f\u Bun\Cr and U\o; HD and volume removal as per renal team; increase K+ bath -PO diet and aspiration precautions -transfuse 2 PRBC; anemia w\u; monitor serial H\H and for bleeding -consider GI team eval -hold heparin -urology team f\u -DVT \ PUD prophylaxis CCM time 33mins
[2018-08-02] MEDS ORDERED: Iohexol 240 (50 ml) ONE (10:52)
[2018-08-02] MEDS ORDERED: cefTRIAXone (Rocephin) 1 gm Inj ONE (10:52)
--- NOTE | 2018-08-02 11:48 | CP.PCM.PN ---
Subjective - Date & Time of Evaluation Date of Evaluation: 08/02/18 Time of Evaluation: 11:45 - Subjective Subjective: Comfortable in bed, undergoing in dialysis, not in distress, no fevers. Objective - Vital Signs/Intake and Output Vital Signs (last 24 hours): Temp Pulse Resp BP Pulse Ox 96.6 F L 108 H 23 129/61 98 07/31/18 23:16 08/01/18 06:00 07/31/18 22:12 07/31/18 17:58 07/31/18 17:58 Intake and Output: 08/01/18 08/01/18 06:59 18:59 Intake Total 5370 Output Total 700 Balance 4670 - Medications Medications: Current Medications Albuterol/Ipratropium (Duoneb 3 Mg/0.5 Mg (3 Ml) Ud) 3 ml IH Q2H PRN PRN Reason: Shortness of Breath Aspirin (Aspirin Chewable) 81 mg PO DAILY [facility] Last Admin: 08/01/18 09:27 Dose: 81 mg Atorvastatin Calcium (Lipitor) 40 mg PO DIN [facility] Calcium Acetate (Phoslo) 2,001 mg PO WM [facility] Last Admin: 08/01/18 12:07 Dose: Not Given Darbepoetin Ron (Aranesp) 100 mcg IVP QWK [facility] Last Admin: 08/01/18 13:50 Dose: 100 mcg Heparin Sodium (Porcine) (Heparin) 5,000 units SC Q8 [facility]; Protocol Last Admin: 08/01/18 13:44 Dose: 5,000 units Cefepime HCl (Maxipime 1gm) 1 gm in 100 mls @ 100 mls/hr IVPB Q24H [facility]; Protocol Last Admin: 07/31/18 20:27 Dose: 100 mls/hr Sodium Bicarbonate 150 meq/ (Dextrose) 1,150 mls @ 50 mls/hr IV .Q23H [facility] Stop: 08/03/18 12:31 Last Admin: 08/01/18 13:40 Dose: 50 mls/hr Nystatin (Mycostatin Cream) 0 ea TOP TID [facility] Last Admin: 08/01/18 13:43 Dose: 1 applic Pantoprazole Sodium (Protonix Inj) 40 mg IVP DAILY [facility] Last Admin: 08/01/18 09:02 Dose: 40 mg Tamsulosin HCl (Flomax) 0.4 mg PO DAILY [facility] Vitamin B Complex/Vit C/Folic Acid (Nephro-Agustina) 1 tab PO 0800 [facility] - Labs Labs: 08/01/18 05:40 08/01/18 05:40 PT 14.3 SECONDS (9.4-12.5) H 07/31/18 14:50 INR 1.29 07/31/18 14:50 APTT 38.1 Seconds (26.9-38.3) 07/31/18 14:50 - Constitutional Appears: Chronically Ill - Head Exam Head Exam: NORMAL INSPECTION - Neck Exam Neck Exam: absent: Meningismus - Respiratory Exam Respiratory Exam: Decreased Breath Sounds - Cardiovascular Exam Cardiovascular Exam: +S1, +S2 - GI/Abdominal Exam GI & Abdominal Exam: Soft. absent: Tenderness Assessment and Plan - Assessment and Plan (Free Text) Plan: Assessment Systemic inflammatory response syndrome, probably due to acute renal failure R/O acute coronary syndrome in this patient presenting with dehydration and metabolic acidosis, R/O sepsis arthritis chronic right leg rash S/P hip surgery Plan gave a dose of IV Vancomycin and continue Cefepime day 2 pending final blood, urine cx results, CXR, PCT follow up further plans of Renal, Cardiology, ICU team will continue to monitor clinically
--- NOTE | 2018-08-02 12:03 | PN ---
SUBJECTIVE: The patient was seen and examined at bedside in the ICU. He remains afebrile and hemodynamically stable. He is s/p placement of dialysis access catheter and was started on renal replacement therapy which he tolerated without difficulty. This morning he feels okay but tired and otherwise offers no complaints. OBJECTIVE: VITAL SIGNS: Temperature 98.1, pulse 78, blood pressure 121/66, respiratory rate 20, oxygen saturation 99% on 2L NC. GENERAL: Obese man lying in bed in no apparent distress. HEENT: PERRL, EOMI. No scleral icterus. Conjunctival pallor is noted. NECK: No JVD. LUNGS: Decreased breath sounds at the bases with few scattered rhonchi. CARDIOVASCULAR: Regular rate and rhythm. Normal S1, S2. Grade II/ murmur to LLSB. No friction rub. ABDOMEN: Normoactive bowel sounds, soft, nontender, nondistended. EXTREMITIES: Trace pedal edema bilaterally. NEUROLOGIC: Awake, alert and oriented x 3. No focal motor deficits. LABORATORY DATA: WBC 8 with 86% neutrophils, hemoglobin 6.6, hematocrit 19, platelets 192. Sodium 136, potassium 3.1, chloride 100, bicarb 17, BUN 181, creatinine 13.5, glucose 164, calcium 6.5, phosphorus 9.4. Troponin 2.23. IMAGING STUDIES: 1. Renal ultrasound demonstrated an 11 mm nonobstructing calculus to the lower pole of the left kidney but otherwise no acute pathology. 2. CT of the abdomen and pelvis without contrast demonstrated obstructing 9 mm mid left ureteral calculus with mild left hydronephrosis but otherwise no acute pathology. DIAGNOSTIC STUDIES: TTE demonstrated normal LV size and function with preserved ejection fraction with [id number] pulmonary hypertension. ASSESSMENT: The patient is a 68-year-old man with no significant past medical history who presented with a 2 week history of dyspnea with exertion, pedal edema, 3-pillow orthopnea and decreased urinary output and was admitted to the ICU for management of KIM on CKD, anion gap metabolic acidosis, SIRS syndrome and anemia. PLAN: 1. KIM on CKD stage III. Input from Dr. Samaniego noted and the patient has been started on renal replacement therapy. Continue with care as per Dr. Samaniego. Workup is ongoing workup to further investigate the etiology of his acute kidney injury. 2. Elevated troponin, consider secondary to impaired renal clearance vs NSTEMI. Input from Dr. Craft noted. The patient remains chest-pain free. Continue with care as per Dr. Craft. 3. Anion gap metabolic acidosis, consider secondary to profound uremia in the setting of KIM, improving. Input from Dr. Samaniego noted and as above the patient has been started on bicarb infusion and renal replacement therapy. Continue to monitor serial ABGs. 4. Obstructive nephrolithiasis. Imaging studies reviewed and Dr. Payan of Urology has been consulted for further evaluation. 5. SIRS syndrome. Input from Dr. Coffey noted. Blood cultures remain negative. Continue with antimicrobials as per Dr. Coffey. 6. Elevated BNP, etiology likely secondary to underlying renal dysfunction. Input from Dr. Craft noted. TTE demonstrates no wall motion abnormality or significant valvular dysfunction. Continue with care as per Dr. Craft. 7. Normocytic anemia. Workup is ongoing. The patient has been started on Aranesp. We will continue to monitor CBC and transfuse as needed. 8. Prophylaxis. Continue Protonix for GI prophylaxis and Heparin for DVT prophylaxis. CODE STATUS: Full code. Scout Quintana MD MTDD
[2018-08-02] MEDS: Multivitamin Vitamin B Complex (Nephro-Vite) Tab PO SCH (12:46)
[2018-08-02] MEDS: Metoprolol Succinate 25 mg XL Tab PO SCH (13:47)
--- NOTE | 2018-08-02 15:38 | CP.PCM.PN ---
Subjective - Date & Time of Evaluation Date of Evaluation: 08/02/18 Time of Evaluation: 15:34 - Subjective Subjective: Nephrology Consultation Note: Assessment: critical Acute Kidney Injury (N17.9) with uremia ? etiology (NSAIDs use, obs uropathy mild left hydro with calculus) started dialysis 08/01/18 Anemia (D64.9), Hyperphosphatemia (E83.39) hyperkalemia, vit D def, sec hyperparathyroidism HAGMA with respi compensation obesity ex smoker CKD 3 with baseline cr 2.2 in 2016 elevated troponins Plan Hd 2nd session today, next HD tomorrow Maintain hemodynamics stable. Avoid hypotension. Patient not on ACEI/ARB due to recent KIM Monitor Input/Output, daily weights and renal function with basic metabolic panel started phos binder, nephrovite and weekly aransep. PRBC as needed added flomax. urology eval. pt planned for left ureteral stent may consider kidney biopsy depending upon work up results d/c bicarb drip once stable, renal scan to assess split renal function. check uric acid added weekly Vit D Check urine analysis, spot protein/creatinine, albumin/creatinine ratio, urine for eosinophils. renal and bladder sonogram Check GN work up as C3, C4, LIO, Anti dsDNA, ASO titers, ANCA (MPO and NC-3), Anti GBM antibody, HIV/Hep B and Hep C serology Anemia work up with TSAT/Ferritin/Vitamin B12/folate, serum protein electrophoresis with immunofixation, serum free light chain assay (Rafael Pena/Lambda) Check for 25-OH vitamin D, iPTH, phosphorus level. Dose meds/antibiotics for reduced GFR. Avoid fleets enema/magnesium based laxatives. Avoid nephrotoxins/NSAIDs/ iodinated contrast (unless needed emergently) Glycemic control Further work up/management as per primary team Thanks for allowing me to participate in care of your patient. Will follow patient with you. Please call if any Qs. had d/w team Dr Javna Samaniego Office: [phone] Chief Complaint; SOB on exertion Reason for consult: Acute Kidney Injury HPI: Pt is a 68 M with hx of HTN obesity hip replacement, hasn't f/up with PMD for long time presented with complaints of worsening SOB on exertion and feeling sick. found to have severe KIM. pt not aware about kidney disease in past. denies change in urine output recently. Denies OTC/herbal meds but take NSAIDs as alleve 2 tab daily No recent iodinated contrast exposure. No obvious episodes of low BP. ex smoker. no etoh or drugs decreased oral intake for last few days ROS: feels better. c/o left hand swelling, says gout in past Cardiovascular: No chest pain. Pulmonary: denie shortness of breath Gastrointestinal: denies abdominal pain had nausea. No vomiting. Genitourinary: No pain while urinating. Denies blood in urine. All other negative except as mentioned in HPI. has reduced appetite Physical Examination: General Appearance: better appearing co-operative . Vitals reviewed and noted as below Head; Atraumatic, normocephalic ENT: no ulcers no thrush. Tongue is midline/dry. Oropharynx: no rash or ulcers. EYES: Pupils are equal, round and reactive to light accommodation. Eye muscles and extraocular movement intact. Sclera is anicteric. Neck; supple no lymphadenopathy, no thyromegaly or bruit Lungs: normal respiratory rate/effort. Breath sounds bilateral equal and clear Heart: Increased rate. s1s2 normal. No rub or gallop. Extremities: no edema. No varicose veins. left hand swelling + Neurological: Patient is alert, awake and oriented to person, place and time. No focal deficit. Strength bilateral appropriate and equal Skin: Warm and dry. Normal turgor. Palpitation: Normal elasticity for age. axillary fungal rash +. Rt lower extremity scaly/scab ulceration Abdomen: Abdomen is soft. Bowel sounds +. There is no abdominal tenderness, no guarding/rigidity no organomegaly Psych: normal insight and normal affect/mood MSK: no joint tenderness or swelling. Digits and nails normal, no deformity : kidney or bladder not palpable Labs/imaging reviewed. Past medical history, past surgical history, family history, social history, allergy reviewed and noted as below Family hx: hx of CKD/ESRD and lupus in mother. Rest non-contributory Objective - Vital Signs/Intake and Output Vital Signs (last 24 hours): Temp Pulse Resp BP Pulse Ox 98.1 F 85 12 135/67 87 L 08/02/18 06:00 08/02/18 13:47 08/01/18 18:00 08/02/18 13:47 08/02/18 12:40 Intake and Output: 08/02/18 08/02/18 06:59 18:59 Intake Total 840 Output Total 1000 Balance -160 - Medications Medications: Current Medications Albuterol/Ipratropium (Duoneb 3 Mg/0.5 Mg (3 Ml) Ud) 3 ml IH Q2H PRN PRN Reason: Shortness of Breath Aspirin (Aspirin Chewable) 81 mg PO DAILY [facility] Last Admin: 08/02/18 12:45 Dose: Not Given Atorvastatin Calcium (Lipitor) 40 mg PO DIN [facility] Last Admin: 08/01/18 17:22 Dose: 40 mg Calcium Acetate (Phoslo) 2,001 mg PO WM [facility] Last Admin: 08/02/18 12:46 Dose: Not Given Darbepoetin Ron (Aranesp) 100 mcg IVP QWK [facility] Last Admin: 08/01/18 13:50 Dose: 100 mcg Ergocalciferol (Drisdol 50,000 Intl Units Cap) 1 cap PO Q7D [facility] Cefepime HCl (Maxipime 1gm) 1 gm in 100 mls @ 100 mls/hr IVPB Q24H [facility]; Protocol Last Admin: 08/01/18 17:45 Dose: 100 mls/hr Metoprolol Succinate (Toprol Xl) 25 mg PO BRK [facility] Last Admin: 08/02/18 13:47 Dose: 25 mg Nystatin (Mycostatin Cream) 0 ea TOP TID [facility] Last Admin: 08/02/18 13:46 Dose: 1 applic Pantoprazole Sodium (Protonix Inj) 40 mg IVP DAILY [facility] Last Admin: 08/02/18 09:32 Dose: 40 mg Tamsulosin HCl (Flomax) 0.4 mg PO DAILY [facility] Last Admin: 08/02/18 12:45 Dose: Not Given Vitamin B Complex/Vit C/Folic Acid (Nephro-Agustina) 1 tab PO 0800 [facility] Last Admin: 08/02/18 12:46 Dose: Not Given - Labs Labs: 08/02/18 06:00 08/02/18 06:00 PT 15.0 SECONDS (9.4-12.5) H 08/02/18 06:00 INR 1.33 08/02/18 06:00 APTT 33.8 Seconds (26.9-38.3) 08/02/18 06:00
--- NOTE | 2018-08-02 15:56 | PN ---
DATE: 08/02/2018 SUBJECTIVE: The patient is seen lying in bed in the ICU. He feels somewhat better today. A hemodialysis catheter was placed yesterday and dialysis is scheduled for today. He remains severely anemic. He denies any chest pain. He states his dyspnea is improved. CURRENT MEDICATIONS: Include Aranesp, aspirin, DuoNeb inhaler, Flomax, Lipitor, cefepime, PhosLo, Protonix. OBJECTIVE: GENERAL: He is a middle-aged man who appears somewhat disheveled. VITAL SIGNS: Blood pressure is 110/60 with a pulse of 80 and sinus respirations are 16. He is afebrile. HEENT: Dialysis catheter as noted on the right. CHEST: Diminished breath sounds at the bases. HEART: PMI displaced laterally with systolic murmur at the left sternal border. ABDOMEN: Soft and nontender with normoactive bowel sounds. EXTREMITIES: 1+ leg edema. DIAGNOSTIC DATA: White count is 8.1, hemoglobin and hematocrit 6.6 and 18.9 with a platelet count of 192,000. MCV is 80. PT/INR 15 and 33.8. Potassium is 3.1, BUN and creatinine 181 and 13.5, glucose 164. Troponin is 2.23. Echocardiogram reveals normal LV size with normal LV systolic function, mild tricuspid regurgitation. IMPRESSION: 1. Acute renal failure, etiology uncertain. 2. Elevated troponin likely due to reduced renal clearance. No clear evidence of myocardial fraction at the present time. 3. Severe anemia, now worsened. RECOMMENDATIONS: Urgent dialysis should proceed. Transfusion to hemoglobin of greater than 8 is advised. Repeat troponin will be planned for the morning and electrocardiogram will be repeated as well. An eventual stress test will be planned as well. Low-dose beta-kaela therapy will be initiated and titrated as tolerated. We will continue to follow and make further recommendations as appropriate. Hill Craft MD MTDD
--- NOTE | 2018-08-02 15:59 | CP.PCM.CON ---
History of Present Illness - History of Present Illness History of Present Illness: Seen and examined at bedside in ICU this afternoon. Request for consult is Anemia. HPI: This is a 68-year-old man with a past medical history that includes osteoarthritis of hips, total hip replacement came to the emergency room with complaints of worsening dyspnea, and pedal edema. On evaluation he was found to luekocytosis and in acute renal failure. BUN 232, creatinine 18, WBC 23. He did report decrease urine output. He is reported to poor to follow up. During routine blood work his hemoglobin is noted to be declining. On admission hgb was 9.0 and today it is 6.6. No reports of N/V, hematemesis, abdominal pain, or dyspepsia. Reports regular bowel movement but recently notice stool appear "muddy", no BRBPR. He admit to taking Aleve 1-2/day a few times a week for years for Arthritic pain. Denies weight loss or appetite. He has never had need to take antacids. Never had EGD or colon. Had dialysis today and at time of visit was receiving a unit of PRBC. Ct scan done on admission(08/01/18) with no contrast showed unremarkable bowel, there is a 9mm left ureteral calculi with left hydronephrosis, 8mm nonobstructing renal calculi, bilateral pleural effusion. (see [employer] for full report). PMH: Osteoarthritis of balateral hips, NSAID use PSH: hip replacement, cataract sx ALLERGIES:NKDA MEDS: reviewed as per MAR, at home took Aleve prn Family HX: father: throat/lung cacer Social HX: former smoker, quit 7 yrs ago/former ETOH, quit 4 years ago, denies recreational drugs. ENDO HX: never had EGD or COLON Past Patient History - Past Social History Smoking Status: Former Smoker - CARDIAC Hx Cardiac Disorders: No - PULMONARY Hx Respiratory Disorders: Yes (SMOKED CIGARETTES 1 PPD QUIT 2011.) - NEUROLOGICAL Hx Neurological Disorder: No - HEENT Hx HEENT Problems: No - RENAL Hx Chronic Kidney Disease: Yes Hx Renal Failure: Yes (10-26-18) - ENDOCRINE/METABOLIC Hx Endocrine Disorders: No - HEMATOLOGICAL/ONCOLOGICAL Hx Blood Disorders: No - INTEGUMENTARY Hx Dermatological Problems: Yes Hx Psoriasis: Yes (BILATERAL LE) - MUSCULOSKELETAL/RHEUMATOLOGICAL Hx Musculoskeletal Disorders: Yes Hx Arthritis: Yes Hx Falls: Yes - GASTROINTESTINAL Hx Gastrointestinal Disorders: No - GENITOURINARY/GYNECOLOGICAL Hx Genitourinary Disorders: No - PSYCHIATRIC Hx Psychophysiologic Disorder: No Hx Substance Use: No - SURGICAL HISTORY Hx Surgeries: Yes (BILATERAL HIP SX 2016) - ANESTHESIA Hx Anesthesia: No Hx Anesthesia Reactions: No Hx Malignant Hyperthermia: No Meds Allergies/Adverse Reactions: Allergies Allergy/AdvReac Type Severity Reaction Status Date / Time No Known Allergies Allergy Verified 07/31/18 19:36 - Medications Medications: Current Medications Albuterol/Ipratropium (Duoneb 3 Mg/0.5 Mg (3 Ml) Ud) 3 ml IH Q2H PRN PRN Reason: Shortness of Breath Aspirin (Aspirin Chewable) 81 mg PO DAILY [facility] Last Admin: 08/02/18 12:45 Dose: Not Given Atorvastatin Calcium (Lipitor) 40 mg PO DIN [facility] Last Admin: 08/01/18 17:22 Dose: 40 mg Calcium Acetate (Phoslo) 2,001 mg PO WM [facility] Last Admin: 08/02/18 12:46 Dose: Not Given Darbepoetin Ron (Aranesp) 100 mcg IVP QWK [facility] Last Admin: 08/01/18 13:50 Dose: 100 mcg Cefepime HCl (Maxipime 1gm) 1 gm in 100 mls @ 100 mls/hr IVPB Q24H [facility]; Protocol Last Admin: 08/01/18 17:45 Dose: 100 mls/hr Metoprolol Succinate (Toprol Xl) 25 mg PO BRK [facility] Nystatin (Mycostatin Cream) 0 ea TOP TID [facility] Last Admin: 08/01/18 18:51 Dose: 1 applic Pantoprazole Sodium (Protonix Inj) 40 mg IVP DAILY [facility] Last Admin: 08/02/18 09:32 Dose: 40 mg Tamsulosin HCl (Flomax) 0.4 mg PO DAILY [facility] Last Admin: 08/02/18 12:45 Dose: Not Given Vitamin B Complex/Vit C/Folic Acid (Nephro-Agustina) 1 tab PO 0800 [facility] Last Admin: 08/02/18 12:46 Dose: Not Given Physical Exam - Constitutional Appears: No Acute Distress - Head Exam Head Exam: NORMOCEPHALIC - Eye Exam Eye Exam: Normal appearance. absent: Scleral icterus - ENT Exam ENT Exam: Mucous Membranes Moist - Neck Exam Neck exam: Positive for: Normal Inspection - Respiratory Exam Respiratory Exam: Decreased Breath Sounds, NORMAL BREATHING PATTERN. absent: Respiratory Distress - Cardiovascular Exam Cardiovascular Exam: +S1, +S2 - GI/Abdominal Exam GI & Abdominal Exam: Distended, Normal Bowel Sounds, Soft. absent: Guarding, Organomegaly, Rebound, Tenderness - Extremities Exam Extremities exam: Positive for: pedal edema, pedal pulses present - Neurological Exam Neurological exam: Alert, Oriented x3 - Skin Skin Exam: Dry, Pallor, Warm Results - Vital Signs Recent Vital Signs: Last Vital Signs Temp 98.1 F 08/02/18 06:00 Pulse 85 08/02/18 12:40 Resp 12 08/01/18 18:00 BP 124/85 08/02/18 12:40 Pulse Ox 87 L 08/02/18 12:40 - Labs Result Diagrams: 08/02/18 06:00 08/02/18 06:00 Labs: Laboratory Results - last 24 hr 08/01/18 08/01/18 08/01/18 10:10 10:10 10:10 WBC RBC Hgb Hct MCV MCH MCHC RDW Plt Count MPV Neut % (Auto) Lymph % (Auto) [place] % (Auto) Eos % (Auto) Baso % (Auto) Lymph # (Auto) [place] # (Auto) Eos # (Auto) Baso # (Auto) Absolute Neuts (auto) PT INR APTT Sodium Potassium Chloride Carbon Dioxide Anion Gap BUN Creatinine Est GFR ( Amer) Est GFR (Non-Af Amer) Random Glucose Calcium Phosphorus Magnesium Transferrin 100.88 L Ferritin 489.0 Total Bilirubin AST ALT Alkaline Phosphatase Troponin I Total Protein Albumin Globulin Albumin/Globulin Ratio Triglycerides Cholesterol LDL Cholesterol Direct HDL Cholesterol Vitamin B12 787 25-OH Vitamin D Total TSH 3rd Generation Urine Eosinophils Ur Random Creatinine U Random Total Protein Urine Total Volume Microalb/Creat Ratio Urine Opiates Screen Urine Methadone Screen Ur Barbiturates Screen Ur Phencyclidine Scrn Ur Amphetamines Screen U Benzodiazepines Scrn U Oth Cocaine Metabols U Cannabinoids Screen LIO Screen Complement C3 93.0 Complement C4 36.5 Hep Bs Antigen Negative Hep Bs Antibody Hep B Core IgM Ab Negative Hepatitis C Antibody Negative HIV 1&2 Antibody Screen Blood Type Blood Type Confirm Antibody Screen Crossmatch BBK History Checked 08/01/18 08/01/18 08/01/18 10:10 10:10 10:10 WBC RBC Hgb Hct MCV MCH MCHC RDW Plt Count MPV Neut % (Auto) Lymph % (Auto) [place] % (Auto) Eos % (Auto) Baso % (Auto) Lymph # (Auto) [place] # (Auto) Eos # (Auto) Baso # (Auto) Absolute Neuts (auto) PT INR APTT Sodium Potassium Chloride Carbon Dioxide Anion Gap BUN Creatinine Est GFR ( Amer) Est GFR (Non-Af Amer) Random Glucose Calcium Phosphorus Magnesium Transferrin Ferritin Total Bilirubin AST ALT Alkaline Phosphatase Troponin I Total Protein Albumin Globulin Albumin/Globulin Ratio Triglycerides Cholesterol LDL Cholesterol Direct HDL Cholesterol Vitamin B12 25-OH Vitamin D Total TSH 3rd Generation Urine Eosinophils Ur Random Creatinine U Random Total Protein Urine Total Volume Microalb/Creat Ratio Urine Opiates Screen Urine Methadone Screen Ur Barbiturates Screen Ur Phencyclidine Scrn Ur Amphetamines Screen U Benzodiazepines Scrn U Oth Cocaine Metabols U Cannabinoids Screen LIO Screen Negative Complement C3 Complement C4 Hep Bs Antigen Hep Bs Antibody Negative Hep B Core IgM Ab Hepatitis C Antibody HIV 1&2 Antibody Screen Negative Blood Type Blood Type Confirm Antibody Screen Crossmatch BBK History Checked 08/01/18 08/01/18 08/01/18 11:00 11:00 15:10 WBC RBC Hgb Hct MCV MCH MCHC RDW Plt Count MPV Neut % (Auto) Lymph % (Auto) [place] % (Auto) Eos % (Auto) Baso % (Auto) Lymph # (Auto) [place] # (Auto) Eos # (Auto) Baso # (Auto) Absolute Neuts (auto) PT INR APTT Sodium Potassium Chloride Carbon Dioxide Anion Gap BUN Creatinine Est GFR ( Amer) Est GFR (Non-Af Amer) Random Glucose Calcium Phosphorus Magnesium Transferrin Ferritin Total Bilirubin AST ALT Alkaline Phosphatase Troponin I Total Protein Albumin Globulin Albumin/Globulin Ratio Triglycerides Cholesterol LDL Cholesterol Direct HDL Cholesterol Vitamin B12 25-OH Vitamin D Total TSH 3rd Generation Urine Eosinophils Ur Random Creatinine 59 U Random Total Protein 966 H Urine Total Volume 7.7 Microalb/Creat Ratio 130 H Urine Opiates Screen Negative Urine Methadone Screen Negative Ur Barbiturates Screen Negative Ur Phencyclidine Scrn Negative Ur Amphetamines Screen Negative U Benzodiazepines Scrn Negative U Oth Cocaine Metabols Negative U Cannabinoids Screen Negative LIO Screen Complement C3 Complement C4 Hep Bs Antigen Hep Bs Antibody Hep B Core IgM Ab Hepatitis C Antibody HIV 1&2 Antibody Screen Blood Type Blood Type Confirm Antibody Screen Crossmatch BBK History Checked 08/01/18 08/02/18 08/02/18 15:10 06:00 06:00 WBC 8.1 D RBC 2.36 L Hgb 6.6 L* Hct 18.9 L* MCV 80.1 MCH 28.0 MCHC 34.9 RDW 14.5 Plt Count 192 MPV 9.3 Neut % (Auto) 86.6 H Lymph % (Auto) 10.3 L [place] % (Auto) 3.1 Eos % (Auto) 0.0 L Baso % (Auto) 0.0 Lymph # (Auto) 0.8 L [place] # (Auto) 0.3 Eos # (Auto) 0.0 Baso # (Auto) 0.00 Absolute Neuts (auto) 7.04 H PT INR APTT Sodium 136 Potassium 3.1 L Chloride 100 Carbon Dioxide 17 L Anion Gap 22 H BUN 181 H* Creatinine 13.5 H* Est GFR ( Amer) 4 Est GFR (Non-Af Amer) 4 Random Glucose 164 H Calcium 6.5 L* Phosphorus 9.4 H Magnesium 1.8 Transferrin Ferritin Total Bilirubin 0.7 AST 50 ALT 36 Alkaline Phosphatase 91 Troponin I 2.23 H* D Total Protein 6.1 Albumin 3.0 Globulin 3.1 Albumin/Globulin Ratio 1.0 L Triglycerides 148 Cholesterol 99 L LDL Cholesterol Direct 55 HDL Cholesterol 18 L Vitamin B12 25-OH Vitamin D Total TSH 3rd Generation Urine Eosinophils Positive Ur Random Creatinine U Random Total Protein Urine Total Volume Microalb/Creat Ratio Urine Opiates Screen Urine Methadone Screen Ur Barbiturates Screen Ur Phencyclidine Scrn Ur Amphetamines Screen U Benzodiazepines Scrn U Oth Cocaine Metabols U Cannabinoids Screen LIO Screen Complement C3 Complement C4 Hep Bs Antigen Hep Bs Antibody Hep B Core IgM Ab Hepatitis C Antibody HIV 1&2 Antibody Screen Blood Type Blood Type Confirm Antibody Screen Crossmatch BBK History Checked 08/02/18 08/02/18 08/02/18 06:00 06:00 06:00 WBC RBC Hgb Hct MCV MCH MCHC RDW Plt Count MPV Neut % (Auto) Lymph % (Auto) [place] % (Auto) Eos % (Auto) Baso % (Auto) Lymph # (Auto) [place] # (Auto) Eos # (Auto) Baso # (Auto) Absolute Neuts (auto) PT 15.0 H INR 1.33 APTT 33.8 Sodium Potassium Chloride Carbon Dioxide Anion Gap BUN Creatinine Est GFR ( Amer) Est GFR (Non-Af Amer) Random Glucose Calcium Phosphorus Magnesium Transferrin Ferritin Total Bilirubin AST ALT Alkaline Phosphatase Troponin I Total Protein Albumin Globulin Albumin/Globulin Ratio Triglycerides Cholesterol LDL Cholesterol Direct HDL Cholesterol Vitamin B12 25-OH Vitamin D Total < 12.8 L TSH 3rd Generation 3.04 Urine Eosinophils Ur Random Creatinine U Random Total Protein Urine Total Volume Microalb/Creat Ratio Urine Opiates Screen Urine Methadone Screen Ur Barbiturates Screen Ur Phencyclidine Scrn Ur Amphetamines Screen U Benzodiazepines Scrn U Oth Cocaine Metabols U Cannabinoids Screen LIO Screen Complement C3 Complement C4 Hep Bs Antigen Hep Bs Antibody Hep B Core IgM Ab Hepatitis C Antibody HIV 1&2 Antibody Screen Blood Type Blood Type Confirm Antibody Screen Crossmatch BBK History Checked 08/02/18 08/02/18 09:00 09:43 WBC RBC Hgb Hct MCV MCH MCHC RDW Plt Count MPV Neut % (Auto) Lymph % (Auto) [place] % (Auto) Eos % (Auto) Baso % (Auto) Lymph # (Auto) [place] # (Auto) Eos # (Auto) Baso # (Auto) Absolute Neuts (auto) PT INR APTT Sodium Potassium Chloride Carbon Dioxide Anion Gap BUN Creatinine Est GFR ( Amer) Est GFR (Non-Af Amer) Random Glucose Calcium Phosphorus Magnesium Transferrin Ferritin Total Bilirubin AST ALT Alkaline Phosphatase Troponin I Total Protein Albumin Globulin Albumin/Globulin Ratio Triglycerides Cholesterol LDL Cholesterol Direct HDL Cholesterol Vitamin B12 25-OH Vitamin D Total TSH 3rd Generation Urine Eosinophils Ur Random Creatinine U Random Total Protein Urine Total Volume Microalb/Creat Ratio Urine Opiates Screen Urine Methadone Screen Ur Barbiturates Screen Ur Phencyclidine Scrn Ur Amphetamines Screen U Benzodiazepines Scrn U Oth Cocaine Metabols U Cannabinoids Screen LIO Screen Complement C3 Complement C4 Hep Bs Antigen Hep Bs Antibody Hep B Core IgM Ab Hepatitis C Antibody HIV 1&2 Antibody Screen Blood Type A POSITIVE Blood Type Confirm A POSITIVE Antibody Screen Negative Crossmatch See Detail BBK History Checked No verified bt Assessment & Plan - Assessment and Plan (Free Text) Assessment: ASSESSMENT: Acute Renal Failure, maybe secondary to tubular necrosis. Severe Anemia, r/o GIB SIRRS NSTEMI, Elevated Troponins H/O NSAID use( Chronic use of Aleve for years), r/o PUD Obstructing 9mm renal stone w/ hydronephrosis Osteoarthritis Obesity PLAN: NPO for possible ureter stent receiving blood transfusion, total 2unit PRBC continue to monitor H/H and for overt GI bleeding continue PPI, on Protonix IV daily on IV antibiotics as per ID Stool guiac would benefit from EGD when optimal to R/O PUD as per renal, urology,cardiology, and ICU team Thank you for this consult and for allowing us to participate in your patient care. Seen and discussed w/ Dr. Carrera.
--- NOTE | 2018-08-02 16:35 | CP.PCM.APN ---
Subjective - Date & Time of Evaluation Date of Evaluation: 08/02/18 Time of Evaluation: 11:25 - Subjective Subjective: Pt. seen and examined, receiving HD at bedside, noted have blood transfusion PRBCS infusing, denied dyspnea, states feels better. Denied abdominal pain or bloody stools. Objective - Vital Signs/Intake and Output Vital Signs (last 24 hours): Temp Pulse Resp BP Pulse Ox 98.1 F 85 12 135/67 87 L 08/02/18 06:00 08/02/18 13:47 08/01/18 18:00 08/02/18 13:47 08/02/18 12:40 Intake and Output: 08/02/18 08/02/18 06:59 18:59 Intake Total 840 Output Total 1000 Balance -160 - Medications Medications: Current Medications Albuterol/Ipratropium (Duoneb 3 Mg/0.5 Mg (3 Ml) Ud) 3 ml IH Q2H PRN PRN Reason: Shortness of Breath Aspirin (Aspirin Chewable) 81 mg PO DAILY [facility] Last Admin: 08/02/18 12:45 Dose: Not Given Atorvastatin Calcium (Lipitor) 40 mg PO DIN [facility] Last Admin: 08/01/18 17:22 Dose: 40 mg Calcium Acetate (Phoslo) 2,001 mg PO WM [facility] Last Admin: 08/02/18 12:46 Dose: Not Given Darbepoetin Ron (Aranesp) 100 mcg IVP QWK [facility] Last Admin: 08/01/18 13:50 Dose: 100 mcg Ergocalciferol (Drisdol 50,000 Intl Units Cap) 1 cap PO Q7D [facility] Cefepime HCl (Maxipime 1gm) 1 gm in 100 mls @ 100 mls/hr IVPB Q24H [facility]; Protocol Last Admin: 08/01/18 17:45 Dose: 100 mls/hr Metoprolol Succinate (Toprol Xl) 25 mg PO BRK [facility] Last Admin: 08/02/18 13:47 Dose: 25 mg Nystatin (Mycostatin Cream) 0 ea TOP TID [facility] Last Admin: 08/02/18 13:46 Dose: 1 applic Pantoprazole Sodium (Protonix Inj) 40 mg IVP DAILY [facility] Last Admin: 08/02/18 09:32 Dose: 40 mg Tamsulosin HCl (Flomax) 0.4 mg PO DAILY [facility] Last Admin: 08/02/18 12:45 Dose: Not Given Vitamin B Complex/Vit C/Folic Acid (Nephro-Agustina) 1 tab PO 0800 [facility] Last Admin: 08/02/18 12:46 Dose: Not Given - Labs Labs: 08/02/18 06:00 08/02/18 06:00 PT 15.0 SECONDS (9.4-12.5) H 08/02/18 06:00 INR 1.33 08/02/18 06:00 APTT 33.8 Seconds (26.9-38.3) 08/02/18 06:00 - Constitutional Appears: Well, Non-toxic - Head Exam Head Exam: NORMOCEPHALIC - Eye Exam Eye Exam: Normal appearance - ENT Exam ENT Exam: Normal Exam - Neck Exam Neck Exam: Full ROM - Respiratory Exam Respiratory Exam: Rhonchi - Cardiovascular Exam Cardiovascular Exam: REGULAR RHYTHM, +S1, +S2 - GI/Abdominal Exam GI & Abdominal Exam: Soft, Normal Bowel Sounds - Rectal Exam Rectal Exam: Deferred - Exam Exam: absent: Circumcision, NORMAL INSPECTION, Scrotal Swelling, Testicular Tenderness, Uretheral Discharge, Testicular Vertical Lie, Bladder Distension External exam: absent: Ecchymosis, Erythema, Lacerations, Lesions, NORMAL EXTERNAL EXAM, Swelling Speculum exam: absent: Cervical Discharge, Erythema, Foreign Body, Laceration, NORMAL SPECULUM EXAM, Tissue, Vaginal Bleeding, Vaginal Discharge Bimanual exam: absent: Adenexal Mass, Adnexal, Cervical Motion Tendernes, NORMAL BIMANUAL EXAM, Uterine Enlargement, Uterine Tenderness - Extremities Exam Extremities Exam: Pedal Edema - Back Exam Back Exam: NORMAL INSPECTION - Neurological Exam Neurological Exam: Alert, Awake, Oriented x3 - Psychiatric Exam Psychiatric exam: Normal Affect, Normal Mood - Skin Skin Exam: Dry, Intact, Normal Color Assessment and Plan - Assessment and Plan (Free Text) Assessment: ITS Impressions Chest X-Ray 07/31/18 14:13 IMPRESSION: No active disease. Extremity Ultrasound 07/31/18 15:03 IMPRESSION: No sonographic evidence for deep venous thrombosis in the visualized segments of both lower extremities. Renal Ultrasound 08/01/18 09:28 IMPRESSION: 11 mm nonobstructing calculus lower pole left kidney. Otherwise unremarkable. Abdomen/Pelvis CT 08/01/18 10:24 IMPRESSION: Obstructing 9 mm mid left ureteral calculus with mild left hydronephrosis 8 mm nonobstructing left lower pole renal calculus. Minor findings as above. Small bilateral pleural effusion, right greater than left. Chest X-Ray 08/01/18 12:34 IMPRESSION: New right tunneled central venous dialysis catheter otherwise no significant change. Assessment: This is a 68-year-old man with a past medical history that includes osteoarthritis of hips, total hip replacement came to the emergency room with complaints of worsening dyspnea, and pedal edema. On evaluation he was found to leukocytosis and in acute renal failure. BUN 232, creatinine 18, WBC 23. He did report decrease urine output. He is reported to poor to follow up, admitted with sepsis, and acute renal failure, with ID and Renal consults in place, for further treatment. Plan: 1. Sepsis - SIRS r/t ARF as per I.D, antibiotics per I.D, UA pos, urine culture pending. Leukocytosis improving, WBC 23 on admit, today 8.1, Antibx as per I.D, trend Wbc. 2. UTI Urine culture results pending. -Antibx per I.D. 3. ARF Most likely r/t dehydration, vs.recent NSAID use, vs. obstructive, with obstructing ureter stone on imaging. NA bicarb gtt, and HD as per nephro, trend Bun/Creatinine -Monitor Is Os. 4. Hydronephrosis -most likely r/t obstructing left ureter stone, urology consult pending. 5. Anemia -? Anemia, secondary to kidney disease monitor h/h, transfused 2 units PRBCs. R/o GI source, Stool O.B pending, recs per GI. 6. Elevated Trop Card. consulted, manage conservatively, no cath at present. 7. Fluid overload, w.elevated BNP, Likely secondary to acute kidney failure Monitor I's O.s, dialysis as per nephro 8. Left sided Hydronephrosiis- likely r/t to obstructing infected ureter stone - cysto/ renal stent per Dr. Payan, pending anasthesiologist clearance. Will continue to monitor clinical status and follow clinically. Will d/w consultants and PMD. -
[2018-08-02] MEDS: Ergocalciferol 50,000 Intl Units Cap PO SCH (17:47)
[2018-08-02] MEDS: Cefepime 1gm in NS 100ml 1 GM/100 ML BAG IVPB SCH (17:48)
[2018-08-02 19:28] LABS: BASO # 0.01 K/mm3 (0.0-2.0); BASO % 0.1 % (0.0-3.0); EOS % 0.1 % (1.5-5.0); HEMOGLOBIN 8.8 g/dL (14.0-18.0); MEAN CELL VOLUME 81.5 fl (80.0-105.0); MEAN CORPUSCULAR HEMOGLOBIN 28.6 pg (25.0-35.0); MEAN CORPUSCULAR HGB CONC 35.1 g/dl (31.0-37.0); MEAN PLATELET VOLUME 9.1 fl (7.0-11.0); MONO # 0.4 (0.1-0.6); MONO % 3.1 % (1.0-6.0); PLATELET COUNT 182 10^3/uL (120.0-450.0); RBC 3.08 10^6/uL (3.5-6.1); RED CELL DISTRIBUTION WIDTH 14.3 % (11.5-14.5); WHITE BLOOD COUNT 13.4 10^3/uL (4.5-11.0)
[2018-08-02 19:47] LABS: ALBUMIN 3.3 g/dL (3.0-4.8); CALCIUM 6.6 mg/dL (8.4-10.5)
[2018-08-02 19:57] LABS: TROPONIN I 1.75 ng/mL
[2018-08-02] MEDS ORDERED: Potassium Chloride 20 mEq ER Tab PO STA (20:13)
--- NOTE | 2018-08-02 23:09 | CON ---
DATE: 08/02/2018 GENITOURINARY CONSULTATION CHIEF COMPLAINT: Chest pain and shortness of breath. HISTORY OF PRESENT ILLNESS: This is a 68-year-old male, who is seen in the ICU at [facility]. The patient was admitted a few days ago with chest pain and progressive shortness of breath. The patient felt he was having a cardiac issue and presented to the hospital. On admission, the patient reports he was having worsening shortness of breath and swelling of his lower extremities. He also was complaining of a cough. Urologically, he reports he had been voiding without difficulty until that morning. He had no dysuria, frequency, urgency or gross hematuria, in that morning of admission he felt he tried to go to the bathroom, although he did not feel like he needed to, but no urine then came out. During his admission, the patient was found to have renal failure. He has been started on dialysis for fluid overload and congestive heart failure with a BNP of 14,900. He had a CT scan done, which showed a 9 mm ureteral calculus and a consultation was then requested. The patient reports no prior history of kidney stones. He denies any symptoms of renal colic. He does report that he had been voiding well prior to admission, but he does report noticing some decreasing urine output in the days leading up to admission. PAST MEDICAL HISTORY: Significant for arthritis. PAST SURGICAL HISTORY: Bilateral hip replacements and bilateral cataracts. MEDICATIONS AT HOME: None. ALLERGIES: NONE. CURRENT MEDICATIONS: Medications currently include Aranesp, aspirin, Drisdol, DuoNeb, Flomax, Lipitor, Maxipime, nystatin, Nephro-Agustina, PhosLo, Protonix, Toprol, the patient just received blood transfusions. REVIEW OF SYSTEMS: Twelve-point review of systems was obtained. The patient reports currently has some mild shortness of breath, although this is improved. No further chest pain. No palpitations. He does report some weakness and lethargy. Does have bilateral hip and lower extremity pain and swelling. Other systems reportedly negative. PHYSICAL EXAMINATION: VITAL SIGNS: The patient has been afebrile. Blood pressure 110/70, respirations 22, pulse 80. GENERAL: He is in no acute distress. NECK: His neck is supple. There is no adenopathy. CHEST: Exam of his chest reveals somewhat increased inspiratory effort. CARDIAC: Exam shows positive S1, S2. There is moderate peripheral edema of his lower extremities noted. ABDOMEN: The abdomen is soft, nontender, nondistended, and he is obese. There is no rebound or guarding. There is no apparent costovertebral angle tenderness. GENITOURINARY: Phallus is normal. There is a Sen catheter in place, draining scant amounts of clear urine. Scrotum is normal. Testes bilaterally descended, nontender, no masses. Epididymis are normal. EXTREMITIES: There is no cyanosis, but there is positive peripheral edema noted. LABORATORY DATA: WBC count has come down to 8.1 from 23 on admission, hemoglobin 6.6 prior to the blood transfusions, and platelets 192. BUN today is 181 with a creatinine of 13.5. GFR of 4. The patient had elevated CPK. He had a BNP of 14,900. RADIOLOGIC DATA: The patient had a CT scan of the abdomen and pelvis done from yesterday as well as a renal ultrasound. CT scan showed mild left hydro with an 8 mm lower pole calculus and a 10 mm obstructing mid left ureteral calculus. Distal ureter could not be seen, as there was artifact from the hip replacements. Renal ultrasound also done yesterday. There were no stones, solid mass or hydronephrosis visualized. IMPRESSION AND PLAN: This is a 68-year-old male with renal failure from unknown origin. Urologically, the patient does not appear to have sepsis. He may have had some issues when he first came in, but he has responded well to fluids, antibiotics and dialysis. He is currently stable. He has been afebrile. His white count has come back down to normal. Blood cultures are no growth after 48 hours. No urine culture is available. I have discussed this case at length with the records clerk and medical staff. Plan will be to place a left ureteral stent given there is an obstructing stone. I doubt this will help his renal function as his other kidney should be functioning well enough, there does not appear to be any obstruction on that side, but I will do bilateral retrogrades. When the patient has medically improved, we will need to plan on a ureteroscopy with stone removal at some point. However, given the patient is critically ill at this time, we will perform an only a stent placement to unobstruct his kidney to prevent any buildup of infection proximal to the stone and hopefully to improve his renal function. Please keep the patient n.p.o. after midnight tonight. Stent placement was scheduled for today. However, given the patient's marked anemia, he was felt not to be a stable candidate for anesthesia by Anesthesia; therefore, the plan was changed to transfuse the patient, continue to remove fluid and place the stent tomorrow as it is scheduled. Elliot Payan MD
[2018-08-03 03:39] LABS: BASO # 0.01 K/mm3 (0.0-2.0); BASO % 0.1 % (0.0-3.0); EOS % 0.4 % (1.5-5.0); HEMOGLOBIN 8.3 g/dL (14.0-18.0); LYMPH # 1.6 (1.2-3.4); LYMPH % 15.9 % (22.0-35.0); MEAN CELL VOLUME 81.7 fl (80.0-105.0); MEAN CORPUSCULAR HEMOGLOBIN 28.7 pg (25.0-35.0); MEAN CORPUSCULAR HGB CONC 35.2 g/dl (31.0-37.0); MEAN PLATELET VOLUME 9.6 fl (7.0-11.0); MONO # 0.3 (0.1-0.6); MONO % 3.2 % (1.0-6.0); RBC 2.89 10^6/uL (3.5-6.1); RED CELL DISTRIBUTION WIDTH 14.3 % (11.5-14.5); WHITE BLOOD COUNT 10.1 10^3/uL (4.5-11.0)
[2018-08-03 04:07] LABS: ALBUMIN 3.1 g/dL (3.0-4.8); CALCIUM 6.3 mg/dL (8.4-10.5); URIC ACID 7.8 mg/dL (3.5-8.5)
[2018-08-03 05:28] LABS: ARTERIAL BLOOD GAS HCO3 20.1 mmol/L (21-28); ARTERIAL BLOOD GAS HEMOGLOBIN 9.1 g/dL (11.7-17.4); ARTERIAL BLOOD GAS O2 CAPACITY 12.7 mL/dl (16-24); ARTERIAL BLOOD GAS O2 CONTENT 12.3 ML/dl (15-23); ARTERIAL BLOOD GAS O2 SAT 96.7 % (95-98); ARTERIAL BLOOD GAS PCO2 34 mm/Hg (35-45); ARTERIAL BLOOD GAS PH 7.38 (7.35-7.45); ARTERIAL BLOOD GAS TCO2 21.1 mmol.L (22-28)
[2018-08-03] MEDS ORDERED: Calcium Gluconate in NS 1 GM/50 ML BAG IV ONE (07:31)
[2018-08-03] MEDS: Nystatin 100,000 Units/gm Cream(15 gm) TOP SCH ×2 (09:26→16:23)
--- NOTE | 2018-08-03 09:45 | CP.CCUPN ---
<Kyle Hansen - Last Filed: 08/03/18 10:53> CCU Subjective - Physician Review Subjective (Free Text): Kyle Hansen, PGY-1 ICU Progress Note for Dr. Sarmiento Patient seen and evaluated at bedside. No acute overnight events. Patient reports no chest pain and shortness of breath. Patient denies headache, fever, heart palpitations, left arm pain, jaw pain, nausea, vomiting, constipation, abdominal pain, dysuria, hematuria. 12-point ROS was negative except for what was mentioned above. CCU Objective - Vital Signs / Intake & Output Vital Signs (Last 4 hours): Vital Signs Pulse Resp BP Pulse Ox 08/03/18 06:20 72 12 123/60 97 08/03/18 06:00 72 117/61 97 08/03/18 05:40 72 120/59 L 97 Intake and Output (Last 8hrs): Intake & Output 08/02/18 08/03/18 08/03/18 22:59 06:59 14:59 Intake Total 600 Output Total 350 Balance 250 Intake: IV 300 antibiotics 100 bicarb 200 Oral 300 Output: Urine 350 Urethral (Suarez) 350 Other: # Bowel Movements 0 - Physical Exam Head: Positive for: Atraumatic, Normocephalic Pupils: Positive for: PERRL Extroacular Muscles: Positive for: EOMI Conjunctiva: Positive for: Normal Mouth: Positive for: Dry Pharnyx: Positive for: Normal Respiratory/Chest: Positive for: Wheezes (faint expiratory wheezes heard in anterior lung hopper), Tachypneic. Negative for: Good Air Exchange, Respiratory Distress, Retracting Abdomen: Positive for: Normal Bowel Sounds. Negative for: Tenderness, Distention, Peritoneal Signs Lower Extremity: Positive for: Edema, Capillary Refill < 2 s, Other (Thickened skin noted to ) Neurological: Positive for: GCS=15, Speech Normal (able to speak in full sentences) Skin: Positive for: Warm, Dry, Induration ( Keratotic hankins lesion noted circumferentially to RLE. ). Negative for: Rashes Psychiatric: Positive for: Alert, Oriented x 3, Normal Insight, Normal Concentration - Medications Active Medications: Active Medications Generic Name Dose Route Start Last Admin Trade Name Freq PRN Reason Stop Dose Admin Albuterol/Ipratropium 3 ml 07/31/18 17:04 Duoneb 3 Mg/0.5 Mg (3 Ml) Ud IH Q2H PRN Shortness of Breath Aspirin 81 mg 08/01/18 10:00 08/02/18 12:45 Aspirin Chewable PO Not Given DAILY [facility] Atorvastatin Calcium 40 mg 08/01/18 17:00 08/02/18 17:47 Lipitor PO 40 mg DIN NESTOR Administration Calcium Acetate 2,001 mg 08/01/18 12:00 08/02/18 17:47 Phoslo PO 2,001 mg WM NESTOR Administration Darbepoetin Ron 100 mcg 08/01/18 10:00 08/01/18 13:50 Aranesp IVP 100 mcg QWK NESTOR Administration Ergocalciferol 1 cap 08/02/18 14:30 08/02/18 17:47 Drisdol 50,000 Intl Units Cap PO 1 cap Q7D NESTOR Administration Cefepime HCl 1 gm in 100 mls @ 100 mls/hr 07/31/18 18:45 08/02/18 17:48 Maxipime 1gm IVPB 100 mls/hr Q24H NESTOR Administration Protocol Metoprolol Succinate 25 mg 08/02/18 10:30 08/02/18 13:47 Toprol Xl PO 25 mg BRK NESTOR Administration Nystatin 0 ea 08/01/18 14:00 08/02/18 18:08 Mycostatin Cream TOP 1 applic TID NESTOR Administration Pantoprazole Sodium 40 mg 08/01/18 10:00 08/02/18 09:32 Protonix Inj IVP 40 mg DAILY NESTOR Administration Tamsulosin HCl 0.4 mg 08/01/18 12:30 08/02/18 12:45 Flomax PO Not Given DAILY [facility] Vitamin B Complex/Vit C/Folic Acid 1 tab 08/02/18 08:00 08/02/18 12:46 Nephro-Agustina PO Not Given 0800 NESTOR - Patient Studies Lab Studies: Microbiology Studies 07/31/18 15:00 Blood Culture - Preliminary Blood-Venous NO GROWTH AFTER 48 HOURS 07/31/18 14:30 Blood Culture - Preliminary Blood-Venous NO GROWTH AFTER 48 HOURS 07/31/18 20:18 MRSA Culture (Admit) - Final Naris MRSA NOT DETECTED Lab Studies 08/03/18 08/03/18 08/03/18 Range/Units 05:00 03:15 03:15 WBC 10.1 D (4.5-11.0) 10^3/uL RBC 2.89 L (3.5-6.1) 10^6/uL Hgb 8.3 L (14.0-18.0) g/dL Hct 23.6 L (42.0-52.0) % MCV 81.7 (80.0-105.0) fl MCH 28.7 (25.0-35.0) pg MCHC 35.2 (31.0-37.0) g/dl RDW 14.3 (11.5-14.5) % Plt Count 166 (120.0-450.0) 10^3/uL MPV 9.6 (7.0-11.0) fl Neut % (Auto) 80.4 H (50.0-68.0) % Lymph % (Auto) 15.9 L (22.0-35.0) % Chaves % (Auto) 3.2 (1.0-6.0) % Eos % (Auto) 0.4 L (1.5-5.0) % Baso % (Auto) 0.1 (0.0-3.0) % Lymph # (Auto) 1.6 (1.2-3.4) Chaves # (Auto) 0.3 (0.1-0.6) Eos # (Auto) 0.0 (0.0-0.7) Baso # (Auto) 0.01 (0.0-2.0) K/mm3 Absolute Neuts (auto) 8.14 H (1.4-6.5) pCO2 34 L (35-45) mm/Hg pO2 106.0 H (80-100) mm/Hg HCO3 20.1 L (21-28) mmol/L ABG pH 7.38 (7.35-7.45) ABG Total CO2 21.1 L (22-28) mmol.L ABG O2 Saturation 96.7 (95-98) % ABG O2 Content 12.3 L (15-23) ML/dl ABG Base Excess -4.5 L (-2.0-3.0) mmol/L ABG Hemoglobin 9.1 L (11.7-17.4) g/dL ABG Carboxyhemoglobin 0.6 (0.5-1.5) % POC ABG HHb (Measured) 3.2 (0-5) % ABG Methemoglobin 1.3 (0.0-3.0) % ABG O2 Capacity 12.7 L (16-24) mL/dl Hgb O2 Saturation 94.8 L (95.0-98.0) % FiO2 28.0 % Sodium 137 (132-148) mmol/L Potassium 3.2 L (3.6-5.0) mmol/L Chloride 100 (98-107) mmol/L Carbon Dioxide 21 (21-33) mmol/L Anion Gap 19 (10-20) BUN 130 H* (7-21) mg/dL Creatinine 10.0 H* (0.8-1.5) mg/dl Est GFR ( Amer) 6 Est GFR (Non-Af Amer) 5 Random Glucose 126 H (70-110) mg/dL Uric Acid 7.8 (3.5-8.5) mg/dL Calcium 6.3 L* (8.4-10.5) mg/dL Total Bilirubin 0.6 (0.2-1.3) mg/dL AST 45 (17-59) U/L ALT 41 (7-56) U/L Alkaline Phosphatase 79 (38-126) U/L Troponin I ng/mL Total Protein 6.2 (5.8-8.3) g/dL Total Protein (PEP) (6.1-8.1) g/dL Albumin 3.1 (3.0-4.8) g/dL Globulin 3.1 gm/dL Albumin/Globulin Ratio 1.0 L (1.1-1.8) 25-OH Vitamin D Total (30.0-100.0) NG/ML PTH Intact Whole Molec (14-64) pg/mL LIO Screen (Negative) Double Strand DNA Ab IU/mL Blood Type Blood Type Confirm Antibody Screen Crossmatch BBK History Checked 08/02/18 08/02/18 08/02/18 Range/Units 19:23 19:23 09:43 WBC 13.4 H D (4.5-11.0) 10^3/uL RBC 3.08 L (3.5-6.1) 10^6/uL Hgb 8.8 L D (14.0-18.0) g/dL Hct 25.1 L (42.0-52.0) % MCV 81.5 (80.0-105.0) fl MCH 28.6 (25.0-35.0) pg MCHC 35.1 (31.0-37.0) g/dl RDW 14.3 (11.5-14.5) % Plt Count 182 (120.0-450.0) 10^3/uL MPV 9.1 (7.0-11.0) fl Neut % (Auto) (50.0-68.0) % Lymph % (Auto) (22.0-35.0) % Chaves % (Auto) 3.1 (1.0-6.0) % Eos % (Auto) 0.1 L (1.5-5.0) % Baso % (Auto) 0.1 (0.0-3.0) % Lymph # (Auto) (1.2-3.4) Chaves # (Auto) 0.4 (0.1-0.6) Eos # (Auto) 0.0 (0.0-0.7) Baso # (Auto) 0.01 (0.0-2.0) K/mm3 Absolute Neuts (auto) (1.4-6.5) pCO2 (35-45) mm/Hg pO2 (80-100) mm/Hg HCO3 (21-28) mmol/L ABG pH (7.35-7.45) ABG Total CO2 (22-28) mmol.L ABG O2 Saturation (95-98) % ABG O2 Content (15-23) ML/dl ABG Base Excess (-2.0-3.0) mmol/L ABG Hemoglobin (11.7-17.4) g/dL ABG Carboxyhemoglobin (0.5-1.5) % POC ABG HHb (Measured) (0-5) % ABG Methemoglobin (0.0-3.0) % ABG O2 Capacity (16-24) mL/dl Hgb O2 Saturation (95.0-98.0) % FiO2 % Sodium 137 (132-148) mmol/L Potassium 2.9 L* (3.6-5.0) mmol/L Chloride 100 (98-107) mmol/L Carbon Dioxide 20 L (21-33) mmol/L Anion Gap 19 (10-20) BUN 126 H* (7-21) mg/dL Creatinine 9.0 H* D (0.8-1.5) mg/dl Est GFR ( Amer) 7 Est GFR (Non-Af Amer) 6 Random Glucose 125 H (70-110) mg/dL Uric Acid (3.5-8.5) mg/dL Calcium 6.6 L* (8.4-10.5) mg/dL Total Bilirubin 0.6 (0.2-1.3) mg/dL AST 40 (17-59) U/L ALT 39 (7-56) U/L Alkaline Phosphatase 82 (38-126) U/L Troponin I 1.75 H* D ng/mL Total Protein 6.6 (5.8-8.3) g/dL Total Protein (PEP) (6.1-8.1) g/dL Albumin 3.3 (3.0-4.8) g/dL Globulin 3.3 gm/dL Albumin/Globulin Ratio 1.0 L (1.1-1.8) 25-OH Vitamin D Total (30.0-100.0) NG/ML PTH Intact Whole Molec (14-64) pg/mL LIO Screen (Negative) Double Strand DNA Ab IU/mL Blood Type Blood Type Confirm A POSITIVE Antibody Screen Crossmatch BBK History Checked 08/02/18 08/02/18 08/02/18 Range/Units 09:00 06:00 06:00 WBC (4.5-11.0) 10^3/uL RBC (3.5-6.1) 10^6/uL Hgb (14.0-18.0) g/dL Hct (42.0-52.0) % MCV (80.0-105.0) fl MCH (25.0-35.0) pg MCHC (31.0-37.0) g/dl RDW (11.5-14.5) % Plt Count (120.0-450.0) 10^3/uL MPV (7.0-11.0) fl Neut % (Auto) (50.0-68.0) % Lymph % (Auto) (22.0-35.0) % Chaves % (Auto) (1.0-6.0) % Eos % (Auto) (1.5-5.0) % Baso % (Auto) (0.0-3.0) % Lymph # (Auto) (1.2-3.4) Chaves # (Auto) (0.1-0.6) Eos # (Auto) (0.0-0.7) Baso # (Auto) (0.0-2.0) K/mm3 Absolute Neuts (auto) (1.4-6.5) pCO2 (35-45) mm/Hg pO2 (80-100) mm/Hg HCO3 (21-28) mmol/L ABG pH (7.35-7.45) ABG Total CO2 (22-28) mmol.L ABG O2 Saturation (95-98) % ABG O2 Content (15-23) ML/dl ABG Base Excess (-2.0-3.0) mmol/L ABG Hemoglobin (11.7-17.4) g/dL ABG Carboxyhemoglobin (0.5-1.5) % POC ABG HHb (Measured) (0-5) % ABG Methemoglobin (0.0-3.0) % ABG O2 Capacity (16-24) mL/dl Hgb O2 Saturation (95.0-98.0) % FiO2 % Sodium (132-148) mmol/L Potassium (3.6-5.0) mmol/L Chloride (98-107) mmol/L Carbon Dioxide (21-33) mmol/L Anion Gap (10-20) BUN (7-21) mg/dL Creatinine (0.8-1.5) mg/dl Est GFR ( Amer) Est GFR (Non-Af Amer) Random Glucose (70-110) mg/dL Uric Acid (3.5-8.5) mg/dL Calcium (8.4-10.5) mg/dL Total Bilirubin (0.2-1.3) mg/dL AST (17-59) U/L ALT (7-56) U/L Alkaline Phosphatase (38-126) U/L Troponin I ng/mL Total Protein (5.8-8.3) g/dL Total Protein (PEP) 5.5 L (6.1-8.1) g/dL Albumin (3.0-4.8) g/dL Globulin gm/dL Albumin/Globulin Ratio (1.1-1.8) 25-OH Vitamin D Total < 12.8 L (30.0-100.0) NG/ML PTH Intact Whole Molec (14-64) pg/mL LIO Screen (Negative) Double Strand DNA Ab IU/mL Blood Type A POSITIVE Blood Type Confirm Antibody Screen Negative Crossmatch See Detail BBK History Checked No verified bt 08/01/18 08/01/18 Range/Units 10:10 10:10 WBC (4.5-11.0) 10^3/uL RBC (3.5-6.1) 10^6/uL Hgb (14.0-18.0) g/dL Hct (42.0-52.0) % MCV (80.0-105.0) fl MCH (25.0-35.0) pg MCHC (31.0-37.0) g/dl RDW (11.5-14.5) % Plt Count (120.0-450.0) 10^3/uL MPV (7.0-11.0) fl Neut % (Auto) (50.0-68.0) % Lymph % (Auto) (22.0-35.0) % Chaves % (Auto) (1.0-6.0) % Eos % (Auto) (1.5-5.0) % Baso % (Auto) (0.0-3.0) % Lymph # (Auto) (1.2-3.4) Chaves # (Auto) (0.1-0.6) Eos # (Auto) (0.0-0.7) Baso # (Auto) (0.0-2.0) K/mm3 Absolute Neuts (auto) (1.4-6.5) pCO2 (35-45) mm/Hg pO2 (80-100) mm/Hg HCO3 (21-28) mmol/L ABG pH (7.35-7.45) ABG Total CO2 (22-28) mmol.L ABG O2 Saturation (95-98) % ABG O2 Content (15-23) ML/dl ABG Base Excess (-2.0-3.0) mmol/L ABG Hemoglobin (11.7-17.4) g/dL ABG Carboxyhemoglobin (0.5-1.5) % POC ABG HHb (Measured) (0-5) % ABG Methemoglobin (0.0-3.0) % ABG O2 Capacity (16-24) mL/dl Hgb O2 Saturation (95.0-98.0) % FiO2 % Sodium (132-148) mmol/L Potassium (3.6-5.0) mmol/L Chloride (98-107) mmol/L Carbon Dioxide (21-33) mmol/L Anion Gap (10-20) BUN (7-21) mg/dL Creatinine (0.8-1.5) mg/dl Est GFR ( Amer) Est GFR (Non-Af Amer) Random Glucose (70-110) mg/dL Uric Acid (3.5-8.5) mg/dL Calcium (8.4-10.5) mg/dL Total Bilirubin (0.2-1.3) mg/dL AST (17-59) U/L ALT (7-56) U/L Alkaline Phosphatase (38-126) U/L Troponin I ng/mL Total Protein (5.8-8.3) g/dL Total Protein (PEP) (6.1-8.1) g/dL Albumin (3.0-4.8) g/dL Globulin gm/dL Albumin/Globulin Ratio (1.1-1.8) 25-OH Vitamin D Total (30.0-100.0) NG/ML PTH Intact Whole Molec 620 H (14-64) pg/mL LIO Screen Negative (Negative) Double Strand DNA Ab <1 IU/mL Blood Type Blood Type Confirm Antibody Screen Crossmatch BBK History Checked Laboratory Results - last 24 hr 08/01/18 08/01/18 08/02/18 10:10 10:10 06:00 WBC RBC Hgb Hct MCV MCH MCHC RDW Plt Count MPV Neut % (Auto) Lymph % (Auto) Chaves % (Auto) Eos % (Auto) Baso % (Auto) Lymph # (Auto) Chaves # (Auto) Eos # (Auto) Baso # (Auto) Absolute Neuts (auto) pCO2 pO2 HCO3 ABG pH ABG Total CO2 ABG O2 Saturation ABG O2 Content ABG Base Excess ABG Hemoglobin ABG Carboxyhemoglobin POC ABG HHb (Measured) ABG Methemoglobin ABG O2 Capacity Hgb O2 Saturation FiO2 Sodium Potassium Chloride Carbon Dioxide Anion Gap BUN Creatinine Est GFR ( Amer) Est GFR (Non-Af Amer) Random Glucose Uric Acid Calcium Total Bilirubin AST ALT Alkaline Phosphatase Troponin I Total Protein Total Protein (PEP) 5.5 L Albumin Globulin Albumin/Globulin Ratio 25-OH Vitamin D Total PTH Intact Whole Molec 620 H LIO Screen Negative Double Strand DNA Ab <1 Blood Type Blood Type Confirm Antibody Screen Crossmatch BBK History Checked 08/02/18 08/02/18 08/02/18 06:00 09:00 09:43 WBC RBC Hgb Hct MCV MCH MCHC RDW Plt Count MPV Neut % (Auto) Lymph % (Auto) Chaves % (Auto) Eos % (Auto) Baso % (Auto) Lymph # (Auto) Chaves # (Auto) Eos # (Auto) Baso # (Auto) Absolute Neuts (auto) pCO2 pO2 HCO3 ABG pH ABG Total CO2 ABG O2 Saturation ABG O2 Content ABG Base Excess ABG Hemoglobin ABG Carboxyhemoglobin POC ABG HHb (Measured) ABG Methemoglobin ABG O2 Capacity Hgb O2 Saturation FiO2 Sodium Potassium Chloride Carbon Dioxide Anion Gap BUN Creatinine Est GFR ( Amer) Est GFR (Non-Af Amer) Random Glucose Uric Acid Calcium Total Bilirubin AST ALT Alkaline Phosphatase Troponin I Total Protein Total Protein (PEP) Albumin Globulin Albumin/Globulin Ratio 25-OH Vitamin D Total < 12.8 L PTH Intact Whole Molec LIO Screen Double Strand DNA Ab Blood Type A POSITIVE Blood Type Confirm A POSITIVE Antibody Screen Negative Crossmatch See Detail BBK History Checked No verified bt 08/02/18 08/02/18 08/03/18 19:23 19:23 03:15 WBC 13.4 H D RBC 3.08 L Hgb 8.8 L D Hct 25.1 L MCV 81.5 MCH 28.6 MCHC 35.1 RDW 14.3 Plt Count 182 MPV 9.1 Neut % (Auto) Lymph % (Auto) Chaves % (Auto) 3.1 Eos % (Auto) 0.1 L Baso % (Auto) 0.1 Lymph # (Auto) Chaves # (Auto) 0.4 Eos # (Auto) 0.0 Baso # (Auto) 0.01 Absolute Neuts (auto) pCO2 pO2 HCO3 ABG pH ABG Total CO2 ABG O2 Saturation ABG O2 Content ABG Base Excess ABG Hemoglobin ABG Carboxyhemoglobin POC ABG HHb (Measured) ABG Methemoglobin ABG O2 Capacity Hgb O2 Saturation FiO2 Sodium 137 137 Potassium 2.9 L* 3.2 L Chloride 100 100 Carbon Dioxide 20 L 21 Anion Gap 19 19 BUN 126 H* 130 H* Creatinine 9.0 H* D 10.0 H* Est GFR ( Amer) 7 6 Est GFR (Non-Af Amer) 6 5 Random Glucose 125 H 126 H Uric Acid 7.8 Calcium 6.6 L* 6.3 L* Total Bilirubin 0.6 0.6 AST 40 45 ALT 39 41 Alkaline Phosphatase 82 79 Troponin I 1.75 H* D Total Protein 6.6 6.2 Total Protein (PEP) Albumin 3.3 3.1 Globulin 3.3 3.1 Albumin/Globulin Ratio 1.0 L 1.0 L 25-OH Vitamin D Total PTH Intact Whole Molec LIO Screen Double Strand DNA Ab Blood Type Blood Type Confirm Antibody Screen Crossmatch BBK History Checked 08/03/18 08/03/18 03:15 05:00 WBC 10.1 D RBC 2.89 L Hgb 8.3 L Hct 23.6 L MCV 81.7 MCH 28.7 MCHC 35.2 RDW 14.3 Plt Count 166 MPV 9.6 Neut % (Auto) 80.4 H Lymph % (Auto) 15.9 L Chaves % (Auto) 3.2 Eos % (Auto) 0.4 L Baso % (Auto) 0.1 Lymph # (Auto) 1.6 Chaves # (Auto) 0.3 Eos # (Auto) 0.0 Baso # (Auto) 0.01 Absolute Neuts (auto) 8.14 H pCO2 34 L pO2 106.0 H HCO3 20.1 L ABG pH 7.38 ABG Total CO2 21.1 L ABG O2 Saturation 96.7 ABG O2 Content 12.3 L ABG Base Excess -4.5 L ABG Hemoglobin 9.1 L ABG Carboxyhemoglobin 0.6 POC ABG HHb (Measured) 3.2 ABG Methemoglobin 1.3 ABG O2 Capacity 12.7 L Hgb O2 Saturation 94.8 L FiO2 28.0 Sodium Potassium Chloride Carbon Dioxide Anion Gap BUN Creatinine Est GFR ( Amer) Est GFR (Non-Af Amer) Random Glucose Uric Acid Calcium Total Bilirubin AST ALT Alkaline Phosphatase Troponin I Total Protein Total Protein (PEP) Albumin Globulin Albumin/Globulin Ratio 25-OH Vitamin D Total PTH Intact Whole Molec LIO Screen Double Strand DNA Ab Blood Type Blood Type Confirm Antibody Screen Crossmatch BBK History Checked EKG/Cardiology Studies: Cardiology / EKG Studies 08/03/18 06:00 EKG [ELECTROCARDIOGRAM] Routine Comment: Reason For Exam: dyspnea Fingerstick Blood Sugar Results: 136 Review of Systems - Review of Systems Review of Systems: except for what was mentioned in HPI Critical Care Progress Note - Ventilator Checklist Head of Bed 30 Degrees: Yes PUD Prophalyxis: Yes DVT Prophylaxis: Yes - Nutrition Nutrition: Nutrition Category Date Time Status Renal Diet [DIET] Diets 08/01/18 Dinner Ordered Assessment/Plan - Assessment and Plan (Free Text) Assessment: 68 year old male with past medical history of arthritis presents with acute renal failure likely 2/2 to acute tubular necrosis vs. postobstructive nephropathy from dehydration. Patient is currently on sodium bicarbonate drip due to renal failure. Plan is for dialysis today. Plan: Acute Renal Failure 2/2 to Acute Tubular Necrosis vs. Postobstructive Nephropathy -BUN/Cr improved at 130/10 from 13.5 with unknown baseline creatinine -Renal ultrasound: 11 mm nonobstructing stone in lower pole of left kidney -Sparse urine output at this time -Strict I and O with suarez. Measure daily weight -Continue Sodium bicarbonate drip with 3 amps -Continue aranesp and phoslo. Started vitamin D -Continue flomax 0.4 mg daily -Dialysis scheduled for today. Nephrolithiasis -Renal ultrasound: 11 mm nonobstructing stone in lower pole of left kidney -Abdominal CT: obstructive 9 mm mid left ureteral calculus with mild left hydronephrosis of 8 mm -Scheduled for ureteral stent procedure with Dr. Payan today. -Replete electrolytes as needed. -Maintain euvolemia. Hypokalemia -K: 3.2 -Patient will have potassium corrected through dialysis. Tachypnea due to metabolic acidosis -ABG 2: improved with pH: 7.22, pO2: 154, pCO2: 13 status post dialysis -CXR: no active disease -Maintain O2 saturation>90%. -Head of bed to 30 degrees -Conservative fluid management -Maintain oral hygiene Elevated BNP 2/2 to diastolic CHF vs. pulmonary etiology -BNP: 08522 -EKG: NSR with 1st degree AV block -Echocardiogram: preserved EF with Grade I abnormal relaxation -Troponinx3: 0.11, 0.27, 0.97, 2.23, 1.75 trending down -Continue with metoprolol succinate -Maintain MAP>65. -Monitor for S/S, HD compromise. Type II NSTEMI -Troponinx3: 0.11, 0.27, 0.97, 2.23, 1.75 trending down -Likely 2/2 to acute renal failure -Continue aspirin, lipitor, metoprolol succinate -Follow recommendations as per Cardiology, Dr. Rivera/Shon. History of tobacco abuse -Cannot rule out COPD -Duonebs Q2 PRN for shortness of breath Normocytic Anemia -H/H increased to 8.3/23.6 status post 2 U of PRBCs yesterday -Likely 2/2 to decreased erythropoietin from acute renal failure -Maintain Hgb>8 -Follow up repeat CBC at 12:00 -As per GI, patient should be continued on protonix and EGD should be performed to rule out PUD when medically optimized. -GI, Dr. Carrera, consulted for recommendations to evaluate for GI bleed. Elevated D-dimer -Bilateral lower extremity ultrasound: negative for DVT -Avoid CTA to evaluate for PE due to acute renal failure -Avoid V/Q scan to evaluate for PE due to current tachypnea. Rule out Pneumonia vs. UTI -Vancomycin and cefepime day 3 for unlikely pneumonia -Monitor for signs and symptoms of infection. GI prophylaxis -Protonix 40 mg daily DVT prophylaxis -heparin 5000 U Q8 held due to possible GI Bleed Disposition: Will follow up CBC at 12:00. If hemoglobin is stable, and patient is hemodynamically stable, patient will be deemed stable for transfer out of the ICU. Patient plan discussed with attending. - Date & Time Date: 08/03/18 Time: 09:27 <Chandan Sarmiento - Last Filed: 08/03/18 11:02> CCU Objective - Vital Signs / Intake & Output Intake and Output (Last 8hrs): Intake & Output 08/02/18 08/03/18 08/03/18 22:59 06:59 14:59 Intake Total 600 Output Total 350 Balance 250 Intake: IV 300 antibiotics 100 bicarb 200 Oral 300 Output: Urine 350 Urethral (Suarez) 350 Other: # Bowel Movements 0 - Medications Active Medications: Active Medications Generic Name Dose Route Start Last Admin Trade Name Freq PRN Reason Stop Dose Admin Albuterol/Ipratropium 3 ml 07/31/18 17:04 Duoneb 3 Mg/0.5 Mg (3 Ml) Ud IH Q2H PRN Shortness of Breath Aspirin 81 mg 08/01/18 10:00 08/02/18 12:45 Aspirin Chewable PO Not Given DAILY NESTOR Atorvastatin Calcium 40 mg 08/01/18 17:00 08/02/18 17:47 Lipitor PO 40 mg DIN NESTOR Administration Calcium Acetate 2,001 mg 08/01/18 12:00 08/03/18 09:36 Phoslo PO Not Given WM NESTOR Darbepoetin Ron 100 mcg 08/01/18 10:00 08/01/18 13:50 Aranesp IVP 100 mcg QWK NESTOR Administration Ergocalciferol 1 cap 08/02/18 14:30 08/02/18 17:47 Drisdol 50,000 Intl Units Cap PO 1 cap Q7D NESTOR Administration Cefepime HCl 1 gm in 100 mls @ 100 mls/hr 07/31/18 18:45 08/02/18 17:48 Maxipime 1gm IVPB 100 mls/hr Q24H NESTOR Administration Protocol Metoprolol Succinate 25 mg 08/02/18 10:30 08/02/18 13:47 Toprol Xl PO 25 mg BRK NESTOR Administration Nystatin 0 ea 08/01/18 14:00 08/03/18 09:26 Mycostatin Cream TOP 1 applic TID NESTOR Administration Pantoprazole Sodium 40 mg 08/03/18 10:00 Protonix Inj IVP BID [facility] Tamsulosin HCl 0.4 mg 08/01/18 12:30 08/02/18 12:45 Flomax PO Not Given DAILY [facility] Vitamin B Complex/Vit C/Folic Acid 1 tab 08/02/18 08:00 08/02/18 12:46 Nephro-Agustina PO Not Given 0800 [facility] - Patient Studies Lab Studies: Microbiology Studies 08/01/18 13:17 Urine Culture - Final Urine,Clean Catch No Growth (<1,000 CFU/ML) 07/31/18 15:00 Blood Culture - Preliminary Blood-Venous NO GROWTH AFTER 48 HOURS 07/31/18 14:30 Blood Culture - Preliminary Blood-Venous NO GROWTH AFTER 48 HOURS 07/31/18 20:18 MRSA Culture (Admit) - Final Naris MRSA NOT DETECTED Lab Studies 08/03/18 08/03/18 08/03/18 Range/Units 05:00 03:15 03:15 WBC 10.1 D (4.5-11.0) 10^3/uL RBC 2.89 L (3.5-6.1) 10^6/uL Hgb 8.3 L (14.0-18.0) g/dL Hct 23.6 L (42.0-52.0) % MCV 81.7 (80.0-105.0) fl MCH 28.7 (25.0-35.0) pg MCHC 35.2 (31.0-37.0) g/dl RDW 14.3 (11.5-14.5) % Plt Count 166 (120.0-450.0) 10^3/uL MPV 9.6 (7.0-11.0) fl Neut % (Auto) 80.4 H (50.0-68.0) % Lymph % (Auto) 15.9 L (22.0-35.0) % Chaves % (Auto) 3.2 (1.0-6.0) % Eos % (Auto) 0.4 L (1.5-5.0) % Baso % (Auto) 0.1 (0.0-3.0) % Lymph # (Auto) 1.6 (1.2-3.4) Chaves # (Auto) 0.3 (0.1-0.6) Eos # (Auto) 0.0 (0.0-0.7) Baso # (Auto) 0.01 (0.0-2.0) K/mm3 Absolute Neuts (auto) 8.14 H (1.4-6.5) pCO2 34 L (35-45) mm/Hg pO2 106.0 H (80-100) mm/Hg HCO3 20.1 L (21-28) mmol/L ABG pH 7.38 (7.35-7.45) ABG Total CO2 21.1 L (22-28) mmol.L ABG O2 Saturation 96.7 (95-98) % ABG O2 Content 12.3 L (15-23) ML/dl ABG Base Excess -4.5 L (-2.0-3.0) mmol/L ABG Hemoglobin 9.1 L (11.7-17.4) g/dL ABG Carboxyhemoglobin 0.6 (0.5-1.5) % POC ABG HHb (Measured) 3.2 (0-5) % ABG Methemoglobin 1.3 (0.0-3.0) % ABG O2 Capacity 12.7 L (16-24) mL/dl Hgb O2 Saturation 94.8 L (95.0-98.0) % FiO2 28.0 % Sodium 137 (132-148) mmol/L Potassium 3.2 L (3.6-5.0) mmol/L Chloride 100 (98-107) mmol/L Carbon Dioxide 21 (21-33) mmol/L Anion Gap 19 (10-20) BUN 130 H* (7-21) mg/dL Creatinine 10.0 H* (0.8-1.5) mg/dl Est GFR ( Amer) 6 Est GFR (Non-Af Amer) 5 Random Glucose 126 H (70-110) mg/dL Uric Acid 7.8 (3.5-8.5) mg/dL Calcium 6.3 L* (8.4-10.5) mg/dL Total Bilirubin 0.6 (0.2-1.3) mg/dL AST 45 (17-59) U/L ALT 41 (7-56) U/L Alkaline Phosphatase 79 (38-126) U/L Troponin I ng/mL Total Protein 6.2 (5.8-8.3) g/dL Total Protein (PEP) (6.1-8.1) g/dL Albumin 3.1 (3.0-4.8) g/dL Globulin 3.1 gm/dL Albumin/Globulin Ratio 1.0 L (1.1-1.8) 25-OH Vitamin D Total (30.0-100.0) NG/ML PTH Intact Whole Molec (14-64) pg/mL LIO Screen (Negative) Double Strand DNA Ab IU/mL Blood Type Antibody Screen Crossmatch BBK History Checked 08/02/18 08/02/18 08/02/18 Range/Units 19:23 19:23 09:00 WBC 13.4 H D (4.5-11.0) 10^3/uL RBC 3.08 L (3.5-6.1) 10^6/uL Hgb 8.8 L D (14.0-18.0) g/dL Hct 25.1 L (42.0-52.0) % MCV 81.5 (80.0-105.0) fl MCH 28.6 (25.0-35.0) pg MCHC 35.1 (31.0-37.0) g/dl RDW 14.3 (11.5-14.5) % Plt Count 182 (120.0-450.0) 10^3/uL MPV 9.1 (7.0-11.0) fl Neut % (Auto) (50.0-68.0) % Lymph % (Auto) (22.0-35.0) % Chaves % (Auto) 3.1 (1.0-6.0) % Eos % (Auto) 0.1 L (1.5-5.0) % Baso % (Auto) 0.1 (0.0-3.0) % Lymph # (Auto) (1.2-3.4) Chaves # (Auto) 0.4 (0.1-0.6) Eos # (Auto) 0.0 (0.0-0.7) Baso # (Auto) 0.01 (0.0-2.0) K/mm3 Absolute Neuts (auto) (1.4-6.5) pCO2 (35-45) mm/Hg pO2 (80-100) mm/Hg HCO3 (21-28) mmol/L ABG pH (7.35-7.45) ABG Total CO2 (22-28) mmol.L ABG O2 Saturation (95-98) % ABG O2 Content (15-23) ML/dl ABG Base Excess (-2.0-3.0) mmol/L ABG Hemoglobin (11.7-17.4) g/dL ABG Carboxyhemoglobin (0.5-1.5) % POC ABG HHb (Measured) (0-5) % ABG Methemoglobin (0.0-3.0) % ABG O2 Capacity (16-24) mL/dl Hgb O2 Saturation (95.0-98.0) % FiO2 % Sodium 137 (132-148) mmol/L Potassium 2.9 L* (3.6-5.0) mmol/L Chloride 100 (98-107) mmol/L Carbon Dioxide 20 L (21-33) mmol/L Anion Gap 19 (10-20) BUN 126 H* (7-21) mg/dL Creatinine 9.0 H* D (0.8-1.5) mg/dl Est GFR ( Amer) 7 Est GFR (Non-Af Amer) 6 Random Glucose 125 H (70-110) mg/dL Uric Acid (3.5-8.5) mg/dL Calcium 6.6 L* (8.4-10.5) mg/dL Total Bilirubin 0.6 (0.2-1.3) mg/dL AST 40 (17-59) U/L ALT 39 (7-56) U/L Alkaline Phosphatase 82 (38-126) U/L Troponin I 1.75 H* D ng/mL Total Protein 6.6 (5.8-8.3) g/dL Total Protein (PEP) (6.1-8.1) g/dL Albumin 3.3 (3.0-4.8) g/dL Globulin 3.3 gm/dL Albumin/Globulin Ratio 1.0 L (1.1-1.8) 25-OH Vitamin D Total (30.0-100.0) NG/ML PTH Intact Whole Molec (14-64) pg/mL LIO Screen (Negative) Double Strand DNA Ab IU/mL Blood Type A POSITIVE Antibody Screen Negative Crossmatch See Detail BBK History Checked No verified bt 08/02/18 08/02/18 08/01/18 Range/Units 06:00 06:00 10:10 WBC (4.5-11.0) 10^3/uL RBC (3.5-6.1) 10^6/uL Hgb (14.0-18.0) g/dL Hct (42.0-52.0) % MCV (80.0-105.0) fl MCH (25.0-35.0) pg MCHC (31.0-37.0) g/dl RDW (11.5-14.5) % Plt Count (120.0-450.0) 10^3/uL MPV (7.0-11.0) fl Neut % (Auto) (50.0-68.0) % Lymph % (Auto) (22.0-35.0) % Chaves % (Auto) (1.0-6.0) % Eos % (Auto) (1.5-5.0) % Baso % (Auto) (0.0-3.0) % Lymph # (Auto) (1.2-3.4) Chaves # (Auto) (0.1-0.6) Eos # (Auto) (0.0-0.7) Baso # (Auto) (0.0-2.0) K/mm3 Absolute Neuts (auto) (1.4-6.5) pCO2 (35-45) mm/Hg pO2 (80-100) mm/Hg HCO3 (21-28) mmol/L ABG pH (7.35-7.45) ABG Total CO2 (22-28) mmol.L ABG O2 Saturation (95-98) % ABG O2 Content (15-23) ML/dl ABG Base Excess (-2.0-3.0) mmol/L ABG Hemoglobin (11.7-17.4) g/dL ABG Carboxyhemoglobin (0.5-1.5) % POC ABG HHb (Measured) (0-5) % ABG Methemoglobin (0.0-3.0) % ABG O2 Capacity (16-24) mL/dl Hgb O2 Saturation (95.0-98.0) % FiO2 % Sodium (132-148) mmol/L Potassium (3.6-5.0) mmol/L Chloride (98-107) mmol/L Carbon Dioxide (21-33) mmol/L Anion Gap (10-20) BUN (7-21) mg/dL Creatinine (0.8-1.5) mg/dl Est GFR ( Amer) Est GFR (Non-Af Amer) Random Glucose (70-110) mg/dL Uric Acid (3.5-8.5) mg/dL Calcium (8.4-10.5) mg/dL Total Bilirubin (0.2-1.3) mg/dL AST (17-59) U/L ALT (7-56) U/L Alkaline Phosphatase (38-126) U/L Troponin I ng/mL Total Protein (5.8-8.3) g/dL Total Protein (PEP) 5.5 L (6.1-8.1) g/dL Albumin (3.0-4.8) g/dL Globulin gm/dL Albumin/Globulin Ratio (1.1-1.8) 25-OH Vitamin D Total < 12.8 L (30.0-100.0) NG/ML PTH Intact Whole Molec 620 H (14-64) pg/mL LIO Screen (Negative) Double Strand DNA Ab IU/mL Blood Type Antibody Screen Crossmatch BBK History Checked 08/01/18 Range/Units 10:10 WBC (4.5-11.0) 10^3/uL RBC (3.5-6.1) 10^6/uL Hgb (14.0-18.0) g/dL Hct (42.0-52.0) % MCV (80.0-105.0) fl MCH (25.0-35.0) pg MCHC (31.0-37.0) g/dl RDW (11.5-14.5) % Plt Count (120.0-450.0) 10^3/uL MPV (7.0-11.0) fl Neut % (Auto) (50.0-68.0) % Lymph % (Auto) (22.0-35.0) % Chaves % (Auto) (1.0-6.0) % Eos % (Auto) (1.5-5.0) % Baso % (Auto) (0.0-3.0) % Lymph # (Auto) (1.2-3.4) Chaves # (Auto) (0.1-0.6) Eos # (Auto) (0.0-0.7) Baso # (Auto) (0.0-2.0) K/mm3 Absolute Neuts (auto) (1.4-6.5) pCO2 (35-45) mm/Hg pO2 (80-100) mm/Hg HCO3 (21-28) mmol/L ABG pH (7.35-7.45) ABG Total CO2 (22-28) mmol.L ABG O2 Saturation (95-98) % ABG O2 Content (15-23) ML/dl ABG Base Excess (-2.0-3.0) mmol/L ABG Hemoglobin (11.7-17.4) g/dL ABG Carboxyhemoglobin (0.5-1.5) % POC ABG HHb (Measured) (0-5) % ABG Methemoglobin (0.0-3.0) % ABG O2 Capacity (16-24) mL/dl Hgb O2 Saturation (95.0-98.0) % FiO2 % Sodium (132-148) mmol/L Potassium (3.6-5.0) mmol/L Chloride (98-107) mmol/L Carbon Dioxide (21-33) mmol/L Anion Gap (10-20) BUN (7-21) mg/dL Creatinine (0.8-1.5) mg/dl Est GFR ( Amer) Est GFR (Non-Af Amer) Random Glucose (70-110) mg/dL Uric Acid (3.5-8.5) mg/dL Calcium (8.4-10.5) mg/dL Total Bilirubin (0.2-1.3) mg/dL AST (17-59) U/L ALT (7-56) U/L Alkaline Phosphatase (38-126) U/L Troponin I ng/mL Total Protein (5.8-8.3) g/dL Total Protein (PEP) (6.1-8.1) g/dL Albumin (3.0-4.8) g/dL Globulin gm/dL Albumin/Globulin Ratio (1.1-1.8) 25-OH Vitamin D Total (30.0-100.0) NG/ML PTH Intact Whole Molec (14-64) pg/mL LIO Screen Negative (Negative) Double Strand DNA Ab <1 IU/mL Blood Type Antibody Screen Crossmatch BBK History Checked Laboratory Results - last 24 hr 08/01/18 08/01/18 08/02/18 10:10 10:10 06:00 WBC RBC Hgb Hct MCV MCH MCHC RDW Plt Count MPV Neut % (Auto) Lymph % (Auto) Chaves % (Auto) Eos % (Auto) Baso % (Auto) Lymph # (Auto) Chaves # (Auto) Eos # (Auto) Baso # (Auto) Absolute Neuts (auto) pCO2 pO2 HCO3 ABG pH ABG Total CO2 ABG O2 Saturation ABG O2 Content ABG Base Excess ABG Hemoglobin ABG Carboxyhemoglobin POC ABG HHb (Measured) ABG Methemoglobin ABG O2 Capacity Hgb O2 Saturation FiO2 Sodium Potassium Chloride Carbon Dioxide Anion Gap BUN Creatinine Est GFR ( Amer) Est GFR (Non-Af Amer) Random Glucose Uric Acid Calcium Total Bilirubin AST ALT Alkaline Phosphatase Troponin I Total Protein Total Protein (PEP) 5.5 L Albumin Globulin Albumin/Globulin Ratio 25-OH Vitamin D Total PTH Intact Whole Molec 620 H LIO Screen Negative Double Strand DNA Ab <1 Blood Type Antibody Screen Crossmatch BBK History Checked 08/02/18 08/02/18 08/02/18 06:00 09:00 19:23 WBC RBC Hgb Hct MCV MCH MCHC RDW Plt Count MPV Neut % (Auto) Lymph % (Auto) Chaves % (Auto) Eos % (Auto) Baso % (Auto) Lymph # (Auto) Chaves # (Auto) Eos # (Auto) Baso # (Auto) Absolute Neuts (auto) pCO2 pO2 HCO3 ABG pH ABG Total CO2 ABG O2 Saturation ABG O2 Content ABG Base Excess ABG Hemoglobin ABG Carboxyhemoglobin POC ABG HHb (Measured) ABG Methemoglobin ABG O2 Capacity Hgb O2 Saturation FiO2 Sodium 137 Potassium 2.9 L* Chloride 100 Carbon Dioxide 20 L Anion Gap 19 BUN 126 H* Creatinine 9.0 H* D Est GFR ( Amer) 7 Est GFR (Non-Af Amer) 6 Random Glucose 125 H Uric Acid Calcium 6.6 L* Total Bilirubin 0.6 AST 40 ALT 39 Alkaline Phosphatase 82 Troponin I 1.75 H* D Total Protein 6.6 Total Protein (PEP) Albumin 3.3 Globulin 3.3 Albumin/Globulin Ratio 1.0 L 25-OH Vitamin D Total < 12.8 L PTH Intact Whole Molec LIO Screen Double Strand DNA Ab Blood Type A POSITIVE Antibody Screen Negative Crossmatch See Detail BBK History Checked No verified bt 08/02/18 08/03/18 08/03/18 19:23 03:15 03:15 WBC 13.4 H D 10.1 D RBC 3.08 L 2.89 L Hgb 8.8 L D 8.3 L Hct 25.1 L 23.6 L MCV 81.5 81.7 MCH 28.6 28.7 MCHC 35.1 35.2 RDW 14.3 14.3 Plt Count 182 166 MPV 9.1 9.6 Neut % (Auto) 80.4 H Lymph % (Auto) 15.9 L Chaves % (Auto) 3.1 3.2 Eos % (Auto) 0.1 L 0.4 L Baso % (Auto) 0.1 0.1 Lymph # (Auto) 1.6 Chaves # (Auto) 0.4 0.3 Eos # (Auto) 0.0 0.0 Baso # (Auto) 0.01 0.01 Absolute Neuts (auto) 8.14 H pCO2 pO2 HCO3 ABG pH ABG Total CO2 ABG O2 Saturation ABG O2 Content ABG Base Excess ABG Hemoglobin ABG Carboxyhemoglobin POC ABG HHb (Measured) ABG Methemoglobin ABG O2 Capacity Hgb O2 Saturation FiO2 Sodium 137 Potassium 3.2 L Chloride 100 Carbon Dioxide 21 Anion Gap 19 BUN 130 H* Creatinine 10.0 H* Est GFR ( Amer) 6 Est GFR (Non-Af Amer) 5 Random Glucose 126 H Uric Acid 7.8 Calcium 6.3 L* Total Bilirubin 0.6 AST 45 ALT 41 Alkaline Phosphatase 79 Troponin I Total Protein 6.2 Total Protein (PEP) Albumin 3.1 Globulin 3.1 Albumin/Globulin Ratio 1.0 L 25-OH Vitamin D Total PTH Intact Whole Molec LIO Screen Double Strand DNA Ab Blood Type Antibody Screen Crossmatch BBK History Checked 08/03/18 05:00 WBC RBC Hgb Hct MCV MCH MCHC RDW Plt Count MPV Neut % (Auto) Lymph % (Auto) Chaves % (Auto) Eos % (Auto) Baso % (Auto) Lymph # (Auto) Chaves # (Auto) Eos # (Auto) Baso # (Auto) Absolute Neuts (auto) pCO2 34 L pO2 106.0 H HCO3 20.1 L ABG pH 7.38 ABG Total CO2 21.1 L ABG O2 Saturation 96.7 ABG O2 Content 12.3 L ABG Base Excess -4.5 L ABG Hemoglobin 9.1 L ABG Carboxyhemoglobin 0.6 POC ABG HHb (Measured) 3.2 ABG Methemoglobin 1.3 ABG O2 Capacity 12.7 L Hgb O2 Saturation 94.8 L FiO2 28.0 Sodium Potassium Chloride Carbon Dioxide Anion Gap BUN Creatinine Est GFR ( Amer) Est GFR (Non-Af Amer) Random Glucose Uric Acid Calcium Total Bilirubin AST ALT Alkaline Phosphatase Troponin I Total Protein Total Protein (PEP) Albumin Globulin Albumin/Globulin Ratio 25-OH Vitamin D Total PTH Intact Whole Molec LIO Screen Double Strand DNA Ab Blood Type Antibody Screen Crossmatch BBK History Checked EKG/Cardiology Studies: Cardiology / EKG Studies 08/03/18 06:00 EKG [ELECTROCARDIOGRAM] Routine Comment: Reason For Exam: dyspnea Critical Care Progress Note - Nutrition Nutrition: Nutrition Category Date Time Status Renal Diet [DIET] Diets 08/01/18 Dinner Ordered Attending/Attestation - Attestation I have personally seen and examined this patient.: Yes I have fully participated in the care of the patient.: Yes I have reviewed all pertinent clinical information: Yes Notes (Text): 08/03/18 11:01 The patient was seen and examined at the bedside. Patient care was discussed with resident Medical records, lab studies were reviewed and management issues were discussed and formulated. Agree with above treatment plans as outlined in 's note with addition of the following: ARF on HD \ Nephrolithiasis \ UTI \ Sepsis \ NSTEMI \ Anemia Acute on chronic diastolic CHF \Anemia -hemodynamic monitoring to maintain MAP>65 -cardiology team f\u -continue ASA, will hold if Hb continues to drop or sign of active bleed -O2 supplementation to maintain spo2>90 Pao2>60; comfortable on NC -broad spectrum Abx as per ID team; f\u cultures -f\u Bun\Cr and U\o; HD and volume removal as per renal team -PO diet and aspiration precautions -monitor serial H\H and for bleeding -hold heparin -urology team f\u for possible ureteral stent placement today -PT\OT eval -DVT \ PUD prophylaxis CCM time 32mins
--- NOTE | 2018-08-03 12:16 | CP.PCM.PN ---
Subjective - Date & Time of Evaluation Date of Evaluation: 08/03/18 Time of Evaluation: 09:25 - Subjective Subjective: Comfortable in bed, no fevers. Objective - Vital Signs/Intake and Output Vital Signs (last 24 hours): Temp Pulse Resp BP Pulse Ox 98.1 F 78 12 121/66 99 08/02/18 06:00 08/02/18 08:55 08/01/18 18:00 08/02/18 08:56 08/02/18 08:55 Intake and Output: 08/02/18 08/02/18 06:59 18:59 Intake Total 840 Output Total 1000 Balance -160 - Medications Medications: Current Medications Albuterol/Ipratropium (Duoneb 3 Mg/0.5 Mg (3 Ml) Ud) 3 ml IH Q2H PRN PRN Reason: Shortness of Breath Aspirin (Aspirin Chewable) 81 mg PO DAILY [facility] Last Admin: 08/01/18 09:27 Dose: 81 mg Atorvastatin Calcium (Lipitor) 40 mg PO DIN [facility] Last Admin: 08/01/18 17:22 Dose: 40 mg Calcium Acetate (Phoslo) 2,001 mg PO WM [facility] Last Admin: 08/01/18 17:22 Dose: 2,001 mg Darbepoetin Ron (Aranesp) 100 mcg IVP QWK [facility] Last Admin: 08/01/18 13:50 Dose: 100 mcg Cefepime HCl (Maxipime 1gm) 1 gm in 100 mls @ 100 mls/hr IVPB Q24H [facility]; Protocol Last Admin: 08/01/18 17:45 Dose: 100 mls/hr Metoprolol Succinate (Toprol Xl) 25 mg PO BRK [facility] Nystatin (Mycostatin Cream) 0 ea TOP TID [facility] Last Admin: 08/01/18 18:51 Dose: 1 applic Pantoprazole Sodium (Protonix Inj) 40 mg IVP DAILY [facility] Last Admin: 08/02/18 09:32 Dose: 40 mg Tamsulosin HCl (Flomax) 0.4 mg PO DAILY [facility] Last Admin: 08/01/18 17:23 Dose: 0.4 mg Vitamin B Complex/Vit C/Folic Acid (Nephro-Agustina) 1 tab PO 0800 [facility] - Labs Labs: 08/02/18 06:00 08/02/18 06:00 PT 15.0 SECONDS (9.4-12.5) H 08/02/18 06:00 INR 1.33 08/02/18 06:00 APTT 33.8 Seconds (26.9-38.3) 08/02/18 06:00 - Constitutional Appears: Non-toxic, Chronically Ill - Head Exam Head Exam: NORMAL INSPECTION - ENT Exam ENT Exam: Mucous Membranes Moist - Neck Exam Neck Exam: absent: Meningismus - Respiratory Exam Respiratory Exam: Decreased Breath Sounds - Cardiovascular Exam Cardiovascular Exam: +S1, +S2 - GI/Abdominal Exam GI & Abdominal Exam: Soft. absent: Tenderness Assessment and Plan - Assessment and Plan (Free Text) Plan: Assessment Systemic inflammatory response syndrome, probably due to acute renal failure from left sided obstructive uropathy R/O acute coronary syndrome in this patient presenting with dehydration and metabolic acidosis, R/O sepsis but so far no evidence identified arthritis chronic right leg rash S/P hip surgery Plan gave a dose of IV Vancomycin and continue Cefepime day 3 pending final blood, urine cx results plan is for stent placement on the left will continue to monitor clinically
[2018-08-03 12:21] LABS: HEMOGLOBIN 8.8 g/dL (14.0-18.0); MEAN CORPUSCULAR HEMOGLOBIN 28.3 pg (25.0-35.0); MEAN CORPUSCULAR HGB CONC 34.5 g/dl (31.0-37.0); RBC 3.11 10^6/uL (3.5-6.1); RED CELL DISTRIBUTION WIDTH 14.5 % (11.5-14.5); WHITE BLOOD COUNT 10.6 10^3/uL (4.5-11.0)
--- NOTE | 2018-08-03 12:36 | CP.PCM.PCO ---
Physician Communication Note - Physician Communication Note Physician Communication Note: patient for cysto w. renal stent placement per Ora
[2018-08-03] MEDS ORDERED: Propofol 10 mg/ml Inj (20 ML) ONE ×2 (12:41→13:03)
[2018-08-03] MEDS ORDERED: Midazolam 2 MG/2 ML VIAL ONE (12:42)
--- NOTE | 2018-08-03 13:03 | CP.PCM.PN ---
<Jack Holloway - Last Filed: 08/03/18 12:58> Subjective - Date & Time of Evaluation Date of Evaluation: 08/03/18 Time of Evaluation: 12:58 - Subjective Subjective: GI Progress Note for Dr. Carrera Patient seen and examined at bedside. No acute overnight events. Patient denies CP, SOB, n/v/d, melena, hematochezia, fever, chills, APPIAH, or dizziness. Objective - Vital Signs/Intake and Output Vital Signs (last 24 hours): Temp Pulse Resp BP Pulse Ox 98.6 F 72 12 123/60 97 08/02/18 16:00 08/03/18 06:20 08/03/18 06:20 08/03/18 06:20 08/03/18 06:20 - Medications Medications: Current Medications Albuterol/Ipratropium (Duoneb 3 Mg/0.5 Mg (3 Ml) Ud) 3 ml IH Q2H PRN PRN Reason: Shortness of Breath Aspirin (Aspirin Chewable) 81 mg PO DAILY [facility] Last Admin: 08/02/18 12:45 Dose: Not Given Atorvastatin Calcium (Lipitor) 40 mg PO DIN [facility] Last Admin: 08/02/18 17:47 Dose: 40 mg Calcium Acetate (Phoslo) 2,001 mg PO WM [facility] Last Admin: 08/03/18 09:36 Dose: Not Given Darbepoetin Ron (Aranesp) 100 mcg IVP QWK [facility] Last Admin: 08/01/18 13:50 Dose: 100 mcg Ergocalciferol (Drisdol 50,000 Intl Units Cap) 1 cap PO Q7D [facility] Last Admin: 08/02/18 17:47 Dose: 1 cap Cefepime HCl (Maxipime 1gm) 1 gm in 100 mls @ 100 mls/hr IVPB Q24H [facility]; Protocol Last Admin: 08/02/18 17:48 Dose: 100 mls/hr Metoprolol Succinate (Toprol Xl) 25 mg PO BRK [facility] Last Admin: 08/02/18 13:47 Dose: 25 mg Nystatin (Mycostatin Cream) 0 ea TOP TID [facility] Last Admin: 08/03/18 09:26 Dose: 1 applic Pantoprazole Sodium (Protonix Inj) 40 mg IVP BID [facility] Last Admin: 08/03/18 10:00 Dose: Not Given Tamsulosin HCl (Flomax) 0.4 mg PO DAILY [facility] Last Admin: 08/02/18 12:45 Dose: Not Given Vitamin B Complex/Vit C/Folic Acid (Nephro-Agustina) 1 tab PO 0800 [facility] Last Admin: 08/02/18 12:46 Dose: Not Given - Labs Labs: 08/03/18 12:15 08/03/18 03:15 PT 15.0 SECONDS (9.4-12.5) H 08/02/18 06:00 INR 1.33 08/02/18 06:00 APTT 33.8 Seconds (26.9-38.3) 08/02/18 06:00 - Constitutional Appears: No Acute Distress - Head Exam Head Exam: NORMAL INSPECTION - Eye Exam Eye Exam: Normal appearance - ENT Exam ENT Exam: Mucous Membranes Moist - Neck Exam Neck Exam: Normal Inspection - Respiratory Exam Respiratory Exam: Clear to Ausculation Bilateral, NORMAL BREATHING PATTERN - Cardiovascular Exam Cardiovascular Exam: REGULAR RHYTHM - GI/Abdominal Exam GI & Abdominal Exam: Soft. absent: Distended, Guarding, Tenderness, Rebound - Back Exam Back Exam: NORMAL INSPECTION - Neurological Exam Neurological Exam: Alert, Awake - Skin Skin Exam: Normal Color, Warm Assessment and Plan - Assessment and Plan (Free Text) Assessment: Patient is a 68 yo M with PMH of osteoarthritis is admitted for a number of issues including acute renal failure, elevated troponins and severe anemia. GI was consulted for severe anemia, rule out GI bleed. 1. Severe anemia, r/o GIB 2. ARF, possible ATN 3. Elevated troponins, possible 2/2 decreased clearance 4. H/o NSAID use, r/o PUD 5. Obstructing nephropathy with hydronephrosis 6. Obesity Plan: - H/H stable after blood transfusion, cont to monitor - Transfuse to maintain Hgb > 8 - Cont PPI - Stool for occult blood - Would benefit from EGD when medically optimized - Possible stent per urology today - IV abx per ID - as per renal, urology,cardiology, and ICU team Discussed w/ Dr. Carrera. Jose Juan Holloway, DO PGY2 <Kane Carrera V - Last Filed: 08/03/18 23:45> Objective - Vital Signs/Intake and Output Vital Signs (last 24 hours): Temp Pulse Resp BP Pulse Ox 98.6 F 83 19 142/73 95 08/03/18 13:48 08/03/18 22:00 08/03/18 22:00 08/03/18 21:00 08/03/18 22:00 Intake and Output: 08/03/18 08/04/18 18:59 06:59 Intake Total 400 Output Total 400 Balance 0 - Medications Medications: Current Medications Albuterol/Ipratropium (Duoneb 3 Mg/0.5 Mg (3 Ml) Ud) 3 ml IH Q2H PRN PRN Reason: Shortness of Breath Aspirin (Aspirin Chewable) 81 mg PO DAILY [facility] Last Admin: 08/03/18 16:23 Dose: Not Given Atorvastatin Calcium (Lipitor) 40 mg PO DIN [facility] Last Admin: 08/03/18 16:39 Dose: 40 mg Calcium Acetate (Phoslo) 2,001 mg PO WM [facility] Last Admin: 08/03/18 16:39 Dose: 2,001 mg Darbepoetin Ron (Aranesp) 100 mcg IVP QWK [facility] Last Admin: 08/01/18 13:50 Dose: 100 mcg Ergocalciferol (Drisdol 50,000 Intl Units Cap) 1 cap PO Q7D [facility] Last Admin: 08/02/18 17:47 Dose: 1 cap Furosemide (Lasix) 40 mg IVP ONCE ONE Stop: 08/04/18 10:01 Cefepime HCl (Maxipime 1gm) 1 gm in 100 mls @ 100 mls/hr IVPB Q24H [facility]; Protocol Last Admin: 08/03/18 20:40 Dose: Not Given Metoclopramide HCl (Reglan) 10 mg IV ONCE PRN PRN Reason: Nausea/Vomiting Metoprolol Succinate (Toprol Xl) 25 mg PO BRK [facility] Last Admin: 08/03/18 16:25 Dose: Not Given Nystatin (Mycostatin Cream) 0 ea TOP TID [facility] Last Admin: 08/03/18 16:23 Dose: Not Given Pantoprazole Sodium (Protonix Inj) 40 mg IVP BID [facility] Last Admin: 08/03/18 20:41 Dose: Not Given Tamsulosin HCl (Flomax) 0.4 mg PO DAILY [facility] Last Admin: 08/03/18 16:39 Dose: 0.4 mg Vitamin B Complex/Vit C/Folic Acid (Nephro-Agustina) 1 tab PO 0800 [facility] Last Admin: 08/03/18 16:23 Dose: Not Given - Labs Labs: 08/03/18 12:15 08/03/18 03:15 PT 15.0 SECONDS (9.4-12.5) H 08/02/18 06:00 INR 1.33 08/02/18 06:00 APTT 33.8 Seconds (26.9-38.3) 08/02/18 06:00 Attending/Attestation - Attestation I have personally seen and examined this patient.: Yes I have fully participated in the care of the patient.: Yes I have reviewed all pertinent clinical information, including history, physical exam and plan: Yes Notes (Text): p 08/03/18 23:45
[2018-08-03] MEDS ORDERED: Iohexol 240 (50 ml) IVP ONE (13:11)
--- NOTE | 2018-08-03 13:18 | PN ---
DATE: 08/03/2018 SUBJECTIVE: The patient is seen lying in bed in the CCU. He states he is feeling somewhat better. His dyspnea has improved. He received the dialysis again yesterday. MEDICATIONS: His current medications include Aranesp, DuoNeb inhaler, Flomax, Lipitor, Maxipime, PhosLo, Protonix and Toprol-XL 25 mg daily. OBJECTIVE: GENERAL: He is a middle-aged man who appears comfortable at rest. VITAL SIGNS: Blood pressure 122/60 with pulse of 70 in sinus, respirations 16, he is afebrile. HEENT: No JVD. CHEST: Bilateral scattered rhonchi. HEART: PMI displaced laterally with a systolic murmur at left sternal border. ABDOMEN: Soft, obese with normoactive bowel sounds. EXTREMITIES: 1+ leg edema. DIAGNOSTIC DATA: Potassium 3.2, BUN and creatinine and 130 and 10.0. White count is 10.1, hemoglobin and hematocrit 8.3 and 23.6 with platelet count 166,000. A pH 7.38, pCO2 of 34, pO2 of 106. Electrocardiogram reveals sinus rhythm with first-degree AV block and nonspecific ST-T abnormalities. IMPRESSION: 1. Acute renal failure requiring dialysis workup in progress. 2. Recent elevated troponin, likely due to reduced renal clearance. No clear evidence of myocardial infarction at the present time. 3. Severe anemia, status post transfusion, improved. Workup in progress. RECOMMENDATIONS: Continue intensified dialysis advised. An eventual cardiac evaluation with stress testing will be planned once his other issues have been addressed and stabilized. Low-dose beta-kaela therapy will be continued in the interim. We will continue to follow and make further things as appropriate. Hill Craft MD MTDD
[2018-08-03] MEDS ORDERED: HYDROmorphone 0.5 mg/0.5 ml ISec IVP PRN (13:35)
--- NOTE | 2018-08-03 14:30 | PN ---
SUBJECTIVE: The patient was seen and examined at the bedside in the ICU. No acute events overnight. He remains afebrile and hemodynamically stable. He is s/p transfusion of 2 units of PRBCs with an appropriate response in Hb. This morning he feels ok and offers no complaints. OBJECTIVE: VITAL SIGNS: Temperature 97.7, pulse 72, blood pressure 123/60, respiratory rate 16, oxygen saturation 97% on 2L NC. GENERAL: Obese man, lying in bed, in no apparent distress. HEENT: PERRL, EOMI. No scleral icterus. Conjunctival pallor is noted. NECK: No JVD. LUNGS: Decreased breath sounds at the bases. CARDIOVASCULAR: Regular rate and rhythm. Normal S1 and S2. Grade II/ murmur to LLSB. No friction rub. ABDOMEN: Normoactive bowel sounds, soft, nontender, nondistended. EXTREMITIES: Trace pedal edema bilaterally. NEUROLOGIC: Awake, alert and oriented x 3. No focal motor deficits. LABORATORY DATA: WBC 10 with 80% neutrophils, hemoglobin 8.3, hematocrit 24, platelets 166. Sodium 137, potassium 3.2, chloride 100, bicarb 21, BUN 130, creatinine 10, glucose 126. Uric acid 7.8. Blood cultures with no growth to date. ASSESSMENT: The patient is a 68-year-old man with no significant past medical history who presented with a 2 week history of dyspnea with exertion, pedal edema, 3-pillow orthopnea and decreased urinary output and was admitted to the ICU for management of KIM on CKD stage III, anion gap metabolic acidosis, SIRS and anemia of unclear etiology. PLAN: 1. KIM on CKD stage III. Input from Dr. Samaniego noted. The patient remains on renal replacement therapy. Workup remains ongoing to further investigate the etiology of his acute kidney injury. Continue with care as per Dr. Samaniego. Continue to monitor strict I&O's, renally dose medications and avoid nephrotoxins. 2. Elevated troponin, consider secondary to impaired renal clearance, less likely NSTEMI. Input from Dr. Craft noted. The patient remains chest pain free. Continue with care as per Dr. Craft. 3. Anion gap metabolic acidosis, consider secondary to profound uremia in the setting of KIM, resolved. Input from Dr. Samaniego noted. Continue with care as above. 4. Obstructive nephrolithiasis. Input from Dr. Payan noted and arrangements will be made for intraureteral stent placement. 5. SIRS syndrome. Input from Dr. Coffey noted. Blood cultures remain negative. Continue with antimicrobials as per Dr. Coffey. 6. Normocytic anemia. The patient is s/p transfusion of 2 units of PRBCs. Input from Dr. Carrera noted and the patient has been started on IV Protonix. Stool occult blood is pending. We will continue to monitor CBC and transfuse as needed. 7. Elevated BNP, etiology likely secondary to underlying renal dysfunction. TTE demonstrates no wall motion abnormality or valvular dysfunction. Continue with care as per Dr. Craft. 8. Prophylaxis. Continue Protonix for GI prophylaxis and Heparin for DVT prophylaxis. CODE STATUS: Full code. Scout Quintana MD MTDDidi
--- NOTE | 2018-08-03 15:07 | RAD ---
Date of service: 08/03/2018 PROCEDURE: Fluoroscopy up to 1 hr HISTORY: BILATERAL RETROGRADE PYELOGRAMS / STENT INSERTION (LEFT) COMPARISON: TECHNIQUE: Fluoroscopy was provided in the operating room. 52.1 sec of fluoro time were use. 13.60 mGy cumulative dose. Twelve images were submitted FINDINGS: There is a filling defect in the distal left ureter. There is placement of a left ureteral stent. The right renal collecting system is unremarkable IMPRESSION: As above
--- NOTE | 2018-08-03 16:08 | CP.PCM.PN ---
Subjective - Date & Time of Evaluation Date of Evaluation: 08/03/18 Time of Evaluation: 16:07 - Subjective Subjective: Nephrology Consultation Note: Assessment: critical Acute Kidney Injury (N17.9) with uremia ? etiology (NSAIDs use, obs uropathy mild left hydro with calculus) started dialysis 08/01/18 Anemia (D64.9), Hyperphosphatemia (E83.39) hyperkalemia, vit D def, sec hyperparathyroidism HAGMA with respi compensation obesity ex smoker CKD 3 with baseline cr 2.2 in 2016 elevated troponins s/p left ureteral stent by Dr Payan 08/03/18 Plan Hd 2nd session yesterday done, tolerated well, next HD today as 3rd session. pt to be reassessed tomorrow for dialysis Maintain hemodynamics stable. Avoid hypotension. Patient not on ACEI/ARB due to recent KIM Monitor Input/Output, daily weights and renal function with basic metabolic panel started phos binder, nephrovite and weekly aransep. PRBC as needed added flomax. urology eval. pt planned for left ureteral stent may consider kidney biopsy depending upon work up results ordered for lasix renal scan to assess split renal function. added weekly Vit D SW consult for outpt HD placement Check urine analysis, spot protein/creatinine, albumin/creatinine ratio, urine for eosinophils. renal and bladder sonogram Check GN work up as C3, C4, LIO, Anti dsDNA, ASO titers, ANCA (MPO and NH-3), Anti GBM antibody, HIV/Hep B and Hep C serology Anemia work up with TSAT/Ferritin/Vitamin B12/folate, serum protein electrophoresis with immunofixation, serum free light chain assay ([place]/Lambda) Check for 25-OH vitamin D, iPTH, phosphorus level. Dose meds/antibiotics for reduced GFR. Avoid fleets enema/magnesium based laxatives. Avoid nephrotoxins/NSAIDs/ iodinated contrast (unless needed emergently) Glycemic control Further work up/management as per primary team Thanks for allowing me to participate in care of your patient. Will follow patient with you. Please call if any Qs. had d/w team Dr Javan Samaniego Office: [phone] Chief Complaint; SOB on exertion Reason for consult: Acute Kidney Injury HPI: Pt is a 68 M with hx of HTN obesity hip replacement, hasn't f/up with PMD for long time presented with complaints of worsening SOB on exertion and feeling sick. found to have severe KIM. pt not aware about kidney disease in past. denies change in urine output recently. Denies OTC/herbal meds but take NSAIDs as alleve 2 tab daily No recent iodinated contrast exposure. No obvious episodes of low BP. ex smoker. no etoh or drugs decreased oral intake for last few days ROS: feels better. c/o left hand swelling, says gout in past Cardiovascular: No chest pain. Pulmonary: denie shortness of breath Gastrointestinal: denies abdominal pain had nausea. No vomiting. Genitourinary: No pain while urinating. Denies blood in urine. All other negative except as mentioned in HPI. has reduced appetite Physical Examination: General Appearance: better appearing co-operative . Vitals reviewed and noted as below Head; Atraumatic, normocephalic ENT: no ulcers no thrush. Tongue is midline/dry. Oropharynx: no rash or ulcers. EYES: Pupils are equal, round and reactive to light accommodation. Eye muscles and extraocular movement intact. Sclera is anicteric. Neck; supple no lymphadenopathy, no thyromegaly or bruit Lungs: normal respiratory rate/effort. Breath sounds bilateral equal and clear Heart: Increased rate. s1s2 normal. No rub or gallop. Extremities: no edema. No varicose veins. left hand swelling + Neurological: Patient is alert, awake and oriented to person, place and time. No focal deficit. Strength bilateral appropriate and equal Skin: Warm and dry. Normal turgor. Palpitation: Normal elasticity for age. axillary fungal rash +. Rt lower extremity scaly/scab ulceration Abdomen: Abdomen is soft. Bowel sounds +. There is no abdominal tenderness, no guarding/rigidity no organomegaly Psych: normal insight and normal affect/mood MSK: no joint tenderness or swelling. Digits and nails normal, no deformity : kidney or bladder not palpable Labs/imaging reviewed. Past medical history, past surgical history, family history, social history, allergy reviewed and noted as below Family hx: hx of CKD/ESRD and lupus in mother. Rest non-contributory Objective - Vital Signs/Intake and Output Vital Signs (last 24 hours): Temp Pulse Resp BP Pulse Ox 98.6 F 72 12 116/63 99 08/03/18 13:48 08/03/18 13:48 02/07/19 13:48 08/03/18 13:48 08/03/18 13:48 - Medications Medications: Current Medications Albuterol/Ipratropium (Duoneb 3 Mg/0.5 Mg (3 Ml) Ud) 3 ml IH Q2H PRN PRN Reason: Shortness of Breath Aspirin (Aspirin Chewable) 81 mg PO DAILY [facility] Last Admin: 08/02/18 12:45 Dose: Not Given Atorvastatin Calcium (Lipitor) 40 mg PO DIN [facility] Last Admin: 08/02/18 17:47 Dose: 40 mg Calcium Acetate (Phoslo) 2,001 mg PO WM [facility] Last Admin: 08/03/18 09:36 Dose: Not Given Darbepoetin Ron (Aranesp) 100 mcg IVP QWK [facility] Last Admin: 08/01/18 13:50 Dose: 100 mcg Ergocalciferol (Drisdol 50,000 Intl Units Cap) 1 cap PO Q7D [facility] Last Admin: 08/02/18 17:47 Dose: 1 cap Furosemide (Lasix) 40 mg IVP ONCE ONE Stop: 08/04/18 10:01 Cefepime HCl (Maxipime 1gm) 1 gm in 100 mls @ 100 mls/hr IVPB Q24H [facility]; Protocol Last Admin: 08/02/18 17:48 Dose: 100 mls/hr Metoclopramide HCl (Reglan) 10 mg IV ONCE PRN PRN Reason: Nausea/Vomiting Metoprolol Succinate (Toprol Xl) 25 mg PO BRK [facility] Last Admin: 08/02/18 13:47 Dose: 25 mg Nystatin (Mycostatin Cream) 0 ea TOP TID [facility] Last Admin: 08/03/18 09:26 Dose: 1 applic Pantoprazole Sodium (Protonix Inj) 40 mg IVP BID [facility] Last Admin: 08/03/18 10:00 Dose: Not Given Tamsulosin HCl (Flomax) 0.4 mg PO DAILY [facility] Last Admin: 08/02/18 12:45 Dose: Not Given Vitamin B Complex/Vit C/Folic Acid (Nephro-Agustina) 1 tab PO 0800 [facility] Last Admin: 08/02/18 12:46 Dose: Not Given - Labs Labs: 08/03/18 12:15 08/03/18 03:15 PT 15.0 SECONDS (9.4-12.5) H 08/02/18 06:00 INR 1.33 08/02/18 06:00 APTT 33.8 Seconds (26.9-38.3) 08/02/18 06:00
[2018-08-03] MEDS: Multivitamin Vitamin B Complex (Nephro-Vite) Tab PO SCH (16:23)
[2018-08-03] MEDS: Metoprolol Succinate 25 mg XL Tab PO SCH (16:25)
[2018-08-03] MEDS: Cefepime 1gm in NS 100ml 1 GM/100 ML BAG IVPB SCH ×2 (16:40→20:40)
[2018-08-03 18:41] LABS: ALBUMIN (PEP) 2.7 g/dL (3.8-4.8); ALPHA-1-GLOBULIN (PEP) 0.5 g/dL (0.2-0.3)
--- NOTE | 2018-08-03 18:56 | CARD ---
APPROVED REPORT Date of service: 08/03/2018 EKG Measurement Heart [id number] <Conclusion> Sinus rhythm with 1st degree AV block Incomplete right bundle branch block Nonspecific ST and T wave abnormality Abnormal ECG
--- NOTE | 2018-08-04 02:53 | OP ---
PROCEDURE DATE: 08/03/2018 PREOPERATIVE DIAGNOSES: Renal failure, obstructing left ureteral calculus. POSTOPERATIVE DIAGNOSES: Renal failure, obstructing left ureteral calculus. PROCEDURE: Cystoscopy, bilateral retrograde pyelograms, and insertion of a left ureteral stent. ATTENDING SURGEON: Elliot Payan MD ANESTHESIA: General LMA. SPECIMENS: None. DRAINS: A 6 x 24 left ureteral stent and a 16-Egyptian Sen catheter. COMPLICATIONS: None. OPERATIVE FINDINGS: After informed consent was obtained, the patient was taken to operating room, placed on the operating room table and anesthesia was administered. The patient was then placed in a dorsal lithotomy position and prepped and draped in usual sterile fashion. A 21-Egyptian cystoscope was then placed in the patient's urethra and advanced proximally under direct vision until the bladder was entered. A full survey inspection of bladder was then performed which revealed no papillary tumors. There were multiple tiny calculi noted free floating in the bladder. There was some evidence of catheter reaction on the posterior wall. There was grade 1 to 2 trabeculation noted. The prostate was moderately enlarged with trilobar hypotrophy. Both ureteral orifices were visualized and appeared within normal limits. At this point, an open-ended 5-Egyptian ureteral catheter was introduced through the cystoscope and guided into the left ureteral orifice. The left retrograde pyelogram was then performed by instilling contrast through the open-ended ureteral catheter into the left ureter during real-time fluoroscopy. In the upper portion of the lower ureter, there was a large filling defect noted. The filling defect was mobile. The ureter was mildly dilated above this filling defect. There was mild hydronephrosis and dilatation of the collecting system noted. At this point, a Sensor wire was obtained. The open-ended ureteral catheter was advanced up the ureter under fluoroscopic guidance, it was able to be manipulated past the calculus and advanced until it was coiled in the upper collecting system. At this point, the open-ended catheter was removed and a 6 x 24 stent was obtained. It was passed over the wire through the cystoscope and into the left ureter. It was advanced proximally under direct and fluoroscopic guidance until it was at the appropriate position. When the stent was in proper position, the guidewire was removed. A coil was seen in the renal pelvis on fluoroscopy. A coil was seen in bladder on cystoscopy. At this point, the open-ended ureteral catheter was again passed, and at this time, it was guided into the right ureteral orifice. A right retrograde pyelogram was then performed in a similar fashion that is described for the left side. The right retrograde pyelogram appeared grossly within normal limits. There was no evidence of filling defect. There was no dilatation of the collecting system and the system was noted to drain spontaneously. At this point, the procedure was completed, the bladder was then drained and the cystoscope was removed. A 16-Egyptian two-way Sen catheter was then passed to straight bladder drainage. The patient tolerated the procedure well. He was returned to the supine position and taken to the recovery room awake and in stable condition. Elliot Payan MD
[2018-08-04 07:17] LABS: HEMOGLOBIN 8.9 g/dL (14.0-18.0); MEAN CELL VOLUME 83.3 fl (80.0-105.0); MEAN CORPUSCULAR HGB CONC 33.6 g/dl (31.0-37.0); MEAN PLATELET VOLUME 9.7 fl (7.0-11.0); PLATELET COUNT 179 10^3/uL (120.0-450.0); RBC 3.18 10^6/uL (3.5-6.1); RED CELL DISTRIBUTION WIDTH 14.1 % (11.5-14.5); WHITE BLOOD COUNT 19.3 10^3/uL (4.5-11.0)
[2018-08-04] MEDS: Metoprolol Succinate 25 mg XL Tab PO SCH (07:44)
[2018-08-04 08:14] LABS: ALBUMIN 3.3 g/dL (3.0-4.8); CALCIUM 6.5 mg/dL (8.4-10.5)
[2018-08-04 08:43] LABS: MONOCYTE 1 % (1.0-6.0); NEUTROPHIL 99 % (50.0-70.0); PLATELET ESTIMATE NORMAL (NORMAL)
[2018-08-04] MEDS: Multivitamin Vitamin B Complex (Nephro-Vite) Tab PO SCH (09:47)
[2018-08-04] MEDS: Nystatin 100,000 Units/gm Cream(15 gm) TOP SCH ×3 (10:00→19:44)
--- NOTE | 2018-08-04 10:53 | PN ---
DATE: 08/04/2018 SUBJECTIVE: The patient is seen lying in bed in the ICU. He is feeling somewhat better. His dyspnea is improved. His BUN and creatinine have improved to 73 and 7.1 after recurrent dialysis. He denies any chest pain. His troponin remains mildly elevated 1.36. His current medications include Aranesp, aspirin, DuoNeb inhaler, Flomax, Lasix 40 mg daily, Lipitor 40 mg daily, Maxipime, PhosLo, Protonix and Toprol XL 25 mg daily. He underwent cystoscopy yesterday with placement of a left ureteral stent. OBJECTIVE: GENERAL: He is a middle-aged man who appears comfortable at the present time. VITAL SIGNS: Blood pressure is 120/60 with a pulse of 86 in sinus and respirations are 16. He is afebrile. HEENT: No JVD. A dialysis catheter is present in the right jugular vein. CHEST: Bilateral scattered rhonchi. HEART: PMI displaced laterally with systolic murmur at left sternal border. ABDOMEN: Soft, obese with normoactive bowel sounds. EXTREMITIES: 1+ leg edema. DIAGNOSTIC DATA: Potassium 3.4, BUN and creatinine are 73 and 7.1 and glucose 139. White count 19.3, hemoglobin and hematocrit 8.9 and 26.5 with platelet count of 179,000. IMPRESSION: 1. Acute renal failure requiring dialysis, etiology uncertain. 2. Obstructing left ureteral calculus status post ureteral stent. 3. Elevated troponin likely due to reduced renal clearance. 4. Anemia status post transfusion, awaits further workup. RECOMMENDATIONS: Dialysis effort should continue. Evaluation for GI because of blood loss is advised. He appears stable from cardiac standpoint to undergo upper and lower endoscopy if needed. Low-dose beta-kaela therapy will be continued for now. Antiplatelet anticoagulant therapy will continue to be withheld at the present time. An eventual cardiac evaluation with stress testing would be advisable but not necessary at this juncture in time. We will continue to follow and make further recommendations as appropriate. Hill Craft MD
--- NOTE | 2018-08-04 11:50 | CP.PCM.PN ---
Subjective - Date & Time of Evaluation Date of Evaluation: 08/04/18 Time of Evaluation: 08:00 - Subjective Subjective: Afebrile, not in distress, had left ureteral stent placed yesterday and tolerated procedure. Objective - Vital Signs/Intake and Output Vital Signs (last 24 hours): Temp Pulse Resp BP Pulse Ox 98.6 F 72 12 123/60 97 08/02/18 16:00 08/03/18 06:20 08/03/18 06:20 08/03/18 06:20 08/03/18 06:20 - Medications Medications: Current Medications Albuterol/Ipratropium (Duoneb 3 Mg/0.5 Mg (3 Ml) Ud) 3 ml IH Q2H PRN PRN Reason: Shortness of Breath Aspirin (Aspirin Chewable) 81 mg PO DAILY [facility] Last Admin: 08/02/18 12:45 Dose: Not Given Atorvastatin Calcium (Lipitor) 40 mg PO DIN [facility] Last Admin: 08/02/18 17:47 Dose: 40 mg Calcium Acetate (Phoslo) 2,001 mg PO WM [facility] Last Admin: 08/03/18 09:36 Dose: Not Given Darbepoetin Ron (Aranesp) 100 mcg IVP QWK [facility] Last Admin: 08/01/18 13:50 Dose: 100 mcg Ergocalciferol (Drisdol 50,000 Intl Units Cap) 1 cap PO Q7D [facility] Last Admin: 08/02/18 17:47 Dose: 1 cap Cefepime HCl (Maxipime 1gm) 1 gm in 100 mls @ 100 mls/hr IVPB Q24H [facility]; Protocol Last Admin: 08/02/18 17:48 Dose: 100 mls/hr Metoprolol Succinate (Toprol Xl) 25 mg PO BRK [facility] Last Admin: 08/02/18 13:47 Dose: 25 mg Nystatin (Mycostatin Cream) 0 ea TOP TID [facility] Last Admin: 08/03/18 09:26 Dose: 1 applic Pantoprazole Sodium (Protonix Inj) 40 mg IVP BID [facility] Tamsulosin HCl (Flomax) 0.4 mg PO DAILY [facility] Last Admin: 08/02/18 12:45 Dose: Not Given Vitamin B Complex/Vit C/Folic Acid (Nephro-Agustina) 1 tab PO 0800 [facility] Last Admin: 08/02/18 12:46 Dose: Not Given - Labs Labs: 08/03/18 03:15 08/03/18 03:15 PT 15.0 SECONDS (9.4-12.5) H 08/02/18 06:00 INR 1.33 08/02/18 06:00 APTT 33.8 Seconds (26.9-38.3) 08/02/18 06:00 - Constitutional Appears: Chronically Ill - Head Exam Head Exam: NORMAL INSPECTION - Respiratory Exam Respiratory Exam: Decreased Breath Sounds - Cardiovascular Exam Cardiovascular Exam: +S1, +S2 - GI/Abdominal Exam GI & Abdominal Exam: Soft. absent: Tenderness - Extremities Exam Additional comments: right leg with dressings in place Assessment and Plan - Assessment and Plan (Free Text) Plan: Assessment Systemic inflammatory response syndrome, probably due to acute renal failure from left sided obstructive uropathy S/P left ureteral stent placement R/O acute coronary syndrome in this patient presenting with dehydration and metabolic acidosis, R/O sepsis but so far no evidence identified arthritis chronic right leg rash S/P hip surgery Plan on Cefepime day 4 - cultures have been negative - will d/c antibiotics and observe will continue to monitor clinically
[2018-08-04] MEDS ORDERED: Cefepime 1gm in NS 100ml 1 GM/100 ML BAG IVPB SCH (13:45)
--- NOTE | 2018-08-04 15:11 | RAD ---
Date of service: 08/04/2018 HISTORY: r/o infilt, increased wbc, COMPARISON: 08/01/2018 FINDINGS: LUNGS: No active pulmonary disease. PLEURA: No significant pleural effusion identified, no pneumothorax apparent. CARDIOVASCULAR: No aortic atherosclerotic calcification present. Normal cardiac size. No pulmonary vascular congestion. OSSEOUS STRUCTURES: No significant abnormalities. VISUALIZED UPPER ABDOMEN: Normal. OTHER FINDINGS: Right internal jugular line terminates in the upper right atrium IMPRESSION: No active disease.
--- NOTE | 2018-08-04 15:43 | NM ---
Date of service: 08/04/2018 PROCEDURE: Renal scan and flow study HISTORY: lasix renal scan to assess split renal function COMPARISON: 08/01/2018. Bilateral renal ultrasound 08/01/2018 CT abdomen and pelvis. TECHNIQUE: 11.2 mCi technetium 99 M Mag 3 administered intravenously. FINDINGS: Right Kidney: Flow component: Diminished flow to the right kidney. This is more poorly perfused compared to the left kidney. Time to peak: 29.5 min Peak to T1/2 Peak: Not applicable Left Kidney: Flow component: Diminished perfusion/flow to the left kidney. Time to peak: 28.5 min Peak to T1/2 Peak: Not applicable Split Renal Function: Right kidney 38.4 % Left kidney 61.6 % IMPRESSION: Poorly perfused, poorly functioning/obstructed right kidney. This is reflected in split renal function 38.4%. Diminished perfusion compared to normal of the left kidney. There is poor clearance indicative of an obstructing component left kidney.
--- NOTE | 2018-08-04 15:54 | CP.PCM.PCO ---
Physician Communication Note - Physician Communication Note Physician Communication Note: pt. w. increased wbc 19 today,repeat blood cx,urine cx,Antibx restarted,cxr
--- NOTE | 2018-08-04 18:08 | CP.PCM.PN ---
Subjective - Date & Time of Evaluation Date of Evaluation: 08/04/18 Time of Evaluation: 18:05 - Subjective Subjective: Nephrology Consultation Note: Assessment: critical Acute Kidney Injury (N17.9) with uremia ? etiology (NSAIDs use, obs uropathy mild left hydro with calculus) started dialysis 08/01/18 Anemia (D64.9), Hyperphosphatemia (E83.39) hyperkalemia, vit D def, sec hyperparathyroidism HAGMA with respi compensation obesity ex smoker CKD 3 with baseline cr 2.2 in 2016 elevated troponins s/p left ureteral stent by Dr Payan 08/03/18 Plan patient is s/p 3 sessions of hd, will hold today hd tomorrow then tts schedule can consult surgery for permacath evaluation if no improvement in renal function Maintain hemodynamics stable. Avoid hypotension. Patient not on ACEI/ARB due to recent KIM Monitor Input/Output on phos binder, nephrovite and weekly aransep. PRBC as needed vitamin d added flomax. urology eval. pt planned for left ureteral stent may consider kidney biopsy depending upon work up results ordered for lasix renal scan to assess split renal function pending SW consult for outpt HD placement please call us if any qs, d/w primary attending on service ROS:negative Physical Examination: General Appearance: better appearing co-operative . Vitals reviewed and noted as below Head; Atraumatic, normocephalic ENT: no ulcers EYES: Eye muscles and extraocular movement intact. Sclera is anicteric. Neck; supple no jvd Lungs: normal respiratory rate/effort. Breath sounds bilateral equal and clear Heart: Increased rate. s1s2 normal. No rub or gallop. Extremities: no edema. No varicose veins. left hand swelling + Neurological: Patient is alert, awake and oriented to person, place and time. No focal deficit. Strength bilateral appropriate and equal Skin: Warm and dry. Normal turgor. Abdomen: Abdomen is soft. Bowel sounds +. There is no abdominal tenderness, no guarding/rigidity no organomegaly Psych: normal insight and normal affect/mood MSK: no joint tenderness or swelling. Objective - Vital Signs/Intake and Output Vital Signs (last 24 hours): Temp Pulse Resp BP Pulse Ox 98.6 F 88 13 110/58 L 96 08/03/18 13:48 08/04/18 16:00 08/04/18 16:00 08/04/18 16:00 08/04/18 16:00 Intake and Output: 08/04/18 08/04/18 06:59 18:59 Intake Total 400 Output Total 1000 Balance -600 - Medications Medications: Current Medications Albuterol/Ipratropium (Duoneb 3 Mg/0.5 Mg (3 Ml) Ud) 3 ml IH Q2H PRN PRN Reason: Shortness of Breath Aspirin (Aspirin Chewable) 81 mg PO DAILY [facility] Last Admin: 08/04/18 09:45 Dose: 81 mg Atorvastatin Calcium (Lipitor) 40 mg PO DIN [facility] Last Admin: 08/03/18 16:39 Dose: 40 mg Calcium Acetate (Phoslo) 2,001 mg PO WM [facility] Last Admin: 08/04/18 15:03 Dose: 2,001 mg Darbepoetin Ron (Aranesp) 100 mcg IVP QWK [facility] Last Admin: 08/01/18 13:50 Dose: 100 mcg Ergocalciferol (Drisdol 50,000 Intl Units Cap) 1 cap PO Q7D [facility] Last Admin: 08/02/18 17:47 Dose: 1 cap Cefepime HCl (Maxipime 1gm) 1 gm in 100 mls @ 100 mls/hr IVPB Q24H [facility]; Protocol Last Admin: 08/04/18 14:46 Dose: 100 mls/hr Indomethacin (Indocin) 50 mg PO TID PRN PRN Reason: pain Metoclopramide HCl (Reglan) 10 mg IV ONCE PRN PRN Reason: Nausea/Vomiting Metoprolol Succinate (Toprol Xl) 25 mg PO BRK [facility] Last Admin: 08/04/18 07:44 Dose: 25 mg Nystatin (Mycostatin Cream) 0 ea TOP TID [facility] Last Admin: 08/04/18 15:23 Dose: 1 applic Pantoprazole Sodium (Protonix Inj) 40 mg IVP BID [facility] Last Admin: 08/04/18 09:46 Dose: 40 mg Tamsulosin HCl (Flomax) 0.4 mg PO DAILY [facility] Last Admin: 08/04/18 09:45 Dose: 0.4 mg Vitamin B Complex/Vit C/Folic Acid (Nephro-Agustina) 1 tab PO 0800 [facility] Last Admin: 08/04/18 09:47 Dose: 1 tab - Labs Labs: 08/04/18 05:50 08/04/18 05:50 PT 15.0 SECONDS (9.4-12.5) H 08/02/18 06:00 INR 1.33 08/02/18 06:00 APTT 33.8 Seconds (26.9-38.3) 08/02/18 06:00
--- NOTE | 2018-08-04 21:30 | PN ---
DATE: 08/04/2018 SUBJECTIVE: The patient is currently in ICU, bed 128 -1. The patient has no complaints and there have been no significant events overnight. PHYSICAL EXAMINATION VITAL SIGNS: The patient is afebrile, pulse rate of 92, blood pressure 117/62, respiratory rate of 22 with an O2 saturation 97%. HEENT: PERRLA, EOMI. No icterus is appreciated. NECK: Supple with full range of motion. No adenopathy or bruits were present. CARDIOPULMONARY: Regular rate and rhythm. LUNGS: Clear to auscultation and percussion bilaterally. ABDOMEN: Soft. It is nontender. Bowel sounds are normoactive. EXTREMITIES: Show no deformities. NEUROLOGICAL: There is no focal motor deficits. LABORATORY VALUES: WBC of 19.3, hemoglobin and hematocrit rate 8.9 and 26.5 which is holding steady. Coag profile is essentially normal. Chemistry shows a potassium of 3.4, calcium of 6.5 which is low. Troponins are now coming from 1.75 to 1.36. BUN of 73, creatinine of 7.1 which are down. ASSESSMENT AND PLAN: The patient is currently being dialyzed for acute renal failure. The problem at this time is acute renal failure and sepsis. We will continue current regimen. Clostridium difficile toxins A and B are negative. We will continue medical regimen. Continue dialysis. Newton Quintana MD
--- NOTE | 2018-08-04 22:08 | CP.PCM.PN ---
Subjective - Date & Time of Evaluation Date of Evaluation: 08/04/18 Time of Evaluation: 22:08 - Subjective Subjective: S:Patient was seen . I was asked to co sign order of benadryl. As per nurse benadryl was not accepted by patient. O: Awake ,alert. Not in distress. Lungs:Normal breathing pattern. A:Insomnia. P: Benadryl was ordered but not taken by patient. Objective - Vital Signs/Intake and Output Vital Signs (last 24 hours): Temp Pulse Resp BP Pulse Ox 98.6 F 85 18 113/61 76 L 08/03/18 13:48 08/04/18 19:30 08/04/18 19:30 08/04/18 19:30 08/04/18 19:30 Intake and Output: 08/04/18 08/05/18 18:59 06:59 Intake Total 500 Output Total 1000 Balance -500 - Medications Medications: Current Medications Albuterol/Ipratropium (Duoneb 3 Mg/0.5 Mg (3 Ml) Ud) 3 ml IH Q2H PRN PRN Reason: Shortness of Breath Aspirin (Aspirin Chewable) 81 mg PO DAILY [facility] Last Admin: 08/04/18 09:45 Dose: 81 mg Atorvastatin Calcium (Lipitor) 40 mg PO DIN [facility] Last Admin: 08/04/18 19:23 Dose: 40 mg Calcium Acetate (Phoslo) 2,001 mg PO WM [facility] Last Admin: 08/04/18 19:43 Dose: 2,001 mg Darbepoetin Ron (Aranesp) 100 mcg IVP QWK [facility] Last Admin: 08/01/18 13:50 Dose: 100 mcg Ergocalciferol (Drisdol 50,000 Intl Units Cap) 1 cap PO Q7D [facility] Last Admin: 08/02/18 17:47 Dose: 1 cap Cefepime HCl (Maxipime 1gm) 1 gm in 100 mls @ 100 mls/hr IVPB Q24H [facility]; Protocol Last Admin: 08/04/18 14:46 Dose: 100 mls/hr Indomethacin (Indocin) 50 mg PO TID PRN PRN Reason: pain Last Admin: 08/04/18 19:24 Dose: 50 mg Metoclopramide HCl (Reglan) 10 mg IV ONCE PRN PRN Reason: Nausea/Vomiting Metoprolol Succinate (Toprol Xl) 25 mg PO BRK [facility] Last Admin: 08/04/18 07:44 Dose: 25 mg Nystatin (Mycostatin Cream) 0 ea TOP TID [facility] Last Admin: 08/04/18 19:44 Dose: 1 applic Pantoprazole Sodium (Protonix Inj) 40 mg IVP BID [facility] Last Admin: 08/04/18 19:43 Dose: 40 mg Tamsulosin HCl (Flomax) 0.4 mg PO DAILY [facility] Last Admin: 08/04/18 09:45 Dose: 0.4 mg Vitamin B Complex/Vit C/Folic Acid (Nephro-Agustina) 1 tab PO 0800 [facility] Last Admin: 08/04/18 09:47 Dose: 1 tab - Labs Labs: 08/04/18 05:50 08/04/18 05:50 PT 15.0 SECONDS (9.4-12.5) H 08/02/18 06:00 INR 1.33 08/02/18 06:00 APTT 33.8 Seconds (26.9-38.3) 08/02/18 06:00
--- NOTE | 2018-08-05 02:42 | PN ---
DATE: 08/04/2018 SUBJECTIVE: The patient remains in the Intensive Care Unit. PHYSICAL EXAMINATION: VITAL SIGNS: He is afebrile, BP 142/73, pulse of 88, respirations 18. ABDOMEN: Benign. Sen draining clear urine. IMPRESSION AND PLAN: The patient with acute renal failure, left ureteral calculus, status post stent placement. The patient's blood cultures have shown no growth. His urine culture showed no growth from 08/01/2018. Does not appear to have urosepsis. The cause of his acute renal failure was still undetermined. The patient went for renal scan today, and we will review the results. Urologically, I would continue the patient with Sen catheter drainage. The stent is in place. When the patient has medically improved, we can consider a ureteroscopy with laser lithotripsy and stone removal, but we need to discuss this with his medical attending as well as Nephrology to see if the patient's renal function is going to recover with conservative measures. Elliot Payan MD
[2018-08-05 03:09] LABS: ANCA SCREEN NEGATIVE (NEGATIVE)
[2018-08-05] MEDS ORDERED: Pantoprazole 40 mg EC Tab PO SCH (06:45)
[2018-08-05 07:56] LABS: ALBUMIN 3.3 g/dL (3.0-4.8); CALCIUM 7.2 mg/dL (8.4-10.5)
[2018-08-05 08:23] LABS: HEMOGLOBIN 8.7 g/dL (14.0-18.0); MEAN CELL VOLUME 84.7 fl (80.0-105.0); MEAN CORPUSCULAR HEMOGLOBIN 28.3 pg (25.0-35.0); MEAN CORPUSCULAR HGB CONC 33.5 g/dl (31.0-37.0); MEAN PLATELET VOLUME 10.3 fl (7.0-11.0); RBC 3.07 10^6/uL (3.5-6.1); RED CELL DISTRIBUTION WIDTH 14.1 % (11.5-14.5)
[2018-08-05 08:24] LABS: WHITE BLOOD COUNT 21.8 10^3/uL (4.5-11.0)
--- NOTE | 2018-08-05 11:22 | CP.PCM.PN ---
Subjective - Date & Time of Evaluation Date of Evaluation: 08/05/18 Time of Evaluation: 11:19 - Subjective Subjective: Nephrology Consultation Note: Assessment: critical Acute Kidney Injury (N17.9) with uremia ? etiology (NSAIDs use, obs uropathy mild left hydro with calculus) started dialysis 08/01/18 Anemia (D64.9), Hyperphosphatemia (E83.39) hyperkalemia, vit D def, sec hyperparathyroidism HAGMA with respi compensation obesity ex smoker CKD 3 with baseline cr 2.2 in 2016 elevated troponins s/p left ureteral stent by Dr Payan 08/03/18 ? paraprotein Plan seen on Hd tolerating tx - changed to 4 k bath for last hour of tx continue tts consult IR for permacath - order placed discussed w/ rn on phos binder, nephrovite and weekly aransep. PRBC as needed vitamin d f/u gu + SIFE w/ + Lambda Light chain - serum Free ligth chain assay is pending [facility] hematology eval please call us if any qs, s: seen and examiend on HD tolerating tx Physical Examination: General Appearance: better appearing co-operative . Vitals reviewed and noted as below Head; Atraumatic, normocephalic ENT: no ulcers EYES: Eye muscles and extraocular movement intact. Sclera is anicteric. Neck; supple no jvd Lungs: normal respiratory rate/effort. Breath sounds bilateral equal and clear Heart: Increased rate. s1s2 normal. No rub or gallop. Extremities: no edema. No varicose veins. left hand swelling + Neurological: Patient is alert, awake and oriented to person, place and time. No focal deficit. Strength bilateral appropriate and equal Skin: Warm and dry. Normal turgor. Abdomen: Abdomen is soft. Bowel sounds +. There is no abdominal tenderness, no guarding/rigidity no organomegaly Psych: normal insight and normal affect/mood MSK: no joint tenderness or swelling. Objective - Vital Signs/Intake and Output Vital Signs (last 24 hours): Temp Pulse Resp BP Pulse Ox 97.8 F 77 19 95/59 L 97 08/05/18 05:21 08/05/18 05:21 08/05/18 05:21 08/05/18 05:21 08/05/18 05:21 Intake and Output: 08/05/18 08/05/18 06:59 18:59 Intake Total 0 Output Total 201 Balance -201 - Medications Medications: Current Medications Albuterol/Ipratropium (Duoneb 3 Mg/0.5 Mg (3 Ml) Ud) 3 ml IH Q2H PRN PRN Reason: Shortness of Breath Atorvastatin Calcium (Lipitor) 40 mg PO DIN [facility] Last Admin: 08/04/18 19:23 Dose: 40 mg Calcium Acetate (Phoslo) 2,001 mg PO WM [facility] Last Admin: 08/04/18 19:43 Dose: 2,001 mg Darbepoetin Ron (Aranesp) 100 mcg IVP QWK [facility] Last Admin: 08/01/18 13:50 Dose: 100 mcg Ergocalciferol (Drisdol 50,000 Intl Units Cap) 1 cap PO Q7D [facility] Last Admin: 08/02/18 17:47 Dose: 1 cap Indomethacin (Indocin) 50 mg PO TID PRN PRN Reason: pain Last Admin: 08/05/18 08:21 Dose: 50 mg Metoclopramide HCl (Reglan) 10 mg IV ONCE PRN PRN Reason: Nausea/Vomiting Metoprolol Succinate (Toprol Xl) 25 mg PO BRK [facility] Last Admin: 08/04/18 07:44 Dose: 25 mg Nystatin (Mycostatin Cream) 0 ea TOP TID [facility] Last Admin: 08/04/18 19:44 Dose: 1 applic Pantoprazole Sodium (Protonix Ec Tab) 40 mg PO 0600,1600 [facility] Tamsulosin HCl (Flomax) 0.4 mg PO DAILY [facility] Last Admin: 08/04/18 09:45 Dose: 0.4 mg Vitamin B Complex/Vit C/Folic Acid (Nephro-Agustina) 1 tab PO 0800 [facility] Last Admin: 08/04/18 09:47 Dose: 1 tab - Labs Labs: 08/05/18 07:00 08/05/18 07:00 PT 15.0 SECONDS (9.4-12.5) H 08/02/18 06:00 INR 1.33 08/02/18 06:00 APTT 33.8 Seconds (26.9-38.3) 08/02/18 06:00
[2018-08-05] MEDS ORDERED: Potassium Chloride 20 mEq ER Tab PO ONE (12:42)
--- NOTE | 2018-08-05 12:42 | PN ---
DATE: 08/05/2018 SUBJECTIVE: The patient is in bed in no acute distress, nontoxic. PHYSICAL EXAMINATION: VITAL SIGNS: Temperature is 98, blood pressure is 95/59, respiratory rate of 18. HEENT: Unremarkable. NECK: Supple. LUNGS: Have decreased breath sounds. HEART: Normal S1, S2. ABDOMEN: Soft. LABORATORY EXAMINATION: Reveals a white count is 21,000, hemoglobin of 8.7. Creatinine is 8.6. Urinalysis is noted and immunology is reviewed. Serology is reviewed. Microbiology; blood cultures are no growth. Stool for C. diff toxin and antigen is negative, naris smears and cultures are negative for MRSA and urine cultures are also negative. Review of orders reveals the patient to be on cefepime, started by . The patient's chest x-ray from yesterday reveals no pulmonary disease. Dr. Newton Quintana's note is reviewed from yesterday. ASSESSMENT AND PLAN: This is a 68-year-old male with systemic inflammatory response syndrome secondary to acute renal failure, left-sided obstructive uropathy, status post left ureteral stent placement, rule out acute coronary syndrome and no evidence of infections. Dr. Coffey discontinue the cefepime after 4 days of cefepime. All cultures are negative. The patient's nontoxic verbalizing review of medications. The patient's WBCs are elevated to 21,000. LFTs are normal. Since the patient is nontoxic, we will discontinue the cefepime. Follow the WBCs[place]. We will follow the patient off of antibiotics. Ky Layton MD
[2018-08-05] MEDS: Metoprolol Succinate 25 mg XL Tab PO SCH (13:03)
[2018-08-05] MEDS: Nystatin 100,000 Units/gm Cream(15 gm) TOP SCH ×3 (13:03→17:29)
[2018-08-05] MEDS: Multivitamin Vitamin B Complex (Nephro-Vite) Tab PO SCH (13:03)
--- NOTE | 2018-08-05 15:15 | PN ---
SUBJECTIVE: The patient was seen and examined at bedside on the telemetry carranza. No acute events overnight. He remains afebrile and hemodynamically stable. OBJECTIVE: VITAL SIGNS: Temperature 97.8, pulse 77, blood pressure 95/59, respiratory rate 19, oxygen saturation 97% on 2L NC. GENERAL: Obese man lying in bed in no apparent distress. HEENT: PERRL, EOMI. No scleral icterus. Conjunctival pallor is noted. NECK: No JVD. LUNGS: Decreased breath sounds at bases. CARDIOVASCULAR: Regular rate and rhythm. Normal S1 and S2. Grade II/ murmur to LLSB. No friction rub. ABDOMEN: Normoactive bowel sounds, soft, nontender, nondistended. EXTREMITIES: Trace pedal edema bilaterally. NEUROLOGIC: Awake, alert and oriented x 3. No focal motor deficits. LABORATORY DATA: WBC 21, hemoglobin 8.7, hematocrit 26, platelets 198. Sodium 136, potassium 3.3, chloride 97, bicarb 26, BUN 101, creatinine 8.6, glucose 128. Blood culture with no growth to date. Urine culture with no growth to date. Clostridium difficile negative. ASSESSMENT: The patient is a 68-year-old man who was initially admitted to the ICU for management of KIM on CKD stage III, anion gap metabolic acidosis, SIRS syndrome and anemia of unclear etiology who is now s/p transfer to the telemetry carranza and demonstrating clinical improvement. PLAN: 1. KIM on CKD stage III. Input from Dr. Samaniego noted. The patient remains on renal replacement therapy. Continue with care as per Dr. Samaniego. 2. Elevated troponin, consider secondary to impaired renal clearance, less likely NSTEMI. Input from Dr. Craft noted. The patient remains chest pain free. Continue with conservative medical management. The patient will eventually require stress testing. 3. Anion gap metabolic acidosis, resolved. Continue with care as per Dr. Samaniego. 4. Obstructive nephrolithiasis s/p ureteral stent placement. Continue with Flomax 0.4 mg p.o. daily. Continue with care as per Dr. Payan. 5. SIRS syndrome. Input from Dr. Coffey noted. Blood and urine cultures remain negative. Continue with current antimicrobials as per Dr. Coffey. 6. Normocytic anemia s/p transfusion of 2 units PRBCs. Input from Dr. Carrera noted. Continue to monitor CBC and transfuse as needed. 7. Elevated BNP, etiology likely secondary to underlying renal dysfunction. TTE demonstrates no wall motion abnormality or valvular dysfunction. 8. Prophylaxis. Continue Protonix for GI prophylaxis and Heparin for DVT prophylaxis. CODE STATUS: Full Code. Scout Quintana MD MTDDidi
[2018-08-05] MEDS: Pantoprazole 40 mg EC Tab PO SCH (17:24)
[2018-08-06] MEDS: Pantoprazole 40 mg EC Tab PO SCH ×2 (05:06→17:02)
[2018-08-06 07:37] LABS: ALBUMIN 3.1 g/dL (3.0-4.8); CALCIUM 7.4 mg/dL (8.4-10.5)
[2018-08-06 07:41] LABS: BASO # 0.02 K/mm3 (0.0-2.0); BASO % 0.1 % (0.0-3.0); EOS # 0.6 (0.0-0.7); EOS % 3.3 % (1.5-5.0); HEMOGLOBIN 8.1 g/dL (14.0-18.0); LYMPH # 1.5 (1.2-3.4); LYMPH % 8.2 % (22.0-35.0); MEAN CELL VOLUME 86.6 fl (80.0-105.0); MEAN CORPUSCULAR HEMOGLOBIN 27.8 pg (25.0-35.0); MEAN CORPUSCULAR HGB CONC 32.1 g/dl (31.0-37.0); MEAN PLATELET VOLUME 10.1 fl (7.0-11.0); MONO # 1.3 (0.1-0.6); MONO % 6.8 % (1.0-6.0); RBC 2.91 10^6/uL (3.5-6.1); RED CELL DISTRIBUTION WIDTH 13.9 % (11.5-14.5); WHITE BLOOD COUNT 18.6 10^3/uL (4.5-11.0)
[2018-08-06] MEDS: Metoprolol Succinate 25 mg XL Tab PO SCH (07:51)
[2018-08-06] MEDS: Multivitamin Vitamin B Complex (Nephro-Vite) Tab PO SCH (08:52)
[2018-08-06] MEDS: Nystatin 100,000 Units/gm Cream(15 gm) TOP SCH ×3 (09:06→17:11)
--- NOTE | 2018-08-06 13:13 | CP.PCM.PN ---
Subjective - Date & Time of Evaluation Date of Evaluation: 08/06/18 Time of Evaluation: 13:07 - Subjective Subjective: Nephrology Consultation Note: Assessment: critical Acute Kidney Injury (N17.9) with uremia ? etiology (NSAIDs use, obs uropathy mild left hydro with calculus) started dialysis 08/01/18 Anemia (D64.9), Hyperphosphatemia (E83.39) hyperkalemia, vit D def, sec hyperparathyroidism HAGMA with respi compensation obesity ex smoker CKD 3 with baseline cr 2.2 in 2016 elevated troponins s/p left ureteral stent by Dr Payan 08/03/18 ? paraprotein Plan next tx tuesday consult IR for permacath - order placed discussed w/ rn on phos binder, nephrovite and weekly aransep. PRBC as needed vitamin d f/u gu + SIFE w/ + Lambda Light chain - serum Free ligth chain assay is pending [facility] hematology eval s: feels ok no n/v Physical Examination: General Appearance: better appearing co-operative . Vitals reviewed and noted as below Head; Atraumatic, normocephalic ENT: no ulcers EYES: Eye muscles and extraocular movement intact. Sclera is anicteric. Neck; supple no jvd Lungs: normal respiratory rate/effort. Breath sounds bilateral equal and clear Heart: Increased rate. s1s2 normal. No rub or gallop. Extremities: no edema. No varicose veins. left hand swelling + Neurological: Patient is alert, awake and oriented to person, place and time. No focal deficit. Strength bilateral appropriate and equal Skin: Warm and dry. Normal turgor. Abdomen: Abdomen is soft. Bowel sounds +. There is no abdominal tenderness, no guarding/rigidity no organomegaly Psych: normal insight and normal affect/mood MSK: no joint tenderness or swelling. Objective - Vital Signs/Intake and Output Vital Signs (last 24 hours): Temp Pulse Resp BP Pulse Ox 98.7 F 71 19 105/53 L 94 L 08/06/18 12:00 08/06/18 12:00 08/06/18 12:00 08/06/18 12:00 08/06/18 06:00 Intake and Output: 08/06/18 08/06/18 06:59 18:59 Intake Total 240 Output Total 100 Balance 140 - Medications Medications: Current Medications Albuterol/Ipratropium (Duoneb 3 Mg/0.5 Mg (3 Ml) Ud) 3 ml IH Q2H PRN PRN Reason: Shortness of Breath Atorvastatin Calcium (Lipitor) 40 mg PO DIN [facility] Last Admin: 08/05/18 17:24 Dose: 40 mg Calcium Acetate (Phoslo) 2,001 mg PO WM [facility] Last Admin: 08/06/18 11:41 Dose: 2,001 mg Darbepoetin Ron (Aranesp) 100 mcg IVP QWK [facility] Last Admin: 08/01/18 13:50 Dose: 100 mcg Ergocalciferol (Drisdol 50,000 Intl Units Cap) 1 cap PO Q7D [facility] Last Admin: 08/02/18 17:47 Dose: 1 cap Indomethacin (Indocin) 50 mg PO TID PRN PRN Reason: pain Last Admin: 08/05/18 17:24 Dose: 50 mg Metoclopramide HCl (Reglan) 10 mg IV ONCE PRN PRN Reason: Nausea/Vomiting Metoprolol Succinate (Toprol Xl) 25 mg PO BRK [facility] Last Admin: 08/06/18 07:51 Dose: Not Given Nystatin (Mycostatin Cream) 0 ea TOP TID [facility] Last Admin: 08/06/18 09:06 Dose: 1 applic Pantoprazole Sodium (Protonix Ec Tab) 40 mg PO 0600,1600 [facility] Last Admin: 08/06/18 05:06 Dose: 40 mg Tamsulosin HCl (Flomax) 0.4 mg PO DAILY [facility] Last Admin: 08/06/18 09:05 Dose: 0.4 mg Vitamin B Complex/Vit C/Folic Acid (Nephro-Agustina) 1 tab PO 0800 [facility] Last Admin: 08/06/18 08:52 Dose: 1 tab - Labs Labs: 08/06/18 07:00 08/06/18 07:00 PT 15.0 SECONDS (9.4-12.5) H 08/02/18 06:00 INR 1.33 08/02/18 06:00 APTT 33.8 Seconds (26.9-38.3) 08/02/18 06:00
--- NOTE | 2018-08-06 14:38 | PN ---
SUBJECTIVE: The patient was seen and examined at bedside on the telemetry carranza. No acute events overnight. He remains afebrile, hemodynamically stable and is tolerating renal replacement therapy without difficulty. OBJECTIVE: VITAL SIGNS: Temperature 98.4, pulse 84, blood pressure 102/54, respiratory rate 20, oxygen saturation 95% on room air. GENERAL: Obese man, lying in bed, in no apparent distress. HEENT: PERRL, EOMI. No scleral icterus. Conjunctival pallor is noted. NECK: No JVD. LUNGS: Decreased breath sounds at the bases. CARDIOVASCULAR: Regular rate and rhythm. Normal S1 and S2. Grade II/ murmur to LLSB. No friction rub. ABDOMEN: Normoactive bowel sounds, soft, nontender, nondistended. EXTREMITIES: Trace pedal edema bilaterally. NEUROLOGIC: Awake, alert and oriented x 3. No focal motor deficits. LABORATORY DATA: WBC 18.6 with 82% neutrophils, hemoglobin 8, hematocrit 25, platelets 214. Sodium 135, potassium 3.6, chloride 99, bicarb 27, BUN 67, creatinine 6.6, glucose 114. Blood cultures with no growth to date. Urine culture no growth to date. C. diff negative. ASSESSMENT: The patient is a 68-year-old man who was initially admitted to the ICU for management of KIM on CKD stage III, anion gap metabolic acidosis, SIRS syndrome and anemia of unclear etiology who is now s/p transfer to the telemetry carranza and demonstrating gradual clinical improvement. PLAN: 1. KIM on CKD stage III, consider secondary to obstructive uropathy vs chronic NSAID use. Input from Dr. De La Cruz noted. The patient is tolerating renal replacement therapy without difficulty. Continue with care as per Dr. De La Cruz. 2. Elevated troponin, consider secondary to impaired renal clearance, less likely NSTEMI. Input from Dr. Craft noted. The patient remains chest pain free. Continue with conservative medical management. He will eventually require stress testing. 3. Anion gap metabolic acidosis, resolved. Continue with care as per Dr. De La Cruz. 4. Obstructive nephrolithiasis s/p ureteral stent placement. Continue with Flomax 0.4 mg p.o. daily. Continue with care as per Dr. Payan. 5. SIRS syndrome. Input from Dr. Layton noted. The patient remains afebrile and off antimicrobials. Cultures remain negative. 6. Normocytic anemia s/p transfusion of 2 units PRBCs. The patient remains on Protonix 40 mg p.o. b.i.d. GI evaluation ongoing with Dr. Carrera. 7. Elevated BNP, etiology likely secondary to underlying renal dysfunction. TTE without wall motion abnormality or valvular dysfunction. 8. Prophylaxis. Continue Protonix for GI prophylaxis and Heparin for DVT prophylaxis. CODE STATUS: Full code. Scout Quintana MD MTDD
--- NOTE | 2018-08-06 15:51 | CP.PCM.PN ---
Subjective - Date & Time of Evaluation Date of Evaluation: 08/06/18 Time of Evaluation: 09:10 - Subjective Subjective: Comfortable in bed, not in distress, afebrile. Objective - Vital Signs/Intake and Output Vital Signs (last 24 hours): Temp Pulse Resp BP Pulse Ox 98.4 F 83 20 102/54 L 94 L 08/06/18 06:00 08/06/18 07:51 08/06/18 06:00 08/06/18 07:51 08/06/18 06:00 Intake and Output: 08/06/18 08/06/18 06:59 18:59 Intake Total 240 Output Total 100 Balance 140 - Medications Medications: Current Medications Albuterol/Ipratropium (Duoneb 3 Mg/0.5 Mg (3 Ml) Ud) 3 ml IH Q2H PRN PRN Reason: Shortness of Breath Atorvastatin Calcium (Lipitor) 40 mg PO DIN [facility] Last Admin: 08/05/18 17:24 Dose: 40 mg Calcium Acetate (Phoslo) 2,001 mg PO WM [facility] Last Admin: 08/06/18 07:51 Dose: 2,001 mg Darbepoetin Ron (Aranesp) 100 mcg IVP QWK [facility] Last Admin: 08/01/18 13:50 Dose: 100 mcg Ergocalciferol (Drisdol 50,000 Intl Units Cap) 1 cap PO Q7D [facility] Last Admin: 08/02/18 17:47 Dose: 1 cap Indomethacin (Indocin) 50 mg PO TID PRN PRN Reason: pain Last Admin: 08/05/18 17:24 Dose: 50 mg Metoclopramide HCl (Reglan) 10 mg IV ONCE PRN PRN Reason: Nausea/Vomiting Metoprolol Succinate (Toprol Xl) 25 mg PO BRK [facility] Last Admin: 08/06/18 07:51 Dose: Not Given Nystatin (Mycostatin Cream) 0 ea TOP TID [facility] Last Admin: 08/06/18 09:06 Dose: 1 applic Pantoprazole Sodium (Protonix Ec Tab) 40 mg PO 0600,1600 [facility] Last Admin: 08/06/18 05:06 Dose: 40 mg Tamsulosin HCl (Flomax) 0.4 mg PO DAILY [facility] Last Admin: 08/06/18 09:05 Dose: 0.4 mg Vitamin B Complex/Vit C/Folic Acid (Nephro-Agustina) 1 tab PO 0800 [facility] Last Admin: 08/06/18 08:52 Dose: 1 tab - Labs Labs: 08/06/18 07:00 08/06/18 07:00 PT 15.0 SECONDS (9.4-12.5) H 08/02/18 06:00 INR 1.33 08/02/18 06:00 APTT 33.8 Seconds (26.9-38.3) 08/02/18 06:00 - Constitutional Appears: Chronically Ill - Head Exam Head Exam: NORMAL INSPECTION - Respiratory Exam Respiratory Exam: Decreased Breath Sounds - Cardiovascular Exam Cardiovascular Exam: +S1, +S2 - GI/Abdominal Exam GI & Abdominal Exam: Soft. absent: Tenderness Assessment and Plan - Assessment and Plan (Free Text) Plan: Assessment Systemic inflammatory response syndrome, probably due to acute renal failure from left sided obstructive uropathy S/P left ureteral stent placement R/O acute coronary syndrome in this patient presenting with dehydration and metabolic acidosis, R/O sepsis but so far no evidence identified arthritis chronic right leg rash S/P hip surgery Plan cultures and repeat cultures have been negative - will continue to monitor off antibiotics since he is at risk for nosocomial infections
[2018-08-07] MEDS: Pantoprazole 40 mg EC Tab PO SCH ×2 (05:08→18:16)
[2018-08-07 06:39] LABS: EOS % 0.1 % (1.5-5.0); HEMOGLOBIN 8.4 g/dL (14.0-18.0); LYMPH # 0.5 (1.2-3.4); LYMPH % 3.4 % (22.0-35.0); MEAN CELL VOLUME 85.6 fl (80.0-105.0); MEAN CORPUSCULAR HEMOGLOBIN 28.1 pg (25.0-35.0); MEAN CORPUSCULAR HGB CONC 32.8 g/dl (31.0-37.0); MEAN PLATELET VOLUME 10.2 fl (7.0-11.0); MONO # 0.4 (0.1-0.6); MONO % 2.2 % (1.0-6.0); PLATELET COUNT 220 10^3/uL (120.0-450.0); RBC 2.99 10^6/uL (3.5-6.1); RED CELL DISTRIBUTION WIDTH 13.4 % (11.5-14.5)
[2018-08-07 07:28] LABS: ALBUMIN 3.2 g/dL (3.0-4.8); CALCIUM 7.4 mg/dL (8.4-10.5)
[2018-08-07 08:16] LABS: EOSINOPHIL 1 % (0.0-3.0); LYMPHOCYTE 1 % (22.0-35.0); MONOCYTE 1 % (1.0-6.0); MYELOCYTE 2 %; NEUTROPHIL 95 % (50.0-70.0); PLATELET ESTIMATE NORMAL (NORMAL)
[2018-08-07] MEDS: Metoprolol Succinate 25 mg XL Tab PO SCH (08:59)
[2018-08-07] MEDS: Multivitamin Vitamin B Complex (Nephro-Vite) Tab PO SCH (08:59)
--- NOTE | 2018-08-07 09:14 | CON ---
DATE: 08/07/2018 REASON FOR CONSULTATION: Abnormal immunofixation, anemia. CONSULT REQUESTED BY: Dr. Quintana. HISTORY OF PRESENT ILLNESS: Mr. Dorsey is a 68-year-old male admitted to the hospital with worsening dyspnea, pedal edema, orthopnea. The patient was found to be in acute renal failure. White count was elevated to 23,000 on admission, hemoglobin was 9 and platelet count normal, hemoglobin declined to 6.6. He received 2 units of blood transfusion on 08/02/2018. His serum protein electrophoresis and immunofixation done. Immunofixation showed faint M-protein free light chain, free lambda and kappa lambda ratio within normal limits 1.66. He was started on hemodialysis. He is being treated with IV antibiotics. White count has declined to 10,000 now, initially 23,000. Differential showed mainly neutrophils. PAST MEDICAL HISTORY: Osteoarthritis bilateral hip. PAST SURGICAL HISTORY: Bilateral total hip replacement, and cataract removal. ALLERGIES: NO KNOWN DRUG ALLERGIES. HOME MEDICATIONS: None. CURRENT MEDICATIONS: DuoNeb, Lipitor 40 mg daily, PhosLo, , Aranesp 100 mg every week IV, indomethacin 50 mg p.o. t.i.d., Reglan 10 mg p.r.n., metoprolol 25 mg daily, nystatin, Protonix, Flomax and multivitamin. FAMILY HISTORY: Significant for hypertension and kidney disease, positive in mother. PERSONAL HISTORY: Former smoker and former heavy alcohol abuse. REVIEW OF SYSTEMS: As per HPI. Rest of 12-point review of systems are reviewed and negative. PHYSICAL EXAMINATION GENERAL: Comfortable in bed, in no acute distress. VITAL SIGNS: Temperature 97.4, heart rate is 82 per minute, blood pressure 149/70, respiratory rate 20 per minute and oxygen saturation 94% on room air. HEENT: Pallor positive. NECK: No lymphadenopathy. CHEST: Air entry present and equal bilaterally. No added sound. CARDIOVASCULAR: S1 and S2 normal. No murmur. No gallop. ABDOMEN: Soft and nontender. No hepatosplenomegaly. EXTREMITIES: Trace bilateral petal edema. NEUROLOGIC: Alert and oriented x3. No focal sensory motor deficit. SPINE: Nontender. LABORATORY DATA: White count 10.1, hemoglobin 8.3, hematocrit 23.6 and platelets 166. Sodium 137, potassium 3.2, creatinine 10. Serum immunofixation showed faint free lambda band present. Troponin declining trend 1.36. ASSESSMENT AND PLAN: 1. 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 Lambda light chain has 179, kappa 297, kappa-lambda ratio 1.66 within normal limits. Quantitative lambda light chains are not elevated. Light chain likely to be the reason for acute renal failure, but we will do skeletal survey once stable to rule lytic lesions. No M-protein on immunofixation. 2. Leukocytosis likely due to sepsis, white count declined to 10,000 from 23,000. Differential CBC within normal limits mainly granulocytosis. No further workup needed at this point. 3. Acute renal disease. Currently on hemodialysis and Aranesp IV. I would recommend to give Aranesp subcutaneously instead of IV. Iron studies showed high iron. We will repeat the iron studies, if iron is low, we will replete the iron. Elevated iron might be related to recent blood transfusion. We will continue to follow. Thank you Dr. Quintana for allowing us to participate in [facility]. Jerilyn Sim MD
[2018-08-07] MEDS: Nystatin 100,000 Units/gm Cream(15 gm) TOP SCH ×3 (11:00→18:17)
--- NOTE | 2018-08-07 12:22 | PN ---
SUBJECTIVE: The patient was seen and examined at bedside on the telemetry carranza. No acute events overnight. He remains afebrile and hemodynamically stable. He is tolerating hemodialysis and arrangements are being made for PermCath placement. OBJECTIVE: VITAL SIGNS: Temperature 97.4, pulse 82, blood pressure 149/70, respiratory rate 20, oxygen saturation 94% on room air. GENERAL: Obese man lying in bed in no apparent distress. HEENT: PERRL, EOMI. No scleral icterus. Conjunctival pallor is noted. NECK: No JVD. Right IJ line in place with site appearing clean, dry and intact. LUNGS: Decreased breath sounds at the bases. CARDIOVASCULAR: Regular rate and rhythm. Normal S1, S2. Grade II/ murmur to LLSB. No friction rub. ABDOMEN: Normoactive bowel sounds, soft, nontender, nondistended. EXTREMITIES: Trace pedal edema bilaterally. NEUROLOGIC: Awake, alert and oriented x 3. No focal motor deficits. LABORATORY DATA: WBC 16 with 94% neutrophils, hemoglobin 8.4, hematocrit 26, platelets 220. Sodium 134, potassium 4.3, chloride 97, bicarb 25, BUN 93, creatinine 8.8, glucose 239. Blood cultures (07/31/18) negative blood cultures (08/04/18) with no growth to date. Urine culture negative. C. diff negative. ASSESSMENT: The patient is a 68-year-old man who was initially admitted to ICU for the management of KIM on CKD stage III, anion gap metabolic acidosis, SIRS syndrome and anemia of unclear etiology who is now s/p transfer to the telemetry carranza and demonstrating continued clinical improvement. PLAN: 1 KIM on CKD stage III, consider etiology secondary to obstructive uropathy vs chronic NSAID use. Input from Dr. De La Cruz noted. Arrangements will be made for PermCath placement to facilitate continued hemodialysis. Continue with care as per nephrology. 2. 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 Evaluation with Dr. Sim of Hematology/Oncology is pending. 3. Elevated troponin, consider secondary to impaired renal clearance, less likely NSTEMI. Input from Dr. Craft noted. Continue with conservative medical management. The patient will eventually require stress testing. 4. Anion gap metabolic acidosis, resolved. Continue with care as per nephrology. 5. Obstructive nephrolithiasis s/p ureteral stent placement. Continue with Flomax 0.4 mg p.o. daily. Continue with care as per Dr. Payan. 6. SIRS syndrome, resolved. The patient remains off antimicrobials and with negative cultures. We will continue to monitor for fever and leukocytosis. 7. Normocytic anemia s/p transfusion of 2 units of PRBCs. Labs demonstrate stable H/H. Anemia workup is ongoing and evaluation is pending with Dr. Carrera for possible EGD and/or colonoscopy. Continue Protonix 40 mg p.o. b.i.d. 8. Elevated BNP, etiology likely secondary to underlying renal dysfunction. TTE demonstrates no wall motion abnormality or valvular dysfunction. 9. Prophylaxis. Continue Protonix for GI prophylaxis and Heparin for DVT prophylaxis. CODE STATUS: Full code. Scout Quintana MD MTDDidi
--- NOTE | 2018-08-07 13:27 | CP.PCM.PN ---
Subjective - Date & Time of Evaluation Date of Evaluation: 08/07/18 Time of Evaluation: 10:30 - Subjective Subjective: Comfortable on a chair, no fevers. Objective - Vital Signs/Intake and Output Vital Signs (last 24 hours): Temp Pulse Resp BP Pulse Ox 98.7 F 71 19 105/53 L 94 L 08/06/18 12:00 08/06/18 14:00 08/06/18 12:00 08/06/18 12:00 08/06/18 06:00 Intake and Output: 08/06/18 08/06/18 06:59 18:59 Intake Total 240 Output Total 100 Balance 140 - Medications Medications: Current Medications Albuterol/Ipratropium (Duoneb 3 Mg/0.5 Mg (3 Ml) Ud) 3 ml IH Q2H PRN PRN Reason: Shortness of Breath Atorvastatin Calcium (Lipitor) 40 mg PO DIN [facility] Last Admin: 08/05/18 17:24 Dose: 40 mg Calcium Acetate (Phoslo) 2,001 mg PO WM [facility] Last Admin: 08/06/18 11:41 Dose: 2,001 mg Darbepoetin Ron (Aranesp) 100 mcg IVP QWK [facility] Last Admin: 08/01/18 13:50 Dose: 100 mcg Ergocalciferol (Drisdol 50,000 Intl Units Cap) 1 cap PO Q7D [facility] Last Admin: 08/02/18 17:47 Dose: 1 cap Indomethacin (Indocin) 50 mg PO TID PRN PRN Reason: pain Last Admin: 08/05/18 17:24 Dose: 50 mg Metoclopramide HCl (Reglan) 10 mg IV ONCE PRN PRN Reason: Nausea/Vomiting Metoprolol Succinate (Toprol Xl) 25 mg PO BRK [facility] Last Admin: 08/06/18 07:51 Dose: Not Given Nystatin (Mycostatin Cream) 0 ea TOP TID [facility] Last Admin: 08/06/18 09:06 Dose: 1 applic Pantoprazole Sodium (Protonix Ec Tab) 40 mg PO 0600,1600 [facility] Last Admin: 08/06/18 05:06 Dose: 40 mg Tamsulosin HCl (Flomax) 0.4 mg PO DAILY [facility] Last Admin: 08/06/18 09:05 Dose: 0.4 mg Vitamin B Complex/Vit C/Folic Acid (Nephro-Agustina) 1 tab PO 0800 [facility] Last Admin: 08/06/18 08:52 Dose: 1 tab - Labs Labs: 08/06/18 07:00 08/06/18 07:00 PT 15.0 SECONDS (9.4-12.5) H 08/02/18 06:00 INR 1.33 08/02/18 06:00 APTT 33.8 Seconds (26.9-38.3) 08/02/18 06:00 - Constitutional Appears: Chronically Ill - Head Exam Head Exam: NORMAL INSPECTION - Respiratory Exam Respiratory Exam: Decreased Breath Sounds - Cardiovascular Exam Cardiovascular Exam: +S1, +S2 - GI/Abdominal Exam GI & Abdominal Exam: Soft. absent: Tenderness Assessment and Plan - Assessment and Plan (Free Text) Plan: Assessment Systemic inflammatory response syndrome, probably due to acute renal failure from left sided obstructive uropathy S/P left ureteral stent placement R/O acute coronary syndrome in this patient presenting with dehydration and metabolic acidosis, no evidence of sepsis or infection identified arthritis chronic right leg rash S/P hip surgery Plan cultures and repeat cultures have been negative - will continue to monitor off antibiotics since he is at risk for hospital-acquired infections and will continue to trend WBC count
--- NOTE | 2018-08-07 13:51 | CP.PCM.PN ---
Subjective - Date & Time of Evaluation Date of Evaluation: 08/07/18 Time of Evaluation: 13:49 - Subjective Subjective: GI Dr. Carrera Pt seen and examined. No acute events overnight. Pt is resting comfortably in bed. He has no abdominal pain. No N/V. He reports normal bowel movements. Objective - Vital Signs/Intake and Output Vital Signs (last 24 hours): Temp Pulse Resp BP Pulse Ox 98.1 F 85 18 110/65 94 L 08/07/18 12:00 08/07/18 12:00 08/07/18 12:00 08/07/18 12:00 08/07/18 00:01 Intake and Output: 08/07/18 08/07/18 06:59 18:59 Intake Total 960 Output Total 675 Balance 285 - Medications Medications: Current Medications Albuterol/Ipratropium (Duoneb 3 Mg/0.5 Mg (3 Ml) Ud) 3 ml IH Q2H PRN PRN Reason: Shortness of Breath Atorvastatin Calcium (Lipitor) 40 mg PO DIN [facility] Last Admin: 08/06/18 17:09 Dose: 40 mg Calcium Acetate (Phoslo) 2,001 mg PO WM [facility] Last Admin: 08/07/18 08:57 Dose: 2,001 mg Darbepoetin Ron (Aranesp) 100 mcg IVP QWK [facility] Last Admin: 08/01/18 13:50 Dose: 100 mcg Ergocalciferol (Drisdol 50,000 Intl Units Cap) 1 cap PO Q7D [facility] Last Admin: 08/02/18 17:47 Dose: 1 cap Metoprolol Succinate (Toprol Xl) 25 mg PO BRK [facility] Last Admin: 08/07/18 08:59 Dose: 25 mg Nystatin (Mycostatin Cream) 0 ea TOP TID [facility] Last Admin: 08/06/18 17:11 Dose: 1 applic Pantoprazole Sodium (Protonix Ec Tab) 40 mg PO 0600,1600 [facility] Last Admin: 08/07/18 05:08 Dose: 40 mg Tamsulosin HCl (Flomax) 0.4 mg PO DAILY [facility] Last Admin: 08/07/18 11:15 Dose: 0.4 mg Vitamin B Complex/Vit C/Folic Acid (Nephro-Agustina) 1 tab PO 0800 [facility] Last Admin: 02/11/19 08:59 Dose: 1 tab - Labs Labs: 08/07/18 06:00 08/07/18 06:00 PT 15.0 SECONDS (9.4-12.5) H 08/02/18 06:00 INR 1.33 08/02/18 06:00 APTT 33.8 Seconds (26.9-38.3) 08/02/18 06:00 - Constitutional Appears: Non-toxic, No Acute Distress - Head Exam Head Exam: ATRAUMATIC, NORMOCEPHALIC - Eye Exam Eye Exam: EOMI - ENT Exam ENT Exam: Mucous Membranes Moist - Neck Exam Neck Exam: Full ROM - Respiratory Exam Respiratory Exam: NORMAL BREATHING PATTERN. absent: Accessory Muscle Use, Respiratory Distress - GI/Abdominal Exam GI & Abdominal Exam: Soft. absent: Distended, Firm, Guarding, Rigid, Tenderness - Extremities Exam Extremities Exam: absent: Calf Tenderness - Neurological Exam Neurological Exam: Alert, Awake - Psychiatric Exam Psychiatric exam: Normal Affect, Normal Mood Assessment and Plan - Assessment and Plan (Free Text) Assessment: 68M w. KIM 2/2 obstructive uropathy, and anemia r/o GI bleed -f/u stool occult blood -c/w PPIs -trend h/h, transfuse prn for hgb >8 -will benefit from EGD when medically optimized -will continue to follow -d/w attending Lacie PGY4
--- NOTE | 2018-08-07 14:07 | CP.PCM.PN ---
Subjective - Date & Time of Evaluation Date of Evaluation: 08/07/18 Time of Evaluation: 14:06 - Subjective Subjective: Nephrology Consultation Note: Assessment: critical Acute Kidney Injury (N17.9) with uremia ? etiology (NSAIDs use, obs uropathy mild left hydro with calculus) started dialysis 08/01/18 Anemia (D64.9), Hyperphosphatemia (E83.39) hyperkalemia, vit D def, sec hyperparathyroidism HAGMA with respi compensation obesity ex smoker CKD 3 with baseline cr 2.2 in 2016 elevated troponins s/p left ureteral stent by Dr Payan 08/03/18 ? paraprotein Plan HD tomorrow pt was refusing permacath but after long discussion states he is ok with it on phos binder, nephrovite and weekly aransep. f/u gu + SIFE w/ + Lambda Light chain -SFLC normal - f/u heme onc work up bp stable lytes otherwsie stable s: feels ok no n/v Physical Examination: General Appearance: better appearing co-operative . Vitals reviewed and noted as below Head; Atraumatic, normocephalic ENT: no ulcers EYES: Eye muscles and extraocular movement intact. Sclera is anicteric. Neck; supple no jvd Lungs: normal respiratory rate/effort. Breath sounds bilateral equal and clear Heart: Increased rate. s1s2 normal. No rub or gallop. Extremities: no edema. No varicose veins. left hand swelling + Neurological: Patient is alert, awake and oriented to person, place and time. No focal deficit. Strength bilateral appropriate and equal Skin: Warm and dry. Normal turgor. Abdomen: Abdomen is soft. Bowel sounds +. There is no abdominal tenderness, no guarding/rigidity no organomegaly Psych: normal insight and normal affect/mood MSK: no joint tenderness or swelling. Objective - Vital Signs/Intake and Output Vital Signs (last 24 hours): Temp Pulse Resp BP Pulse Ox 98.1 F 85 18 110/65 94 L 08/07/18 12:00 08/07/18 12:00 08/07/18 12:00 08/07/18 12:00 08/07/18 00:01 Intake and Output: 08/07/18 08/07/18 06:59 18:59 Intake Total 960 Output Total 675 Balance 285 - Medications Medications: Current Medications Albuterol/Ipratropium (Duoneb 3 Mg/0.5 Mg (3 Ml) Ud) 3 ml IH Q2H PRN PRN Reason: Shortness of Breath Atorvastatin Calcium (Lipitor) 40 mg PO DIN [facility] Last Admin: 08/06/18 17:09 Dose: 40 mg Calcium Acetate (Phoslo) 2,001 mg PO WM [facility] Last Admin: 08/07/18 08:57 Dose: 2,001 mg Darbepoetin Ron (Aranesp) 100 mcg IVP QWK [facility] Last Admin: 08/01/18 13:50 Dose: 100 mcg Ergocalciferol (Drisdol 50,000 Intl Units Cap) 1 cap PO Q7D [facility] Last Admin: 08/02/18 17:47 Dose: 1 cap Metoprolol Succinate (Toprol Xl) 25 mg PO BRK [facility] Last Admin: 08/07/18 08:59 Dose: 25 mg Nystatin (Mycostatin Cream) 0 ea TOP TID [facility] Last Admin: 08/06/18 17:11 Dose: 1 applic Pantoprazole Sodium (Protonix Ec Tab) 40 mg PO 0600,1600 [facility] Last Admin: 08/07/18 05:08 Dose: 40 mg Tamsulosin HCl (Flomax) 0.4 mg PO DAILY [facility] Last Admin: 08/07/18 11:15 Dose: 0.4 mg Vitamin B Complex/Vit C/Folic Acid (Nephro-Agustina) 1 tab PO 0800 [facility] Last Admin: 08/07/18 08:59 Dose: 1 tab - Labs Labs: 08/07/18 06:00 08/07/18 06:00 PT 15.0 SECONDS (9.4-12.5) H 08/02/18 06:00 INR 1.33 08/02/18 06:00 APTT 33.8 Seconds (26.9-38.3) 08/02/18 06:00
--- NOTE | 2018-08-07 16:26 | CP.PCM.APN ---
Subjective - Date & Time of Evaluation Date of Evaluation: 08/07/18 Time of Evaluation: 12:15 - Subjective Subjective: Pt. seen sitting up in chair at bedside. no complaints. Objective - Vital Signs/Intake and Output Vital Signs (last 24 hours): Temp Pulse Resp BP Pulse Ox 98.1 F 85 18 110/65 94 L 08/07/18 12:00 08/07/18 12:00 08/07/18 12:00 08/07/18 12:00 08/07/18 00:01 Intake and Output: 08/07/18 08/07/18 06:59 18:59 Intake Total 960 Output Total 675 Balance 285 - Medications Medications: Current Medications Albuterol/Ipratropium (Duoneb 3 Mg/0.5 Mg (3 Ml) Ud) 3 ml IH Q2H PRN PRN Reason: Shortness of Breath Atorvastatin Calcium (Lipitor) 40 mg PO DIN [facility] Last Admin: 08/06/18 17:09 Dose: 40 mg Calcium Acetate (Phoslo) 2,001 mg PO WM [facility] Last Admin: 08/07/18 12:15 Dose: Not Given Darbepoetin Ron (Aranesp) 100 mcg IVP QWK [facility] Last Admin: 08/01/18 13:50 Dose: 100 mcg Ergocalciferol (Drisdol 50,000 Intl Units Cap) 1 cap PO Q7D [facility] Last Admin: 08/02/18 17:47 Dose: 1 cap Metoprolol Succinate (Toprol Xl) 25 mg PO BRK [facility] Last Admin: 08/07/18 08:59 Dose: 25 mg Nystatin (Mycostatin Cream) 0 ea TOP TID [facility] Last Admin: 08/07/18 11:00 Dose: Not Given Pantoprazole Sodium (Protonix Ec Tab) 40 mg PO 0600,1600 [facility] Last Admin: 08/07/18 05:08 Dose: 40 mg Tamsulosin HCl (Flomax) 0.4 mg PO DAILY [facility] Last Admin: 08/07/18 11:15 Dose: 0.4 mg Vitamin B Complex/Vit C/Folic Acid (Nephro-Agustina) 1 tab PO 0800 [facility] Last Admin: 08/07/18 08:59 Dose: 1 tab - Labs Labs: 08/07/18 06:00 08/07/18 06:00 PT 15.0 SECONDS (9.4-12.5) H 08/02/18 06:00 INR 1.33 08/02/18 06:00 APTT 33.8 Seconds (26.9-38.3) 08/02/18 06:00 - Constitutional Appears: Well, Non-toxic - Head Exam Head Exam: NORMOCEPHALIC - Eye Exam Eye Exam: Normal appearance - Neck Exam Neck Exam: Full ROM - Respiratory Exam Respiratory Exam: Clear to Ausculation Bilateral, NORMAL BREATHING PATTERN - Cardiovascular Exam Cardiovascular Exam: REGULAR RHYTHM, +S1, +S2 - GI/Abdominal Exam GI & Abdominal Exam: Soft, Normal Bowel Sounds - Rectal Exam Rectal Exam: Deferred - Extremities Exam Extremities Exam: Full ROM Additional comments: right leg with dressing noted to lower leg,+1 edema noted. - Neurological Exam Neurological Exam: Alert, Awake, Oriented x3 - Psychiatric Exam Psychiatric exam: Normal Affect, Normal Mood - Skin Skin Exam: Normal Color, Warm Assessment and Plan - Assessment and Plan (Free Text) Assessment: Assessment: 68-year-old man with a past medical history that includes osteoarthritis of hips, total hip replacement came to the emergency room with complaints of worsening dyspnea, and pedal edema. On evaluation he was found to leukocytosis and in acute renal failure. BUN 232, creatinine 18, WBC 23. He did report decrease urine output. He is reported to poor to follow up, admitted with sepsis, and acute renal failure, with ID and Renal consults in place, for further treatment. Plan: 1. Sepsis - SIRS r/t ARF as per I.D, antibiotics per I.D, UA pos, urine culture pending. Leukocytosis improving, WBC 23 on admit, today 16, Antibx as per I.D, trend Wbc. 2. UTI Urine culture resulted neg, repeat blood cx neg. -Antibx now off per I.D. 3. ARF Most likely r/t dehydration, vs.recent NSAID use, vs. obstructive, with obstructing ureter stone on imaging. NA bicarb gtt stopped and HD as per nephro, trend Bun/Creatinine -Monitor Is Os.,for Perma cath insertion 4. left sided Hydronephrosis -most likely r/t obstructing left ureter stone,s/p cystogram, left ureter stent placement. 5. Anemia -? Anemia, secondary to kidney disease monitor h/h, transfused 2 units PRBCs. R/o GI source, Stool O.B pending, no GI workup recommended. 6. Elevated Trop Card. consulted, manage conservatively, no cath at present. 7. Fluid overload, w.elevated BNP, Likely secondary to acute kidney failure Monitor I's O.s, dialysis as per nephro Will continue to monitor clinical status and follow clinically. Will d/w consultants and PMD. -
[2018-08-08] MEDS: Pantoprazole 40 mg EC Tab PO SCH ×2 (05:28→17:59)
[2018-08-08 06:01] LABS: BASO # 0.01 K/mm3 (0.0-2.0); BASO % 0.1 % (0.0-3.0); EOS # 0.6 (0.0-0.7); EOS % 3.5 % (1.5-5.0); HEMOGLOBIN 7.8 g/dL (14.0-18.0); LYMPH # 1.5 (1.2-3.4); LYMPH % 8.7 % (22.0-35.0); MEAN CELL VOLUME 85.5 fl (80.0-105.0); MEAN CORPUSCULAR HEMOGLOBIN 28.4 pg (25.0-35.0); MEAN CORPUSCULAR HGB CONC 33.2 g/dl (31.0-37.0); MEAN PLATELET VOLUME 10.1 fl (7.0-11.0); MONO # 1.3 (0.1-0.6); MONO % 7.6 % (1.0-6.0); RBC 2.75 10^6/uL (3.5-6.1); RED CELL DISTRIBUTION WIDTH 13.3 % (11.5-14.5); WHITE BLOOD COUNT 16.6 10^3/uL (4.5-11.0)
[2018-08-08 06:17] LABS: IRON 22 ug/dL (45-180)
[2018-08-08 06:27] LABS: % IRON SATURATION 13 % (20-55); TOTAL IRON BINDING CAPACITY 176 ug/dL (261-462)
[2018-08-08 06:43] LABS: ALBUMIN 3.1 g/dL (3.0-4.8); CALCIUM 7.5 mg/dL (8.4-10.5)
[2018-08-08] MEDS ORDERED: Lidocaine 2% Inj (20ml) ONE (07:53)
[2018-08-08] MEDS ORDERED: Iodixanol 320 MG/ML 100 ML BOTTLE IV ONE (07:53)
[2018-08-08] MEDS ORDERED: Midazolam 2 MG/2 ML VIAL ONE (08:59)
--- NOTE | 2018-08-08 08:59 | PN ---
DATE: 08/08/2018 SUBJECTIVE: He is comfortable in bed, in no acute distress. No fever. No cough with expectoration. Currently, undergoing hemodialysis. Hemoglobin declined to 7.8. Repeat iron studies showed low iron of 22 and iron saturation 13%. REVIEW OF SYSTEMS: As per HPI. Rest of 12-point review of systems reviewed and negative. PHYSICAL EXAMINATION GENERAL: Comfortable in bed, in no acute distress. VITAL SIGNS: Temperature 97.8, heart rate 82 per minute, blood pressure 130/80, respiratory rate 18 per minute and oxygen saturation 95% on room air. HEENT: No lymphadenopathy. CHEST: Air entry present and equal bilaterally. No added sound. CARDIOVASCULAR: S1 and S2 normal. No murmur. No gallop. ABDOMEN: Soft and nontender. No hepatosplenomegaly. EXTREMITY: Bilateral trace edema. NEUROLOGIC: Alert and oriented x3. No focal, sensory or motor deficit. LABORATORY DATA: Sodium 135, potassium 3.7, creatinine 9.8, calcium 7.5, iron 22, and iron saturation 13%. White count 16.6, hemoglobin 7.8, hematocrit 23.5 and platelets 227. MEDICATIONS: Calcium, PhosLo, metoprolol 25 mg daily, nystatin, Protonix, Flomax 0.4 mg daily, B complex and DuoNeb. ASSESSMENT AND PLAN: 1. acute on chronic kidney disease. Currently on hemodialysis. 2. 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 3. Anemia, multifactorial related to chronic kidney disease, iron deficiency. We will recommend 100 mg IV iron daily for 3 days. If hemoglobin does not improve PRBC transfusion as indicated. Thank you Dr. Quintana for allowing us to participate in Mr. Dorsey's care. Jerilyn Sim MD MTDDidi
--- NOTE | 2018-08-08 09:20 | PN ---
SUBJECTIVE: The patient was seen and examined at bedside on the telemetry carranza. No acute events overnight. He remains afebrile and hemodynamically stable. He is tolerating hemodialysis and is scheduled for PermCath placement today. PHYSICAL EXAMINATION VITAL SIGNS: Temperature 98.3, pulse 73, blood pressure 125/68, respiratory rate 19, oxygen saturation 96% on room air. GENERAL: Obese man, lying in bed, in no apparent distress. HEENT: PERRL, EOMI. No scleral icterus. Conjunctival pallor is noted. NECK: No JVD. Right IJ in place with site appearing clean, dry and intact. LUNGS: Decreased breath sounds at the bases. CARDIOVASCULAR: Regular rate and rhythm. Normal S1, S2. Grade II/ murmur to LLSB. ABDOMEN: Normoactive bowel sounds, soft, nontender, nondistended. EXTREMITIES: No edema. NEUROLOGIC: Awake, alert and oriented x 3. No focal motor deficits. LABORATORY DATA: WBC 16.6 with 80% neutrophils, hemoglobin 7.8, hematocrit 24, platelets 227. Sodium 135, potassium 3.7, chloride 98, bicarb 23, BUN 115, creatinine 9.8, glucose 126. Stool occult blood negative. Blood cultures negative. Urine culture negative. ASSESSMENT: The patient is a 68-year-old man who was initially admitted to the ICU for management of KIM on CKD stage III, anion gap metabolic acidosis and SIRS syndrome who is now s/p transfer to the telemetry carranza. PLAN: 1. KIM and CKD stage III, consider etiology secondary to obstructive uropathy vs chronic NSAID use. Input from Dr. De La Cruz noted. The patient is scheduled for PermCath placement today to facilitate continued hemodialysis. Continue with care as per Nephrology. 2. 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 Input from Dr. Sim noted. Continue with care as per Dr. Sim. 3. Elevated troponin, consider secondary to impaired renal clearance, less likely NSTEMI. Input from Dr. Craft noted. Continue with conservative medical management. The patient will eventually require stress testing. 4. Normocytic anemia s/p transfusion of 2 units of PRBCs. Anemia workup is ongoing and the patient will likely require EGD and/or colonoscopy. Continue Protonix 40 mg p.o. b.i.d. 5. Obstructive nephrolithiasis s/p ureteral stent placement. Continue Flomax 0.4 mg p.o. daily. Continue with care as per Dr. Payan. 6. Anion gap metabolic acidosis, resolved. 7. SIRS syndrome, resolved. The patient remains off antimicrobials with negative cultures. 8. Elevated BNP, etiology likely secondary to underlying renal dysfunction. TTE demonstrates no wall motion abnormality or valvular dysfunction. 9. Prophylaxis. Continue Protonix for GI prophylaxis and Heparin for DVT prophylaxis. CODE STATUS: Full code. Scout Quintana MD MTDD
--- NOTE | 2018-08-08 14:01 | PN ---
DATE: 08/08/2018 TIME: 9.36 a.m. I placed a tunneled dialysis catheter via right IJ approach without complication. Ultrasound revealed small amount of adherent nonocclusive thrombus, presumably from the prior catheter. Once the patient's GI bleeding issue has been evaluated and stabilized, I would like the patient on low dose anticoagulation for approximately 3 months to prevent any additional propagation in the right internal jugular vein. Consider Eliquis 2.5 mg every day. Nate Beckham MD
--- NOTE | 2018-08-08 14:23 | CP.PCM.PN ---
Subjective - Date & Time of Evaluation Date of Evaluation: 08/08/18 Time of Evaluation: 08:45 - Subjective Subjective: Patient for dialysis catheter placement today, no fevers. Objective - Vital Signs/Intake and Output Vital Signs (last 24 hours): Temp Pulse Resp BP Pulse Ox 98.1 F 85 18 110/65 94 L 08/07/18 12:00 08/07/18 12:00 08/07/18 12:00 08/07/18 12:00 08/07/18 00:01 Intake and Output: 08/07/18 08/07/18 06:59 18:59 Intake Total 960 Output Total 675 Balance 285 - Medications Medications: Current Medications Albuterol/Ipratropium (Duoneb 3 Mg/0.5 Mg (3 Ml) Ud) 3 ml IH Q2H PRN PRN Reason: Shortness of Breath Atorvastatin Calcium (Lipitor) 40 mg PO DIN [facility] Last Admin: 08/06/18 17:09 Dose: 40 mg Calcium Acetate (Phoslo) 2,001 mg PO WM [facility] Last Admin: 08/07/18 08:57 Dose: 2,001 mg Darbepoetin Ron (Aranesp) 100 mcg IVP QWK [facility] Last Admin: 08/01/18 13:50 Dose: 100 mcg Ergocalciferol (Drisdol 50,000 Intl Units Cap) 1 cap PO Q7D [facility] Last Admin: 08/02/18 17:47 Dose: 1 cap Metoprolol Succinate (Toprol Xl) 25 mg PO BRK [facility] Last Admin: 08/07/18 08:59 Dose: 25 mg Nystatin (Mycostatin Cream) 0 ea TOP TID [facility] Last Admin: 08/06/18 17:11 Dose: 1 applic Pantoprazole Sodium (Protonix Ec Tab) 40 mg PO 0600,1600 [facility] Last Admin: 08/07/18 05:08 Dose: 40 mg Tamsulosin HCl (Flomax) 0.4 mg PO DAILY [facility] Last Admin: 08/07/18 11:15 Dose: 0.4 mg Vitamin B Complex/Vit C/Folic Acid (Nephro-Agustina) 1 tab PO 0800 [facility] Last Admin: 08/07/18 08:59 Dose: 1 tab - Labs Labs: 08/07/18 06:00 08/07/18 06:00 PT 15.0 SECONDS (9.4-12.5) H 08/02/18 06:00 INR 1.33 08/02/18 06:00 APTT 33.8 Seconds (26.9-38.3) 08/02/18 06:00 - Constitutional Appears: Chronically Ill - Head Exam Head Exam: NORMAL INSPECTION - Respiratory Exam Respiratory Exam: Decreased Breath Sounds - Cardiovascular Exam Cardiovascular Exam: +S1, +S2 - GI/Abdominal Exam GI & Abdominal Exam: Soft. absent: Tenderness Assessment and Plan - Assessment and Plan (Free Text) Plan: Assessment Systemic inflammatory response syndrome, probably due to acute renal failure from left sided obstructive uropathy S/P left ureteral stent placement R/O acute coronary syndrome in this patient presenting with dehydration and metabolic acidosis, no evidence of sepsis or infection identified - patient now with need for chronic hemodialysis arthritis chronic right leg rash S/P hip surgery Plan cultures and repeat cultures have been negative - will continue to monitor off antibiotics since he is at risk for healthcare-associated infections and will continue to trend WBC count
--- NOTE | 2018-08-08 14:36 | CP.PCM.PCO ---
Physician Communication Note - Physician Communication Note Physician Communication Note: Pt.s/p permacath inserted,hD today,hgb7.8,plan dc 08/09,if H/H stable tomm
[2018-08-08] MEDS: Nystatin 100,000 Units/gm Cream(15 gm) TOP SCH ×4 (14:38→18:03)
[2018-08-08] MEDS: Multivitamin Vitamin B Complex (Nephro-Vite) Tab PO SCH (15:01)
[2018-08-08] MEDS: Metoprolol Succinate 25 mg XL Tab PO SCH (15:11)
--- NOTE | 2018-08-08 20:37 | VASCULAR ---
PROCEDURE: Ultrasound and fluoroscopic tunneled right IJ dialysis catheter. CLINICAL HISTORY: ESRD PHYSICIAN(S): Nate Beckham M.D. TECHNIQUE: The relative risks and indications for the procedure were explained to the patient and informed written consent obtained. The patient was placed supine on the arteriography table and the right neck/chest was prepped and draped in the usual sterile fashion. 1% Xylocaine was used to anesthetize the skin and soft tissues at the puncture site. Conscious sedation and monitoring were provided throughout the procedure by a nurse. Under direct ultrasound guidance, the rightinternal jugular vein was punctured with a micropuncture set. A 0.035 Glidewire was advanced into the IVC. Sequential dilatation was performed with subsequent placement of a 28cm Nextgen catheter with its tip in the right atrium. A retrograde tunnel below the right clavicle was performed. The catheter was trimmed and the hub attached. Both ports aspirate and inject easily. The catheter was secured and a dressing applied. The patient tolerated the procedure well. IMPRESSION: 1. Ultrasound and fluoroscopically placed right IJ tunneled dialysis catheter. 2. There is a small amount of adherent thrombus in the right internal jugular vein, presumably related to the prior catheter. The patient should be placed on low-dose anticoagulation for 3-6 months
[2018-08-09] MEDS: Pantoprazole 40 mg EC Tab PO SCH ×2 (05:43→18:09)
[2018-08-09 06:11] VITALS: TEMP 98.1; O2SAT 100
[2018-08-09 06:19] LABS: BASO # 0.01 K/mm3 (0.0-2.0); BASO % 0.1 % (0.0-3.0); EOS # 0.6 (0.0-0.7); EOS % 4.8 % (1.5-5.0); HEMOGLOBIN 8.1 g/dL (14.0-18.0); LYMPH # 0.9 (1.2-3.4); LYMPH % 7.8 % (22.0-35.0); MEAN CELL VOLUME 86.9 fl (80.0-105.0); MEAN CORPUSCULAR HEMOGLOBIN 27.9 pg (25.0-35.0); MEAN CORPUSCULAR HGB CONC 32.1 g/dl (31.0-37.0); MONO # 1.4 (0.1-0.6); MONO % 11.9 % (1.0-6.0); RBC 2.9 10^6/uL (3.5-6.1); RED CELL DISTRIBUTION WIDTH 13.4 % (11.5-14.5); WHITE BLOOD COUNT 11.7 10^3/uL (4.5-11.0)
[2018-08-09 07:32] LABS: ALBUMIN 3.1 g/dL (3.0-4.8); CALCIUM 7.8 mg/dL (8.4-10.5)
--- NOTE | 2018-08-09 09:19 | PN ---
SUBJECTIVE: The patient was seen and examined at bedside on the general medical carranza. No acute events overnight. He remains afebrile, hemodynamically stable and tolerated his PermCath placement without difficulty. The patient has also been accepted to subacute rehab at [facility] and is medically cleared for discharge. OBJECTIVE: VITAL SIGNS: Temperature 98.1, pulse 86, blood pressure 106/63, respiratory rate 19, oxygen saturation 100% on room air. GENERAL: Obese man lying in bed in no apparent distress. HEENT: PERRL, EOMI. No scleral icterus. Conjunctival pallor is noted. NECK: No JVD. LUNGS: Clear to auscultation. CARDIOVASCULAR: Regular rate and rhythm. Normal S1, S2. Grade II/ murmur to LLSB. ABDOMEN: Normoactive bowel sounds, soft, nontender, nondistended. EXTREMITIES: No edema. NEUROLOGIC: Awake, alert and oriented x 3. No focal motor deficits. LABORATORY DATA: WBC 11.7 with 75% neutrophils, hemoglobin 8, hematocrit 25, platelets 220. Sodium 137, potassium 4.4, chloride 99, bicarb 28, BUN 70, creatinine 6.5, glucose 101. ASSESSMENT: The patient is a 68-year-old man who was initially admitted to ICU for management of KIM on CKD stage III, anion gap metabolic acidosis and SIRS syndrome. PLAN: 1. KIM on CKD stage III, consider secondary to obstructive uropathy vs chronic NSAID use, stable. Input from Dr. De La Cruz noted. The patient is s/p PermCath placement and is tolerating hemodialysis on a Tuesday//Tuesday schedule. 2. 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 Input from Dr. Sim noted. Continue with care as per Dr. Sim. 3. Elevated troponin, consider secondary to impaired renal clearance, less likely NSTEMI. The patient remains chest pain free. Input from Dr. Craft noted. Continue with medical management. He will eventually require stress testing. 4. Anemia of chronic disease. H/H remained stable. 5. Obstructive nephrolithiasis s/p ureteral stent placement. Continue Flomax 0.4 mg p.o. daily. 6. Anion gap metabolic acidosis, resolved. 7. SIRS syndrome, resolved. 8. Elevated BNP, likely secondary to underlying renal dysfunction. TTE demonstrated no wall motion abnormality or valvular dysfunction. 9. Prophylaxis. Continue Protonix for GI prophylaxis and Heparin for DVT prophylaxis. CODE STATUS: Full code. Scout Quintana MD ANGELY
[2018-08-09] MEDS: Metoprolol Succinate 25 mg XL Tab PO SCH (09:36)
[2018-08-09] MEDS: Multivitamin Vitamin B Complex (Nephro-Vite) Tab PO SCH (09:36)
[2018-08-09] MEDS: Nystatin 100,000 Units/gm Cream(15 gm) TOP SCH ×3 (09:37→18:10)
[2018-08-09] MEDS ORDERED: Darbepoetin Alfa 100 mcg/ml Inj SC SCH (10:00)
[2018-08-09] MEDS ORDERED: Aspirin 325 mg EC Tablets PO SCH (12:15)
--- NOTE | 2018-08-09 12:32 | CP.PCM.PN ---
Subjective - Date & Time of Evaluation Date of Evaluation: 08/09/18 Time of Evaluation: 09:45 - Subjective Subjective: Comfortable in bed, afebrile. Objective - Vital Signs/Intake and Output Vital Signs (last 24 hours): Temp Pulse Resp BP Pulse Ox 98 F 70 14 105/59 L 96 08/08/18 10:00 08/08/18 10:00 08/08/18 10:00 08/08/18 10:00 08/08/18 10:00 Intake and Output: 08/08/18 08/08/18 06:59 18:59 Intake Total 1320 Output Total 850 Balance 470 - Medications Medications: Current Medications Albuterol/Ipratropium (Duoneb 3 Mg/0.5 Mg (3 Ml) Ud) 3 ml IH Q2H PRN PRN Reason: Shortness of Breath Atorvastatin Calcium (Lipitor) 40 mg PO DIN [facility] Last Admin: 08/07/18 18:16 Dose: 40 mg Calcium Acetate (Phoslo) 2,001 mg PO WM [facility] Last Admin: 08/07/18 18:16 Dose: 2,001 mg Darbepoetin Ron (Aranesp) 100 mcg SC WED [facility] Ergocalciferol (Drisdol 50,000 Intl Units Cap) 1 cap PO Q7D [facility] Last Admin: 08/02/18 17:47 Dose: 1 cap Iron Sucrose 100 mg/ Sodium (Chloride) 105 mls @ 210 mls/hr IVPB DAILY [facility] Stop: 08/11/18 10:00 Metoprolol Succinate (Toprol Xl) 25 mg PO BRK [facility] Last Admin: 08/07/18 08:59 Dose: 25 mg Nystatin (Mycostatin Cream) 0 ea TOP TID [facility] Last Admin: 08/07/18 18:17 Dose: Not Given Pantoprazole Sodium (Protonix Ec Tab) 40 mg PO 0600,1600 [facility] Last Admin: 08/08/18 05:28 Dose: Not Given Tamsulosin HCl (Flomax) 0.4 mg PO DAILY [facility] Last Admin: 08/07/18 11:15 Dose: 0.4 mg Vitamin B Complex/Vit C/Folic Acid (Nephro-Agustina) 1 tab PO 0800 [facility] Last Admin: 08/07/18 08:59 Dose: 1 tab - Labs Labs: 08/08/18 05:30 08/08/18 05:30 PT 15.0 SECONDS (9.4-12.5) H 08/02/18 06:00 INR 1.33 08/02/18 06:00 APTT 33.8 Seconds (26.9-38.3) 08/02/18 06:00 - Constitutional Appears: Non-toxic, Chronically Ill - Head Exam Head Exam: NORMAL INSPECTION - Respiratory Exam Respiratory Exam: Decreased Breath Sounds - Cardiovascular Exam Cardiovascular Exam: +S1, +S2 - GI/Abdominal Exam GI & Abdominal Exam: Soft. absent: Tenderness Assessment and Plan - Assessment and Plan (Free Text) Plan: Assessment S/P systemic inflammatory response syndrome, probably due to acute renal failure from left sided obstructive uropathy S/P left ureteral stent placement R/O acute coronary syndrome in this patient presenting with dehydration and metabolic acidosis, no evidence of sepsis or infection identified - patient now with need for chronic hemodialysis arthritis chronic right leg rash S/P hip surgery Plan cultures and repeat cultures have been negative - will continue to monitor off antibiotics since he is at risk for nosocomial infections and will continue to trend WBC count (continues to trend downward)
[2018-08-09 12:39] VITALS: BP 102/65; PULSE 90; RESP 18
[2018-08-09] MEDS: Ergocalciferol 50,000 Intl Units Cap PO SCH (14:06)
--- NOTE | 2018-08-09 20:48 | CP.PCM.PN ---
Subjective - Date & Time of Evaluation Date of Evaluation: 08/09/18 Time of Evaluation: 11:00 - Subjective Subjective: Nephrology Consultation Note: Assessment: Acute Kidney Injury (N17.9) with uremia ? etiology (NSAIDs use, obs uropathy mild left hydro with calculus) started dialysis 08/01/18 Anemia (D64.9), Hyperphosphatemia (E83.39) hyperkalemia, vit D def, sec hyperparathyroidism HAGMA with respi compensation obesity ex smoker CKD 3 with baseline cr 2.2 in 2016 elevated troponins s/p left ureteral stent by Dr Payan 08/03/18 ? paraprotein Plan HD TTS schedule, permacath placed lytes reviewed on phos binder, nephrovite and weekly aransep. + SIFE w/ + Lambda Light chain -SFLC normal - f/u heme onc work up bp stable lytes otherwsie stable for discharge to [facility] with hd there, wants to be switched to [place] [facility] after being discharged from the [facility]hab [facility]- per gu, can attempt voiding trial Physical Examination: General Appearance: better appearing co-operative . Vitals reviewed and noted as below Head; Atraumatic, normocephalic ENT: no ulcers EYES: Eye muscles and extraocular movement intact. Sclera is anicteric. Neck; supple no jvd Lungs: normal respiratory rate/effort. Breath sounds bilateral equal and clear Heart: Increased rate. s1s2 normal. No rub or gallop. Extremities: no edema. No varicose veins. left hand swelling + Neurological: Patient is alert, awake and oriented to person, place and time. No focal deficit. Strength bilateral appropriate and equal Skin: Warm and dry. Normal turgor. Abdomen: Abdomen is soft. Bowel sounds +. There is no abdominal tenderness, no guarding/rigidity no organomegaly Psych: normal insight and normal affect/mood Objective - Vital Signs/Intake and Output Vital Signs (last 24 hours): Temp Pulse Resp BP Pulse Ox 98.1 F 90 18 102/65 100 08/09/18 12:00 08/09/18 12:00 08/09/18 12:00 08/09/18 12:00 08/09/18 06:00 Intake and Output: 08/09/18 08/10/18 18:59 06:59 Intake Total 860 Balance 860 - Labs Labs: 08/09/18 05:30 08/09/18 05:30 PT 15.0 SECONDS (9.4-12.5) H 08/02/18 06:00 INR 1.33 08/02/18 06:00 APTT 33.8 Seconds (26.9-38.3) 08/02/18 06:00
== END 2018-08-09 20:01 | DRG 659 ==
LOC: ED 13:59 → ERH 16:02 → ICU 19:33 → 2RNO 08-04 22:16
PROVIDERS: ADMIT Internal Medicine; ATTEND Internal Medicine
PROC: 05HM33Z Insertion of Infusion Device into Right Internal Jugular Vein, Percutaneous Approach (ICD-10-PCS; 2018-08-01)
PROC: 5A1D70Z Performance of Urinary Filtration, Intermittent, Less than 6 Hours Per Day (ICD-10-PCS; 2018-08-01)
PROC: 5A1D70Z Performance of Urinary Filtration, Intermittent, Less than 6 Hours Per Day (ICD-10-PCS; 2018-08-02)
PROC: 30233N1 Transfusion of Nonautologous Red Blood Cells into Peripheral Vein, Percutaneous Approach (ICD-10-PCS; 2018-08-02)
PROC: 0T9B80Z Drainage of Bladder with Drainage Device, Via Natural or Artificial Opening Endoscopic (ICD-10-PCS; 2018-08-03)
PROC: BT141ZZ Fluoroscopy of Kidneys, Ureters and Bladder using Low Osmolar Contrast (ICD-10-PCS; 2018-08-03)
PROC: 5A1D70Z Performance of Urinary Filtration, Intermittent, Less than 6 Hours Per Day (ICD-10-PCS; 2018-08-03)
PROC: 0T778DZ Dilation of Left Ureter with Intraluminal Device, Via Natural or Artificial Opening Endoscopic (ICD-10-PCS; principal; 2018-08-03 12:30)
PROC: 5A1D70Z Performance of Urinary Filtration, Intermittent, Less than 6 Hours Per Day (ICD-10-PCS; 2018-08-05)
PROC: 0JH63XZ Insertion of Tunneled Vascular Access Device into Chest Subcutaneous Tissue and Fascia, Percutaneous Approach (ICD-10-PCS; 2018-08-08)
PROC: 02H633Z Insertion of Infusion Device into Right Atrium, Percutaneous Approach (ICD-10-PCS; 2018-08-08)
PROC: B543ZZA Ultrasonography of Right Jugular Veins, Guidance (ICD-10-PCS; 2018-08-08)
PROC: 5A1D70Z Performance of Urinary Filtration, Intermittent, Less than 6 Hours Per Day (ICD-10-PCS; 2018-08-08)
DX: N17.0 Acute kidney failure with tubular necrosis (principal); I50.33 Acute on chronic diastolic (congestive) heart failure; I13.0 Hypertensive heart and chronic kidney disease with heart failure and stage 1 through stage 4 chronic kidney disease, or unspecified chronic kidney disease; R65.10 Systemic inflammatory response syndrome (SIRS) of non-infectious origin without acute organ dysfunction; N18.3 Chronic kidney disease, stage 3 (moderate); E87.4 Mixed disorder of acid-base balance; N25.81 Secondary hyperparathyroidism of renal origin; N13.2 Hydronephrosis with renal and ureteral calculous obstruction; R09.02 Hypoxemia; I44.0 Atrioventricular block, first degree; E86.0 Dehydration; E87.5 Hyperkalemia; E83.39 Other disorders of phosphorus metabolism; D50.9 Iron deficiency anemia, unspecified; D63.1 Anemia in chronic kidney disease; E55.9 Vitamin D deficiency, unspecified; E87.6 Hypokalemia; D47.2 Monoclonal gammopathy; E66.9 Obesity, unspecified; Z96.643 Presence of artificial hip joint, bilateral; M16.0 Bilateral primary osteoarthritis of hip; Z68.35 Body mass index [BMI] 35.0-35.9, adult; Z99.2 Dependence on renal dialysis; Z87.891 Personal history of nicotine dependence

== ENCOUNTER 2018-09-29 10:16 | Outpatient (CLI) | payer MEDICARE, BC | END 2018-09-29 10:17 | disposition home or self-care (01) | LOC: PAT 10:16 ==

== ENCOUNTER 2018-10-05 12:11 | Day surgery (SDC) | payer MEDICARE, BC ==
[2018-10-05] MEDS ORDERED: Iohexol 240 (50 ml) ONE (12:36)
[2018-10-05] MEDS ORDERED: cefTRIAXone (Rocephin) 1 gm Inj ONE (12:36)
[2018-10-05] MEDS ORDERED: Propofol 10 mg/ml Inj (20 ML) ONE (12:45)
[2018-10-05] MEDS ORDERED: Lidocaine PF 2% (5 ml) Inj (For Cardiac Arrhy) ONE (12:46)
[2018-10-05] MEDS ORDERED: cefTRIAXone 1 GM in D5W 100 ML BAG IVPB ONE (12:50)
[2018-10-05 12:57] VITALS: BMI 33.2
[2018-10-05] MEDS ORDERED: HYDROmorphone 0.5 mg/0.5 ml ISec IVP PRN (13:49)
[2018-10-05] MEDS ORDERED: Lactated Ringer's 1,000 ML IV SCH (14:00)
[2018-10-05 14:55] VITALS: TEMP 97.4
--- NOTE | 2018-10-05 15:06 | RAD ---
Date of service: 10/05/2018 PROCEDURE: Retrograde pyelogram HISTORY: R/O OBSTRUCTION COMPARISON: TECHNIQUE: 56.2 sec of fluoro time. Cumulative dose 18.07 mGy. 18 images submitted FINDINGS: Study shows removal of a left ureteral stent. There are no filling defects demonstrated IMPRESSION: As above
[2018-10-05 15:39] VITALS: BP 103/70; PULSE 70; RESP 16; O2SAT 99
--- NOTE | 2018-10-06 08:26 | OP ---
PROCEDURE DATE: 10/05/2018 PREOPERATIVE DIAGNOSES: Chronic kidney disease and left ureteral calculus. POSTOPERATIVE DIAGNOSES: Chronic kidney disease and left ureteral calculus. PROCEDURES PERFORMED: Cystoscopy, removal of left ureteral stent, left ureteroscopy, laser lithotripsy and basket extraction of left ureteral calculus, left retrograde pyelogram. ATTENDING SURGEON: Elliot Payan MD ANESTHESIA: General. SPECIMENS: Fragments of the ureteral stone was sent to pathology. DRAINS: There were none. COMPLICATIONS: There were none. DESCRIPTION OF PROCEDURE: After informed consent was obtained the patient was taken to operating room and placed on the operating table. Anesthesia was administered. The patient was then placed in the dorsal lithotomy position and prepped and draped in the usual sterile fashion. The patient received IV antibiotics prior to start of the procedure. A #22-English cystoscope was placed in the patient's urethra and advanced proximally under direct vision until the bladder was entered. A full-survey inspection of the bladder was then performed, which revealed no tumors or foreign bodies. There are diffuse tiny calculi noted floating in the bladder. There was a stent noted exiting from the left ureteral orifice. The right ureteral orifice appeared within normal limits. On fluoroscopy, no specific calcification was noted alongside the stent. At this point a grasping forceps was passed through the cystoscope. The stent was grasped on its end and withdrawn through the urethral meatus. The stent uncoiled without difficulty. It was then removed from the patient and from the operative field. The cystoscope was then re-passed and at this point, a #5-English [place] catheter was introduced and guided into the left ureteral orifice. A left retrograde pyelogram was then performed by instilling contrast into the left ureter during real time fluoroscopy. There appeared to be a filling defect consistent with a calculus in the upper portion of the lower ureter. Contrast did bypass the stone and was noted to travel up to the kidney. At this point, a sensor wire was obtained. The sensor wire was then passed through the open-ended ureteral catheter. It was passed beyond the calculus and guided up the ureter under fluoroscopic guidance until it coiled in the upper collecting system. At this point, the bladder was then drained, the cystoscope was removed while leaving the wire in place. An #8-English semi-rigid ureteroscope was then obtained. It was passed under direct vision into the bladder and guided into the left ureteral orifice. When inside the orifice, the scope was then advanced proximally under direct vision. In the upper portion of the lower ureter, a large yellow calculus was encountered. At this point using a holmium laser, the stone was then fragmented using the dusting settings. The laser fragmented the stone into multiple small pieces without difficulty. Some of the pieces were traveling more proximally and the scope was then able to be advanced more proximally. All the larger fragment of stones were fragmented until no piece appeared greater than 1 mm in size. At this point, the ureteroscope was advanced more proximally into the mid and upper ureter until the level of the renal pelvis was visualized. There were no other stones or abnormalities noted. At this point, the urethroscope was withdrawn under direct vision. In the distal ureter, there were multiple fragments of stone. At this point a 0-tip nitinol basket was passed. The laser was removed and using the basket, a few of the larger fragments were grasped and withdrawn from the patient. Few of the fragments were sent to pathology for analysis. On the final pass, there were no sizable fragments noted. There was some debris and stone dust noted and at this point ureteroscopy was complete, the ureteroscope was removed, the cystoscope was re-passed while backloading the guidewire and the Poll[place] catheter was then introduced again into the ureter under direct guidance and the guidewire was removed. Contrast was then instilled into the system through the Pollack catheter. There were no other filling defects noted on delayed views. Contrast was noted to be exiting from the kidney down the ureter with no evidence of obstruction. At this point the procedure was completed, the bladder was drained and the cystoscope was removed. The patient tolerated the procedure well. He was returned to the supine position and taken to the recovery room awake and stable condition. Elliot Payan MD
== END 2018-10-05 15:40 | disposition home or self-care (01) ==
LOC: SDS 12:11
PROVIDERS: ATTEND Urology
DX: N20.0 Calculus of kidney (principal); N20.1 Calculus of ureter; N18.9 Chronic kidney disease, unspecified; E66.9 Obesity, unspecified; G62.9 Polyneuropathy, unspecified; Z96.643 Presence of artificial hip joint, bilateral; Z68.30 Body mass index [BMI] 30.0-30.9, adult
CPT/HCPCS: 52356; 74420; J0696 ×2; J1170; J2405; J2704; J2765; J3010; J7120; Q9966

== ENCOUNTER → 2018-10-17 | Day surgery (SDC) | payer MEDICARE, BC | LOC: SDS 13:03 ==